=== PATIENT | female | born 1950 | race Caucasian/White ===

== ENCOUNTER 2016-03-26 10:46 | Outpatient (RCR) | payer MEDICARE, OTHER ==
--- OUTSIDE RECORDS SUMMARY | 2016-01-30 09:57 | XMS REPORT | Continuity of Care Document ---
Author Author [facility] Organization [facility] Address Unknown Phone Unavailable Care Team Providers Care Manager Quality Improvement Name Role Phone Christopher Isidro PCP [phone] Source Comments Some departments are not documenting in the electronic medical record. If you do not see the information that you expected, contact Release of Information in the Health Information Management department at [phone] for further assistance in locating additional records.[facility] Active Allergies and Adverse Reactions Allergen Noted Date Severity Reactions Comments Toradol 12/23/2010 Medium ITCHING Current Medications Prescription Sig. Disp. Refills Start End Date Status Date paroxetine (PAXIL) 20 mg Take 20 mg by mouth Active PO tablet daily. cyanocobalamin(+) Take 500 mcg by mouth Active (VITAMIN B-12) 500 mcg daily. tablet omeprazole DR(+) Take 20 mg by mouth every Active (PRILOSEC) 20 mg capsule morning. lovastatin(+) (MEVACOR) Take 10 mg by mouth at Active 10 mg tablet bedtime daily. levothyroxine (SYNTHROID) Take 50 mcg by mouth Active 50 mcg tablet daily. Fish Oil-[place]-3 Fatty Take 1 Cap by mouth Active Acids (FISH OIL) daily. 360-1,200 mg cap senna/docusate Take 2 Tabs by mouth 50 Tab 0 01/05/20 Active (SENOKOT-S) 8.6/50 mg twice daily. 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 Aiken is a 60 year old woman who developed anemia and abdominal pain. She was found to have an obstructing lesion in her sigmoid colon by colonoscopy done 07/25/10, adenocarcinoma by biopsy, and her liver was normal on a CT done 07/24/10, even retrospectively. 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 PET scan on August 26 surprisingly showed a single lesion in the right liver lobe, which was adenocarcinoma on percutaneous biopsy (09/04). She was started on Folfox and Avastin for four cycles and then Folfox alone for two cycles. The last cycle was this past Wednesday. Her CEA was never elevated. A follow-up PET done on 10/30/10 was reported to show resolution of the previously noted hypermetabolic lesion. She came in today to be set up for surgery. Cancer of sigmoid colon (HCC) 07/25/2010 Overview: Ms. Aiken is a 60 year old woman who developed anemia and abdominal pain. She was found to have an obstructing lesion in her sigmoid colon by colonoscopy done 07/25/10, adenocarcinoma by biopsy, and her liver was normal on a CT done 07/24/10, even retrospectively. 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 PET scan on August 26 surprisingly showed a single lesion in the right liver lobe, which was adenocarcinoma on percutaneous biopsy (09/04). Social History Tobacco Use Types Packs/Day Years Used Date Never Smoker Smokeless Tobacco: Never Used Alcohol Use Drinks/Week oz/Week Comments No Did used to have a beer now and then Last Filed Vital Signs Vital Sign Reading Time Taken Blood Pressure 122/78 01/18/2014 10:27 AM CDT Pulse 84 01/18/2014 10:27 AM CDT Temperature 36.4 C (97.5 F) 01/04/2014 8:05 AM CDT Respiratory Rate - - Height 1.676 m (5' 6") 01/18/2014 10:27 AM CDT Weight 73.936 kg (163 lb) 01/18/2014 10:27 AM CDT Body Mass Index 26.32 01/18/2014 10:27 AM CDT Oxygen Saturation 98% 01/18/2014 10:27 AM CDT Plan of Care Health Maintenance Due Date Last Done Comments Hepatitis C Screening 1950 Physical (Comprehensive) 1959 Exam Pertussis Vaccine 1963 Tetanus Vaccine 1969 Breast Cancer Screening 1992 Colorectal Cancer 2002 Screening Shingles Vaccine 2012 Cervical Cancer Screening 03/30/2015 03/30/2012 Influenza Vaccine 12/19/2015 Results from Last 3 Months Not on file
[2016-01-30 10:24] LABS: BASOPHILS # (AUTO) 0.1 10^3/uL (0.0-0.1); BASOPHILS % (AUTO) 2 % (0-10); EOSINOPHILS # (AUTO) 0.3 10^3/uL (0.0-0.3); EOSINOPHILS % (AUTO) 7 % (0-10); LYMPHOCYTES # (AUTO) 0.9 X 10^3 (1.0-4.0); LYMPHOCYTES % (AUTO) 21 % (12-44); MEAN CORPUSCULAR HEMOGLOBIN 30 PG (25-34); MEAN CORPUSCULAR HGB CONC 33 G/DL (32-36); MEAN CORPUSCULAR VOLUME 91 FL (80-99); MEAN PLATELET VOLUME 10.7 FL (7.4-10.4); MONOCYTES # (AUTO) 0.5 X 10^3 (0.0-1.0); MONOCYTES % (AUTO) 11 % (0-12); NEUTROPHILS # (AUTO) 2.6 X 10^3 (1.8-7.8); NEUTROPHILS % (AUTO) 59 % (42-75); PLATELET COUNT 279 10^3/uL (130-400); RED BLOOD COUNT 4.12 10^6/uL (4.35-5.85); RED CELL DISTRIBUTION WIDTH 14.7 % (10.0-14.5); WHITE BLOOD COUNT 4.4 10^3/uL (4.3-11.0)
[2016-01-30 11:01] LABS: ALANINE AMINOTRANSFERASE 33 U/L (0-55); ALBUMIN 4.1 G/DL (3.2-4.5); ANION GAP 8 MMOL/L (5-14); ASPARTATE AMINO TRANSFERASE 24 U/L (5-34); BILIRUBIN,TOTAL 0.7 MG/DL (0.1-1.0); BLOOD UREA NITROGEN 11 MG/DL (7-18); BUN/CREATININE RATIO 16; CALCIUM 9.4 MG/DL (8.5-10.1); CARBON DIOXIDE 26 MMOL/L (21-32); CHLORIDE 107 MMOL/L (98-107); GFR ESTIMATED > 60; GLUCOSE 87 MG/DL (70-105); POTASSIUM 3.8 MMOL/L (3.6-5.0); SODIUM 141 MMOL/L (135-145); TOTAL PROTEIN 6.7 G/DL (6.4-8.2)
[~2016-03-26 10:46] MED LIST: ACHD5005 PO; DIAZ5TAB49 PO; FLU TRIvalent (5 YOA+) 2016-17 (CANCER CTR) 0.5 ML IM ONE; FOLI0.4T2 PO; HYDR-3812 PO; LEVO500T78 PO; LEVO50TA6 PO; LOVA10TA PO; METR500T PO; MULT-875; OMEG300C3 PO; OMEP20TA7 PO; OMEP40CA36 PO; OXYC10TA63; PARO20TA57 PO
[2016-03-26 11:03] LABS: BASOPHILS # (AUTO) 0.1 10^3/uL (0.0-0.1); BASOPHILS % (AUTO) 2 % (0-10); EOSINOPHILS # (AUTO) 0.3 10^3/uL (0.0-0.3); EOSINOPHILS % (AUTO) 5 % (0-10); LYMPHOCYTES # (AUTO) 1.3 X 10^3 (1.0-4.0); LYMPHOCYTES % (AUTO) 29 % (12-44); MEAN CORPUSCULAR HEMOGLOBIN 30 PG (25-34); MEAN CORPUSCULAR HGB CONC 34 G/DL (32-36); MEAN CORPUSCULAR VOLUME 89 FL (80-99); MEAN PLATELET VOLUME 10.7 FL (7.4-10.4); MONOCYTES # (AUTO) 0.5 X 10^3 (0.0-1.0); MONOCYTES % (AUTO) 10 % (0-12); NEUTROPHILS # (AUTO) 2.5 X 10^3 (1.8-7.8); NEUTROPHILS % (AUTO) 54 % (42-75); PLATELET COUNT 320 10^3/uL (130-400); RED BLOOD COUNT 4.18 10^6/uL (4.35-5.85); RED CELL DISTRIBUTION WIDTH 14.2 % (10.0-14.5); WHITE BLOOD COUNT 4.6 10^3/uL (4.3-11.0)
[2016-03-26 11:49] LABS: ALANINE AMINOTRANSFERASE 12 U/L (0-55); ALBUMIN 4.3 G/DL (3.2-4.5); ANION GAP 9 MMOL/L (5-14); ASPARTATE AMINO TRANSFERASE 17 U/L (5-34); BILIRUBIN,TOTAL 0.6 MG/DL (0.1-1.0); BLOOD UREA NITROGEN 14 MG/DL (7-18); BUN/CREATININE RATIO 20; CALCIUM 9.7 MG/DL (8.5-10.1); CARBON DIOXIDE 22 MMOL/L (21-32); CHLORIDE 107 MMOL/L (98-107); GFR ESTIMATED > 60; GLUCOSE 98 MG/DL (70-105); POTASSIUM 3.9 MMOL/L (3.6-5.0); SODIUM 138 MMOL/L (135-145); TOTAL PROTEIN 6.8 G/DL (6.4-8.2)
== END 2016-04-29 | disposition home or self-care (01) ==
LOC: ONC 10:46
PROVIDERS: ATTEND Internal Medicine Hematology & Oncology
DX: C79.89 Secondary malignant neoplasm of other specified sites (principal); Z85.038 Personal history of other malignant neoplasm of large intestine; Z23 Encounter for immunization
CPT/HCPCS: 36591; 80053; 82378; 85025; 90471; 99213

== ENCOUNTER → 2016-06-15 | Outpatient (CLI) | payer MEDICARE, OTHER ==
[~2016-06-15] MED LIST changes: -FLU TRIvalent (5 YOA+) 2016-17 (CANCER CTR) 0.5 ML IM ONE
--- OUTSIDE RECORDS SUMMARY | 2016-06-15 10:01 | XMS REPORT | Continuity of Care Document ---
Author Author [facility] Organization [facility] Address Unknown Phone Unavailable Care Team Providers Care Liability Claims Manager Name Role Phone Christopher Isidro PCP [phone] Source Comments Some departments are not documenting in the electronic medical record. If you do not see the information that you expected, contact Release of Information in the Health Information Management department at [phone] for further assistance in locating additional records.[facility] Active Allergies and Adverse Reactions Allergen Noted [...] Taken Blood Pressure 140/86 03/19/2016 10:35 AM HYDROMETER CALIBRATOR Pulse 95 03/19/2016 10:35 AM HYDROMETER CALIBRATOR Temperature 36.7 C (98 F) 03/19/2016 10:35 AM HYDROMETER CALIBRATOR Respiratory Rate - - Height 1.651 m (5' 5") 03/19/2016 10:35 AM HYDROMETER CALIBRATOR Weight 68.675 kg (151 lb 6.4 oz) 03/19/2016 10:35 AM HYDROMETER CALIBRATOR Body Mass Index 25.19 03/19/2016 10:35 AM HYDROMETER CALIBRATOR Oxygen Saturation 92% 03/19/2016 10:35 AM HYDROMETER CALIBRATOR Plan of Care Health Maintenance Due Date Last Done Comments Hepatitis C Screening 1950 Physical (Comprehensive) 1959 Exam Pertussis Vaccine 1963 Tetanus Vaccine 1969 Breast Cancer Screening 1992 Colorectal Cancer 2002 Screening Shingles Vaccine 2012 Cervical Cancer Screening 03/30/2015 03/30/2012 Influenza Vaccine 12/19/2015 Results from Last 3 Months Not on file
[2016-06-15 17:16] LABS: BILIRUBIN,DIRECT 0.2 MG/DL (0.0-0.3)
[2016-06-15 17:36] LABS: THYROID STIMULATING HORMONE 1.52 UIU/ML (0.35-4.94)
== END ==
LOC: LAB 09:58
PROVIDERS: ATTEND Family Medicine
DX: Z00.00 Encounter for general adult medical examination without abnormal findings (principal); E78.5 Hyperlipidemia, unspecified
CPT/HCPCS: 36415; 80061; 82248; 84439; 84443

== ENCOUNTER → 2016-06-23 | Outpatient (CLI) | payer MEDICARE, OTHER ==
--- OUTSIDE RECORDS SUMMARY | 2016-06-23 07:59 | XMS REPORT | Continuity of Care Document ---
Author Author [facility] Organization [facility] Address Unknown Phone Unavailable Care Team Providers Care Content Curator Name Role Phone Christopher Isidro PCP [phone] Source Comments Some departments are not documenting in the electronic medical record. If you do not see the information that you expected, contact Release of Information in the Health Information Management department at [phone] for further assistance in locating additional records.[facility] Active Allergies and Adverse Reactions Allergen Noted [...] Taken Blood Pressure 140/86 03/19/2016 10:35 AM KINDERGARTEN AIDE Pulse 95 03/19/2016 10:35 AM KINDERGARTEN AIDE Temperature 36.7 C (98 F) 03/19/2016 10:35 AM KINDERGARTEN AIDE Respiratory Rate - - Height 1.651 m (5' 5") 03/19/2016 10:35 AM KINDERGARTEN AIDE Weight 68.675 kg (151 lb 6.4 oz) 03/19/2016 10:35 AM KINDERGARTEN AIDE Body Mass Index 25.19 03/19/2016 10:35 AM KINDERGARTEN AIDE Oxygen Saturation 92% 03/19/2016 10:35 AM KINDERGARTEN AIDE Plan of Care Health Maintenance Due Date Last Done Comments Hepatitis C Screening 1952 Physical (Comprehensive) 1959 Exam Pertussis Vaccine 1963 Tetanus Vaccine 1969 Breast Cancer Screening 1992 Colorectal Cancer 2002 Screening Shingles Vaccine 2012 Cervical Cancer Screening 03/30/2015 03/30/2012 Influenza Vaccine 12/19/2015 Results from Last 3 Months Not on file
--- NOTE | 2016-06-24 08:46 | Diagnostic Imaging Report ---
EXAMINATION: PET/CT INDICATION: Carcinoma TECHNIQUE: PET/CT imaging was obtained from the base of the skull through the pelvis after the administration of 14.26 mCi of F-[address] imaging was utilized for localization and attenuation correction purposes. The low energy CT utilized for attenuation correction is not considered to be of high enough spatial resolution to allow in and of itself a separate anatomical analysis. The previous PET/CT exam performed on 12/17/15 noted mild hypermetabolism and associated soft tissue thickening along the medial aspect of the right rectus abdominis muscle just superior to level of the umbilicus. In the interval since the previous exam it appears the patient has undergone a surgical procedure in this region as there is now distortion of the subcutaneous fat and musculature. On this study however there still appears to be a small focus of slightly increased hypermetabolic activity (maximum SUV 4.2) along the posterior aspect of the abdominus rectus muscle just to the right of midline. This finding is worrisome for residual neoplasm. In addition, roughly 10-11 cm caudal to this there is another focus of increased activity along the posterior margin of the rectus abdominis muscle near midline (image 76 of [phone]). This has a maximum SUV of 6.7. There is another small 1-1.5 CM hypermetabolic focus in the region of the right iliac chain with a maximum SUV of 7.2 and a similar appearing but slightly smaller area of increased activity in the left iliac chain with a maximum SUV of 7.8. All of these three findings are also most likely due to neoplastic disease. The previous exam did note hypermetabolism of the cecum. That finding is not quite as prominent on this study and is more likely due to physiologic than to neoplasm. There is no other hypermetabolic activity identified to suggest the presence of neoplasm. The CT images do show an area of increased density in the right suprahilar region. This finding is not hypermetabolic and seems unchanged when compared to the previous study. This may be secondary to scar formation and/or fibrosis. IMPRESSION: 1. In the interval since the previous exam there has been a surgical procedure involving the anterior abdominal wall in the region of the previously described hypermetabolic focus. However there still appears to be a small amount of residual neoplasm in this area. Furthermore, three new areas of abnormal hypermetabolic activity have developed in the interval since the prior exam. These are located in the anterior abdominal wall approximately 10-11 CM caudal to the surgical site and on each side of the iliac chains. The findings should be considered neoplastic until proven otherwise. 2. There is no other hypermetabolic activity to suggest presence of neoplasm. Dictated by: Dictated on workstation # [id number]
== END ==
LOC: RAD 07:55
PROVIDERS: ATTEND Internal Medicine Hematology & Oncology
DX: R97.0 Elevated carcinoembryonic antigen [CEA] (principal); C18.7 Malignant neoplasm of sigmoid colon; C78.01 Secondary malignant neoplasm of right lung; C79.60 Secondary malignant neoplasm of unspecified ovary; C78.7 Secondary malignant neoplasm of liver and intrahepatic bile duct

== ENCOUNTER 2016-09-07 08:36 | Outpatient (RCR) | payer MEDICARE, OTHER ==
--- OUTSIDE RECORDS SUMMARY | 2016-06-15 09:37 | XMS REPORT | Continuity of Care Document ---
Author Author [facility] Organization [facility] Address Unknown Phone Unavailable Care Team Providers Care Transmissions Systems Operator Name Role Phone Christopher Isidro PCP [phone] Source Comments Some departments are not documenting in the electronic medical record. If you do not see the information that you expected, contact Release of Information in the Health Information Management department at [phone] for further assistance in locating additional records.[facility] Active Allergies and Adverse Reactions Allergen Noted Date Severity Reactions Comments Toradol 12/23/2010 Medium ITCHING Current Medications Prescription Sig. Disp. Refills Start End Date Status Date paroxetine (PAXIL) 20 mg Take 20 mg by mouth daily Active PO tablet with lunch. omeprazole DR(+) Take 20 mg by mouth daily Active (PRILOSEC) 20 mg capsule with lunch. lovastatin(+) (MEVACOR) Take 10 mg by mouth at Active 10 mg tablet bedtime daily. levothyroxine (SYNTHROID) Take 50 mcg by mouth Active 50 mcg tablet daily. oxyCODONE (ROXICODONE, Take 1-2 Tabs by mouth 40 Tab 0 02/27/20 Active OXY-IR) 5 mg tablet every 6 hours as needed 16 for Pain Earliest Fill Date: 02/27/16 Active Problems Problem Noted Date Colon carcinoma [...] which was adenocarcinoma on percutaneous biopsy (09/04). Most Recent Encounters Date Type Specialty Providers Description 03/19/2016 Office Visit Oncology Uche Carlson MD Cancer of sigmoid colon (HCC) (Primary Dx) Social History Tobacco Use Types Packs/Day Years Used Date Never Smoker Smokeless Tobacco: Never Used Tobacco Cessation: Counseling Given: Yes Comments: Alcohol Use Drinks/Week oz/Week Comments No Did used to have a beer now and then Last Filed Vital Signs Vital Sign Reading Time Taken Blood Pressure 140/86 03/19/2016 10:35 AM MASTER MECHANIC Pulse 95 03/19/2016 10:35 AM MASTER MECHANIC Temperature 36.7 C (98 F) 03/19/2016 10:35 AM MASTER MECHANIC Respiratory Rate - - Height 1.651 m (5' 5") 03/19/2016 10:35 AM MASTER MECHANIC Weight 68.675 kg (151 lb 6.4 oz) 03/19/2016 10:35 AM MASTER MECHANIC Body Mass Index 25.19 03/19/2016 10:35 AM MASTER MECHANIC Oxygen Saturation 92% 03/19/2016 10:35 AM MASTER MECHANIC Plan of Care Health Maintenance Due Date Last Done Comments Hepatitis C Screening 1950 Physical (Comprehensive) 1959 Exam Pertussis Vaccine 1963 Tetanus Vaccine 1969 Breast Cancer Screening 1992 Colorectal Cancer 2002 Screening Shingles Vaccine 2012 Cervical Cancer Screening 03/30/2015 03/30/2012 Influenza Vaccine 12/19/2015 Results from Last 3 Months Not on file
[2016-06-15 10:18] LABS: BASOPHILS # (AUTO) 0.1 10^3/uL (0.0-0.1); BASOPHILS % (AUTO) 2 % (0-10); EOSINOPHILS # (AUTO) 0.2 10^3/uL (0.0-0.3); EOSINOPHILS % (AUTO) 6 % (0-10); LYMPHOCYTES % (AUTO) 31 % (12-44); MEAN CORPUSCULAR HEMOGLOBIN 31 PG (25-34); MEAN CORPUSCULAR HGB CONC 34 G/DL (32-36); MEAN CORPUSCULAR VOLUME 91 FL (80-99); MEAN PLATELET VOLUME 10.4 FL (7.4-10.4); MONOCYTES # (AUTO) 0.3 X 10^3 (0.0-1.0); MONOCYTES % (AUTO) 11 % (0-12); NEUTROPHILS # (AUTO) 1.6 X 10^3 (1.8-7.8); NEUTROPHILS % (AUTO) 51 % (42-75); PLATELET COUNT 296 10^3/uL (130-400); RED BLOOD COUNT 4.09 10^6/uL (4.35-5.85); RED CELL DISTRIBUTION WIDTH 14.8 % (10.0-14.5); WHITE BLOOD COUNT 3.1 10^3/uL (4.3-11.0)
[2016-06-15 10:48] LABS: ALANINE AMINOTRANSFERASE 16 U/L (0-55); ALBUMIN 4.1 G/DL (3.2-4.5); ANION GAP 7 MMOL/L (5-14); ASPARTATE AMINO TRANSFERASE 17 U/L (5-34); BILIRUBIN,TOTAL 0.6 MG/DL (0.1-1.0); BLOOD UREA NITROGEN 11 MG/DL (7-18); BUN/CREATININE RATIO 14; CALCIUM 9.2 MG/DL (8.5-10.1); CARBON DIOXIDE 25 MMOL/L (21-32); CHLORIDE 109 MMOL/L (98-107); GFR ESTIMATED > 60; GLUCOSE 85 MG/DL (70-105); SODIUM 141 MMOL/L (135-145); TOTAL PROTEIN 6.5 G/DL (6.4-8.2)
[2016-06-30 09:02] LABS: BASOPHILS % (AUTO) 3 % (0-10); EOSINOPHILS % (AUTO) 4 % (0-10); LYMPHOCYTES % (AUTO) 25 % (12-44); MEAN CORPUSCULAR HEMOGLOBIN 31 PG (25-34); MEAN CORPUSCULAR HGB CONC 34 G/DL (32-36); MEAN CORPUSCULAR VOLUME 91 FL (80-99); MEAN PLATELET VOLUME 10.7 FL (7.4-10.4); MONOCYTES % (AUTO) 11 % (0-12); NEUTROPHILS % (AUTO) 58 % (42-75); PLATELET COUNT 281 10^3/uL (130-400); RED BLOOD COUNT 4.08 10^6/uL (4.35-5.85); RED CELL DISTRIBUTION WIDTH 14.4 % (10.0-14.5); WHITE BLOOD COUNT 4.3 10^3/uL (4.3-11.0)
[2016-06-30 09:03] LABS: BASOPHILS # (AUTO) 0.1 10^3/uL (0.0-0.1); EOSINOPHILS # (AUTO) 0.2 10^3/uL (0.0-0.3); LYMPHOCYTES # (AUTO) 1.1 X 10^3 (1.0-4.0); MONOCYTES # (AUTO) 0.5 X 10^3 (0.0-1.0); NEUTROPHILS # (AUTO) 2.5 X 10^3 (1.8-7.8)
[2016-06-30 09:46] LABS: ALANINE AMINOTRANSFERASE 13 U/L (0-55); ALBUMIN 4.2 G/DL (3.2-4.5); ANION GAP 8 MMOL/L (5-14); ASPARTATE AMINO TRANSFERASE 16 U/L (5-34); BILIRUBIN,TOTAL 0.6 MG/DL (0.1-1.0); BLOOD UREA NITROGEN 10 MG/DL (7-18); BUN/CREATININE RATIO 12; CALCIUM 9.3 MG/DL (8.5-10.1); CARBON DIOXIDE 24 MMOL/L (21-32); CHLORIDE 107 MMOL/L (98-107); CREATININE SERUM 0.81 MG/DL (0.60-1.30); GFR ESTIMATED > 60; GLUCOSE 94 MG/DL (70-105); POTASSIUM 3.9 MMOL/L (3.6-5.0); SODIUM 139 MMOL/L (135-145); TOTAL PROTEIN 6.8 G/DL (6.4-8.2)
[2016-07-08 10:00] LABS: BASOPHILS # (AUTO) 0.1 10^3/uL (0.0-0.1); BASOPHILS % (AUTO) 2 % (0-10); EOSINOPHILS # (AUTO) 0.4 10^3/uL (0.0-0.3); EOSINOPHILS % (AUTO) 8 % (0-10); LYMPHOCYTES # (AUTO) 1.3 X 10^3 (1.0-4.0); LYMPHOCYTES % (AUTO) 24 % (12-44); MEAN CORPUSCULAR HEMOGLOBIN 30 PG (25-34); MEAN CORPUSCULAR HGB CONC 34 G/DL (32-36); MEAN CORPUSCULAR VOLUME 91 FL (80-99); MEAN PLATELET VOLUME 10.5 FL (7.4-10.4); MONOCYTES # (AUTO) 0.6 X 10^3 (0.0-1.0); MONOCYTES % (AUTO) 12 % (0-12); NEUTROPHILS # (AUTO) 2.9 X 10^3 (1.8-7.8); NEUTROPHILS % (AUTO) 55 % (42-75); PLATELET COUNT 267 10^3/uL (130-400); RED BLOOD COUNT 4.04 10^6/uL (4.35-5.85); RED CELL DISTRIBUTION WIDTH 14.1 % (10.0-14.5); WHITE BLOOD COUNT 5.3 10^3/uL (4.3-11.0)
[2016-07-08 10:38] LABS: ANION GAP 6 MMOL/L (5-14); BLOOD UREA NITROGEN 12 MG/DL (7-18); BUN/CREATININE RATIO 16; CALCIUM 9.3 MG/DL (8.5-10.1); CARBON DIOXIDE 28 MMOL/L (21-32); CHLORIDE 107 MMOL/L (98-107); CREATININE SERUM 0.76 MG/DL (0.60-1.30); GFR ESTIMATED > 60; GLUCOSE 89 MG/DL (70-105); POTASSIUM 4.3 MMOL/L (3.6-5.0); SODIUM 141 MMOL/L (135-145)
[2016-07-15 08:55] LABS: BASOPHILS # (AUTO) 0.1 10^3/uL (0.0-0.1); BASOPHILS % (AUTO) 4 % (0-10); EOSINOPHILS # (AUTO) 0.2 10^3/uL (0.0-0.3); EOSINOPHILS % (AUTO) 6 % (0-10); LYMPHOCYTES % (AUTO) 27 % (12-44); MEAN CORPUSCULAR HEMOGLOBIN 31 PG (25-34); MEAN CORPUSCULAR HGB CONC 34 G/DL (32-36); MEAN CORPUSCULAR VOLUME 90 FL (80-99); MEAN PLATELET VOLUME 10.7 FL (7.4-10.4); MONOCYTES # (AUTO) 0.6 X 10^3 (0.0-1.0); MONOCYTES % (AUTO) 15 % (0-12); NEUTROPHILS # (AUTO) 1.7 X 10^3 (1.8-7.8); NEUTROPHILS % (AUTO) 47 % (42-75); PLATELET COUNT 267 10^3/uL (130-400); RED BLOOD COUNT 4.02 10^6/uL (4.35-5.85); RED CELL DISTRIBUTION WIDTH 14.7 % (10.0-14.5); WHITE BLOOD COUNT 3.6 10^3/uL (4.3-11.0)
[2016-07-15 09:26] LABS: ALANINE AMINOTRANSFERASE 22 U/L (0-55); ALBUMIN 4.2 G/DL (3.2-4.5); ANION GAP 8 MMOL/L (5-14); ASPARTATE AMINO TRANSFERASE 22 U/L (5-34); BILIRUBIN,TOTAL 0.7 MG/DL (0.1-1.0); BLOOD UREA NITROGEN 10 MG/DL (7-18); BUN/CREATININE RATIO 13; CALCIUM 9.1 MG/DL (8.5-10.1); CARBON DIOXIDE 26 MMOL/L (21-32); CHLORIDE 107 MMOL/L (98-107); CREATININE SERUM 0.77 MG/DL (0.60-1.30); GFR ESTIMATED > 60; GLUCOSE 93 MG/DL (70-105); MAGNESIUM 2.2 MG/DL (1.8-2.4); SODIUM 141 MMOL/L (135-145); TOTAL PROTEIN 6.9 G/DL (6.4-8.2)
[2016-07-22 09:44] LABS: BASOPHILS # (AUTO) 0.1 10^3/uL (0.0-0.1); BASOPHILS % (AUTO) 3 % (0-10); EOSINOPHILS # (AUTO) 0.6 10^3/uL (0.0-0.3); EOSINOPHILS % (AUTO) 14 % (0-10); LYMPHOCYTES # (AUTO) 1.7 X 10^3 (1.0-4.0); LYMPHOCYTES % (AUTO) 39 % (12-44); MEAN CORPUSCULAR HEMOGLOBIN 31 PG (25-34); MEAN CORPUSCULAR HGB CONC 34 G/DL (32-36); MEAN CORPUSCULAR VOLUME 91 FL (80-99); MONOCYTES # (AUTO) 0.6 X 10^3 (0.0-1.0); MONOCYTES % (AUTO) 14 % (0-12); NEUTROPHILS # (AUTO) 1.4 X 10^3 (1.8-7.8); NEUTROPHILS % (AUTO) 31 % (42-75); PLATELET COUNT 237 10^3/uL (130-400); RED BLOOD COUNT 3.88 10^6/uL (4.35-5.85); RED CELL DISTRIBUTION WIDTH 14.3 % (10.0-14.5); WHITE BLOOD COUNT 4.4 10^3/uL (4.3-11.0)
[2016-07-22 10:05] LABS: ANION GAP 8 MMOL/L (5-14); BLOOD UREA NITROGEN 13 MG/DL (7-18); BUN/CREATININE RATIO 18; CARBON DIOXIDE 25 MMOL/L (21-32); CHLORIDE 107 MMOL/L (98-107); CREATININE SERUM 0.71 MG/DL (0.60-1.30); GFR ESTIMATED > 60; GLUCOSE 86 MG/DL (70-105); POTASSIUM 4.1 MMOL/L (3.6-5.0); SODIUM 140 MMOL/L (135-145)
[2016-07-28 10:11] LABS: BASOPHILS # (AUTO) 0.1 10^3/uL (0.0-0.1); BASOPHILS % (AUTO) 3 % (0-10); EOSINOPHILS # (AUTO) 0.2 10^3/uL (0.0-0.3); EOSINOPHILS % (AUTO) 5 % (0-10); LYMPHOCYTES # (AUTO) 0.9 X 10^3 (1.0-4.0); LYMPHOCYTES % (AUTO) 26 % (12-44); MEAN CORPUSCULAR HEMOGLOBIN 31 PG (25-34); MEAN CORPUSCULAR HGB CONC 34 G/DL (32-36); MEAN CORPUSCULAR VOLUME 91 FL (80-99); MEAN PLATELET VOLUME 10.6 FL (7.4-10.4); MONOCYTES # (AUTO) 0.6 X 10^3 (0.0-1.0); MONOCYTES % (AUTO) 17 % (0-12); NEUTROPHILS # (AUTO) 1.8 X 10^3 (1.8-7.8); NEUTROPHILS % (AUTO) 50 % (42-75); PLATELET COUNT 230 10^3/uL (130-400); RED BLOOD COUNT 4.02 10^6/uL (4.35-5.85); RED CELL DISTRIBUTION WIDTH 15.1 % (10.0-14.5); WHITE BLOOD COUNT 3.6 10^3/uL (4.3-11.0)
[2016-07-28 10:21] LABS: BILIRUBIN,URINE NEGATIVE (NEGATIVE); KETONES,URINE NEGATIVE (NEGATIVE); LEUKOCYTE ESTERASE ,URINE NEGATIVE (NEGATIVE); NITRITE,URINE NEGATIVE (NEGATIVE); PH,URINE 6.5 (5-9); PROTEIN,URINE NEGATIVE (NEGATIVE); UROBILINOGEN,URINE NORMAL (NORMAL)
[2016-07-28 10:49] LABS: ALANINE AMINOTRANSFERASE 38 U/L (0-55); ALBUMIN 4.3 G/DL (3.2-4.5); ANION GAP 13 MMOL/L (5-14); ASPARTATE AMINO TRANSFERASE 28 U/L (5-34); BILIRUBIN,TOTAL 0.8 MG/DL (0.1-1.0); BLOOD UREA NITROGEN 12 MG/DL (7-18); BUN/CREATININE RATIO 15; CALCIUM 9.3 MG/DL (8.5-10.1); CARBON DIOXIDE 20 MMOL/L (21-32); CHLORIDE 107 MMOL/L (98-107); CREATININE SERUM 0.78 MG/DL (0.60-1.30); GFR ESTIMATED > 60; GLUCOSE 95 MG/DL (70-105); MAGNESIUM 2.3 MG/DL (1.8-2.4); POTASSIUM 3.8 MMOL/L (3.6-5.0); SODIUM 140 MMOL/L (135-145)
[2016-08-03 09:55] LABS: BASOPHILS # (AUTO) 0.1 10^3/uL (0.0-0.1); BASOPHILS % (AUTO) 2 % (0-10); EOSINOPHILS # (AUTO) 0.3 10^3/uL (0.0-0.3); EOSINOPHILS % (AUTO) 9 % (0-10); LYMPHOCYTES # (AUTO) 1.1 X 10^3 (1.0-4.0); LYMPHOCYTES % (AUTO) 34 % (12-44); MEAN CORPUSCULAR HEMOGLOBIN 31 PG (25-34); MEAN CORPUSCULAR HGB CONC 34 G/DL (32-36); MEAN CORPUSCULAR VOLUME 91 FL (80-99); MEAN PLATELET VOLUME 10.5 FL (7.4-10.4); MONOCYTES # (AUTO) 0.5 X 10^3 (0.0-1.0); MONOCYTES % (AUTO) 14 % (0-12); NEUTROPHILS # (AUTO) 1.3 X 10^3 (1.8-7.8); NEUTROPHILS % (AUTO) 40 % (42-75); PLATELET COUNT 231 10^3/uL (130-400); RED BLOOD COUNT 3.99 10^6/uL (4.35-5.85); RED CELL DISTRIBUTION WIDTH 14.8 % (10.0-14.5); WHITE BLOOD COUNT 3.3 10^3/uL (4.3-11.0)
[2016-08-03 10:22] LABS: ANION GAP 9 MMOL/L (5-14); BLOOD UREA NITROGEN 11 MG/DL (7-18); BUN/CREATININE RATIO 15; CALCIUM 9.2 MG/DL (8.5-10.1); CARBON DIOXIDE 25 MMOL/L (21-32); CHLORIDE 107 MMOL/L (98-107); CREATININE SERUM 0.72 MG/DL (0.60-1.30); GFR ESTIMATED > 60; GLUCOSE 89 MG/DL (70-105); POTASSIUM 4.3 MMOL/L (3.6-5.0); SODIUM 141 MMOL/L (135-145)
[2016-08-10 10:27] LABS: BASOPHILS # (AUTO) 0.1 10^3/uL (0.0-0.1); BASOPHILS % (AUTO) 2 % (0-10); EOSINOPHILS # (AUTO) 0.1 10^3/uL (0.0-0.3); EOSINOPHILS % (AUTO) 2 % (0-10); LYMPHOCYTES % (AUTO) 25 % (12-44); MEAN CORPUSCULAR HEMOGLOBIN 31 PG (25-34); MEAN CORPUSCULAR HGB CONC 34 G/DL (32-36); MEAN CORPUSCULAR VOLUME 91 FL (80-99); MEAN PLATELET VOLUME 9.5 FL (7.4-10.4); MONOCYTES # (AUTO) 0.6 X 10^3 (0.0-1.0); MONOCYTES % (AUTO) 16 % (0-12); NEUTROPHILS # (AUTO) 2.1 X 10^3 (1.8-7.8); NEUTROPHILS % (AUTO) 55 % (42-75); PLATELET COUNT 224 10^3/uL (130-400); RED BLOOD COUNT 4.05 10^6/uL (4.35-5.85); RED CELL DISTRIBUTION WIDTH 15.5 % (10.0-14.5); WHITE BLOOD COUNT 3.9 10^3/uL (4.3-11.0)
[2016-08-10 10:54] LABS: ALANINE AMINOTRANSFERASE 19 U/L (0-55); ALBUMIN 4.4 G/DL (3.2-4.5); ANION GAP 10 MMOL/L (5-14); ASPARTATE AMINO TRANSFERASE 21 U/L (5-34); BILIRUBIN,TOTAL 0.7 MG/DL (0.1-1.0); BLOOD UREA NITROGEN 11 MG/DL (7-18); BUN/CREATININE RATIO 13; CALCIUM 9.4 MG/DL (8.5-10.1); CARBON DIOXIDE 23 MMOL/L (21-32); CHLORIDE 107 MMOL/L (98-107); CREATININE SERUM 0.82 MG/DL (0.60-1.30); GFR ESTIMATED > 60; GLUCOSE 115 MG/DL (70-105); MAGNESIUM 2.2 MG/DL (1.8-2.4); POTASSIUM 3.8 MMOL/L (3.6-5.0); SODIUM 140 MMOL/L (135-145); TOTAL PROTEIN 7.3 G/DL (6.4-8.2)
[2016-08-17 10:05] LABS: BASOPHILS # (AUTO) 0.1 10^3/uL (0.0-0.1); BASOPHILS % (AUTO) 2 % (0-10); EOSINOPHILS # (AUTO) 0.2 10^3/uL (0.0-0.3); EOSINOPHILS % (AUTO) 6 % (0-10); LYMPHOCYTES % (AUTO) 29 % (12-44); MEAN CORPUSCULAR HEMOGLOBIN 31 PG (25-34); MEAN CORPUSCULAR HGB CONC 34 G/DL (32-36); MEAN CORPUSCULAR VOLUME 90 FL (80-99); MEAN PLATELET VOLUME 9.9 FL (7.4-10.4); MONOCYTES # (AUTO) 0.5 X 10^3 (0.0-1.0); MONOCYTES % (AUTO) 14 % (0-12); NEUTROPHILS # (AUTO) 1.8 X 10^3 (1.8-7.8); NEUTROPHILS % (AUTO) 49 % (42-75); PLATELET COUNT 212 10^3/uL (130-400); RED BLOOD COUNT 4.09 10^6/uL (4.35-5.85); RED CELL DISTRIBUTION WIDTH 14.6 % (10.0-14.5); WHITE BLOOD COUNT 3.6 10^3/uL (4.3-11.0)
[2016-08-17 10:39] LABS: ANION GAP 9 MMOL/L (5-14); BLOOD UREA NITROGEN 11 MG/DL (7-18); BUN/CREATININE RATIO 14; CALCIUM 9.7 MG/DL (8.5-10.1); CARBON DIOXIDE 26 MMOL/L (21-32); CHLORIDE 105 MMOL/L (98-107); CREATININE SERUM 0.76 MG/DL (0.60-1.30); GFR ESTIMATED > 60; GLUCOSE 87 MG/DL (70-105); POTASSIUM 4.5 MMOL/L (3.6-5.0); SODIUM 140 MMOL/L (135-145)
[2016-08-25 08:58] LABS: BASOPHILS # (AUTO) 0.1 10^3/uL (0.0-0.1); BASOPHILS % (AUTO) 2 % (0-10); EOSINOPHILS # (AUTO) 0.1 10^3/uL (0.0-0.3); EOSINOPHILS % (AUTO) 3 % (0-10); LYMPHOCYTES # (AUTO) 0.7 X 10^3 (1.0-4.0); LYMPHOCYTES % (AUTO) 24 % (12-44); MEAN CORPUSCULAR HEMOGLOBIN 31 PG (25-34); MEAN CORPUSCULAR HGB CONC 34 G/DL (32-36); MEAN CORPUSCULAR VOLUME 92 FL (80-99); MEAN PLATELET VOLUME 9.9 FL (7.4-10.4); MONOCYTES # (AUTO) 0.5 X 10^3 (0.0-1.0); MONOCYTES % (AUTO) 18 % (0-12); NEUTROPHILS # (AUTO) 1.5 X 10^3 (1.8-7.8); NEUTROPHILS % (AUTO) 53 % (42-75); PLATELET COUNT 219 10^3/uL (130-400); RED CELL DISTRIBUTION WIDTH 15.3 % (10.0-14.5); WHITE BLOOD COUNT 2.9 10^3/uL (4.3-11.0)
[2016-08-25 09:20] LABS: ALANINE AMINOTRANSFERASE 30 U/L (0-55); ALBUMIN 4.2 G/DL (3.2-4.5); ANION GAP 10 MMOL/L (5-14); ASPARTATE AMINO TRANSFERASE 28 U/L (5-34); BILIRUBIN,TOTAL 0.8 MG/DL (0.1-1.0); BLOOD UREA NITROGEN 10 MG/DL (7-18); BUN/CREATININE RATIO 13; CALCIUM 9.6 MG/DL (8.5-10.1); CARBON DIOXIDE 22 MMOL/L (21-32); CHLORIDE 107 MMOL/L (98-107); CREATININE SERUM 0.79 MG/DL (0.60-1.30); GFR ESTIMATED > 60; GLUCOSE 94 MG/DL (70-105); MAGNESIUM 2.2 MG/DL (1.8-2.4); SODIUM 139 MMOL/L (135-145); TOTAL PROTEIN 6.9 G/DL (6.4-8.2)
[2016-08-25 09:30] LABS: BILIRUBIN,URINE NEGATIVE (NEGATIVE); KETONES,URINE NEGATIVE (NEGATIVE); LEUKOCYTE ESTERASE ,URINE NEGATIVE (NEGATIVE); NITRITE,URINE NEGATIVE (NEGATIVE); PH,URINE 6 (5-9); PROTEIN,URINE NEGATIVE (NEGATIVE); UROBILINOGEN,URINE NORMAL (NORMAL)
[2016-09-01 09:00] LABS: BASOPHILS # (AUTO) 0.1 10^3/uL (0.0-0.1); BASOPHILS % (AUTO) 3 % (0-10); EOSINOPHILS # (AUTO) 0.2 10^3/uL (0.0-0.3); EOSINOPHILS % (AUTO) 6 % (0-10); LYMPHOCYTES # (AUTO) 1.2 X 10^3 (1.0-4.0); LYMPHOCYTES % (AUTO) 36 % (12-44); MEAN CORPUSCULAR HEMOGLOBIN 31 PG (25-34); MEAN CORPUSCULAR HGB CONC 34 G/DL (32-36); MEAN CORPUSCULAR VOLUME 92 FL (80-99); MEAN PLATELET VOLUME 9.7 FL (7.4-10.4); MONOCYTES # (AUTO) 0.4 X 10^3 (0.0-1.0); MONOCYTES % (AUTO) 13 % (0-12); NEUTROPHILS # (AUTO) 1.4 X 10^3 (1.8-7.8); NEUTROPHILS % (AUTO) 42 % (42-75); PLATELET COUNT 222 10^3/uL (130-400); RED BLOOD COUNT 3.78 10^6/uL (4.35-5.85); RED CELL DISTRIBUTION WIDTH 15.3 % (10.0-14.5); WHITE BLOOD COUNT 3.3 10^3/uL (4.3-11.0)
[2016-09-01 09:53] LABS: ANION GAP 6 MMOL/L (5-14); BLOOD UREA NITROGEN 13 MG/DL (7-18); BUN/CREATININE RATIO 17; CALCIUM 9.4 MG/DL (8.5-10.1); CARBON DIOXIDE 26 MMOL/L (21-32); CHLORIDE 108 MMOL/L (98-107); CREATININE SERUM 0.75 MG/DL (0.60-1.30); GFR ESTIMATED > 60; GLUCOSE 92 MG/DL (70-105); SODIUM 140 MMOL/L (135-145)
[2016-09-01 10:00] LABS: POTASSIUM 5.2 MMOL/L (3.6-5.0)
[~2016-09-07] VITALS: Ht 165.1 cm; Wt 71.2 kg
[~2016-09-07 08:36] MED LIST changes: +BEVACIZUMAB IV SCH; +D5W 500 ML IV (CANCER CTR) 500 ML IV SCH; +FAMOTIDINE 20MG/2ML IV (CANCER CTR) IV SCH; +FOSAPREPITANT 150 MG/NS 150 MG IVPB (CANCER CTR) IV PRN; +LEUCOVORIN CALCIUM 600 MG in D5W 250 ML IVPB (CANCER CTR) 250 ML IV SCH; +NS IV SCH; +OXALIPLATIN 100 MG, OXALIPLATIN (GENERIC) 40 MG in D5W 250 ML IVPB (CANCER CTR) 250 ML IV SCH; +PALONOSETRON 0.25 MG, DEXAMETHASONE 10 MG/NS 50 ML IVPB IV PRN
[2016-09-07 09:06] LABS: BASOPHILS # (AUTO) 0.1 10^3/uL (0.0-0.1); BASOPHILS % (AUTO) 3 % (0-10); EOSINOPHILS # (AUTO) 0.1 10^3/uL (0.0-0.3); EOSINOPHILS % (AUTO) 3 % (0-10); LYMPHOCYTES # (AUTO) 0.9 X 10^3 (1.0-4.0); LYMPHOCYTES % (AUTO) 28 % (12-44); MEAN CORPUSCULAR HEMOGLOBIN 31 PG (25-34); MEAN CORPUSCULAR HGB CONC 33 G/DL (32-36); MEAN CORPUSCULAR VOLUME 92 FL (80-99); MEAN PLATELET VOLUME 10.5 FL (7.4-10.4); MONOCYTES # (AUTO) 0.6 X 10^3 (0.0-1.0); MONOCYTES % (AUTO) 17 % (0-12); NEUTROPHILS # (AUTO) 1.6 X 10^3 (1.8-7.8); NEUTROPHILS % (AUTO) 48 % (42-75); PLATELET COUNT 204 10^3/uL (130-400); RED BLOOD COUNT 3.86 10^6/uL (4.35-5.85); RED CELL DISTRIBUTION WIDTH 15.5 % (10.0-14.5); WHITE BLOOD COUNT 3.2 10^3/uL (4.3-11.0)
[2016-09-07 09:30] LABS: ALANINE AMINOTRANSFERASE 26 U/L (0-55); ALBUMIN 4.1 G/DL (3.2-4.5); ANION GAP 9 MMOL/L (5-14); ASPARTATE AMINO TRANSFERASE 23 U/L (5-34); BILIRUBIN,TOTAL 0.7 MG/DL (0.1-1.0); BLOOD UREA NITROGEN 13 MG/DL (7-18); BUN/CREATININE RATIO 19; CALCIUM 9.3 MG/DL (8.5-10.1); CARBON DIOXIDE 22 MMOL/L (21-32); CHLORIDE 109 MMOL/L (98-107); GFR ESTIMATED > 60; GLUCOSE 94 MG/DL (70-105); POTASSIUM 3.8 MMOL/L (3.6-5.0); SODIUM 140 MMOL/L (135-145); TOTAL PROTEIN 6.7 G/DL (6.4-8.2)
[2016-09-07] MEDS ORDERED: OXALIPLATIN 100 MG, OXALIPLATIN (GENERIC) 30 MG in D5W 250 ML IVPB (CANCER CTR) 250 ML IV SCH (09:30)
== END 2016-09-13 | disposition home or self-care (01) ==
LOC: ONC 08:36
PROVIDERS: ATTEND Internal Medicine Hematology & Oncology
DX: Z51.11 Encounter for antineoplastic chemotherapy (principal); C78.7 Secondary malignant neoplasm of liver and intrahepatic bile duct; C79.89 Secondary malignant neoplasm of other specified sites; Z85.038 Personal history of other malignant neoplasm of large intestine; C79.61 Secondary malignant neoplasm of right ovary; C78.01 Secondary malignant neoplasm of right lung; C78.6 Secondary malignant neoplasm of retroperitoneum and peritoneum; C77.5 Secondary and unspecified malignant neoplasm of intrapelvic lymph nodes; E03.9 Hypothyroidism, unspecified; E78.5 Hyperlipidemia, unspecified; F32.9 Major depressive disorder, single episode, unspecified; Z79.899 Other long term (current) drug therapy; Z92.21 Personal history of antineoplastic chemotherapy
CPT/HCPCS: 36415; 36591; 80048; 80053; 81002; 82378; 83735; 85025; 96367; 96368; 96375; 96411; 96413; 96521; 99213

== ENCOUNTER → 2016-09-16 | Outpatient (CLI) | payer MEDICARE ==
[~2016-09-16] MED LIST changes: +BARIUM SUSPENSION 2.1% (VANILLA SILQ) 450 ML PO ONE; -BEVACIZUMAB IV SCH; +CATHETER FLUSH 10 ML SYR IV PRN; -D5W 500 ML IV (CANCER CTR) 500 ML IV SCH; -FAMOTIDINE 20MG/2ML IV (CANCER CTR) IV SCH; -FOSAPREPITANT 150 MG/NS 150 MG IVPB (CANCER CTR) IV PRN; +IOHEXOL 350 MG/ML 100 ML (OMNIPAQUE 350) VIAL IV ONE; -LEUCOVORIN CALCIUM 600 MG in D5W 250 ML IVPB (CANCER CTR) 250 ML IV SCH; +NS 100 ML (IVPB) BAG IV ONE; -NS IV SCH; -OXALIPLATIN 100 MG, OXALIPLATIN (GENERIC) 40 MG in D5W 250 ML IVPB (CANCER CTR) 250 ML IV SCH; -PALONOSETRON 0.25 MG, DEXAMETHASONE 10 MG/NS 50 ML IVPB IV PRN
--- NOTE | 2016-09-16 12:01 | Diagnostic Imaging Report ---
PROCEDURE: CT chest, abdomen, and pelvis with contrast. TECHNIQUE: Multiple contiguous axial images were obtained through the chest, abdomen, and pelvis after the administration of intravenous contrast. INDICATION: Colon cancer. COMPARISON: Correlation is limited to a CT fusion PET performed on 06/30/2013 with limited nonenhanced imaging of the lower abdomen and upper pelvis during biopsy on 01/23/2016. FINDINGS: CT CHEST: Post interventional changes and scarring in the right upper lobe at the apex are present at the site of a previously metabolically active mass. The density today is felt most likely on a post therapeutic basis. No suspicious pulmonary nodule and there is no evidence for thoracic lymphadenopathy. No effusion or pneumothorax. There are no findings of pneumonia. CT ABDOMEN AND PELVIS: Post interventional changes to the right hepatic lobe at the dome posterolaterally are present. This is the site of previous hypermetabolism. An underlying mass or mass effect at that level is not appreciable on CT. The remaining liver parenchyma appears unremarkable. There is no bile duct dilatation. The adrenals are negative. The pancreas is unremarkable. Two simple renal cortical cysts bilaterally show no complexity. The spleen is negative. There is no mesenteric or retroperitoneal lymphadenopathy. There is no bowel, biliary, or urinary tract obstruction. No pneumatosis or free air. There is no evidence for bowel obstruction; however, there is some limited separation of the retroabdominal wall bowel loops at and just above the umbilicus which may reflect some underlying chronic nonobstructive adhesions. The pelvic sidewalls are unremarkable. No destructive or suspicious osseous lesion. Stable bone island in the left supra-acetabulum. IMPRESSION: CT CHEST: Post therapeutic distortion and interventional changes to the right apex. No suspicious lung mass or adenopathy. CT ABDOMEN: Post surgical changes to the right hepatic lobe at the dome without visualized mass. Benign renal cysts. No lymphadenopathy. CT PELVIS: There are some matted bowel loops deep to the post operative abdominal wall without evidence of obstruction. No pelvic ascites, fluid collection, adenopathy, mass, or obstruction. No suspected malignancies are found at today's exam. Dictated by: Dictated on workstation # [id number]
== END ==
LOC: RAD 08:35
PROVIDERS: ATTEND Internal Medicine Hematology & Oncology
DX: C18.7 Malignant neoplasm of sigmoid colon (principal)
CPT/HCPCS: 71260; 74177

== ENCOUNTER → 2016-10-13 | Outpatient (CLI) | payer MEDICARE ==
[~2016-10-13] MED LIST changes: -BARIUM SUSPENSION 2.1% (VANILLA SILQ) 450 ML PO ONE; -CATHETER FLUSH 10 ML SYR IV PRN; -IOHEXOL 350 MG/ML 100 ML (OMNIPAQUE 350) VIAL IV ONE; -NS 100 ML (IVPB) BAG IV ONE
--- NOTE | 2016-10-14 12:11 | Diagnostic Imaging Report ---
EXAMINATION: Bilateral screening mammogram with a Computer Aided Detection (CAD) system. INDICATION: Screening. PERSONAL HISTORY: No current complaints stated on the questionnaire. COMPARISON: 10/10/2015. FINDINGS: The breasts are composed of scattered fibroglandular densities. There are occasional benign-appearing calcifications seen. Allowing for technique and positional differences, no suspicious change is seen. IMPRESSION: No significant change. ACR BI-RADS Category 2: Benign findings. Result letter will be mailed to the patient. Note: At least 10% of breast cancer is not imaged by mammography. Dictated by: Dictated on workstation # [id number]
== END ==
LOC: RAD 08:52
PROVIDERS: ATTEND Family Medicine
DX: Z12.31 Encounter for screening mammogram for malignant neoplasm of breast (principal)
CPT/HCPCS: 77067

== ENCOUNTER → 2016-12-14 | Outpatient (RCR) | payer MEDICARE, OTHER ==
[2016-09-15 10:16] LABS: BASOPHILS # (AUTO) 0.1 10^3/uL (0.0-0.1); BASOPHILS % (AUTO) 2 % (0-10); EOSINOPHILS # (AUTO) 0.2 10^3/uL (0.0-0.3); EOSINOPHILS % (AUTO) 5 % (0-10); LYMPHOCYTES # (AUTO) 1.4 X 10^3 (1.0-4.0); LYMPHOCYTES % (AUTO) 27 % (12-44); MEAN CORPUSCULAR HEMOGLOBIN 32 PG (25-34); MEAN CORPUSCULAR HGB CONC 34 G/DL (32-36); MEAN CORPUSCULAR VOLUME 93 FL (80-99); MEAN PLATELET VOLUME 10.1 FL (7.4-10.4); MONOCYTES # (AUTO) 0.9 X 10^3 (0.0-1.0); MONOCYTES % (AUTO) 17 % (0-12); NEUTROPHILS # (AUTO) 2.5 X 10^3 (1.8-7.8); NEUTROPHILS % (AUTO) 49 % (42-75); PLATELET COUNT 260 10^3/uL (130-400); RED BLOOD COUNT 3.95 10^6/uL (4.35-5.85); RED CELL DISTRIBUTION WIDTH 16.4 % (10.0-14.5); WHITE BLOOD COUNT 5.1 10^3/uL (4.3-11.0)
[2016-09-15 11:10] LABS: ANION GAP 11 MMOL/L (5-14); BLOOD UREA NITROGEN 16 MG/DL (7-18); BUN/CREATININE RATIO 20; CALCIUM 10.1 MG/DL (8.5-10.1); CARBON DIOXIDE 23 MMOL/L (21-32); CHLORIDE 107 MMOL/L (98-107); GFR ESTIMATED > 60; GLUCOSE 93 MG/DL (70-105); SODIUM 141 MMOL/L (135-145)
[2016-09-22 14:12] LABS: BASOPHILS # (AUTO) 0.1 10^3/uL (0.0-0.1); BASOPHILS % (AUTO) 2 % (0-10); EOSINOPHILS # (AUTO) 0.2 10^3/uL (0.0-0.3); EOSINOPHILS % (AUTO) 4 % (0-10); LYMPHOCYTES # (AUTO) 1.2 X 10^3 (1.0-4.0); LYMPHOCYTES % (AUTO) 34 % (12-44); MEAN CORPUSCULAR HEMOGLOBIN 31 PG (25-34); MEAN CORPUSCULAR HGB CONC 34 G/DL (32-36); MEAN CORPUSCULAR VOLUME 92 FL (80-99); MEAN PLATELET VOLUME 10.1 FL (7.4-10.4); MONOCYTES # (AUTO) 0.8 X 10^3 (0.0-1.0); MONOCYTES % (AUTO) 22 % (0-12); NEUTROPHILS # (AUTO) 1.3 X 10^3 (1.8-7.8); NEUTROPHILS % (AUTO) 38 % (42-75); PLATELET COUNT 247 10^3/uL (130-400); RED BLOOD COUNT 3.97 10^6/uL (4.35-5.85); RED CELL DISTRIBUTION WIDTH 16.1 % (10.0-14.5); WHITE BLOOD COUNT 3.6 10^3/uL (4.3-11.0)
[2016-09-22 14:21] LABS: BILIRUBIN,URINE NEGATIVE (NEGATIVE); KETONES,URINE NEGATIVE (NEGATIVE); LEUKOCYTE ESTERASE ,URINE NEGATIVE (NEGATIVE); NITRITE,URINE NEGATIVE (NEGATIVE); PH,URINE 6 (5-9); PROTEIN,URINE NEGATIVE (NEGATIVE); UROBILINOGEN,URINE NORMAL (NORMAL)
[2016-09-22 14:40] LABS: ALANINE AMINOTRANSFERASE 31 U/L (0-55); ALBUMIN 4.3 G/DL (3.2-4.5); ANION GAP 9 MMOL/L (5-14); ASPARTATE AMINO TRANSFERASE 26 U/L (5-34); BILIRUBIN,TOTAL 0.8 MG/DL (0.1-1.0); BLOOD UREA NITROGEN 11 MG/DL (7-18); BUN/CREATININE RATIO 15; CALCIUM 9.7 MG/DL (8.5-10.1); CARBON DIOXIDE 24 MMOL/L (21-32); CHLORIDE 108 MMOL/L (98-107); CREATININE SERUM 0.74 MG/DL (0.60-1.30); GFR ESTIMATED > 60; GLUCOSE 85 MG/DL (70-105); MAGNESIUM 2.1 MG/DL (1.8-2.4); POTASSIUM 3.5 MMOL/L (3.6-5.0); SODIUM 141 MMOL/L (135-145); TOTAL PROTEIN 7.4 G/DL (6.4-8.2)
[2016-09-29 09:32] LABS: BASOPHILS # (AUTO) 0.1 10^3/uL (0.0-0.1); BASOPHILS % (AUTO) 3 % (0-10); EOSINOPHILS # (AUTO) 0.2 10^3/uL (0.0-0.3); EOSINOPHILS % (AUTO) 6 % (0-10); LYMPHOCYTES # (AUTO) 0.9 X 10^3 (1.0-4.0); LYMPHOCYTES % (AUTO) 29 % (12-44); MEAN CORPUSCULAR HEMOGLOBIN 31 PG (25-34); MEAN CORPUSCULAR HGB CONC 33 G/DL (32-36); MEAN CORPUSCULAR VOLUME 94 FL (80-99); MEAN PLATELET VOLUME 10.4 FL (7.4-10.4); MONOCYTES # (AUTO) 0.6 X 10^3 (0.0-1.0); MONOCYTES % (AUTO) 19 % (0-12); NEUTROPHILS # (AUTO) 1.4 X 10^3 (1.8-7.8); NEUTROPHILS % (AUTO) 43 % (42-75); PLATELET COUNT 232 10^3/uL (130-400); RED BLOOD COUNT 4.08 10^6/uL (4.35-5.85); RED CELL DISTRIBUTION WIDTH 15.9 % (10.0-14.5); WHITE BLOOD COUNT 3.2 10^3/uL (4.3-11.0)
[2016-09-29 09:49] LABS: ANION GAP 8 MMOL/L (5-14); BLOOD UREA NITROGEN 15 MG/DL (7-18); BUN/CREATININE RATIO 19 (0-20); CALCIUM 9.5 MG/DL (8.5-10.1); CARBON DIOXIDE 25 MMOL/L (21-32); CHLORIDE 107 MMOL/L (98-107); CREATININE SERUM 0.77 MG/DL (0.60-1.30); GFR ESTIMATED > 60; GLUCOSE 97 MG/DL (70-105); POTASSIUM 4.5 MMOL/L (3.6-5.0); SODIUM 140 MMOL/L (135-145)
[2016-10-06 10:13] LABS: BASOPHILS # (AUTO) 0.1 10^3/uL (0.0-0.1); BASOPHILS % (AUTO) 1 % (0-10); EOSINOPHILS # (AUTO) 0.2 10^3/uL (0.0-0.3); EOSINOPHILS % (AUTO) 3 % (0-10); LYMPHOCYTES % (AUTO) 17 % (12-44); MEAN CORPUSCULAR HEMOGLOBIN 31 PG (25-34); MEAN CORPUSCULAR HGB CONC 33 G/DL (32-36); MEAN CORPUSCULAR VOLUME 94 FL (80-99); MEAN PLATELET VOLUME 10.4 FL (7.4-10.4); MONOCYTES # (AUTO) 0.5 X 10^3 (0.0-1.0); MONOCYTES % (AUTO) 8 % (0-12); NEUTROPHILS # (AUTO) 4.3 X 10^3 (1.8-7.8); NEUTROPHILS % (AUTO) 71 % (42-75); PLATELET COUNT 198 10^3/uL (130-400); RED CELL DISTRIBUTION WIDTH 15.8 % (10.0-14.5); WHITE BLOOD COUNT 6.1 10^3/uL (4.3-11.0)
[2016-10-06 10:31] LABS: ALANINE AMINOTRANSFERASE 27 U/L (0-55); ALBUMIN 4.1 GM/DL (3.2-4.5); ANION GAP 10 MMOL/L (5-14); ASPARTATE AMINO TRANSFERASE 28 U/L (5-34); BILIRUBIN,TOTAL 0.8 MG/DL (0.1-1.0); BLOOD UREA NITROGEN 11 MG/DL (7-18); BUN/CREATININE RATIO 14 (0-20); CALCIUM 9.6 MG/DL (8.5-10.1); CARBON DIOXIDE 24 MMOL/L (21-32); CHLORIDE 108 MMOL/L (98-107); CREATININE SERUM 0.78 MG/DL (0.60-1.30); GFR ESTIMATED > 60; GLUCOSE 97 MG/DL (70-105); HEMOLYSIS 5 (-100-29); ICTERUS 0.9 (-100-1.9); LIPEMIA 2 (-100-49); POTASSIUM 3.8 MMOL/L (3.6-5.0); SODIUM 142 MMOL/L (135-145); TOTAL PROTEIN 7.2 GM/DL (6.4-8.2)
[2016-10-13 09:30] LABS: BASOPHILS # (AUTO) 0.1 10^3/uL (0.0-0.1); BASOPHILS % (AUTO) 3 % (0-10); EOSINOPHILS # (AUTO) 0.2 10^3/uL (0.0-0.3); EOSINOPHILS % (AUTO) 6 % (0-10); LYMPHOCYTES # (AUTO) 0.8 X 10^3 (1.0-4.0); LYMPHOCYTES % (AUTO) 25 % (12-44); MEAN CORPUSCULAR HEMOGLOBIN 31 PG (25-34); MEAN CORPUSCULAR HGB CONC 33 G/DL (32-36); MEAN CORPUSCULAR VOLUME 95 FL (80-99); MEAN PLATELET VOLUME 9.7 FL (7.4-10.4); MONOCYTES # (AUTO) 0.5 X 10^3 (0.0-1.0); MONOCYTES % (AUTO) 14 % (0-12); NEUTROPHILS # (AUTO) 1.7 X 10^3 (1.8-7.8); NEUTROPHILS % (AUTO) 52 % (42-75); PLATELET COUNT 243 10^3/uL (130-400); RED BLOOD COUNT 3.88 10^6/uL (4.35-5.85); RED CELL DISTRIBUTION WIDTH 15.9 % (10.0-14.5); WHITE BLOOD COUNT 3.2 10^3/uL (4.3-11.0)
[2016-10-13 10:06] LABS: ANION GAP 10 MMOL/L (5-14); BLOOD UREA NITROGEN 13 MG/DL (7-18); BUN/CREATININE RATIO 18 (0-20); CALCIUM 9.3 MG/DL (8.5-10.1); CARBON DIOXIDE 23 MMOL/L (21-32); CHLORIDE 106 MMOL/L (98-107); CREATININE SERUM 0.74 MG/DL (0.60-1.30); GFR ESTIMATED > 60; GLUCOSE 92 MG/DL (70-105); HEMOLYSIS 265 (-100-29); ICTERUS 0.1 (-100-1.9); LIPEMIA 31 (-100-49); SODIUM 139 MMOL/L (135-145)
[2016-10-13 10:18] LABS: POTASSIUM 5.3 MMOL/L (3.6-5.0)
[2016-10-21 13:44] LABS: BASOPHILS # (AUTO) 0.1 10^3/uL (0.0-0.1); BASOPHILS % (AUTO) 1 % (0-10); EOSINOPHILS # (AUTO) 0.2 10^3/uL (0.0-0.3); EOSINOPHILS % (AUTO) 4 % (0-10); LYMPHOCYTES # (AUTO) 1.1 X 10^3 (1.0-4.0); LYMPHOCYTES % (AUTO) 25 % (12-44); MEAN CORPUSCULAR HEMOGLOBIN 31 PG (25-34); MEAN CORPUSCULAR HGB CONC 33 G/DL (32-36); MEAN CORPUSCULAR VOLUME 94 FL (80-99); MEAN PLATELET VOLUME 9.6 FL (7.4-10.4); MONOCYTES # (AUTO) 0.4 X 10^3 (0.0-1.0); MONOCYTES % (AUTO) 10 % (0-12); NEUTROPHILS # (AUTO) 2.8 X 10^3 (1.8-7.8); NEUTROPHILS % (AUTO) 61 % (42-75); PLATELET COUNT 248 10^3/uL (130-400); RED BLOOD COUNT 4.11 10^6/uL (4.35-5.85); RED CELL DISTRIBUTION WIDTH 15.8 % (10.0-14.5); WHITE BLOOD COUNT 4.6 10^3/uL (4.3-11.0)
[2016-10-21 14:13] LABS: ALANINE AMINOTRANSFERASE 24 U/L (0-55); ALBUMIN 4.2 GM/DL (3.2-4.5); ANION GAP 8 MMOL/L (5-14); ASPARTATE AMINO TRANSFERASE 21 U/L (5-34); BILIRUBIN,TOTAL 0.7 MG/DL (0.1-1.0); BLOOD UREA NITROGEN 11 MG/DL (7-18); BUN/CREATININE RATIO 14; CALCIUM 9.7 MG/DL (8.5-10.1); CARBON DIOXIDE 25 MMOL/L (21-32); CHLORIDE 106 MMOL/L (98-107); CREATININE SERUM 0.79 MG/DL (0.60-1.30); GFR ESTIMATED > 60; GLUCOSE 149 MG/DL (70-105); POTASSIUM 3.5 MMOL/L (3.6-5.0); SODIUM 139 MMOL/L (135-145); TOTAL PROTEIN 7.3 GM/DL (6.4-8.2)
[2016-10-21 14:42] LABS: BILIRUBIN,URINE NEGATIVE (NEGATIVE); KETONES,URINE NEGATIVE (NEGATIVE); LEUKOCYTE ESTERASE ,URINE NEGATIVE (NEGATIVE); NITRITE,URINE NEGATIVE (NEGATIVE); PH,URINE 6.5 (5-9); PROTEIN,URINE NEGATIVE (NEGATIVE); UROBILINOGEN,URINE NORMAL (NORMAL)
[2016-10-27 10:20] LABS: BASOPHILS # (AUTO) 0.1 10^3/uL (0.0-0.1); BASOPHILS % (AUTO) 2 % (0-10); EOSINOPHILS # (AUTO) 0.2 10^3/uL (0.0-0.3); EOSINOPHILS % (AUTO) 5 % (0-10); LYMPHOCYTES % (AUTO) 26 % (12-44); MEAN CORPUSCULAR HEMOGLOBIN 31 PG (25-34); MEAN CORPUSCULAR HGB CONC 33 G/DL (32-36); MEAN CORPUSCULAR VOLUME 95 FL (80-99); MEAN PLATELET VOLUME 10.5 FL (7.4-10.4); MONOCYTES # (AUTO) 0.5 X 10^3 (0.0-1.0); MONOCYTES % (AUTO) 13 % (0-12); NEUTROPHILS # (AUTO) 2.1 X 10^3 (1.8-7.8); NEUTROPHILS % (AUTO) 56 % (42-75); PLATELET COUNT 260 10^3/uL (130-400); RED BLOOD COUNT 4.12 10^6/uL (4.35-5.85); RED CELL DISTRIBUTION WIDTH 15.8 % (10.0-14.5); WHITE BLOOD COUNT 3.9 10^3/uL (4.3-11.0)
[2016-10-27 10:54] LABS: ANION GAP 9 MMOL/L (5-14); BLOOD UREA NITROGEN 12 MG/DL (7-18); BUN/CREATININE RATIO 16; CALCIUM 9.8 MG/DL (8.5-10.1); CARBON DIOXIDE 25 MMOL/L (21-32); CHLORIDE 106 MMOL/L (98-107); CREATININE SERUM 0.75 MG/DL (0.60-1.30); GFR ESTIMATED > 60; GLUCOSE 89 MG/DL (70-105); POTASSIUM 4.7 MMOL/L (3.6-5.0); SODIUM 140 MMOL/L (135-145)
[2016-11-03 10:21] LABS: BASOPHILS # (AUTO) 0.1 10^3/uL (0.0-0.1); BASOPHILS % (AUTO) 2 % (0-10); EOSINOPHILS # (AUTO) 0.2 10^3/uL (0.0-0.3); EOSINOPHILS % (AUTO) 3 % (0-10); LYMPHOCYTES # (AUTO) 0.9 X 10^3 (1.0-4.0); LYMPHOCYTES % (AUTO) 16 % (12-44); MEAN CORPUSCULAR HEMOGLOBIN 31 PG (25-34); MEAN CORPUSCULAR HGB CONC 33 G/DL (32-36); MEAN CORPUSCULAR VOLUME 94 FL (80-99); MEAN PLATELET VOLUME 10.6 FL (7.4-10.4); MONOCYTES # (AUTO) 0.6 X 10^3 (0.0-1.0); MONOCYTES % (AUTO) 10 % (0-12); NEUTROPHILS # (AUTO) 3.9 X 10^3 (1.8-7.8); NEUTROPHILS % (AUTO) 69 % (42-75); PLATELET COUNT 260 10^3/uL (130-400); RED BLOOD COUNT 3.95 10^6/uL (4.35-5.85); WHITE BLOOD COUNT 5.6 10^3/uL (4.3-11.0)
[2016-11-03 10:36] LABS: ALANINE AMINOTRANSFERASE 26 U/L (0-55); ALBUMIN 4.1 GM/DL (3.2-4.5); ANION GAP 9 MMOL/L (5-14); ASPARTATE AMINO TRANSFERASE 24 U/L (5-34); BILIRUBIN,TOTAL 0.8 MG/DL (0.1-1.0); BLOOD UREA NITROGEN 15 MG/DL (7-18); BUN/CREATININE RATIO 19; CALCIUM 9.5 MG/DL (8.5-10.1); CARBON DIOXIDE 24 MMOL/L (21-32); CHLORIDE 106 MMOL/L (98-107); GFR ESTIMATED > 60; GLUCOSE 110 MG/DL (70-105); SODIUM 139 MMOL/L (135-145); TOTAL PROTEIN 7.1 GM/DL (6.4-8.2)
[2016-11-10 09:24] LABS: BASOPHILS # (AUTO) 0.1 10^3/uL (0.0-0.1); BASOPHILS % (AUTO) 2 % (0-10); EOSINOPHILS # (AUTO) 0.3 10^3/uL (0.0-0.3); EOSINOPHILS % (AUTO) 9 % (0-10); LYMPHOCYTES # (AUTO) 0.9 X 10^3 (1.0-4.0); LYMPHOCYTES % (AUTO) 26 % (12-44); MEAN CORPUSCULAR HEMOGLOBIN 32 PG (25-34); MEAN CORPUSCULAR HGB CONC 33 G/DL (32-36); MEAN CORPUSCULAR VOLUME 95 FL (80-99); MEAN PLATELET VOLUME 9.8 FL (7.4-10.4); MONOCYTES # (AUTO) 0.5 X 10^3 (0.0-1.0); MONOCYTES % (AUTO) 16 % (0-12); NEUTROPHILS # (AUTO) 1.6 X 10^3 (1.8-7.8); NEUTROPHILS % (AUTO) 48 % (42-75); PLATELET COUNT 261 10^3/uL (130-400); RED BLOOD COUNT 3.98 10^6/uL (4.35-5.85); RED CELL DISTRIBUTION WIDTH 15.9 % (10.0-14.5); WHITE BLOOD COUNT 3.4 10^3/uL (4.3-11.0)
[2016-11-10 10:27] LABS: ANION GAP 13 MMOL/L (5-14); BLOOD UREA NITROGEN 11 MG/DL (7-18); BUN/CREATININE RATIO 14; CALCIUM 9.6 MG/DL (8.5-10.1); CARBON DIOXIDE 22 MMOL/L (21-32); CHLORIDE 104 MMOL/L (98-107); CREATININE SERUM 0.79 MG/DL (0.60-1.30); GFR ESTIMATED > 60; GLUCOSE 98 MG/DL (70-105); POTASSIUM 4.6 MMOL/L (3.6-5.0); SODIUM 139 MMOL/L (135-145)
[2016-11-17 09:44] LABS: BASOPHILS # (AUTO) 0.1 10^3/uL (0.0-0.1); BASOPHILS % (AUTO) 2 % (0-10); EOSINOPHILS # (AUTO) 0.2 10^3/uL (0.0-0.3); EOSINOPHILS % (AUTO) 5 % (0-10); LYMPHOCYTES % (AUTO) 24 % (12-44); MEAN CORPUSCULAR HEMOGLOBIN 32 PG (25-34); MEAN CORPUSCULAR HGB CONC 34 G/DL (32-36); MEAN CORPUSCULAR VOLUME 94 FL (80-99); MEAN PLATELET VOLUME 10.5 FL (7.4-10.4); MONOCYTES # (AUTO) 0.5 X 10^3 (0.0-1.0); MONOCYTES % (AUTO) 13 % (0-12); NEUTROPHILS # (AUTO) 2.4 X 10^3 (1.8-7.8); NEUTROPHILS % (AUTO) 56 % (42-75); PLATELET COUNT 250 10^3/uL (130-400); RED BLOOD COUNT 4.05 10^6/uL (4.35-5.85); RED CELL DISTRIBUTION WIDTH 15.6 % (10.0-14.5); WHITE BLOOD COUNT 4.2 10^3/uL (4.3-11.0)
[2016-11-17 09:58] LABS: BILIRUBIN,URINE NEGATIVE (NEGATIVE); KETONES,URINE NEGATIVE (NEGATIVE); LEUKOCYTE ESTERASE ,URINE 1+ (NEGATIVE); NITRITE,URINE NEGATIVE (NEGATIVE); PH,URINE 7 (5-9); PROTEIN,URINE NEGATIVE (NEGATIVE); UROBILINOGEN,URINE NORMAL (NORMAL)
[2016-11-17 10:18] LABS: ALANINE AMINOTRANSFERASE 17 U/L (0-55); ALBUMIN 4.1 GM/DL (3.2-4.5); ANION GAP 9 MMOL/L (5-14); ASPARTATE AMINO TRANSFERASE 19 U/L (5-34); BILIRUBIN,TOTAL 0.9 MG/DL (0.1-1.0); BLOOD UREA NITROGEN 16 MG/DL (7-18); BUN/CREATININE RATIO 20; CALCIUM 9.5 MG/DL (8.5-10.1); CARBON DIOXIDE 24 MMOL/L (21-32); CHLORIDE 104 MMOL/L (98-107); GFR ESTIMATED > 60; GLUCOSE 98 MG/DL (70-105); POTASSIUM 4.1 MMOL/L (3.6-5.0); SODIUM 137 MMOL/L (135-145); TOTAL PROTEIN 7.1 GM/DL (6.4-8.2)
[2016-11-24 10:58] LABS: BASOPHILS # (AUTO) 0.1 10^3/uL (0.0-0.1); BASOPHILS % (AUTO) 2 % (0-10); EOSINOPHILS # (AUTO) 0.3 10^3/uL (0.0-0.3); EOSINOPHILS % (AUTO) 9 % (0-10); LYMPHOCYTES # (AUTO) 0.9 X 10^3 (1.0-4.0); LYMPHOCYTES % (AUTO) 23 % (12-44); MEAN CORPUSCULAR HEMOGLOBIN 31 PG (25-34); MEAN CORPUSCULAR HGB CONC 33 G/DL (32-36); MEAN CORPUSCULAR VOLUME 95 FL (80-99); MEAN PLATELET VOLUME 10.7 FL (7.4-10.4); MONOCYTES # (AUTO) 0.5 X 10^3 (0.0-1.0); MONOCYTES % (AUTO) 14 % (0-12); NEUTROPHILS % (AUTO) 54 % (42-75); PLATELET COUNT 246 10^3/uL (130-400); RED BLOOD COUNT 4.09 10^6/uL (4.35-5.85); RED CELL DISTRIBUTION WIDTH 15.7 % (10.0-14.5); WHITE BLOOD COUNT 3.8 10^3/uL (4.3-11.0)
[2016-11-24 11:37] LABS: ANION GAP 10 MMOL/L (5-14); BLOOD UREA NITROGEN 11 MG/DL (7-18); BUN/CREATININE RATIO 14; CALCIUM 9.8 MG/DL (8.5-10.1); CARBON DIOXIDE 22 MMOL/L (21-32); CHLORIDE 105 MMOL/L (98-107); CREATININE SERUM 0.79 MG/DL (0.60-1.30); GFR ESTIMATED > 60; GLUCOSE 92 MG/DL (70-105); POTASSIUM 4.3 MMOL/L (3.6-5.0); SODIUM 137 MMOL/L (135-145)
[2016-11-30 09:00] LABS: BASOPHILS # (AUTO) 0.1 10^3/uL (0.0-0.1); BASOPHILS % (AUTO) 1 % (0-10); EOSINOPHILS # (AUTO) 0.2 10^3/uL (0.0-0.3); EOSINOPHILS % (AUTO) 4 % (0-10); LYMPHOCYTES # (AUTO) 0.9 X 10^3 (1.0-4.0); LYMPHOCYTES % (AUTO) 17 % (12-44); MEAN CORPUSCULAR HEMOGLOBIN 32 PG (25-34); MEAN CORPUSCULAR HGB CONC 34 G/DL (32-36); MEAN CORPUSCULAR VOLUME 94 FL (80-99); MEAN PLATELET VOLUME 10.5 FL (7.4-10.4); MONOCYTES # (AUTO) 0.5 X 10^3 (0.0-1.0); MONOCYTES % (AUTO) 9 % (0-12); NEUTROPHILS # (AUTO) 3.4 X 10^3 (1.8-7.8); NEUTROPHILS % (AUTO) 68 % (42-75); PLATELET COUNT 242 10^3/uL (130-400); RED CELL DISTRIBUTION WIDTH 15.7 % (10.0-14.5); WHITE BLOOD COUNT 4.9 10^3/uL (4.3-11.0)
[2016-11-30 09:35] LABS: ANION GAP 12 MMOL/L (5-14); BLOOD UREA NITROGEN 10 MG/DL (7-18); BUN/CREATININE RATIO 13; CALCIUM 9.5 MG/DL (8.5-10.1); CARBON DIOXIDE 23 MMOL/L (21-32); CHLORIDE 106 MMOL/L (98-107); CREATININE SERUM 0.79 MG/DL (0.60-1.30); GFR ESTIMATED > 60; GLUCOSE 97 MG/DL (70-105); POTASSIUM 3.9 MMOL/L (3.6-5.0); SODIUM 141 MMOL/L (135-145)
[2016-12-07 09:37] LABS: BASOPHILS # (AUTO) 0.1 10^3/uL (0.0-0.1); BASOPHILS % (AUTO) 1 % (0-10); EOSINOPHILS # (AUTO) 0.3 10^3/uL (0.0-0.3); EOSINOPHILS % (AUTO) 9 % (0-10); LYMPHOCYTES # (AUTO) 0.9 X 10^3 (1.0-4.0); LYMPHOCYTES % (AUTO) 23 % (12-44); MEAN CORPUSCULAR HEMOGLOBIN 32 PG (25-34); MEAN CORPUSCULAR HGB CONC 34 G/DL (32-36); MEAN CORPUSCULAR VOLUME 94 FL (80-99); MEAN PLATELET VOLUME 10.6 FL (7.4-10.4); MONOCYTES # (AUTO) 0.6 X 10^3 (0.0-1.0); MONOCYTES % (AUTO) 15 % (0-12); NEUTROPHILS # (AUTO) 2.1 X 10^3 (1.8-7.8); NEUTROPHILS % (AUTO) 53 % (42-75); PLATELET COUNT 260 10^3/uL (130-400); RED BLOOD COUNT 4.13 10^6/uL (4.35-5.85); WHITE BLOOD COUNT 3.9 10^3/uL (4.3-11.0)
[2016-12-07 10:29] LABS: ANION GAP 9 MMOL/L (5-14); BLOOD UREA NITROGEN 12 MG/DL (7-18); BUN/CREATININE RATIO 15; CALCIUM 9.7 MG/DL (8.5-10.1); CARBON DIOXIDE 24 MMOL/L (21-32); CHLORIDE 105 MMOL/L (98-107); GFR ESTIMATED > 60; GLUCOSE 105 MG/DL (70-105); POTASSIUM 4.2 MMOL/L (3.6-5.0); SODIUM 138 MMOL/L (135-145)
[~2016-12-14] VITALS: Ht 165.1 cm; Wt 72.1 kg
[~2016-12-14] MED LIST changes: +BEVACIZUMAB IV SCH; +CENTER ONLY IV SCH; +D5W 500 ML IV (CANCER CTR) 500 ML IV SCH; +FAMOTIDINE 20MG/2ML IV (CANCER CTR) IV SCH; +FLUOROURACIL IV SCH; +FOSAPREPITANT 150 MG/NS 150 MG IVPB (CANCER CTR) IV PRN; +LEUCOVORIN CALCIUM 600 MG in D5W 250 ML IVPB (CANCER CTR) 250 ML IV SCH; +NS IV 500 ML (CANCER CENTER) 500 ML ONE; +NS IV 500 ML (CANCER CENTER) IV SCH; +NS IV SCH; +ONDANSETRON 16 MG, DEXAMETHASONE 10 MG/NS 50 ML IVPB IV SCH; +ONDANSETRON MDV (CANCER CENTER 8 MG, DEXAMETHASONE PF INJ (CANCER C 10 MG in NS (IVPB) ... IV SCH; +OXALIPLATIN 100 MG, OXALIPLATIN (GENERIC) 30 MG in D5W 250 ML IVPB (CANCER CTR) 250 ML IV SCH; +PALONOSETRON 0.25 MG, DEXAMETHASONE 10 MG/NS 50 ML IVPB IV PRN
[2016-12-14 09:30] LABS: BASOPHILS # (AUTO) 0.1 10^3/uL (0.0-0.1); BASOPHILS % (AUTO) 3 % (0-10); EOSINOPHILS # (AUTO) 0.2 10^3/uL (0.0-0.3); EOSINOPHILS % (AUTO) 6 % (0-10); LYMPHOCYTES # (AUTO) 1.1 X 10^3 (1.0-4.0); LYMPHOCYTES % (AUTO) 26 % (12-44); MEAN CORPUSCULAR HEMOGLOBIN 31 PG (25-34); MEAN CORPUSCULAR HGB CONC 33 G/DL (32-36); MEAN CORPUSCULAR VOLUME 94 FL (80-99); MEAN PLATELET VOLUME 10.6 FL (7.4-10.4); MONOCYTES # (AUTO) 0.5 X 10^3 (0.0-1.0); MONOCYTES % (AUTO) 13 % (0-12); NEUTROPHILS # (AUTO) 2.2 X 10^3 (1.8-7.8); NEUTROPHILS % (AUTO) 53 % (42-75); PLATELET COUNT 219 10^3/uL (130-400); RED BLOOD COUNT 4.02 10^6/uL (4.35-5.85); RED CELL DISTRIBUTION WIDTH 15.6 % (10.0-14.5); WHITE BLOOD COUNT 4.1 10^3/uL (4.3-11.0)
[2016-12-14 09:31] LABS: BILIRUBIN,URINE NEGATIVE (NEGATIVE); KETONES,URINE NEGATIVE (NEGATIVE); LEUKOCYTE ESTERASE ,URINE NEGATIVE (NEGATIVE); NITRITE,URINE NEGATIVE (NEGATIVE); PH,URINE 7 (5-9); PROTEIN,URINE NEGATIVE (NEGATIVE); UROBILINOGEN,URINE NORMAL (NORMAL)
[2016-12-14 09:59] LABS: ALANINE AMINOTRANSFERASE 13 U/L (0-55); ALBUMIN 4.1 GM/DL (3.2-4.5); ANION GAP 9 MMOL/L (5-14); ASPARTATE AMINO TRANSFERASE 20 U/L (5-34); BILIRUBIN,TOTAL 0.9 MG/DL (0.1-1.0); BLOOD UREA NITROGEN 14 MG/DL (7-18); BUN/CREATININE RATIO 18; CALCIUM 9.4 MG/DL (8.5-10.1); CARBON DIOXIDE 23 MMOL/L (21-32); CHLORIDE 107 MMOL/L (98-107); CREATININE SERUM 0.77 MG/DL (0.60-1.30); GFR ESTIMATED > 60; GLUCOSE 95 MG/DL (70-105); MAGNESIUM 2.1 MG/DL (1.8-2.4); POTASSIUM 3.9 MMOL/L (3.6-5.0); SODIUM 139 MMOL/L (135-145)
== END | disposition home or self-care (01) ==
LOC: ONC 09-15 09:44
PROVIDERS: ATTEND Internal Medicine Hematology & Oncology
DX: C78.7 Secondary malignant neoplasm of liver and intrahepatic bile duct (principal); C79.89 Secondary malignant neoplasm of other specified sites; C79.61 Secondary malignant neoplasm of right ovary; C78.01 Secondary malignant neoplasm of right lung; C78.6 Secondary malignant neoplasm of retroperitoneum and peritoneum; C77.5 Secondary and unspecified malignant neoplasm of intrapelvic lymph nodes; Z85.038 Personal history of other malignant neoplasm of large intestine; E03.9 Hypothyroidism, unspecified; E78.5 Hyperlipidemia, unspecified; F32.9 Major depressive disorder, single episode, unspecified; Z79.899 Other long term (current) drug therapy; Z92.21 Personal history of antineoplastic chemotherapy
CPT/HCPCS: 36415; 36591; 80048; 80053; 81002; 82378; 83735; 85025; 96367; 96375; 96409; 96521; 99213

== ENCOUNTER 2017-01-11 08:36 | Outpatient (RCR) | payer MEDICARE, OTHER ==
[2016-12-22 09:54] LABS: BASOPHILS # (AUTO) 0.1 10^3/uL (0.0-0.1); BASOPHILS % (AUTO) 2 % (0-10); EOSINOPHILS # (AUTO) 0.3 10^3/uL (0.0-0.3); EOSINOPHILS % (AUTO) 8 % (0-10); LYMPHOCYTES # (AUTO) 0.9 X 10^3 (1.0-4.0); LYMPHOCYTES % (AUTO) 21 % (12-44); MEAN CORPUSCULAR HEMOGLOBIN 32 PG (25-34); MEAN CORPUSCULAR HGB CONC 34 G/DL (32-36); MEAN CORPUSCULAR VOLUME 95 FL (80-99); MEAN PLATELET VOLUME 10.7 FL (7.4-10.4); MONOCYTES # (AUTO) 0.6 X 10^3 (0.0-1.0); MONOCYTES % (AUTO) 15 % (0-12); NEUTROPHILS # (AUTO) 2.3 X 10^3 (1.8-7.8); NEUTROPHILS % (AUTO) 54 % (42-75); PLATELET COUNT 231 10^3/uL (130-400); RED BLOOD COUNT 3.91 10^6/uL (4.35-5.85); RED CELL DISTRIBUTION WIDTH 15.6 % (10.0-14.5); WHITE BLOOD COUNT 4.2 10^3/uL (4.3-11.0)
[2016-12-29 08:42] LABS: BASOPHILS # (AUTO) 0.1 10^3/uL (0.0-0.1); BASOPHILS % (AUTO) 3 % (0-10); EOSINOPHILS # (AUTO) 0.2 10^3/uL (0.0-0.3); EOSINOPHILS % (AUTO) 5 % (0-10); LYMPHOCYTES # (AUTO) 0.9 X 10^3 (1.0-4.0); LYMPHOCYTES % (AUTO) 22 % (12-44); MEAN CORPUSCULAR HEMOGLOBIN 32 PG (25-34); MEAN CORPUSCULAR HGB CONC 34 G/DL (32-36); MEAN CORPUSCULAR VOLUME 94 FL (80-99); MEAN PLATELET VOLUME 10.6 FL (7.4-10.4); MONOCYTES # (AUTO) 0.5 X 10^3 (0.0-1.0); MONOCYTES % (AUTO) 12 % (0-12); NEUTROPHILS # (AUTO) 2.4 X 10^3 (1.8-7.8); NEUTROPHILS % (AUTO) 58 % (42-75); PLATELET COUNT 229 10^3/uL (130-400); RED BLOOD COUNT 3.93 10^6/uL (4.35-5.85); RED CELL DISTRIBUTION WIDTH 15.6 % (10.0-14.5); WHITE BLOOD COUNT 4.1 10^3/uL (4.3-11.0)
[2016-12-29 08:46] LABS: BILIRUBIN,URINE NEGATIVE (NEGATIVE); KETONES,URINE NEGATIVE (NEGATIVE); LEUKOCYTE ESTERASE ,URINE NEGATIVE (NEGATIVE); NITRITE,URINE NEGATIVE (NEGATIVE); PH,URINE 7 (5-9); PROTEIN,URINE NEGATIVE (NEGATIVE); UROBILINOGEN,URINE NORMAL (NORMAL)
[2016-12-29 09:09] LABS: ALANINE AMINOTRANSFERASE 16 U/L (0-55); ALBUMIN 4.1 GM/DL (3.2-4.5); ANION GAP 9 MMOL/L (5-14); ASPARTATE AMINO TRANSFERASE 21 U/L (5-34); BILIRUBIN,TOTAL 0.9 MG/DL (0.1-1.0); BLOOD UREA NITROGEN 13 MG/DL (7-18); BUN/CREATININE RATIO 16; CALCIUM 9.4 MG/DL (8.5-10.1); CARBON DIOXIDE 24 MMOL/L (21-32); CHLORIDE 107 MMOL/L (98-107); GFR ESTIMATED > 60; GLUCOSE 94 MG/DL (70-105); POTASSIUM 3.7 MMOL/L (3.6-5.0); SODIUM 140 MMOL/L (135-145)
[2017-01-04 09:57] LABS: BASOPHILS # (AUTO) 0.1 10^3/uL (0.0-0.1); BASOPHILS % (AUTO) 2 % (0-10); EOSINOPHILS # (AUTO) 0.3 10^3/uL (0.0-0.3); EOSINOPHILS % (AUTO) 7 % (0-10); LYMPHOCYTES # (AUTO) 1.4 X 10^3 (1.0-4.0); LYMPHOCYTES % (AUTO) 32 % (12-44); MEAN CORPUSCULAR HEMOGLOBIN 32 PG (25-34); MEAN CORPUSCULAR HGB CONC 33 G/DL (32-36); MEAN CORPUSCULAR VOLUME 94 FL (80-99); MEAN PLATELET VOLUME 10.2 FL (7.4-10.4); MONOCYTES # (AUTO) 0.5 X 10^3 (0.0-1.0); MONOCYTES % (AUTO) 12 % (0-12); NEUTROPHILS % (AUTO) 47 % (42-75); PLATELET COUNT 246 10^3/uL (130-400); RED BLOOD COUNT 4.06 10^6/uL (4.35-5.85); RED CELL DISTRIBUTION WIDTH 15.4 % (10.0-14.5); WHITE BLOOD COUNT 4.3 10^3/uL (4.3-11.0)
[2017-01-04 10:49] LABS: ANION GAP 7 MMOL/L (5-14); BLOOD UREA NITROGEN 12 MG/DL (7-18); BUN/CREATININE RATIO 16; CALCIUM 9.8 MG/DL (8.5-10.1); CARBON DIOXIDE 27 MMOL/L (21-32); CHLORIDE 106 MMOL/L (98-107); CREATININE SERUM 0.75 MG/DL (0.60-1.30); GFR ESTIMATED > 60; GLUCOSE 93 MG/DL (70-105); POTASSIUM 4.9 MMOL/L (3.6-5.0); SODIUM 140 MMOL/L (135-145)
[~2017-01-11] VITALS: Ht 165.1 cm; Wt 73.9 kg
[~2017-01-11 08:36] MED LIST changes: +D5W 500 ML IV (CANCER CTR) 500 ML IV ONE; -D5W 500 ML IV (CANCER CTR) 500 ML IV SCH; -FOSAPREPITANT 150 MG/NS 150 MG IVPB (CANCER CTR) IV PRN; +FOSAPREPITANT DIMEGLUMINE 150 MG in NS (IVPB) CANCER CENTER ONLY 150 ML IV SCH; -NS IV 500 ML (CANCER CENTER) 500 ML ONE; -NS IV 500 ML (CANCER CENTER) IV SCH; -ONDANSETRON 16 MG, DEXAMETHASONE 10 MG/NS 50 ML IVPB IV SCH
[2017-01-11 08:58] LABS: BASOPHILS # (AUTO) 0.1 10^3/uL (0.0-0.1); BASOPHILS % (AUTO) 3 % (0-10); EOSINOPHILS # (AUTO) 0.2 10^3/uL (0.0-0.3); EOSINOPHILS % (AUTO) 5 % (0-10); LYMPHOCYTES # (AUTO) 1.1 X 10^3 (1.0-4.0); LYMPHOCYTES % (AUTO) 26 % (12-44); MEAN CORPUSCULAR HEMOGLOBIN 31 PG (25-34); MEAN CORPUSCULAR HGB CONC 33 G/DL (32-36); MEAN CORPUSCULAR VOLUME 94 FL (80-99); MEAN PLATELET VOLUME 10.7 FL (7.4-10.4); MONOCYTES # (AUTO) 0.7 X 10^3 (0.0-1.0); MONOCYTES % (AUTO) 16 % (0-12); NEUTROPHILS # (AUTO) 2.1 X 10^3 (1.8-7.8); NEUTROPHILS % (AUTO) 50 % (42-75); PLATELET COUNT 224 10^3/uL (130-400); RED BLOOD COUNT 4.02 10^6/uL (4.35-5.85); RED CELL DISTRIBUTION WIDTH 15.6 % (10.0-14.5); WHITE BLOOD COUNT 4.2 10^3/uL (4.3-11.0)
[2017-01-11] MEDS ORDERED: D5W 500 ML IV (CANCER CTR) 500 ML IV ONE (08:58)
[2017-01-11 09:20] LABS: ALANINE AMINOTRANSFERASE 50 U/L (0-55); ALBUMIN 4.2 GM/DL (3.2-4.5); ANION GAP 9 MMOL/L (5-14); ASPARTATE AMINO TRANSFERASE 38 U/L (5-34); BILIRUBIN,TOTAL 0.8 MG/DL (0.1-1.0); BLOOD UREA NITROGEN 14 MG/DL (7-18); BUN/CREATININE RATIO 18; CALCIUM 9.2 MG/DL (8.5-10.1); CARBON DIOXIDE 25 MMOL/L (21-32); CHLORIDE 105 MMOL/L (98-107); GFR ESTIMATED > 60; GLUCOSE 98 MG/DL (70-105); MAGNESIUM 2.2 MG/DL (1.8-2.4); SODIUM 139 MMOL/L (135-145); TOTAL PROTEIN 7.2 GM/DL (6.4-8.2)
== END 2017-01-15 13:31 | disposition home or self-care (01) ==
LOC: ONC 08:36
PROVIDERS: ATTEND Internal Medicine Hematology & Oncology
DX: Z51.11 Encounter for antineoplastic chemotherapy (principal); C78.7 Secondary malignant neoplasm of liver and intrahepatic bile duct; C79.89 Secondary malignant neoplasm of other specified sites; C79.61 Secondary malignant neoplasm of right ovary; C78.01 Secondary malignant neoplasm of right lung; C78.6 Secondary malignant neoplasm of retroperitoneum and peritoneum; C77.5 Secondary and unspecified malignant neoplasm of intrapelvic lymph nodes; Z85.038 Personal history of other malignant neoplasm of large intestine; E03.9 Hypothyroidism, unspecified; E78.5 Hyperlipidemia, unspecified; F32.9 Major depressive disorder, single episode, unspecified; Z79.899 Other long term (current) drug therapy; Z92.21 Personal history of antineoplastic chemotherapy
CPT/HCPCS: 36415; 36591; 80048; 80053; 81002; 82378; 83735; 85025; 96367; 96368; 96375; 96411; 96413

== ENCOUNTER 2017-04-05 08:48 | Outpatient (RCR) | payer MEDICARE ==
[2017-01-18 10:56] LABS: BASOPHILS # (AUTO) 0.1 10^3/uL (0.0-0.1); BASOPHILS % (AUTO) 3 % (0-10); EOSINOPHILS # (AUTO) 0.4 10^3/uL (0.0-0.3); EOSINOPHILS % (AUTO) 8 % (0-10); HEMATOCRIT 39 % (35-52); LYMPHOCYTES # (AUTO) 1.4 X 10^3 (1.0-4.0); LYMPHOCYTES % (AUTO) 31 % (12-44); MEAN CORPUSCULAR HEMOGLOBIN 32 PG (25-34); MEAN CORPUSCULAR HGB CONC 34 G/DL (32-36); MEAN CORPUSCULAR VOLUME 94 FL (80-99); MEAN PLATELET VOLUME 10.8 FL (7.4-10.4); MONOCYTES # (AUTO) 0.7 X 10^3 (0.0-1.0); MONOCYTES % (AUTO) 15 % (0-12); NEUTROPHILS % (AUTO) 44 % (42-75); PLATELET COUNT 257 10^3/uL (130-400); RED BLOOD COUNT 4.11 10^6/uL (4.35-5.85); RED CELL DISTRIBUTION WIDTH 15.3 % (10.0-14.5); WHITE BLOOD COUNT 4.6 10^3/uL (4.3-11.0)
[2017-01-25 09:16] LABS: BASOPHILS # (AUTO) 0.1 10^3/uL (0.0-0.1); BASOPHILS % (AUTO) 3 % (0-10); EOSINOPHILS # (AUTO) 0.2 10^3/uL (0.0-0.3); EOSINOPHILS % (AUTO) 6 % (0-10); HEMATOCRIT 37 % (35-52); HEMOGLOBIN 12.1 G/DL (11.5-16.0); LYMPHOCYTES # (AUTO) 1.2 X 10^3 (1.0-4.0); LYMPHOCYTES % (AUTO) 31 % (12-44); MEAN CORPUSCULAR HEMOGLOBIN 31 PG (25-34); MEAN CORPUSCULAR HGB CONC 33 G/DL (32-36); MEAN CORPUSCULAR VOLUME 93 FL (80-99); MEAN PLATELET VOLUME 10.2 FL (7.4-10.4); MONOCYTES # (AUTO) 0.7 X 10^3 (0.0-1.0); MONOCYTES % (AUTO) 18 % (0-12); NEUTROPHILS # (AUTO) 1.7 X 10^3 (1.8-7.8); NEUTROPHILS % (AUTO) 43 % (42-75); PLATELET COUNT 178 10^3/uL (130-400); RED BLOOD COUNT 3.91 10^6/uL (4.35-5.85); RED CELL DISTRIBUTION WIDTH 15.3 % (10.0-14.5)
[2017-01-25 09:35] LABS: ALANINE AMINOTRANSFERASE 23 U/L (0-55); ALBUMIN 4.1 GM/DL (3.2-4.5); ALKALINE PHOSPHATASE 97 U/L (40-136); BILIRUBIN,TOTAL 0.8 MG/DL (0.1-1.0); BUN/CREATININE RATIO 15; CALCIUM 9.4 MG/DL (8.5-10.1); CARBON DIOXIDE 26 MMOL/L (21-32); CHLORIDE 106 MMOL/L (98-107); GFR ESTIMATED > 60; GLUCOSE 94 MG/DL (70-105); MAGNESIUM 1.9 MG/DL (1.8-2.4); POTASSIUM 3.7 MMOL/L (3.6-5.0); SODIUM 139 MMOL/L (135-145); TOTAL PROTEIN 7.1 GM/DL (6.4-8.2)
[2017-01-25 09:52] LABS: BILIRUBIN,URINE NEGATIVE (NEGATIVE); CLARITY,URINE CLEAR; COLOR,URINE YELLOW; GLUCOSE, URINE (UA) NEGATIVE (NEGATIVE); KETONES,URINE NEGATIVE (NEGATIVE); LEUKOCYTE ESTERASE ,URINE 1+ (NEGATIVE); NITRITE,URINE NEGATIVE (NEGATIVE); PH,URINE 7 (5-9); PROTEIN,URINE NEGATIVE (NEGATIVE); UROBILINOGEN,URINE NORMAL (NORMAL)
[2017-02-01 10:48] LABS: BASOPHILS # (AUTO) 0.1 10^3/uL (0.0-0.1); BASOPHILS % (AUTO) 2 % (0-10); EOSINOPHILS # (AUTO) 0.3 10^3/uL (0.0-0.3); EOSINOPHILS % (AUTO) 6 % (0-10); HEMATOCRIT 38 % (35-52); HEMOGLOBIN 12.7 G/DL (11.5-16.0); LYMPHOCYTES # (AUTO) 1.5 X 10^3 (1.0-4.0); LYMPHOCYTES % (AUTO) 35 % (12-44); MEAN CORPUSCULAR HEMOGLOBIN 31 PG (25-34); MEAN CORPUSCULAR HGB CONC 34 G/DL (32-36); MEAN CORPUSCULAR VOLUME 93 FL (80-99); MEAN PLATELET VOLUME 10.3 FL (7.4-10.4); MONOCYTES # (AUTO) 0.7 X 10^3 (0.0-1.0); MONOCYTES % (AUTO) 15 % (0-12); NEUTROPHILS # (AUTO) 1.9 X 10^3 (1.8-7.8); NEUTROPHILS % (AUTO) 42 % (42-75); PLATELET COUNT 203 10^3/uL (130-400); RED BLOOD COUNT 4.07 10^6/uL (4.35-5.85); RED CELL DISTRIBUTION WIDTH 15.1 % (10.0-14.5); WHITE BLOOD COUNT 4.4 10^3/uL (4.3-11.0)
[2017-02-08 09:18] LABS: BASOPHILS % (AUTO) 1 % (0-10); EOSINOPHILS # (AUTO) 0.1 10^3/uL (0.0-0.3); EOSINOPHILS % (AUTO) 2 % (0-10); HEMATOCRIT 36 % (35-52); HEMOGLOBIN 11.9 G/DL (11.5-16.0); LYMPHOCYTES # (AUTO) 1.6 X 10^3 (1.0-4.0); LYMPHOCYTES % (AUTO) 33 % (12-44); MEAN CORPUSCULAR HEMOGLOBIN 31 PG (25-34); MEAN CORPUSCULAR HGB CONC 33 G/DL (32-36); MEAN CORPUSCULAR VOLUME 94 FL (80-99); MEAN PLATELET VOLUME 9.8 FL (7.4-10.4); MONOCYTES # (AUTO) 0.8 X 10^3 (0.0-1.0); MONOCYTES % (AUTO) 17 % (0-12); NEUTROPHILS # (AUTO) 2.3 X 10^3 (1.8-7.8); NEUTROPHILS % (AUTO) 48 % (42-75); PLATELET COUNT 181 10^3/uL (130-400); RED BLOOD COUNT 3.82 10^6/uL (4.35-5.85); RED CELL DISTRIBUTION WIDTH 15.9 % (10.0-14.5); WHITE BLOOD COUNT 4.8 10^3/uL (4.3-11.0)
[2017-02-08 09:36] LABS: ALANINE AMINOTRANSFERASE 43 U/L (0-55); ALBUMIN 3.9 GM/DL (3.2-4.5); ALKALINE PHOSPHATASE 101 U/L (40-136); BILIRUBIN,TOTAL 0.7 MG/DL (0.1-1.0); BUN/CREATININE RATIO 13; CALCIUM 9.2 MG/DL (8.5-10.1); CARBON DIOXIDE 29 MMOL/L (21-32); CHLORIDE 106 MMOL/L (98-107); CREATININE SERUM 0.72 MG/DL (0.60-1.30); GFR ESTIMATED > 60; GLUCOSE 82 MG/DL (70-105); MAGNESIUM 2.1 MG/DL (1.8-2.4); SODIUM 141 MMOL/L (135-145); TOTAL PROTEIN 6.8 GM/DL (6.4-8.2)
[2017-02-15 10:01] LABS: BASOPHILS # (AUTO) 0.1 10^3/uL (0.0-0.1); BASOPHILS % (AUTO) 3 % (0-10); EOSINOPHILS # (AUTO) 0.3 10^3/uL (0.0-0.3); EOSINOPHILS % (AUTO) 7 % (0-10); HEMATOCRIT 38 % (35-52); HEMOGLOBIN 12.6 G/DL (11.5-16.0); LYMPHOCYTES # (AUTO) 1.3 X 10^3 (1.0-4.0); LYMPHOCYTES % (AUTO) 35 % (12-44); MEAN CORPUSCULAR HEMOGLOBIN 31 PG (25-34); MEAN CORPUSCULAR HGB CONC 33 G/DL (32-36); MEAN CORPUSCULAR VOLUME 95 FL (80-99); MEAN PLATELET VOLUME 10.1 FL (7.4-10.4); MONOCYTES # (AUTO) 0.7 X 10^3 (0.0-1.0); MONOCYTES % (AUTO) 18 % (0-12); NEUTROPHILS # (AUTO) 1.4 X 10^3 (1.8-7.8); NEUTROPHILS % (AUTO) 37 % (42-75); PLATELET COUNT 224 10^3/uL (130-400); RED BLOOD COUNT 4.03 10^6/uL (4.35-5.85); RED CELL DISTRIBUTION WIDTH 15.9 % (10.0-14.5); WHITE BLOOD COUNT 3.7 10^3/uL (4.3-11.0)
[2017-02-22 10:15] LABS: BASOPHILS # (AUTO) 0.1 10^3/uL (0.0-0.1); BASOPHILS % (AUTO) 3 % (0-10); EOSINOPHILS # (AUTO) 0.1 10^3/uL (0.0-0.3); EOSINOPHILS % (AUTO) 3 % (0-10); HEMATOCRIT 39 % (35-52); HEMOGLOBIN 12.9 G/DL (11.5-16.0); LYMPHOCYTES % (AUTO) 25 % (12-44); MEAN CORPUSCULAR HEMOGLOBIN 31 PG (25-34); MEAN CORPUSCULAR HGB CONC 33 G/DL (32-36); MEAN CORPUSCULAR VOLUME 94 FL (80-99); MEAN PLATELET VOLUME 10.2 FL (7.4-10.4); MONOCYTES # (AUTO) 0.5 X 10^3 (0.0-1.0); MONOCYTES % (AUTO) 13 % (0-12); NEUTROPHILS # (AUTO) 2.3 X 10^3 (1.8-7.8); NEUTROPHILS % (AUTO) 56 % (42-75); PLATELET COUNT 221 10^3/uL (130-400); RED BLOOD COUNT 4.13 10^6/uL (4.35-5.85); RED CELL DISTRIBUTION WIDTH 15.9 % (10.0-14.5)
[2017-02-22 10:38] LABS: ALANINE AMINOTRANSFERASE 35 U/L (0-55); ALBUMIN 4.4 GM/DL (3.2-4.5); ALKALINE PHOSPHATASE 129 U/L (40-136); BILIRUBIN,TOTAL 0.8 MG/DL (0.1-1.0); BUN/CREATININE RATIO 14; CALCIUM 9.7 MG/DL (8.5-10.1); CARBON DIOXIDE 21 MMOL/L (21-32); CHLORIDE 106 MMOL/L (98-107); CREATININE SERUM 0.79 MG/DL (0.60-1.30); GFR ESTIMATED > 60; GLUCOSE 98 MG/DL (70-105); POTASSIUM 4.1 MMOL/L (3.6-5.0); SODIUM 140 MMOL/L (135-145); TOTAL PROTEIN 7.4 GM/DL (6.4-8.2)
[2017-02-22 10:42] LABS: URINE CREATININE FOR RATIO 23 MG/DL (30-125); URINE PROTEIN FOR RATIO ONLY < 6 MG/DL (6-12)
[2017-03-01 10:03] LABS: BASOPHILS # (AUTO) 0.1 10^3/uL (0.0-0.1); BASOPHILS % (AUTO) 3 % (0-10); EOSINOPHILS # (AUTO) 0.3 10^3/uL (0.0-0.3); EOSINOPHILS % (AUTO) 8 % (0-10); HEMATOCRIT 40 % (35-52); HEMOGLOBIN 13.6 G/DL (11.5-16.0); LYMPHOCYTES # (AUTO) 1.2 X 10^3 (1.0-4.0); LYMPHOCYTES % (AUTO) 36 % (12-44); MEAN CORPUSCULAR HEMOGLOBIN 32 PG (25-34); MEAN CORPUSCULAR HGB CONC 34 G/DL (32-36); MEAN CORPUSCULAR VOLUME 93 FL (80-99); MEAN PLATELET VOLUME 9.8 FL (7.4-10.4); MONOCYTES # (AUTO) 0.6 X 10^3 (0.0-1.0); MONOCYTES % (AUTO) 18 % (0-12); NEUTROPHILS # (AUTO) 1.2 X 10^3 (1.8-7.8); NEUTROPHILS % (AUTO) 36 % (42-75); PLATELET COUNT 225 10^3/uL (130-400); RED BLOOD COUNT 4.31 10^6/uL (4.35-5.85); RED CELL DISTRIBUTION WIDTH 15.1 % (10.0-14.5); WHITE BLOOD COUNT 3.4 10^3/uL (4.3-11.0)
[2017-03-08 08:54] LABS: BASOPHILS # (AUTO) 0.1 10^3/uL (0.0-0.1); BASOPHILS % (AUTO) 3 % (0-10); EOSINOPHILS # (AUTO) 0.2 10^3/uL (0.0-0.3); EOSINOPHILS % (AUTO) 4 % (0-10); HEMATOCRIT 37 % (35-52); HEMOGLOBIN 12.6 G/DL (11.5-16.0); LYMPHOCYTES # (AUTO) 0.9 X 10^3 (1.0-4.0); LYMPHOCYTES % (AUTO) 21 % (12-44); MEAN CORPUSCULAR HEMOGLOBIN 32 PG (25-34); MEAN CORPUSCULAR HGB CONC 34 G/DL (32-36); MEAN CORPUSCULAR VOLUME 92 FL (80-99); MEAN PLATELET VOLUME 10.8 FL (7.4-10.4); MONOCYTES # (AUTO) 0.7 X 10^3 (0.0-1.0); MONOCYTES % (AUTO) 16 % (0-12); NEUTROPHILS # (AUTO) 2.2 X 10^3 (1.8-7.8); NEUTROPHILS % (AUTO) 56 % (42-75); PLATELET COUNT 207 10^3/uL (130-400); RED BLOOD COUNT 3.99 10^6/uL (4.35-5.85); RED CELL DISTRIBUTION WIDTH 15.6 % (10.0-14.5)
[2017-03-08 09:18] LABS: BUN/CREATININE RATIO 21; CALCIUM 9.5 MG/DL (8.5-10.1); CARBON DIOXIDE 22 MMOL/L (21-32); CHLORIDE 106 MMOL/L (98-107); CREATININE SERUM 0.75 MG/DL (0.60-1.30); GFR ESTIMATED > 60; GLUCOSE 103 MG/DL (70-105); POTASSIUM 3.7 MMOL/L (3.6-5.0); SODIUM 139 MMOL/L (135-145)
[2017-03-15 11:13] LABS: BASOPHILS # (AUTO) 0.1 10^3/uL (0.0-0.1); BASOPHILS % (AUTO) 2 % (0-10); EOSINOPHILS # (AUTO) 0.2 10^3/uL (0.0-0.3); EOSINOPHILS % (AUTO) 5 % (0-10); HEMATOCRIT 39 % (35-52); HEMOGLOBIN 13.2 G/DL (11.5-16.0); LYMPHOCYTES # (AUTO) 1.2 X 10^3 (1.0-4.0); LYMPHOCYTES % (AUTO) 26 % (12-44); MEAN CORPUSCULAR HEMOGLOBIN 32 PG (25-34); MEAN CORPUSCULAR HGB CONC 34 G/DL (32-36); MEAN CORPUSCULAR VOLUME 93 FL (80-99); MEAN PLATELET VOLUME 10.4 FL (7.4-10.4); MONOCYTES # (AUTO) 0.8 X 10^3 (0.0-1.0); MONOCYTES % (AUTO) 18 % (0-12); NEUTROPHILS # (AUTO) 2.3 X 10^3 (1.8-7.8); NEUTROPHILS % (AUTO) 50 % (42-75); PLATELET COUNT 255 10^3/uL (130-400); RED BLOOD COUNT 4.16 10^6/uL (4.35-5.85); RED CELL DISTRIBUTION WIDTH 15.4 % (10.0-14.5); WHITE BLOOD COUNT 4.7 10^3/uL (4.3-11.0)
[2017-03-15 11:33] LABS: BUN/CREATININE RATIO 16; CARBON DIOXIDE 27 MMOL/L (21-32); CHLORIDE 104 MMOL/L (98-107); CREATININE SERUM 0.79 MG/DL (0.60-1.30); GFR ESTIMATED > 60; GLUCOSE 95 MG/DL (70-105); POTASSIUM 4.7 MMOL/L (3.6-5.0); SODIUM 140 MMOL/L (135-145)
[2017-03-22 09:02] LABS: BASOPHILS # (AUTO) 0.1 10^3/uL (0.0-0.1); BASOPHILS % (AUTO) 2 % (0-10); EOSINOPHILS # (AUTO) 0.2 10^3/uL (0.0-0.3); EOSINOPHILS % (AUTO) 4 % (0-10); HEMATOCRIT 37 % (35-52); HEMOGLOBIN 12.4 G/DL (11.5-16.0); LYMPHOCYTES # (AUTO) 1.1 X 10^3 (1.0-4.0); LYMPHOCYTES % (AUTO) 26 % (12-44); MEAN CORPUSCULAR HEMOGLOBIN 32 PG (25-34); MEAN CORPUSCULAR HGB CONC 34 G/DL (32-36); MEAN CORPUSCULAR VOLUME 93 FL (80-99); MEAN PLATELET VOLUME 10.3 FL (7.4-10.4); MONOCYTES # (AUTO) 0.8 X 10^3 (0.0-1.0); MONOCYTES % (AUTO) 19 % (0-12); NEUTROPHILS # (AUTO) 2.1 X 10^3 (1.8-7.8); NEUTROPHILS % (AUTO) 49 % (42-75); PLATELET COUNT 205 10^3/uL (130-400); RED BLOOD COUNT 3.91 10^6/uL (4.35-5.85); RED CELL DISTRIBUTION WIDTH 15.8 % (10.0-14.5); WHITE BLOOD COUNT 4.2 10^3/uL (4.3-11.0)
[2017-03-22 09:22] LABS: ALANINE AMINOTRANSFERASE 48 U/L (0-55); ALBUMIN 4.1 GM/DL (3.2-4.5); ALKALINE PHOSPHATASE 152 U/L (40-136); BILIRUBIN,TOTAL 0.7 MG/DL (0.1-1.0); BUN/CREATININE RATIO 18; CALCIUM 9.2 MG/DL (8.5-10.1); CARBON DIOXIDE 24 MMOL/L (21-32); CHLORIDE 106 MMOL/L (98-107); CREATININE SERUM 0.77 MG/DL (0.60-1.30); GFR ESTIMATED > 60; GLUCOSE 96 MG/DL (70-105); POTASSIUM 3.8 MMOL/L (3.6-5.0); SODIUM 139 MMOL/L (135-145); TOTAL PROTEIN 7.3 GM/DL (6.4-8.2)
[2017-03-22 10:54] LABS: URINE CREATININE FOR RATIO 37 MG/DL (30-125); URINE PROTEIN FOR RATIO ONLY < 6 MG/DL (6-12)
[~2017-04-05] VITALS: Ht 165.1 cm; Wt 73.9 kg
[~2017-04-05 08:48] MED LIST changes: -HYDR-3812 PO; +NS IV 500 ML (CANCER CENTER) 500 ML ONE
[2017-04-05 09:04] LABS: BASOPHILS # (AUTO) 0.1 10^3/uL (0.0-0.1); BASOPHILS % (AUTO) 2 % (0-10); EOSINOPHILS # (AUTO) 0.2 10^3/uL (0.0-0.3); EOSINOPHILS % (AUTO) 4 % (0-10); HEMATOCRIT 39 % (35-52); HEMOGLOBIN 13.2 G/DL (11.5-16.0); LYMPHOCYTES # (AUTO) 0.9 X 10^3 (1.0-4.0); LYMPHOCYTES % (AUTO) 21 % (12-44); MEAN CORPUSCULAR HEMOGLOBIN 32 PG (25-34); MEAN CORPUSCULAR HGB CONC 34 G/DL (32-36); MEAN CORPUSCULAR VOLUME 94 FL (80-99); MEAN PLATELET VOLUME 10.8 FL (7.4-10.4); MONOCYTES # (AUTO) 0.7 X 10^3 (0.0-1.0); MONOCYTES % (AUTO) 14 % (0-12); NEUTROPHILS # (AUTO) 2.7 X 10^3 (1.8-7.8); NEUTROPHILS % (AUTO) 59 % (42-75); PLATELET COUNT 218 10^3/uL (130-400); RED BLOOD COUNT 4.15 10^6/uL (4.35-5.85); RED CELL DISTRIBUTION WIDTH 15.8 % (10.0-14.5); WHITE BLOOD COUNT 4.6 10^3/uL (4.3-11.0)
[2017-04-05] MEDS ORDERED: NS IV 500 ML (CANCER CENTER) 500 ML ONE (09:06)
[2017-04-05 09:22] LABS: ALANINE AMINOTRANSFERASE 30 U/L (0-55); ALBUMIN 4.3 GM/DL (3.2-4.5); ALKALINE PHOSPHATASE 134 U/L (40-136); BILIRUBIN,TOTAL 0.8 MG/DL (0.1-1.0); BUN/CREATININE RATIO 18; CALCIUM 9.6 MG/DL (8.5-10.1); CARBON DIOXIDE 24 MMOL/L (21-32); CHLORIDE 105 MMOL/L (98-107); CREATININE SERUM 0.79 MG/DL (0.60-1.30); GFR ESTIMATED > 60; GLUCOSE 96 MG/DL (70-105); POTASSIUM 3.8 MMOL/L (3.6-5.0); SODIUM 138 MMOL/L (135-145); TOTAL PROTEIN 7.8 GM/DL (6.4-8.2)
== END 2017-04-18 | disposition home or self-care (01) ==
LOC: ONC 08:48
PROVIDERS: ATTEND Internal Medicine Hematology & Oncology
DX: Z51.11 Encounter for antineoplastic chemotherapy (principal); C78.7 Secondary malignant neoplasm of liver and intrahepatic bile duct; C79.89 Secondary malignant neoplasm of other specified sites; C79.61 Secondary malignant neoplasm of right ovary; C78.01 Secondary malignant neoplasm of right lung; C78.6 Secondary malignant neoplasm of retroperitoneum and peritoneum; C77.5 Secondary and unspecified malignant neoplasm of intrapelvic lymph nodes; Z85.038 Personal history of other malignant neoplasm of large intestine; E03.9 Hypothyroidism, unspecified; E78.5 Hyperlipidemia, unspecified; F32.9 Major depressive disorder, single episode, unspecified; Z79.899 Other long term (current) drug therapy
CPT/HCPCS: 36415; 36591; 80048; 80053; 81002; 82378; 82570; 83735; 84156; 85025; 96367; 96368; 96375; 96409; 96411; 96413

== ENCOUNTER → 2017-07-19 | Outpatient (RCR) | payer MEDICARE, OTHER ==
[2017-04-20 10:33] LABS: BASOPHILS # (AUTO) 0.1 10^3/uL (0.0-0.1); BASOPHILS % (AUTO) 2 % (0-10); EOSINOPHILS # (AUTO) 0.2 10^3/uL (0.0-0.3); EOSINOPHILS % (AUTO) 4 % (0-10); HEMATOCRIT 39 % (35-52); HEMOGLOBIN 13.2 G/DL (11.5-16.0); LYMPHOCYTES # (AUTO) 1.2 X 10^3 (1.0-4.0); LYMPHOCYTES % (AUTO) 23 % (12-44); MEAN CORPUSCULAR HEMOGLOBIN 32 PG (25-34); MEAN CORPUSCULAR HGB CONC 34 G/DL (32-36); MEAN CORPUSCULAR VOLUME 94 FL (80-99); MEAN PLATELET VOLUME 10.4 FL (7.4-10.4); MONOCYTES # (AUTO) 0.6 X 10^3 (0.0-1.0); MONOCYTES % (AUTO) 12 % (0-12); NEUTROPHILS # (AUTO) 3.1 X 10^3 (1.8-7.8); NEUTROPHILS % (AUTO) 60 % (42-75); PLATELET COUNT 264 10^3/uL (130-400); RED BLOOD COUNT 4.18 10^6/uL (4.35-5.85); RED CELL DISTRIBUTION WIDTH 15.8 % (10.0-14.5); WHITE BLOOD COUNT 5.1 10^3/uL (4.3-11.0)
[2017-04-20 10:52] LABS: ALANINE AMINOTRANSFERASE 71 U/L (0-55); ALBUMIN 4.2 GM/DL (3.2-4.5); ALKALINE PHOSPHATASE 169 U/L (40-136); BUN/CREATININE RATIO 15; CALCIUM 9.7 MG/DL (8.5-10.1); CARBON DIOXIDE 24 MMOL/L (21-32); CHLORIDE 104 MMOL/L (98-107); CREATININE SERUM 0.85 MG/DL (0.60-1.30); GFR ESTIMATED > 60; GLUCOSE 97 MG/DL (70-105); POTASSIUM 3.9 MMOL/L (3.6-5.0); SODIUM 139 MMOL/L (135-145); TOTAL PROTEIN 7.6 GM/DL (6.4-8.2)
[2017-05-03 08:50] LABS: BASOPHILS # (AUTO) 0.1 10^3/uL (0.0-0.1); BASOPHILS % (AUTO) 3 % (0-10); EOSINOPHILS # (AUTO) 0.2 10^3/uL (0.0-0.3); EOSINOPHILS % (AUTO) 5 % (0-10); HEMATOCRIT 38 % (35-52); HEMOGLOBIN 13.3 G/DL (11.5-16.0); LYMPHOCYTES # (AUTO) 1.3 X 10^3 (1.0-4.0); LYMPHOCYTES % (AUTO) 29 % (12-44); MEAN CORPUSCULAR HEMOGLOBIN 32 PG (25-34); MEAN CORPUSCULAR HGB CONC 35 G/DL (32-36); MEAN CORPUSCULAR VOLUME 94 FL (80-99); MEAN PLATELET VOLUME 10.8 FL (7.4-10.4); MONOCYTES # (AUTO) 0.7 X 10^3 (0.0-1.0); MONOCYTES % (AUTO) 14 % (0-12); NEUTROPHILS # (AUTO) 2.2 X 10^3 (1.8-7.8); NEUTROPHILS % (AUTO) 48 % (42-75); PLATELET COUNT 265 10^3/uL (130-400); RED CELL DISTRIBUTION WIDTH 15.6 % (10.0-14.5); WHITE BLOOD COUNT 4.5 10^3/uL (4.3-11.0)
[2017-05-03 09:14] LABS: ALANINE AMINOTRANSFERASE 23 U/L (0-55); ALBUMIN 4.2 GM/DL (3.2-4.5); ALKALINE PHOSPHATASE 119 U/L (40-136); BILIRUBIN,TOTAL 0.9 MG/DL (0.1-1.0); BUN/CREATININE RATIO 14; CALCIUM 9.5 MG/DL (8.5-10.1); CARBON DIOXIDE 22 MMOL/L (21-32); CHLORIDE 104 MMOL/L (98-107); CREATININE SERUM 0.86 MG/DL (0.60-1.30); GFR ESTIMATED > 60; GLUCOSE 96 MG/DL (70-105); POTASSIUM 3.9 MMOL/L (3.6-5.0); SODIUM 138 MMOL/L (135-145); TOTAL PROTEIN 7.4 GM/DL (6.4-8.2)
[2017-05-17 09:03] LABS: BASOPHILS # (AUTO) 0.1 10^3/uL (0.0-0.1); BASOPHILS % (AUTO) 3 % (0-10); EOSINOPHILS # (AUTO) 0.2 10^3/uL (0.0-0.3); EOSINOPHILS % (AUTO) 5 % (0-10); HEMATOCRIT 38 % (35-52); LYMPHOCYTES # (AUTO) 1.2 X 10^3 (1.0-4.0); LYMPHOCYTES % (AUTO) 26 % (12-44); MEAN CORPUSCULAR HEMOGLOBIN 32 PG (25-34); MEAN CORPUSCULAR HGB CONC 34 G/DL (32-36); MEAN CORPUSCULAR VOLUME 95 FL (80-99); MEAN PLATELET VOLUME 10.3 FL (7.4-10.4); MONOCYTES # (AUTO) 0.6 X 10^3 (0.0-1.0); MONOCYTES % (AUTO) 13 % (0-12); NEUTROPHILS # (AUTO) 2.4 X 10^3 (1.8-7.8); NEUTROPHILS % (AUTO) 53 % (42-75); PLATELET COUNT 243 10^3/uL (130-400); RED BLOOD COUNT 4.06 10^6/uL (4.35-5.85); RED CELL DISTRIBUTION WIDTH 15.8 % (10.0-14.5); WHITE BLOOD COUNT 4.5 10^3/uL (4.3-11.0)
[2017-05-17 09:21] LABS: ALANINE AMINOTRANSFERASE 29 U/L (0-55); ALBUMIN 4.2 GM/DL (3.2-4.5); ALKALINE PHOSPHATASE 107 U/L (40-136); BILIRUBIN,TOTAL 0.8 MG/DL (0.1-1.0); BUN/CREATININE RATIO 20; CALCIUM 9.4 MG/DL (8.5-10.1); CARBON DIOXIDE 25 MMOL/L (21-32); CHLORIDE 103 MMOL/L (98-107); CREATININE SERUM 0.81 MG/DL (0.60-1.30); GFR ESTIMATED > 60; GLUCOSE 99 MG/DL (70-105); POTASSIUM 3.9 MMOL/L (3.6-5.0); SODIUM 139 MMOL/L (135-145); TOTAL PROTEIN 7.5 GM/DL (6.4-8.2)
[2017-05-17 09:45] LABS: URINE CREATININE FOR RATIO 34 MG/DL (30-125); URINE PROTEIN FOR RATIO ONLY < 6 MG/DL (6-12)
[2017-05-31 09:03] LABS: BASOPHILS # (AUTO) 0.1 10^3/uL (0.0-0.1); BASOPHILS % (AUTO) 3 % (0-10); EOSINOPHILS # (AUTO) 0.3 10^3/uL (0.0-0.3); EOSINOPHILS % (AUTO) 5 % (0-10); HEMATOCRIT 39 % (35-52); HEMOGLOBIN 13.4 G/DL (11.5-16.0); LYMPHOCYTES # (AUTO) 1.4 X 10^3 (1.0-4.0); LYMPHOCYTES % (AUTO) 26 % (12-44); MEAN CORPUSCULAR HEMOGLOBIN 33 PG (25-34); MEAN CORPUSCULAR HGB CONC 34 G/DL (32-36); MEAN CORPUSCULAR VOLUME 95 FL (80-99); MEAN PLATELET VOLUME 10.8 FL (7.4-10.4); MONOCYTES # (AUTO) 0.7 X 10^3 (0.0-1.0); MONOCYTES % (AUTO) 14 % (0-12); NEUTROPHILS # (AUTO) 2.7 X 10^3 (1.8-7.8); NEUTROPHILS % (AUTO) 52 % (42-75); PLATELET COUNT 268 10^3/uL (130-400); RED BLOOD COUNT 4.12 10^6/uL (4.35-5.85); RED CELL DISTRIBUTION WIDTH 15.4 % (10.0-14.5); WHITE BLOOD COUNT 5.2 10^3/uL (4.3-11.0)
[2017-05-31 09:21] LABS: ALANINE AMINOTRANSFERASE 28 U/L (0-55); ALBUMIN 4.2 GM/DL (3.2-4.5); ALKALINE PHOSPHATASE 123 U/L (40-136); BUN/CREATININE RATIO 16; CALCIUM 9.6 MG/DL (8.5-10.1); CARBON DIOXIDE 22 MMOL/L (21-32); CHLORIDE 105 MMOL/L (98-107); CREATININE SERUM 0.83 MG/DL (0.60-1.30); GFR ESTIMATED > 60; GLUCOSE 103 MG/DL (70-105); POTASSIUM 4.2 MMOL/L (3.6-5.0); SODIUM 138 MMOL/L (135-145); TOTAL PROTEIN 7.2 GM/DL (6.4-8.2)
[2017-06-14 09:14] LABS: BASOPHILS # (AUTO) 0.1 10^3/uL (0.0-0.1); BASOPHILS % (AUTO) 1 % (0-10); EOSINOPHILS # (AUTO) 0.3 10^3/uL (0.0-0.3); EOSINOPHILS % (AUTO) 5 % (0-10); HEMATOCRIT 39 % (35-52); HEMOGLOBIN 13.2 G/DL (11.5-16.0); LYMPHOCYTES # (AUTO) 1.3 X 10^3 (1.0-4.0); LYMPHOCYTES % (AUTO) 26 % (12-44); MEAN CORPUSCULAR HEMOGLOBIN 32 PG (25-34); MEAN CORPUSCULAR HGB CONC 34 G/DL (32-36); MEAN CORPUSCULAR VOLUME 94 FL (80-99); MEAN PLATELET VOLUME 11.1 FL (7.4-10.4); MONOCYTES # (AUTO) 0.7 X 10^3 (0.0-1.0); MONOCYTES % (AUTO) 14 % (0-12); NEUTROPHILS # (AUTO) 2.5 X 10^3 (1.8-7.8); NEUTROPHILS % (AUTO) 53 % (42-75); PLATELET COUNT 245 10^3/uL (130-400); RED BLOOD COUNT 4.13 10^6/uL (4.35-5.85); RED CELL DISTRIBUTION WIDTH 15.5 % (10.0-14.5); WHITE BLOOD COUNT 4.7 10^3/uL (4.3-11.0)
[2017-06-14 09:37] LABS: ALANINE AMINOTRANSFERASE 25 U/L (0-55); ALBUMIN 4.4 GM/DL (3.2-4.5); ALKALINE PHOSPHATASE 106 U/L (40-136); BILIRUBIN,TOTAL 0.9 MG/DL (0.1-1.0); BUN/CREATININE RATIO 18; CALCIUM 9.5 MG/DL (8.5-10.1); CARBON DIOXIDE 21 MMOL/L (21-32); CHLORIDE 106 MMOL/L (98-107); CREATININE SERUM 0.82 MG/DL (0.60-1.30); GFR ESTIMATED > 60; GLUCOSE 98 MG/DL (70-105); SODIUM 138 MMOL/L (135-145); TOTAL PROTEIN 7.6 GM/DL (6.4-8.2)
[2017-06-21 10:19] LABS: BASOPHILS # (AUTO) 0.1 10^3/uL (0.0-0.1); BASOPHILS % (AUTO) 2 % (0-10); EOSINOPHILS # (AUTO) 0.4 10^3/uL (0.0-0.3); EOSINOPHILS % (AUTO) 9 % (0-10); HEMATOCRIT 39 % (35-52); HEMOGLOBIN 13.2 G/DL (11.5-16.0); LYMPHOCYTES # (AUTO) 1.7 X 10^3 (1.0-4.0); LYMPHOCYTES % (AUTO) 36 % (12-44); MEAN CORPUSCULAR HEMOGLOBIN 33 PG (25-34); MEAN CORPUSCULAR HGB CONC 34 G/DL (32-36); MEAN CORPUSCULAR VOLUME 96 FL (80-99); MEAN PLATELET VOLUME 10.6 FL (7.4-10.4); MONOCYTES # (AUTO) 0.7 X 10^3 (0.0-1.0); MONOCYTES % (AUTO) 14 % (0-12); NEUTROPHILS # (AUTO) 1.9 X 10^3 (1.8-7.8); NEUTROPHILS % (AUTO) 40 % (42-75); PLATELET COUNT 284 10^3/uL (130-400); RED BLOOD COUNT 4.02 10^6/uL (4.35-5.85); RED CELL DISTRIBUTION WIDTH 15.4 % (10.0-14.5); WHITE BLOOD COUNT 4.7 10^3/uL (4.3-11.0)
[2017-06-21 10:39] LABS: BUN/CREATININE RATIO 17; CALCIUM 10.1 MG/DL (8.5-10.1); CARBON DIOXIDE 30 MMOL/L (21-32); CHLORIDE 102 MMOL/L (98-107); CREATININE SERUM 0.84 MG/DL (0.60-1.30); GFR ESTIMATED > 60; GLUCOSE 95 MG/DL (70-105); POTASSIUM 4.6 MMOL/L (3.6-5.0); SODIUM 138 MMOL/L (135-145)
[2017-06-28 09:09] LABS: BASOPHILS # (AUTO) 0.1 10^3/uL (0.0-0.1); BASOPHILS % (AUTO) 2 % (0-10); EOSINOPHILS # (AUTO) 0.3 10^3/uL (0.0-0.3); EOSINOPHILS % (AUTO) 6 % (0-10); HEMATOCRIT 38 % (35-52); HEMOGLOBIN 12.8 G/DL (11.5-16.0); LYMPHOCYTES # (AUTO) 1.2 X 10^3 (1.0-4.0); LYMPHOCYTES % (AUTO) 26 % (12-44); MEAN CORPUSCULAR HEMOGLOBIN 32 PG (25-34); MEAN CORPUSCULAR HGB CONC 34 G/DL (32-36); MEAN CORPUSCULAR VOLUME 95 FL (80-99); MEAN PLATELET VOLUME 10.8 FL (7.4-10.4); MONOCYTES # (AUTO) 0.8 X 10^3 (0.0-1.0); MONOCYTES % (AUTO) 17 % (0-12); NEUTROPHILS # (AUTO) 2.2 X 10^3 (1.8-7.8); NEUTROPHILS % (AUTO) 49 % (42-75); PLATELET COUNT 250 10^3/uL (130-400); RED BLOOD COUNT 3.99 10^6/uL (4.35-5.85); RED CELL DISTRIBUTION WIDTH 15.7 % (10.0-14.5); WHITE BLOOD COUNT 4.5 10^3/uL (4.3-11.0)
[2017-06-28 09:26] LABS: SMEAR SCAN COMMENT YES
[2017-06-28 09:32] LABS: ALANINE AMINOTRANSFERASE 26 U/L (0-55); ALBUMIN 4.4 GM/DL (3.2-4.5); ALKALINE PHOSPHATASE 127 U/L (40-136); BILIRUBIN,TOTAL 0.8 MG/DL (0.1-1.0); BUN/CREATININE RATIO 19; CALCIUM 9.5 MG/DL (8.5-10.1); CARBON DIOXIDE 24 MMOL/L (21-32); CHLORIDE 104 MMOL/L (98-107); GFR ESTIMATED > 60; GLUCOSE 94 MG/DL (70-105); SODIUM 136 MMOL/L (135-145); TOTAL PROTEIN 7.3 GM/DL (6.4-8.2)
[2017-07-05 09:43] LABS: BASOPHILS # (AUTO) 0.2 10^3/uL (0.0-0.1); BASOPHILS % (AUTO) 4 % (0-10); EOSINOPHILS # (AUTO) 0.4 10^3/uL (0.0-0.3); EOSINOPHILS % (AUTO) 10 % (0-10); HEMATOCRIT 39 % (35-52); HEMOGLOBIN 13.7 G/DL (11.5-16.0); LYMPHOCYTES # (AUTO) 1.7 X 10^3 (1.0-4.0); LYMPHOCYTES % (AUTO) 39 % (12-44); MEAN CORPUSCULAR HEMOGLOBIN 33 PG (25-34); MEAN CORPUSCULAR HGB CONC 35 G/DL (32-36); MEAN CORPUSCULAR VOLUME 93 FL (80-99); MEAN PLATELET VOLUME 10.8 FL (7.4-10.4); MONOCYTES # (AUTO) 0.8 X 10^3 (0.0-1.0); MONOCYTES % (AUTO) 18 % (0-12); NEUTROPHILS # (AUTO) 1.2 X 10^3 (1.8-7.8); NEUTROPHILS % (AUTO) 29 % (42-75); PLATELET COUNT 255 10^3/uL (130-400); RED BLOOD COUNT 4.19 10^6/uL (4.35-5.85); RED CELL DISTRIBUTION WIDTH 15.5 % (10.0-14.5); WHITE BLOOD COUNT 4.3 10^3/uL (4.3-11.0)
[2017-07-05 10:01] LABS: BUN/CREATININE RATIO 13; CALCIUM 9.7 MG/DL (8.5-10.1); CARBON DIOXIDE 22 MMOL/L (21-32); CHLORIDE 106 MMOL/L (98-107); CREATININE SERUM 0.82 MG/DL (0.60-1.30); GFR ESTIMATED > 60; GLUCOSE 99 MG/DL (70-105); POTASSIUM 4.5 MMOL/L (3.6-5.0); SODIUM 138 MMOL/L (135-145)
[2017-07-12 09:25] LABS: BASOPHILS # (AUTO) 0.1 10^3/uL (0.0-0.1); BASOPHILS % (AUTO) 2 % (0-10); EOSINOPHILS # (AUTO) 0.2 10^3/uL (0.0-0.3); EOSINOPHILS % (AUTO) 6 % (0-10); HEMATOCRIT 38 % (35-52); LYMPHOCYTES # (AUTO) 1.2 X 10^3 (1.0-4.0); LYMPHOCYTES % (AUTO) 28 % (12-44); MEAN CORPUSCULAR HEMOGLOBIN 33 PG (25-34); MEAN CORPUSCULAR HGB CONC 34 G/DL (32-36); MEAN CORPUSCULAR VOLUME 95 FL (80-99); MEAN PLATELET VOLUME 10.9 FL (7.4-10.4); MONOCYTES # (AUTO) 0.7 X 10^3 (0.0-1.0); MONOCYTES % (AUTO) 17 % (0-12); NEUTROPHILS % (AUTO) 48 % (42-75); PLATELET COUNT 188 10^3/uL (130-400); RED CELL DISTRIBUTION WIDTH 15.6 % (10.0-14.5); WHITE BLOOD COUNT 4.2 10^3/uL (4.3-11.0)
[2017-07-12 09:45] LABS: ALANINE AMINOTRANSFERASE 23 U/L (0-55); ALBUMIN 4.4 GM/DL (3.2-4.5); ALKALINE PHOSPHATASE 114 U/L (40-136); BILIRUBIN,TOTAL 0.8 MG/DL (0.1-1.0); BUN/CREATININE RATIO 14; CALCIUM 9.7 MG/DL (8.5-10.1); CARBON DIOXIDE 25 MMOL/L (21-32); CHLORIDE 105 MMOL/L (98-107); CREATININE SERUM 0.81 MG/DL (0.60-1.30); GFR ESTIMATED > 60; GLUCOSE 96 MG/DL (70-105); MAGNESIUM 2.3 MG/DL (1.8-2.4); SODIUM 137 MMOL/L (135-145); TOTAL PROTEIN 7.2 GM/DL (6.4-8.2)
[2017-07-12 09:55] LABS: URINE CREATININE FOR RATIO 26 MG/DL (30-125); URINE PROTEIN FOR RATIO ONLY < 6 MG/DL (6-12)
[~2017-07-19] VITALS: Ht 165.1 cm; Wt 75.7 kg
[~2017-07-19] MED LIST changes: +D5W 500 ML IV (CANCER CTR) 500 ML IV SCH; +NS IV 500 ML (CANCER CENTER) 500 ML IV SCH; -NS IV 500 ML (CANCER CENTER) 500 ML ONE
[2017-07-19 10:01] LABS: BASOPHILS # (AUTO) 0.1 10^3/uL (0.0-0.1); BASOPHILS % (AUTO) 3 % (0-10); EOSINOPHILS # (AUTO) 0.3 10^3/uL (0.0-0.3); EOSINOPHILS % (AUTO) 9 % (0-10); HEMATOCRIT 38 % (35-52); HEMOGLOBIN 13.2 G/DL (11.5-16.0); LYMPHOCYTES # (AUTO) 1.2 X 10^3 (1.0-4.0); LYMPHOCYTES % (AUTO) 33 % (12-44); MEAN CORPUSCULAR HEMOGLOBIN 32 PG (25-34); MEAN CORPUSCULAR HGB CONC 35 G/DL (32-36); MEAN CORPUSCULAR VOLUME 94 FL (80-99); MEAN PLATELET VOLUME 10.6 FL (7.4-10.4); MONOCYTES # (AUTO) 0.6 X 10^3 (0.0-1.0); MONOCYTES % (AUTO) 16 % (0-12); NEUTROPHILS # (AUTO) 1.4 X 10^3 (1.8-7.8); NEUTROPHILS % (AUTO) 40 % (42-75); PLATELET COUNT 189 10^3/uL (130-400); RED BLOOD COUNT 4.07 10^6/uL (4.35-5.85); RED CELL DISTRIBUTION WIDTH 15.2 % (10.0-14.5); WHITE BLOOD COUNT 3.5 10^3/uL (4.3-11.0)
[2017-07-19 10:17] LABS: BUN/CREATININE RATIO 18; CALCIUM 9.6 MG/DL (8.5-10.1); CARBON DIOXIDE 26 MMOL/L (21-32); CHLORIDE 105 MMOL/L (98-107); GFR ESTIMATED > 60; GLUCOSE 101 MG/DL (70-105); POTASSIUM 4.3 MMOL/L (3.6-5.0); SODIUM 137 MMOL/L (135-145)
== END | disposition home or self-care (01) ==
LOC: ONC 04-20 10:14
PROVIDERS: ATTEND Internal Medicine Hematology & Oncology
DX: C78.7 Secondary malignant neoplasm of liver and intrahepatic bile duct (principal); C79.89 Secondary malignant neoplasm of other specified sites; C79.61 Secondary malignant neoplasm of right ovary; C78.01 Secondary malignant neoplasm of right lung; C78.6 Secondary malignant neoplasm of retroperitoneum and peritoneum; C77.5 Secondary and unspecified malignant neoplasm of intrapelvic lymph nodes; Z85.038 Personal history of other malignant neoplasm of large intestine; E03.9 Hypothyroidism, unspecified; E78.5 Hyperlipidemia, unspecified; F32.9 Major depressive disorder, single episode, unspecified; Z79.899 Other long term (current) drug therapy; Z92.21 Personal history of antineoplastic chemotherapy
CPT/HCPCS: 36415; 36591; 80048; 80053; 82378; 82570; 83735; 84156; 85025; 96365; 96367; 96368; 96375; 96409; 96411; 96413

== ENCOUNTER → 2017-09-28 | Outpatient (CLI) | payer MEDICARE, OTHER ==
[~2017-09-28] MED LIST changes: +BARIUM SUSPENSION 2.1% (VANILLA SILQ) 450 ML PO ONE; -BEVACIZUMAB IV SCH; -CENTER ONLY IV SCH; -D5W 500 ML IV (CANCER CTR) 500 ML IV ONE; -D5W 500 ML IV (CANCER CTR) 500 ML IV SCH; -FAMOTIDINE 20MG/2ML IV (CANCER CTR) IV SCH; -FLUOROURACIL IV SCH; -FOSAPREPITANT DIMEGLUMINE 150 MG in NS (IVPB) CANCER CENTER ONLY 150 ML IV SCH; +IOHEXOL 350 MG/ML 100 ML (OMNIPAQUE 350) VIAL IV ONE; -LEUCOVORIN CALCIUM 600 MG in D5W 250 ML IVPB (CANCER CTR) 250 ML IV SCH; +NS 250 ML (IVPB) BAG IV ONE; -NS IV 500 ML (CANCER CENTER) 500 ML IV SCH; -NS IV SCH; -ONDANSETRON MDV (CANCER CENTER 8 MG, DEXAMETHASONE PF INJ (CANCER C 10 MG in NS (IVPB) ... IV SCH; -OXALIPLATIN 100 MG, OXALIPLATIN (GENERIC) 30 MG in D5W 250 ML IVPB (CANCER CTR) 250 ML IV SCH; -PALONOSETRON 0.25 MG, DEXAMETHASONE 10 MG/NS 50 ML IVPB IV PRN
--- NOTE | 2017-09-28 12:29 | Diagnostic Imaging Report ---
PROCEDURE: CT chest with contrast, CT abdomen and pelvis with and without contrast. INDICATION: History of colon carcinoma. Increasing cancer levels. TECHNIQUE: CT imaging of the abdomen and pelvis before as well as the chest, abdomen and pelvis following the administration of intravenous contrast. CORRELATION STUDY: 09/16/2016 FINDINGS: CT CHEST: Left subclavian [id number] catheter is present, tip within the SVC. Heart size unremarkable. Few small but nonpathologic enlarged mediastinal lymph nodes are present. Surgical change of the right lung apex with linear scarring. There has been development of somewhat prominent interstitial markings throughout both lung arora. Slightly more pronounced in the peripheral subpleural regions. Slight groundglass opacities are also present. No definitive new pulmonary mass. CT ABDOMEN and PELVIS: Surgical clips at the bladder dome are present. The liver demonstrates relatively uniform attenuation without definitive focal lesion. The gallbladder is not visualized appearing absent. Spleen, pancreas and adrenal glands unremarkable. Low-density masses of both kidneys most compatible with cysts. Abdominal aorta unremarkable. No pathologically enlarged central retroperitoneal lymph nodes. There is postoperative change of the anterior abdominal wall with slight asymmetric areas of wall thickening. Somewhat matted appearance about loops of bowel to the anterior abdominal wall are present. Definitive mass lesion however is not suggested. Surgical change with anastomotic suture line at sigmoid colon. There is a somewhat flaccid appearance about the proximal colon. No findings to suggest obstruction. No definitive pathologically enlarged pelvic lymphadenopathy. Urinary bladder is relatively decompressed. Uterus is absent. Osseous structures demonstrate sclerosis of the left acetabulum appearing unchanged. No new lytic or sclerotic changes. IMPRESSION: CT CHEST: 1. Development of prominent interstitial markings with groundglass opacities. Findings nonspecific but can be associated with lymphangitic carcinomatosis. This could also be reflective of underlying interstitial edema or perhaps other developing interstitial lung disease. 2. Postsurgical changes about the right lung apex. No suggestion of new pulmonary mass or pathologically enlarged thoracic lymphadenopathy. CT ABDOMEN and PELVIS: 1. Postsurgical change of the right hepatic lobe at the dome. No new definitive abdominal pelvic mass lesion. Dictated by: Dictated on workstation # [id number]
== END ==
LOC: RAD 08:08
PROVIDERS: ATTEND Nurse Practitioner Adult Health
DX: C18.7 Malignant neoplasm of sigmoid colon (principal); C78.01 Secondary malignant neoplasm of right lung; C79.60 Secondary malignant neoplasm of unspecified ovary; C78.7 Secondary malignant neoplasm of liver and intrahepatic bile duct; Z98.890 Other specified postprocedural states
CPT/HCPCS: 71260; 74178

== ENCOUNTER → 2017-10-15 | Outpatient (CLI) | payer MEDICARE ==
[~2017-10-15] MED LIST changes: -BARIUM SUSPENSION 2.1% (VANILLA SILQ) 450 ML PO ONE; -IOHEXOL 350 MG/ML 100 ML (OMNIPAQUE 350) VIAL IV ONE; -NS 250 ML (IVPB) BAG IV ONE
--- NOTE | 2017-10-15 13:34 | Diagnostic Imaging Report ---
INDICATION: Routine screening. COMPARISON is made with prior study from 10/13/2016 and 10/10/2015. 2D and 3D bilateral screening mammography was performed with Computer Aided Detection (CAD) system. FINDINGS: Scattered fibronodular densities are identified bilaterally. There are benign calcifications in both breasts. A benign nodular density in the outer right breast is stable. No spiculated mass or malignant-appearing microcalcifications are seen. The axillae are unremarkable. IMPRESSION: BI-RADS category 2. No mammographic features suspicious for malignancy are identified. ACR BI-RADS Category 2: Benign findings. Result letter will be mailed to the patient. Note: At least 10% of breast cancer is not imaged by mammography. Dictated by: Dictated on workstation # [id number]
== END ==
LOC: RAD 07:02
PROVIDERS: ATTEND Internal Medicine Hematology & Oncology
DX: Z12.31 Encounter for screening mammogram for malignant neoplasm of breast (principal)
CPT/HCPCS: 77067

== ENCOUNTER 2017-10-19 08:48 | Outpatient (RCR) | payer MEDICARE, OTHER ==
[2017-07-26 09:12] LABS: BASOPHILS # (AUTO) 0.1 10^3/uL (0.0-0.1); BASOPHILS % (AUTO) 3 % (0-10); EOSINOPHILS # (AUTO) 0.2 10^3/uL (0.0-0.3); EOSINOPHILS % (AUTO) 5 % (0-10); HEMATOCRIT 37 % (35-52); HEMOGLOBIN 12.7 G/DL (11.5-16.0); LYMPHOCYTES % (AUTO) 28 % (12-44); MEAN CORPUSCULAR HEMOGLOBIN 33 PG (25-34); MEAN CORPUSCULAR HGB CONC 35 G/DL (32-36); MEAN CORPUSCULAR VOLUME 94 FL (80-99); MEAN PLATELET VOLUME 10.6 FL (7.4-10.4); MONOCYTES # (AUTO) 0.6 X 10^3 (0.0-1.0); MONOCYTES % (AUTO) 17 % (0-12); NEUTROPHILS # (AUTO) 1.7 X 10^3 (1.8-7.8); NEUTROPHILS % (AUTO) 47 % (42-75); PLATELET COUNT 201 10^3/uL (130-400); RED BLOOD COUNT 3.91 10^6/uL (4.35-5.85); RED CELL DISTRIBUTION WIDTH 15.6 % (10.0-14.5); WHITE BLOOD COUNT 3.6 10^3/uL (4.3-11.0)
[2017-07-26 09:39] LABS: BUN/CREATININE RATIO 15; CALCIUM 9.5 MG/DL (8.5-10.1); CARBON DIOXIDE 21 MMOL/L (21-32); CHLORIDE 106 MMOL/L (98-107); CREATININE SERUM 0.87 MG/DL (0.60-1.30); GFR ESTIMATED > 60; GLUCOSE 113 MG/DL (70-105); POTASSIUM 3.6 MMOL/L (3.6-5.0); SODIUM 139 MMOL/L (135-145)
[2017-08-02 10:44] LABS: BASOPHILS # (AUTO) 0.1 10^3/uL (0.0-0.1); BASOPHILS % (AUTO) 2 % (0-10); EOSINOPHILS # (AUTO) 0.3 10^3/uL (0.0-0.3); EOSINOPHILS % (AUTO) 6 % (0-10); HEMATOCRIT 41 % (35-52); HEMOGLOBIN 13.8 G/DL (11.5-16.0); LYMPHOCYTES # (AUTO) 1.5 X 10^3 (1.0-4.0); LYMPHOCYTES % (AUTO) 34 % (12-44); MEAN CORPUSCULAR HEMOGLOBIN 32 PG (25-34); MEAN CORPUSCULAR HGB CONC 34 G/DL (32-36); MEAN CORPUSCULAR VOLUME 93 FL (80-99); MEAN PLATELET VOLUME 10.3 FL (7.4-10.4); MONOCYTES # (AUTO) 0.9 X 10^3 (0.0-1.0); MONOCYTES % (AUTO) 19 % (0-12); NEUTROPHILS # (AUTO) 1.8 X 10^3 (1.8-7.8); NEUTROPHILS % (AUTO) 39 % (42-75); PLATELET COUNT 278 10^3/uL (130-400); RED BLOOD COUNT 4.34 10^6/uL (4.35-5.85); RED CELL DISTRIBUTION WIDTH 15.5 % (10.0-14.5); WHITE BLOOD COUNT 4.5 10^3/uL (4.3-11.0)
[2017-08-02 10:59] LABS: CALCIUM 10.2 MG/DL (8.5-10.1); CREATININE SERUM 0.96 MG/DL (0.60-1.30); POTASSIUM 5.2 MMOL/L (3.6-5.0)
[2017-08-10 11:02] LABS: BASOPHILS # (AUTO) 0.1 10^3/uL (0.0-0.1); BASOPHILS % (AUTO) 1 % (0-10); EOSINOPHILS # (AUTO) 0.1 10^3/uL (0.0-0.3); EOSINOPHILS % (AUTO) 3 % (0-10); HEMATOCRIT 35 % (35-52); HEMOGLOBIN 11.8 G/DL (11.5-16.0); LYMPHOCYTES % (AUTO) 22 % (12-44); MEAN CORPUSCULAR HEMOGLOBIN 32 PG (25-34); MEAN CORPUSCULAR HGB CONC 34 G/DL (32-36); MEAN CORPUSCULAR VOLUME 95 FL (80-99); MEAN PLATELET VOLUME 10.3 FL (7.4-10.4); MONOCYTES # (AUTO) 0.8 X 10^3 (0.0-1.0); MONOCYTES % (AUTO) 17 % (0-12); NEUTROPHILS # (AUTO) 2.8 X 10^3 (1.8-7.8); NEUTROPHILS % (AUTO) 58 % (42-75); PLATELET COUNT 219 10^3/uL (130-400); RED CELL DISTRIBUTION WIDTH 15.9 % (10.0-14.5); WHITE BLOOD COUNT 4.7 10^3/uL (4.3-11.0)
[2017-08-10 11:23] LABS: ALANINE AMINOTRANSFERASE 23 U/L (0-55); ALBUMIN 4.3 GM/DL (3.2-4.5); ALKALINE PHOSPHATASE 122 U/L (40-136); BILIRUBIN,TOTAL 0.7 MG/DL (0.1-1.0); BUN/CREATININE RATIO 20; CALCIUM 9.7 MG/DL (8.5-10.1); CARBON DIOXIDE 24 MMOL/L (21-32); CHLORIDE 106 MMOL/L (98-107); CREATININE SERUM 0.74 MG/DL (0.60-1.30); GFR ESTIMATED > 60; GLUCOSE 89 MG/DL (70-105); SODIUM 138 MMOL/L (135-145); TOTAL PROTEIN 7.1 GM/DL (6.4-8.2)
[2017-08-10 11:26] LABS: URINE CREATININE FOR RATIO 41 MG/DL (30-125); URINE PROTEIN FOR RATIO ONLY < 6 MG/DL (6-12)
[2017-08-17 09:36] LABS: BASOPHILS # (AUTO) 0.1 10^3/uL (0.0-0.1); BASOPHILS % (AUTO) 4 % (0-10); EOSINOPHILS # (AUTO) 0.2 10^3/uL (0.0-0.3); EOSINOPHILS % (AUTO) 8 % (0-10); HEMATOCRIT 36 % (35-52); LYMPHOCYTES % (AUTO) 34 % (12-44); MEAN CORPUSCULAR HEMOGLOBIN 32 PG (25-34); MEAN CORPUSCULAR HGB CONC 34 G/DL (32-36); MEAN CORPUSCULAR VOLUME 95 FL (80-99); MEAN PLATELET VOLUME 10.1 FL (7.4-10.4); MONOCYTES # (AUTO) 0.5 X 10^3 (0.0-1.0); MONOCYTES % (AUTO) 16 % (0-12); NEUTROPHILS # (AUTO) 1.1 X 10^3 (1.8-7.8); NEUTROPHILS % (AUTO) 39 % (42-75); PLATELET COUNT 202 10^3/uL (130-400); RED BLOOD COUNT 3.73 10^6/uL (4.35-5.85); RED CELL DISTRIBUTION WIDTH 15.9 % (10.0-14.5); WHITE BLOOD COUNT 2.9 10^3/uL (4.3-11.0)
[2017-08-17 09:54] LABS: BUN/CREATININE RATIO 12; CALCIUM 9.6 MG/DL (8.5-10.1); CARBON DIOXIDE 23 MMOL/L (21-32); CHLORIDE 106 MMOL/L (98-107); CREATININE SERUM 0.75 MG/DL (0.60-1.30); GFR ESTIMATED > 60; GLUCOSE 99 MG/DL (70-105); POTASSIUM 4.5 MMOL/L (3.6-5.0); SODIUM 139 MMOL/L (135-145)
[2017-08-24 09:08] LABS: BASOPHILS # (AUTO) 0.1 10^3/uL (0.0-0.1); BASOPHILS % (AUTO) 3 % (0-10); EOSINOPHILS # (AUTO) 0.1 10^3/uL (0.0-0.3); EOSINOPHILS % (AUTO) 5 % (0-10); HEMATOCRIT 35 % (35-52); HEMOGLOBIN 11.6 G/DL (11.5-16.0); LYMPHOCYTES # (AUTO) 0.8 X 10^3 (1.0-4.0); LYMPHOCYTES % (AUTO) 26 % (12-44); MEAN CORPUSCULAR HEMOGLOBIN 32 PG (25-34); MEAN CORPUSCULAR HGB CONC 33 G/DL (32-36); MEAN CORPUSCULAR VOLUME 96 FL (80-99); MEAN PLATELET VOLUME 10.8 FL (7.4-10.4); MONOCYTES # (AUTO) 0.7 X 10^3 (0.0-1.0); MONOCYTES % (AUTO) 22 % (0-12); NEUTROPHILS # (AUTO) 1.4 X 10^3 (1.8-7.8); NEUTROPHILS % (AUTO) 45 % (42-75); PLATELET COUNT 211 10^3/uL (130-400); RED BLOOD COUNT 3.64 10^6/uL (4.35-5.85); RED CELL DISTRIBUTION WIDTH 16.7 % (10.0-14.5)
[2017-08-24 09:24] LABS: BUN/CREATININE RATIO 15; CALCIUM 9.4 MG/DL (8.5-10.1); CARBON DIOXIDE 24 MMOL/L (21-32); CHLORIDE 108 MMOL/L (98-107); CREATININE SERUM 0.79 MG/DL (0.60-1.30); GFR ESTIMATED > 60; GLUCOSE 100 MG/DL (70-105); SODIUM 140 MMOL/L (135-145)
[2017-08-31 10:18] LABS: BASOPHILS # (AUTO) 0.1 10^3/uL (0.0-0.1); BASOPHILS % (AUTO) 3 % (0-10); EOSINOPHILS # (AUTO) 0.2 10^3/uL (0.0-0.3); EOSINOPHILS % (AUTO) 8 % (0-10); HEMATOCRIT 37 % (35-52); HEMOGLOBIN 12.3 G/DL (11.5-16.0); LYMPHOCYTES # (AUTO) 1.1 X 10^3 (1.0-4.0); LYMPHOCYTES % (AUTO) 35 % (12-44); MEAN CORPUSCULAR HEMOGLOBIN 32 PG (25-34); MEAN CORPUSCULAR HGB CONC 33 G/DL (32-36); MEAN CORPUSCULAR VOLUME 95 FL (80-99); MEAN PLATELET VOLUME 10.9 FL (7.4-10.4); MONOCYTES # (AUTO) 0.6 X 10^3 (0.0-1.0); MONOCYTES % (AUTO) 17 % (0-12); NEUTROPHILS # (AUTO) 1.2 X 10^3 (1.8-7.8); NEUTROPHILS % (AUTO) 38 % (42-75); PLATELET COUNT 251 10^3/uL (130-400); RED BLOOD COUNT 3.89 10^6/uL (4.35-5.85); RED CELL DISTRIBUTION WIDTH 16.3 % (10.0-14.5); WHITE BLOOD COUNT 3.2 10^3/uL (4.3-11.0)
[2017-08-31 10:50] LABS: BUN/CREATININE RATIO 16; CALCIUM 9.9 MG/DL (8.5-10.1); CARBON DIOXIDE 24 MMOL/L (21-32); CHLORIDE 106 MMOL/L (98-107); CREATININE SERUM 0.77 MG/DL (0.60-1.30); GFR ESTIMATED > 60; GLUCOSE 110 MG/DL (70-105); POTASSIUM 4.8 MMOL/L (3.6-5.0); SODIUM 138 MMOL/L (135-145)
[2017-09-06 09:18] LABS: BASOPHILS # (AUTO) 0.1 10^3/uL (0.0-0.1); BASOPHILS % (AUTO) 2 % (0-10); EOSINOPHILS # (AUTO) 0.2 10^3/uL (0.0-0.3); EOSINOPHILS % (AUTO) 4 % (0-10); HEMATOCRIT 36 % (35-52); HEMOGLOBIN 12.1 G/DL (11.5-16.0); LYMPHOCYTES % (AUTO) 22 % (12-44); MEAN CORPUSCULAR HEMOGLOBIN 32 PG (25-34); MEAN CORPUSCULAR HGB CONC 34 G/DL (32-36); MEAN CORPUSCULAR VOLUME 94 FL (80-99); MEAN PLATELET VOLUME 11.1 FL (7.4-10.4); MONOCYTES # (AUTO) 0.8 X 10^3 (0.0-1.0); MONOCYTES % (AUTO) 19 % (0-12); NEUTROPHILS # (AUTO) 2.3 X 10^3 (1.8-7.8); NEUTROPHILS % (AUTO) 53 % (42-75); PLATELET COUNT 195 10^3/uL (130-400); RED BLOOD COUNT 3.84 10^6/uL (4.35-5.85); WHITE BLOOD COUNT 4.4 10^3/uL (4.3-11.0)
[2017-09-06 09:39] LABS: ALANINE AMINOTRANSFERASE 21 U/L (0-55); ALBUMIN 4.3 GM/DL (3.2-4.5); ALKALINE PHOSPHATASE 125 U/L (40-136); BILIRUBIN,TOTAL 0.8 MG/DL (0.1-1.0); BUN/CREATININE RATIO 16; CALCIUM 9.7 MG/DL (8.5-10.1); CARBON DIOXIDE 22 MMOL/L (21-32); CHLORIDE 106 MMOL/L (98-107); CREATININE SERUM 0.76 MG/DL (0.60-1.30); GFR ESTIMATED > 60; GLUCOSE 105 MG/DL (70-105); MAGNESIUM 1.8 MG/DL (1.8-2.4); POTASSIUM 3.7 MMOL/L (3.6-5.0); SODIUM 139 MMOL/L (135-145); TOTAL PROTEIN 7.2 GM/DL (6.4-8.2)
[2017-09-06 10:09] LABS: URINE CREATININE FOR RATIO 17 MG/DL (30-125); URINE PROTEIN FOR RATIO ONLY < 6 MG/DL (6-12)
[2017-09-21 09:16] LABS: BASOPHILS # (AUTO) 0.1 10^3/uL (0.0-0.1); BASOPHILS % (AUTO) 1 % (0-10); EOSINOPHILS # (AUTO) 0.2 10^3/uL (0.0-0.3); EOSINOPHILS % (AUTO) 4 % (0-10); HEMATOCRIT 36 % (35-52); HEMOGLOBIN 12.1 G/DL (11.5-16.0); LYMPHOCYTES % (AUTO) 18 % (12-44); MEAN CORPUSCULAR HEMOGLOBIN 32 PG (25-34); MEAN CORPUSCULAR HGB CONC 34 G/DL (32-36); MEAN CORPUSCULAR VOLUME 94 FL (80-99); MEAN PLATELET VOLUME 11.3 FL (7.4-10.4); MONOCYTES # (AUTO) 0.7 X 10^3 (0.0-1.0); MONOCYTES % (AUTO) 14 % (0-12); NEUTROPHILS # (AUTO) 3.4 X 10^3 (1.8-7.8); NEUTROPHILS % (AUTO) 63 % (42-75); PLATELET COUNT 208 10^3/uL (130-400); RED BLOOD COUNT 3.81 10^6/uL (4.35-5.85); RED CELL DISTRIBUTION WIDTH 16.8 % (10.0-14.5); WHITE BLOOD COUNT 5.3 10^3/uL (4.3-11.0)
[2017-09-21 09:48] LABS: ALANINE AMINOTRANSFERASE 18 U/L (0-55); ALBUMIN 4.2 GM/DL (3.2-4.5); ALKALINE PHOSPHATASE 122 U/L (40-136); BILIRUBIN,TOTAL 0.6 MG/DL (0.1-1.0); BUN/CREATININE RATIO 20; CALCIUM 9.5 MG/DL (8.5-10.1); CARBON DIOXIDE 19 MMOL/L (21-32); CHLORIDE 108 MMOL/L (98-107); CREATININE SERUM 0.76 MG/DL (0.60-1.30); GFR ESTIMATED > 60; GLUCOSE 96 MG/DL (70-105); POTASSIUM 3.8 MMOL/L (3.6-5.0); SODIUM 139 MMOL/L (135-145); TOTAL PROTEIN 7.2 GM/DL (6.4-8.2)
[2017-10-05 09:19] LABS: BASOPHILS # (AUTO) 0.1 10^3/uL (0.0-0.1); BASOPHILS % (AUTO) 1 % (0-10); EOSINOPHILS # (AUTO) 0.2 10^3/uL (0.0-0.3); EOSINOPHILS % (AUTO) 5 % (0-10); HEMATOCRIT 36 % (35-52); HEMOGLOBIN 11.8 G/DL (11.5-16.0); LYMPHOCYTES % (AUTO) 24 % (12-44); MEAN CORPUSCULAR HEMOGLOBIN 32 PG (25-34); MEAN CORPUSCULAR HGB CONC 33 G/DL (32-36); MEAN CORPUSCULAR VOLUME 97 FL (80-99); MEAN PLATELET VOLUME 9.9 FL (7.4-10.4); MONOCYTES # (AUTO) 0.5 X 10^3 (0.0-1.0); MONOCYTES % (AUTO) 13 % (0-12); NEUTROPHILS # (AUTO) 2.2 X 10^3 (1.8-7.8); NEUTROPHILS % (AUTO) 57 % (42-75); PLATELET COUNT 234 10^3/uL (130-400); RED BLOOD COUNT 3.71 10^6/uL (4.35-5.85); RED CELL DISTRIBUTION WIDTH 17.6 % (10.0-14.5); WHITE BLOOD COUNT 3.9 10^3/uL (4.3-11.0)
[2017-10-05 09:28] LABS: BILIRUBIN,URINE NEGATIVE (NEGATIVE); CLARITY,URINE SLIGHTLY CLOUDY; COLOR,URINE YELLOW; GLUCOSE, URINE (UA) NEGATIVE (NEGATIVE); KETONES,URINE NEGATIVE (NEGATIVE); LEUKOCYTE ESTERASE ,URINE 2+ (NEGATIVE); NITRITE,URINE NEGATIVE (NEGATIVE); PH,URINE 6 (5-9); PROTEIN,URINE NEGATIVE (NEGATIVE); UROBILINOGEN,URINE NORMAL (NORMAL)
[2017-10-05 09:53] LABS: ALANINE AMINOTRANSFERASE 19 U/L (0-55); ALBUMIN 4.2 GM/DL (3.2-4.5); ALKALINE PHOSPHATASE 105 U/L (40-136); BILIRUBIN,TOTAL 0.8 MG/DL (0.1-1.0); BUN/CREATININE RATIO 14; CALCIUM 9.7 MG/DL (8.5-10.1); CARBON DIOXIDE 24 MMOL/L (21-32); CHLORIDE 108 MMOL/L (98-107); CREATININE SERUM 0.81 MG/DL (0.60-1.30); GFR ESTIMATED > 60; GLUCOSE 100 MG/DL (70-105); SODIUM 142 MMOL/L (135-145); TOTAL PROTEIN 7.1 GM/DL (6.4-8.2)
[~2017-10-19] VITALS: Ht 165.1 cm; Wt 73.5 kg
[~2017-10-19 08:48] MED LIST changes: +BEVACIZUMAB IV SCH; +CENTER ONLY IV SCH; +D5W 500 ML IV (CANCER CTR) 500 ML IV SCH; +FAMOTIDINE 20MG/2ML IV (CANCER CTR) IV SCH; +FLUOROURACIL IV SCH; +FOSAPREPITANT DIMEGLUMINE 150 MG in NS (IVPB) CANCER CENTER ONLY 150 ML IV SCH; +LEUCOVORIN CALCIUM 600 MG in D5W 250 ML IVPB (CANCER CTR) 250 ML IV SCH; +NS IV 500 ML (CANCER CENTER) 500 ML ONE; +NS IV 500 ML (CANCER CENTER) IV SCH; +NS IV SCH; +ONDANSETRON MDV (CANCER CENTER 8 MG, DEXAMETHASONE INJ (CANCER CTR) 4 MG in NS (IVPB) C... IV SCH; +ONDANSETRON MDV (CANCER CENTER 8 MG, DEXAMETHASONE PF INJ (CANCER C 10 MG in NS (IVPB) ... IV SCH; +OXALIPLATIN 100 MG, OXALIPLATIN (GENERIC) 30 MG in D5W 250 ML IVPB (CANCER CTR) 250 ML IV SCH; +PALONOSETRON 0.25 MG, DEXAMETHASONE 10 MG/NS 50 ML IVPB IV PRN
[2017-10-19 09:02] LABS: BASOPHILS # (AUTO) 0.1 10^3/uL (0.0-0.1); BASOPHILS % (AUTO) 2 % (0-10); EOSINOPHILS # (AUTO) 0.2 10^3/uL (0.0-0.3); EOSINOPHILS % (AUTO) 5 % (0-10); HEMATOCRIT 36 % (35-52); HEMOGLOBIN 12.2 G/DL (11.5-16.0); LYMPHOCYTES # (AUTO) 1.1 X 10^3 (1.0-4.0); LYMPHOCYTES % (AUTO) 25 % (12-44); MEAN CORPUSCULAR HEMOGLOBIN 32 PG (25-34); MEAN CORPUSCULAR HGB CONC 34 G/DL (32-36); MEAN CORPUSCULAR VOLUME 96 FL (80-99); MEAN PLATELET VOLUME 10.2 FL (7.4-10.4); MONOCYTES # (AUTO) 0.7 X 10^3 (0.0-1.0); MONOCYTES % (AUTO) 14 % (0-12); NEUTROPHILS # (AUTO) 2.5 X 10^3 (1.8-7.8); NEUTROPHILS % (AUTO) 54 % (42-75); PLATELET COUNT 231 10^3/uL (130-400); RED BLOOD COUNT 3.81 10^6/uL (4.35-5.85); RED CELL DISTRIBUTION WIDTH 17.4 % (10.0-14.5); WHITE BLOOD COUNT 4.6 10^3/uL (4.3-11.0)
[2017-10-19 09:28] LABS: ALANINE AMINOTRANSFERASE 18 U/L (0-55); ALBUMIN 4.2 GM/DL (3.2-4.5); ALKALINE PHOSPHATASE 95 U/L (40-136); BILIRUBIN,TOTAL 0.9 MG/DL (0.1-1.0); BUN/CREATININE RATIO 18; CARBON DIOXIDE 24 MMOL/L (21-32); CHLORIDE 106 MMOL/L (98-107); CREATININE SERUM 0.79 MG/DL (0.60-1.30); GFR ESTIMATED > 60; GLUCOSE 101 MG/DL (70-105); POTASSIUM 3.9 MMOL/L (3.6-5.0); SODIUM 140 MMOL/L (135-145); TOTAL PROTEIN 6.9 GM/DL (6.4-8.2)
== END 2017-10-24 | disposition home or self-care (01) ==
LOC: ONC 08:48
PROVIDERS: ATTEND Internal Medicine Hematology & Oncology
DX: Z51.11 Encounter for antineoplastic chemotherapy (principal); C78.7 Secondary malignant neoplasm of liver and intrahepatic bile duct; C79.89 Secondary malignant neoplasm of other specified sites; C79.61 Secondary malignant neoplasm of right ovary; C78.01 Secondary malignant neoplasm of right lung; C78.6 Secondary malignant neoplasm of retroperitoneum and peritoneum; C77.5 Secondary and unspecified malignant neoplasm of intrapelvic lymph nodes; Z85.038 Personal history of other malignant neoplasm of large intestine; E03.9 Hypothyroidism, unspecified; E78.5 Hyperlipidemia, unspecified; F32.9 Major depressive disorder, single episode, unspecified; Z79.899 Other long term (current) drug therapy; Z92.21 Personal history of antineoplastic chemotherapy
CPT/HCPCS: 36415; 36591; 80048; 80053; 81002; 82378; 82570; 83735; 84156; 85025; 96367; 96368; 96375; 96409; 96411; 96413

== ENCOUNTER 2018-01-13 10:20 | Outpatient (RCR) | payer MEDICARE, OTHER ==
[2017-11-02 09:33] LABS: BASOPHILS # (AUTO) 0.1 10^3/uL (0.0-0.1); BASOPHILS % (AUTO) 2 % (0-10); EOSINOPHILS # (AUTO) 0.3 10^3/uL (0.0-0.3); EOSINOPHILS % (AUTO) 6 % (0-10); HEMATOCRIT 37 % (35-52); HEMOGLOBIN 12.5 G/DL (11.5-16.0); LYMPHOCYTES # (AUTO) 1.2 X 10^3 (1.0-4.0); LYMPHOCYTES % (AUTO) 27 % (12-44); MEAN CORPUSCULAR HEMOGLOBIN 32 PG (25-34); MEAN CORPUSCULAR HGB CONC 34 G/DL (32-36); MEAN CORPUSCULAR VOLUME 95 FL (80-99); MEAN PLATELET VOLUME 10.8 FL (7.4-10.4); MONOCYTES # (AUTO) 0.7 X 10^3 (0.0-1.0); MONOCYTES % (AUTO) 15 % (0-12); NEUTROPHILS # (AUTO) 2.3 X 10^3 (1.8-7.8); NEUTROPHILS % (AUTO) 50 % (42-75); PLATELET COUNT 240 10^3/uL (130-400); RED BLOOD COUNT 3.91 10^6/uL (4.35-5.85); RED CELL DISTRIBUTION WIDTH 16.9 % (10.0-14.5); WHITE BLOOD COUNT 4.7 10^3/uL (4.3-11.0)
[2017-11-02 09:51] LABS: ALANINE AMINOTRANSFERASE 18 U/L (0-55); ALBUMIN 4.4 GM/DL (3.2-4.5); ALKALINE PHOSPHATASE 99 U/L (40-136); BUN/CREATININE RATIO 16; CARBON DIOXIDE 25 MMOL/L (21-32); CHLORIDE 106 MMOL/L (98-107); CREATININE SERUM 0.79 MG/DL (0.60-1.30); GFR ESTIMATED > 60; GLUCOSE 97 MG/DL (70-105); POTASSIUM 3.7 MMOL/L (3.6-5.0); SODIUM 140 MMOL/L (135-145); TOTAL PROTEIN 7.4 GM/DL (6.4-8.2)
[2017-11-16 09:02] LABS: BASOPHILS # (AUTO) 0.1 10^3/uL (0.0-0.1); BASOPHILS % (AUTO) 2 % (0-10); EOSINOPHILS # (AUTO) 0.3 10^3/uL (0.0-0.3); EOSINOPHILS % (AUTO) 3 % (0-10); HEMATOCRIT 37 % (35-52); HEMOGLOBIN 12.5 G/DL (11.5-16.0); LYMPHOCYTES # (AUTO) 1.3 X 10^3 (1.0-4.0); LYMPHOCYTES % (AUTO) 18 % (12-44); MEAN CORPUSCULAR HEMOGLOBIN 32 PG (25-34); MEAN CORPUSCULAR HGB CONC 34 G/DL (32-36); MEAN CORPUSCULAR VOLUME 96 FL (80-99); MEAN PLATELET VOLUME 10.9 FL (7.4-10.4); MONOCYTES % (AUTO) 13 % (0-12); NEUTROPHILS # (AUTO) 4.9 X 10^3 (1.8-7.8); NEUTROPHILS % (AUTO) 65 % (42-75); PLATELET COUNT 227 10^3/uL (130-400); RED BLOOD COUNT 3.86 10^6/uL (4.35-5.85); RED CELL DISTRIBUTION WIDTH 17.1 % (10.0-14.5); WHITE BLOOD COUNT 7.6 10^3/uL (4.3-11.0)
[2017-11-16 09:16] LABS: BUN/CREATININE RATIO 17; CARBON DIOXIDE 22 MMOL/L (21-32); CHLORIDE 105 MMOL/L (98-107); CREATININE SERUM 0.83 MG/DL (0.60-1.30); POTASSIUM 4.1 MMOL/L (3.6-5.0); SODIUM 137 MMOL/L (135-145)
[2017-11-16 09:17] LABS: ALANINE AMINOTRANSFERASE 18 U/L (0-55); ALBUMIN 4.3 GM/DL (3.2-4.5); ALKALINE PHOSPHATASE 119 U/L (40-136); CALCIUM 9.9 MG/DL (8.5-10.1); GFR ESTIMATED > 60; GLUCOSE 102 MG/DL (70-105); TOTAL PROTEIN 7.3 GM/DL (6.4-8.2)
[2017-11-30 09:38] LABS: BASOPHILS # (AUTO) 0.1 10^3/uL (0.0-0.1); BASOPHILS % (AUTO) 1 % (0-10); EOSINOPHILS # (AUTO) 0.2 10^3/uL (0.0-0.3); EOSINOPHILS % (AUTO) 5 % (0-10); HEMATOCRIT 37 % (35-52); HEMOGLOBIN 12.4 G/DL (11.5-16.0); LYMPHOCYTES # (AUTO) 1.1 X 10^3 (1.0-4.0); LYMPHOCYTES % (AUTO) 25 % (12-44); MEAN CORPUSCULAR HEMOGLOBIN 32 PG (25-34); MEAN CORPUSCULAR HGB CONC 34 G/DL (32-36); MEAN CORPUSCULAR VOLUME 95 FL (80-99); MEAN PLATELET VOLUME 10.4 FL (7.4-10.4); MONOCYTES # (AUTO) 0.6 X 10^3 (0.0-1.0); MONOCYTES % (AUTO) 13 % (0-12); NEUTROPHILS # (AUTO) 2.5 X 10^3 (1.8-7.8); NEUTROPHILS % (AUTO) 56 % (42-75); PLATELET COUNT 246 10^3/uL (130-400); RED BLOOD COUNT 3.86 10^6/uL (4.35-5.85); RED CELL DISTRIBUTION WIDTH 16.9 % (10.0-14.5); WHITE BLOOD COUNT 4.4 10^3/uL (4.3-11.0)
[2017-11-30 09:41] LABS: BILIRUBIN,URINE NEGATIVE (NEGATIVE); CLARITY,URINE CLEAR; COLOR,URINE YELLOW; GLUCOSE, URINE (UA) NEGATIVE (NEGATIVE); KETONES,URINE NEGATIVE (NEGATIVE); LEUKOCYTE ESTERASE ,URINE 3+ (NEGATIVE); NITRITE,URINE NEGATIVE (NEGATIVE); PH,URINE 5 (5-9); PROTEIN,URINE NEGATIVE (NEGATIVE); UROBILINOGEN,URINE NORMAL (NORMAL)
[2017-11-30 10:03] LABS: ALANINE AMINOTRANSFERASE 17 U/L (0-55); ALBUMIN 4.4 GM/DL (3.2-4.5); ALKALINE PHOSPHATASE 89 U/L (40-136); BILIRUBIN,TOTAL 0.8 MG/DL (0.1-1.0); BUN/CREATININE RATIO 20; CARBON DIOXIDE 24 MMOL/L (21-32); CHLORIDE 106 MMOL/L (98-107); CREATININE SERUM 0.81 MG/DL (0.60-1.30); GFR ESTIMATED > 60; GLUCOSE 107 MG/DL (70-105); SODIUM 139 MMOL/L (135-145); TOTAL PROTEIN 7.5 GM/DL (6.4-8.2)
[2017-12-07 10:59] LABS: BASOPHILS # (AUTO) 0.1 10^3/uL (0.0-0.1); BASOPHILS % (AUTO) 2 % (0-10); EOSINOPHILS # (AUTO) 0.4 10^3/uL (0.0-0.3); EOSINOPHILS % (AUTO) 10 % (0-10); HEMATOCRIT 38 % (35-52); HEMOGLOBIN 12.5 G/DL (11.5-16.0); LYMPHOCYTES # (AUTO) 1.6 X 10^3 (1.0-4.0); LYMPHOCYTES % (AUTO) 36 % (12-44); MEAN CORPUSCULAR HEMOGLOBIN 32 PG (25-34); MEAN CORPUSCULAR HGB CONC 33 G/DL (32-36); MEAN CORPUSCULAR VOLUME 96 FL (80-99); MONOCYTES # (AUTO) 0.7 X 10^3 (0.0-1.0); MONOCYTES % (AUTO) 16 % (0-12); NEUTROPHILS # (AUTO) 1.6 X 10^3 (1.8-7.8); NEUTROPHILS % (AUTO) 36 % (42-75); PLATELET COUNT 263 10^3/uL (130-400); RED BLOOD COUNT 3.96 10^6/uL (4.35-5.85); RED CELL DISTRIBUTION WIDTH 16.8 % (10.0-14.5); WHITE BLOOD COUNT 4.4 10^3/uL (4.3-11.0)
[2017-12-07 11:20] LABS: BUN/CREATININE RATIO 14; CALCIUM 10.2 MG/DL (8.5-10.1); CARBON DIOXIDE 28 MMOL/L (21-32); CHLORIDE 103 MMOL/L (98-107); CREATININE SERUM 0.83 MG/DL (0.60-1.30); GFR ESTIMATED > 60; GLUCOSE 100 MG/DL (70-105); POTASSIUM 4.6 MMOL/L (3.6-5.0); SODIUM 138 MMOL/L (135-145)
[2017-12-14 10:35] LABS: BASOPHILS # (AUTO) 0.2 10^3/uL (0.0-0.1); BASOPHILS % (AUTO) 4 % (0-10); EOSINOPHILS # (AUTO) 0.3 10^3/uL (0.0-0.3); EOSINOPHILS % (AUTO) 7 % (0-10); HEMATOCRIT 36 % (35-52); HEMOGLOBIN 12.2 G/DL (11.5-16.0); LYMPHOCYTES # (AUTO) 1.3 X 10^3 (1.0-4.0); LYMPHOCYTES % (AUTO) 29 % (12-44); MEAN CORPUSCULAR HEMOGLOBIN 33 PG (25-34); MEAN CORPUSCULAR HGB CONC 34 G/DL (32-36); MEAN CORPUSCULAR VOLUME 96 FL (80-99); MEAN PLATELET VOLUME 10.6 FL (7.4-10.4); MONOCYTES # (AUTO) 0.6 X 10^3 (0.0-1.0); MONOCYTES % (AUTO) 15 % (0-12); NEUTROPHILS # (AUTO) 1.9 X 10^3 (1.8-7.8); NEUTROPHILS % (AUTO) 45 % (42-75); PLATELET COUNT 223 10^3/uL (130-400); RED BLOOD COUNT 3.72 10^6/uL (4.35-5.85); RED CELL DISTRIBUTION WIDTH 16.8 % (10.0-14.5); WHITE BLOOD COUNT 4.3 10^3/uL (4.3-11.0)
[2017-12-14 10:45] LABS: ALANINE AMINOTRANSFERASE 31 U/L (0-55); ALBUMIN 4.3 GM/DL (3.2-4.5); ALKALINE PHOSPHATASE 137 U/L (40-136); BILIRUBIN,TOTAL 1.1 MG/DL (0.1-1.0); BUN/CREATININE RATIO 16; CALCIUM 9.8 MG/DL (8.5-10.1); CARBON DIOXIDE 19 MMOL/L (21-32); CHLORIDE 104 MMOL/L (98-107); CREATININE SERUM 0.86 MG/DL (0.60-1.30); GFR ESTIMATED > 60; GLUCOSE 122 MG/DL (70-105); MAGNESIUM 2.1 MG/DL (1.8-2.4); POTASSIUM 3.6 MMOL/L (3.6-5.0); SODIUM 137 MMOL/L (135-145); TOTAL PROTEIN 7.3 GM/DL (6.4-8.2)
[2017-12-21 10:27] LABS: BASOPHILS # (AUTO) 0.2 10^3/uL (0.0-0.1); BASOPHILS % (AUTO) 4 % (0-10); EOSINOPHILS # (AUTO) 0.4 10^3/uL (0.0-0.3); EOSINOPHILS % (AUTO) 10 % (0-10); HEMATOCRIT 36 % (35-52); HEMOGLOBIN 12.1 G/DL (11.5-16.0); LYMPHOCYTES # (AUTO) 1.5 X 10^3 (1.0-4.0); LYMPHOCYTES % (AUTO) 36 % (12-44); MEAN CORPUSCULAR HEMOGLOBIN 32 PG (25-34); MEAN CORPUSCULAR HGB CONC 33 G/DL (32-36); MEAN CORPUSCULAR VOLUME 97 FL (80-99); MEAN PLATELET VOLUME 10.6 FL (7.4-10.4); MONOCYTES # (AUTO) 0.7 X 10^3 (0.0-1.0); MONOCYTES % (AUTO) 18 % (0-12); NEUTROPHILS # (AUTO) 1.4 X 10^3 (1.8-7.8); NEUTROPHILS % (AUTO) 34 % (42-75); PLATELET COUNT 241 10^3/uL (130-400); RED BLOOD COUNT 3.74 10^6/uL (4.35-5.85); RED CELL DISTRIBUTION WIDTH 16.7 % (10.0-14.5); WHITE BLOOD COUNT 4.1 10^3/uL (4.3-11.0)
[2017-12-21 10:57] LABS: BUN/CREATININE RATIO 20; CALCIUM 9.9 MG/DL (8.5-10.1); CARBON DIOXIDE 24 MMOL/L (21-32); CHLORIDE 107 MMOL/L (98-107); CREATININE SERUM 0.79 MG/DL (0.60-1.30); GFR ESTIMATED > 60; GLUCOSE 104 MG/DL (70-105); POTASSIUM 4.7 MMOL/L (3.6-5.0); SODIUM 140 MMOL/L (135-145)
[2017-12-28 08:39] LABS: BASOPHILS # (AUTO) 0.1 10^3/uL (0.0-0.1); BASOPHILS % (AUTO) 2 % (0-10); EOSINOPHILS # (AUTO) 0.2 10^3/uL (0.0-0.3); EOSINOPHILS % (AUTO) 6 % (0-10); HEMATOCRIT 35 % (35-52); HEMOGLOBIN 11.5 G/DL (11.5-16.0); LYMPHOCYTES % (AUTO) 25 % (12-44); MEAN CORPUSCULAR HEMOGLOBIN 32 PG (25-34); MEAN CORPUSCULAR HGB CONC 33 G/DL (32-36); MEAN CORPUSCULAR VOLUME 96 FL (80-99); MEAN PLATELET VOLUME 10.6 FL (7.4-10.4); MONOCYTES # (AUTO) 0.6 X 10^3 (0.0-1.0); MONOCYTES % (AUTO) 14 % (0-12); NEUTROPHILS # (AUTO) 2.1 X 10^3 (1.8-7.8); NEUTROPHILS % (AUTO) 53 % (42-75); PLATELET COUNT 169 10^3/uL (130-400); RED BLOOD COUNT 3.63 10^6/uL (4.35-5.85); RED CELL DISTRIBUTION WIDTH 16.8 % (10.0-14.5); WHITE BLOOD COUNT 3.9 10^3/uL (4.3-11.0)
[2017-12-28 08:58] LABS: BUN/CREATININE RATIO 20; CALCIUM 9.6 MG/DL (8.5-10.1); CARBON DIOXIDE 22 MMOL/L (21-32); CHLORIDE 106 MMOL/L (98-107); CREATININE SERUM 0.75 MG/DL (0.60-1.30); GFR ESTIMATED > 60; GLUCOSE 96 MG/DL (70-105); POTASSIUM 3.8 MMOL/L (3.6-5.0); SODIUM 138 MMOL/L (135-145)
[2018-01-04 09:58] LABS: BASOPHILS # (AUTO) 0.1 10^3/uL (0.0-0.1); BASOPHILS % (AUTO) 4 % (0-10); EOSINOPHILS # (AUTO) 0.3 10^3/uL (0.0-0.3); EOSINOPHILS % (AUTO) 10 % (0-10); HEMATOCRIT 33 % (35-52); HEMOGLOBIN 11.5 G/DL (11.5-16.0); LYMPHOCYTES # (AUTO) 1.2 X 10^3 (1.0-4.0); LYMPHOCYTES % (AUTO) 36 % (12-44); MEAN CORPUSCULAR HEMOGLOBIN 33 PG (25-34); MEAN CORPUSCULAR HGB CONC 35 G/DL (32-36); MEAN CORPUSCULAR VOLUME 96 FL (80-99); MEAN PLATELET VOLUME 10.3 FL (7.4-10.4); MONOCYTES # (AUTO) 0.5 X 10^3 (0.0-1.0); MONOCYTES % (AUTO) 16 % (0-12); NEUTROPHILS # (AUTO) 1.2 X 10^3 (1.8-7.8); NEUTROPHILS % (AUTO) 35 % (42-75); PLATELET COUNT 186 10^3/uL (130-400); RED BLOOD COUNT 3.46 10^6/uL (4.35-5.85); RED CELL DISTRIBUTION WIDTH 16.4 % (10.0-14.5); WHITE BLOOD COUNT 3.4 10^3/uL (4.3-11.0)
[2018-01-04 10:16] LABS: BUN/CREATININE RATIO 15; CALCIUM 9.8 MG/DL (8.5-10.1); CARBON DIOXIDE 26 MMOL/L (21-32); CHLORIDE 108 MMOL/L (98-107); CREATININE SERUM 0.74 MG/DL (0.60-1.30); GFR ESTIMATED > 60; GLUCOSE 100 MG/DL (70-105); POTASSIUM 4.8 MMOL/L (3.6-5.0); SODIUM 140 MMOL/L (135-145)
[2018-01-11 09:29] LABS: BASOPHILS % (AUTO) 1 % (0-10); EOSINOPHILS # (AUTO) 0.1 10^3/uL (0.0-0.3); EOSINOPHILS % (AUTO) 2 % (0-10); HEMATOCRIT 34 % (35-52); HEMOGLOBIN 11.5 G/DL (11.5-16.0); LYMPHOCYTES # (AUTO) 0.8 X 10^3 (1.0-4.0); LYMPHOCYTES % (AUTO) 18 % (12-44); MEAN CORPUSCULAR HEMOGLOBIN 32 PG (25-34); MEAN CORPUSCULAR HGB CONC 34 G/DL (32-36); MEAN CORPUSCULAR VOLUME 95 FL (80-99); MEAN PLATELET VOLUME 10.9 FL (7.4-10.4); MONOCYTES # (AUTO) 0.5 X 10^3 (0.0-1.0); MONOCYTES % (AUTO) 11 % (0-12); NEUTROPHILS % (AUTO) 69 % (42-75); PLATELET COUNT 184 10^3/uL (130-400); RED BLOOD COUNT 3.59 10^6/uL (4.35-5.85); RED CELL DISTRIBUTION WIDTH 16.9 % (10.0-14.5); WHITE BLOOD COUNT 4.3 10^3/uL (4.3-11.0)
[2018-01-11 09:31] LABS: BILIRUBIN,URINE NEGATIVE (NEGATIVE); CLARITY,URINE CLEAR; COLOR,URINE YELLOW; GLUCOSE, URINE (UA) NEGATIVE (NEGATIVE); KETONES,URINE NEGATIVE (NEGATIVE); LEUKOCYTE ESTERASE ,URINE NEGATIVE (NEGATIVE); NITRITE,URINE NEGATIVE (NEGATIVE); PH,URINE 6.5 (5-9); PROTEIN,URINE NEGATIVE (NEGATIVE); UROBILINOGEN,URINE NORMAL (NORMAL)
[2018-01-11 09:52] LABS: ALANINE AMINOTRANSFERASE 17 U/L (0-55); ALBUMIN 4.2 GM/DL (3.2-4.5); ALKALINE PHOSPHATASE 98 U/L (40-136); BILIRUBIN,TOTAL 0.8 MG/DL (0.1-1.0); BUN/CREATININE RATIO 15; CALCIUM 9.6 MG/DL (8.5-10.1); CARBON DIOXIDE 23 MMOL/L (21-32); CHLORIDE 108 MMOL/L (98-107); CREATININE SERUM 0.75 MG/DL (0.60-1.30); GFR ESTIMATED > 60; GLUCOSE 93 MG/DL (70-105); MAGNESIUM 2.1 MG/DL (1.8-2.4); POTASSIUM 3.6 MMOL/L (3.6-5.0); SODIUM 141 MMOL/L (135-145)
[~2018-01-13] VITALS: Ht 165.1 cm; Wt 71.7 kg
[~2018-01-13 10:20] MED LIST changes: +D5W 500 ML IV (CANCER CTR) 500 ML IV ONE; -NS IV 500 ML (CANCER CENTER) 500 ML ONE; +ONDANSETRON 8 MG, DEXAMETHASONE 4 MG/NS 50 ML IVPB (Cancer Ctr) IV SCH; -ONDANSETRON MDV (CANCER CENTER 8 MG, DEXAMETHASONE PF INJ (CANCER C 10 MG in NS (IVPB) ... IV SCH; +diphenhydrAMINE 25 MG TAB (BENADRYL) CANCER CENTER PO ONE; +diphenhydrAMINE 25 MG TAB (BENADRYL) CANCER CENTER PO SCH
[2018-01-18 09:45] LABS: BASOPHILS # (AUTO) 0.1 10^3/uL (0.0-0.1); BASOPHILS % (AUTO) 4 % (0-10); EOSINOPHILS # (AUTO) 0.3 10^3/uL (0.0-0.3); EOSINOPHILS % (AUTO) 8 % (0-10); HEMATOCRIT 34 % (35-52); HEMOGLOBIN 11.7 G/DL (11.5-16.0); LYMPHOCYTES # (AUTO) 1.1 X 10^3 (1.0-4.0); LYMPHOCYTES % (AUTO) 33 % (12-44); MEAN CORPUSCULAR HEMOGLOBIN 33 PG (25-34); MEAN CORPUSCULAR HGB CONC 34 G/DL (32-36); MEAN CORPUSCULAR VOLUME 97 FL (80-99); MEAN PLATELET VOLUME 10.9 FL (7.4-10.4); MONOCYTES # (AUTO) 0.4 X 10^3 (0.0-1.0); MONOCYTES % (AUTO) 12 % (0-12); NEUTROPHILS # (AUTO) 1.5 X 10^3 (1.8-7.8); NEUTROPHILS % (AUTO) 44 % (42-75); PLATELET COUNT 187 10^3/uL (130-400); RED BLOOD COUNT 3.53 10^6/uL (4.35-5.85); RED CELL DISTRIBUTION WIDTH 16.5 % (10.0-14.5); WHITE BLOOD COUNT 3.4 10^3/uL (4.3-11.0)
[2018-01-18 10:03] LABS: BUN/CREATININE RATIO 10; CALCIUM 9.8 MG/DL (8.5-10.1); CARBON DIOXIDE 26 MMOL/L (21-32); CHLORIDE 106 MMOL/L (98-107); CREATININE SERUM 0.79 MG/DL (0.60-1.30); GFR ESTIMATED > 60; GLUCOSE 115 MG/DL (70-105); POTASSIUM 4.5 MMOL/L (3.6-5.0); SODIUM 142 MMOL/L (135-145)
== END 2018-01-18 09:24 | disposition home or self-care (01) ==
LOC: ONC 10:20
PROVIDERS: ATTEND Internal Medicine Hematology & Oncology
DX: Z51.11 Encounter for antineoplastic chemotherapy (principal); C78.7 Secondary malignant neoplasm of liver and intrahepatic bile duct; C79.89 Secondary malignant neoplasm of other specified sites; C79.61 Secondary malignant neoplasm of right ovary; C78.01 Secondary malignant neoplasm of right lung; C78.6 Secondary malignant neoplasm of retroperitoneum and peritoneum; C77.5 Secondary and unspecified malignant neoplasm of intrapelvic lymph nodes; Z85.038 Personal history of other malignant neoplasm of large intestine; E03.9 Hypothyroidism, unspecified; E78.5 Hyperlipidemia, unspecified; F32.9 Major depressive disorder, single episode, unspecified; Z79.899 Other long term (current) drug therapy; Z92.21 Personal history of antineoplastic chemotherapy
CPT/HCPCS: 36415; 36591; 80048; 80053; 81002; 82378; 83735; 85025; 96367; 96368; 96374; 96375; 96409; 96411; 96413

== ENCOUNTER → 2018-03-02 | Outpatient (CLI) | payer MEDICARE ==
[~2018-03-02] MED LIST changes: +BARIUM SUSPENSION 2.1% (VANILLA SILQ) 450 ML PO ONE; -BEVACIZUMAB IV SCH; -CENTER ONLY IV SCH; -D5W 500 ML IV (CANCER CTR) 500 ML IV ONE; -D5W 500 ML IV (CANCER CTR) 500 ML IV SCH; -FAMOTIDINE 20MG/2ML IV (CANCER CTR) IV SCH; -FLUOROURACIL IV SCH; -FOSAPREPITANT DIMEGLUMINE 150 MG in NS (IVPB) CANCER CENTER ONLY 150 ML IV SCH; +IOHEXOL 350 MG/ML 100 ML (OMNIPAQUE 350) VIAL IV ONE; -LEUCOVORIN CALCIUM 600 MG in D5W 250 ML IVPB (CANCER CTR) 250 ML IV SCH; +NS 250 ML (IVPB) BAG IV ONE; -NS IV 500 ML (CANCER CENTER) IV SCH; -NS IV SCH; -ONDANSETRON 8 MG, DEXAMETHASONE 4 MG/NS 50 ML IVPB (Cancer Ctr) IV SCH; -ONDANSETRON MDV (CANCER CENTER 8 MG, DEXAMETHASONE INJ (CANCER CTR) 4 MG in NS (IVPB) C... IV SCH; -OXALIPLATIN 100 MG, OXALIPLATIN (GENERIC) 30 MG in D5W 250 ML IVPB (CANCER CTR) 250 ML IV SCH; -PALONOSETRON 0.25 MG, DEXAMETHASONE 10 MG/NS 50 ML IVPB IV PRN; +RECEIVED CONTRAST (Hold Metformin) IV SCH; -diphenhydrAMINE 25 MG TAB (BENADRYL) CANCER CENTER PO ONE; -diphenhydrAMINE 25 MG TAB (BENADRYL) CANCER CENTER PO SCH
--- NOTE | 2018-03-02 10:05 | Diagnostic Imaging Report ---
PROCEDURE: CT chest with contrast, CT abdomen and pelvis with and without contrast. TECHNIQUE: Pre and post intravenous contrast axial imaging of the abdomen and pelvis and post contrast axial imaging of the chest were performed. INDICATION: Colon carcinoma, status post chemotherapy. Study is performed for followup. COMPARISON: Correlation is made with prior CT from 09/28/2017. FINDINGS: CT CHEST: Left chest wall port remains in place. No axillary lymphadenopathy is detected. No definite mediastinal or hilar lymphadenopathy is identified. No pericardial or pleural fluid is detected. Postsurgical changes in the right lung apex is again noted and is unchanged. Subpleural interstitial changes appear similar to prior exam. No new parenchymal mass is seen. IMPRESSION: Stable CT of the chest since study from 09/28/2017. No thoracic lymphadenopathy or evidence of pulmonary metastatic disease is identified. CT ABDOMEN AND PELVIS: Liver again demonstrates postsurgical changes near the dome. No discrete liver mass is identified. The gallbladder is surgically absent. No biliary duct dilatation is seen. The pancreas and spleen are unremarkable. No adrenal mass is identified. Renal cortical low densities appear stable and most suggestive of cysts. The aorta is non-aneurysmal. No central retroperitoneal or mesenteric lymphadenopathy is identified. Postsurgical changes to the anterior abdominal wall is again seen. Suture line at the rectosigmoid junction is again noted. Bowel loops are non-dilated. No obstruction is seen. There is no ascites. No iliac or inguinal lymphadenopathy is identified. The bladder is decompressed. Bony structures are unremarkable. IMPRESSION: Stable CT of the abdomen and pelvis since exam from 09/28/2017. No findings to suggest abdominal or pelvic metastatic disease are identified. Dictated by: Dictated on workstation # [id number]
== END ==
LOC: RAD 08:57
PROVIDERS: ATTEND Nurse Practitioner Adult Health
DX: C18.7 Malignant neoplasm of sigmoid colon (principal); C78.7 Secondary malignant neoplasm of liver and intrahepatic bile duct; Z98.890 Other specified postprocedural states
CPT/HCPCS: 71260; 74178

== ENCOUNTER → 2018-04-18 | Outpatient (RCR) | payer MEDICARE, OTHER ==
[2018-01-25 09:13] LABS: BASOPHILS # (AUTO) 0.1 10^3/uL (0.0-0.1); BASOPHILS % (AUTO) 2 % (0-10); EOSINOPHILS # (AUTO) 0.2 10^3/uL (0.0-0.3); EOSINOPHILS % (AUTO) 4 % (0-10); HEMATOCRIT 37 % (35-52); HEMOGLOBIN 12.1 G/DL (11.5-16.0); LYMPHOCYTES % (AUTO) 25 % (12-44); MEAN CORPUSCULAR HEMOGLOBIN 31 PG (25-34); MEAN CORPUSCULAR HGB CONC 33 G/DL (32-36); MEAN CORPUSCULAR VOLUME 95 FL (80-99); MEAN PLATELET VOLUME 10.9 FL (7.4-10.4); MONOCYTES # (AUTO) 0.6 X 10^3 (0.0-1.0); MONOCYTES % (AUTO) 17 % (0-12); NEUTROPHILS % (AUTO) 53 % (42-75); PLATELET COUNT 210 10^3/uL (130-400); RED BLOOD COUNT 3.85 10^6/uL (4.35-5.85); RED CELL DISTRIBUTION WIDTH 16.8 % (10.0-14.5); WHITE BLOOD COUNT 3.8 10^3/uL (4.3-11.0)
[2018-01-25 09:39] LABS: BUN/CREATININE RATIO 15; CALCIUM 9.5 MG/DL (8.5-10.1); CARBON DIOXIDE 21 MMOL/L (21-32); CHLORIDE 106 MMOL/L (98-107); CREATININE SERUM 0.79 MG/DL (0.60-1.30); GFR ESTIMATED > 60; GLUCOSE 100 MG/DL (70-105); POTASSIUM 3.7 MMOL/L (3.6-5.0); SODIUM 137 MMOL/L (135-145)
[2018-02-01 13:00] LABS: BASOPHILS # (AUTO) 0.1 10^3/uL (0.0-0.1); BASOPHILS % (AUTO) 3 % (0-10); EOSINOPHILS # (AUTO) 0.2 10^3/uL (0.0-0.3); EOSINOPHILS % (AUTO) 6 % (0-10); HEMATOCRIT 38 % (35-52); HEMOGLOBIN 12.8 G/DL (11.5-16.0); LYMPHOCYTES # (AUTO) 1.3 X 10^3 (1.0-4.0); LYMPHOCYTES % (AUTO) 33 % (12-44); MEAN CORPUSCULAR HEMOGLOBIN 32 PG (25-34); MEAN CORPUSCULAR HGB CONC 34 G/DL (32-36); MEAN CORPUSCULAR VOLUME 94 FL (80-99); MEAN PLATELET VOLUME 10.6 FL (7.4-10.4); MONOCYTES # (AUTO) 0.6 X 10^3 (0.0-1.0); MONOCYTES % (AUTO) 15 % (0-12); NEUTROPHILS # (AUTO) 1.7 X 10^3 (1.8-7.8); NEUTROPHILS % (AUTO) 43 % (42-75); PLATELET COUNT 239 10^3/uL (130-400); RED BLOOD COUNT 4.04 10^6/uL (4.35-5.85); RED CELL DISTRIBUTION WIDTH 16.2 % (10.0-14.5); WHITE BLOOD COUNT 3.9 10^3/uL (4.3-11.0)
[2018-02-01 13:16] LABS: BUN/CREATININE RATIO 14; CALCIUM 9.8 MG/DL (8.5-10.1); CARBON DIOXIDE 24 MMOL/L (21-32); CHLORIDE 105 MMOL/L (98-107); CREATININE SERUM 0.76 MG/DL (0.60-1.30); GFR ESTIMATED > 60; GLUCOSE 91 MG/DL (70-105); POTASSIUM 3.9 MMOL/L (3.6-5.0); SODIUM 138 MMOL/L (135-145)
[2018-02-08 10:06] LABS: BASOPHILS # (AUTO) 0.1 10^3/uL (0.0-0.1); BASOPHILS % (AUTO) 2 % (0-10); EOSINOPHILS # (AUTO) 0.2 10^3/uL (0.0-0.3); EOSINOPHILS % (AUTO) 4 % (0-10); HEMATOCRIT 38 % (35-52); HEMOGLOBIN 12.3 G/DL (11.5-16.0); LYMPHOCYTES % (AUTO) 25 % (12-44); MEAN CORPUSCULAR HEMOGLOBIN 31 PG (25-34); MEAN CORPUSCULAR HGB CONC 33 G/DL (32-36); MEAN CORPUSCULAR VOLUME 95 FL (80-99); MONOCYTES # (AUTO) 0.8 X 10^3 (0.0-1.0); MONOCYTES % (AUTO) 20 % (0-12); NEUTROPHILS % (AUTO) 49 % (42-75); PLATELET COUNT 188 10^3/uL (130-400); RED BLOOD COUNT 3.97 10^6/uL (4.35-5.85); RED CELL DISTRIBUTION WIDTH 17.1 % (10.0-14.5); WHITE BLOOD COUNT 4.1 10^3/uL (4.3-11.0)
[2018-02-08 10:09] LABS: BILIRUBIN,URINE NEGATIVE (NEGATIVE); CLARITY,URINE CLEAR; COLOR,URINE YELLOW; GLUCOSE, URINE (UA) NEGATIVE (NEGATIVE); KETONES,URINE NEGATIVE (NEGATIVE); LEUKOCYTE ESTERASE ,URINE NEGATIVE (NEGATIVE); NITRITE,URINE NEGATIVE (NEGATIVE); PH,URINE 6 (5-9); PROTEIN,URINE NEGATIVE (NEGATIVE); UROBILINOGEN,URINE NORMAL (NORMAL)
[2018-02-08 10:22] LABS: ALANINE AMINOTRANSFERASE 73 U/L (0-55); ALBUMIN 4.5 GM/DL (3.2-4.5); ALKALINE PHOSPHATASE 215 U/L (40-136); BILIRUBIN,TOTAL 0.8 MG/DL (0.1-1.0); BUN/CREATININE RATIO 20; CALCIUM 10.1 MG/DL (8.5-10.1); CARBON DIOXIDE 22 MMOL/L (21-32); CHLORIDE 104 MMOL/L (98-107); CREATININE SERUM 0.76 MG/DL (0.60-1.30); GFR ESTIMATED > 60; GLUCOSE 95 MG/DL (70-105); MAGNESIUM 2.1 MG/DL (1.8-2.4); POTASSIUM 3.9 MMOL/L (3.6-5.0); SODIUM 139 MMOL/L (135-145); TOTAL PROTEIN 7.7 GM/DL (6.4-8.2)
[2018-02-15 10:00] LABS: BASOPHILS # (AUTO) 0.1 10^3/uL (0.0-0.1); BASOPHILS % (AUTO) 3 % (0-10); EOSINOPHILS # (AUTO) 0.4 10^3/uL (0.0-0.3); EOSINOPHILS % (AUTO) 8 % (0-10); HEMATOCRIT 37 % (35-52); HEMOGLOBIN 12.3 G/DL (11.5-16.0); LYMPHOCYTES # (AUTO) 1.3 X 10^3 (1.0-4.0); LYMPHOCYTES % (AUTO) 31 % (12-44); MEAN CORPUSCULAR HEMOGLOBIN 32 PG (25-34); MEAN CORPUSCULAR HGB CONC 33 G/DL (32-36); MEAN CORPUSCULAR VOLUME 95 FL (80-99); MEAN PLATELET VOLUME 10.5 FL (7.4-10.4); MONOCYTES # (AUTO) 0.6 X 10^3 (0.0-1.0); MONOCYTES % (AUTO) 15 % (0-12); NEUTROPHILS # (AUTO) 1.9 X 10^3 (1.8-7.8); NEUTROPHILS % (AUTO) 43 % (42-75); PLATELET COUNT 228 10^3/uL (130-400); RED BLOOD COUNT 3.87 10^6/uL (4.35-5.85); RED CELL DISTRIBUTION WIDTH 16.9 % (10.0-14.5); WHITE BLOOD COUNT 4.3 10^3/uL (4.3-11.0)
[2018-02-15 10:18] LABS: BUN/CREATININE RATIO 14; CARBON DIOXIDE 24 MMOL/L (21-32); CHLORIDE 102 MMOL/L (98-107); GFR ESTIMATED > 60; GLUCOSE 97 MG/DL (70-105); POTASSIUM 4.4 MMOL/L (3.6-5.0); SODIUM 136 MMOL/L (135-145)
[2018-02-22 09:44] LABS: BASOPHILS # (AUTO) 0.1 10^3/uL (0.0-0.1); BASOPHILS % (AUTO) 2 % (0-10); EOSINOPHILS # (AUTO) 0.2 10^3/uL (0.0-0.3); EOSINOPHILS % (AUTO) 4 % (0-10); HEMATOCRIT 37 % (35-52); HEMOGLOBIN 12.2 G/DL (11.5-16.0); LYMPHOCYTES # (AUTO) 1.1 X 10^3 (1.0-4.0); LYMPHOCYTES % (AUTO) 25 % (12-44); MEAN CORPUSCULAR HEMOGLOBIN 31 PG (25-34); MEAN CORPUSCULAR HGB CONC 33 G/DL (32-36); MEAN CORPUSCULAR VOLUME 95 FL (80-99); MEAN PLATELET VOLUME 10.8 FL (7.4-10.4); MONOCYTES # (AUTO) 0.7 X 10^3 (0.0-1.0); MONOCYTES % (AUTO) 17 % (0-12); NEUTROPHILS # (AUTO) 2.1 X 10^3 (1.8-7.8); NEUTROPHILS % (AUTO) 52 % (42-75); PLATELET COUNT 189 10^3/uL (130-400); RED BLOOD COUNT 3.89 10^6/uL (4.35-5.85); WHITE BLOOD COUNT 4.2 10^3/uL (4.3-11.0)
[2018-02-22 10:08] LABS: ALANINE AMINOTRANSFERASE 61 U/L (0-55); ALBUMIN 4.4 GM/DL (3.2-4.5); ALKALINE PHOSPHATASE 248 U/L (40-136); BILIRUBIN,TOTAL 0.9 MG/DL (0.1-1.0); BUN/CREATININE RATIO 13; CALCIUM 10.1 MG/DL (8.5-10.1); CARBON DIOXIDE 20 MMOL/L (21-32); CHLORIDE 106 MMOL/L (98-107); CREATININE SERUM 0.77 MG/DL (0.60-1.30); GFR ESTIMATED > 60; GLUCOSE 104 MG/DL (70-105); POTASSIUM 3.8 MMOL/L (3.6-5.0); SODIUM 140 MMOL/L (135-145); TOTAL PROTEIN 7.6 GM/DL (6.4-8.2)
[2018-03-02 09:04] LABS: BASOPHILS # (AUTO) 0.1 10^3/uL (0.0-0.1); BASOPHILS % (AUTO) 2 % (0-10); EOSINOPHILS # (AUTO) 0.3 10^3/uL (0.0-0.3); EOSINOPHILS % (AUTO) 7 % (0-10); HEMATOCRIT 37 % (35-52); HEMOGLOBIN 12.3 G/DL (11.5-16.0); LYMPHOCYTES # (AUTO) 1.1 X 10^3 (1.0-4.0); LYMPHOCYTES % (AUTO) 25 % (12-44); MEAN CORPUSCULAR HEMOGLOBIN 32 PG (25-34); MEAN CORPUSCULAR HGB CONC 33 G/DL (32-36); MEAN CORPUSCULAR VOLUME 95 FL (80-99); MEAN PLATELET VOLUME 10.7 FL (7.4-10.4); MONOCYTES # (AUTO) 0.6 X 10^3 (0.0-1.0); MONOCYTES % (AUTO) 13 % (0-12); NEUTROPHILS # (AUTO) 2.2 X 10^3 (1.8-7.8); NEUTROPHILS % (AUTO) 53 % (42-75); PLATELET COUNT 227 10^3/uL (130-400); RED CELL DISTRIBUTION WIDTH 16.5 % (10.0-14.5); WHITE BLOOD COUNT 4.2 10^3/uL (4.3-11.0)
[2018-03-02 09:26] LABS: ALANINE AMINOTRANSFERASE 32 U/L (0-55); ALBUMIN 4.5 GM/DL (3.2-4.5); ALKALINE PHOSPHATASE 159 U/L (40-136); BILIRUBIN,TOTAL 0.5 MG/DL (0.1-1.0); BUN/CREATININE RATIO 12; CALCIUM 10.3 MG/DL (8.5-10.1); CARBON DIOXIDE 28 MMOL/L (21-32); CHLORIDE 104 MMOL/L (98-107); CREATININE SERUM 0.76 MG/DL (0.60-1.30); GFR ESTIMATED > 60; GLUCOSE 96 MG/DL (70-105); POTASSIUM 3.9 MMOL/L (3.6-5.0); SODIUM 142 MMOL/L (135-145); TOTAL PROTEIN 7.7 GM/DL (6.4-8.2)
[2018-03-07 09:11] LABS: BASOPHILS # (AUTO) 0.1 10^3/uL (0.0-0.1); BASOPHILS % (AUTO) 2 % (0-10); EOSINOPHILS # (AUTO) 0.2 10^3/uL (0.0-0.3); EOSINOPHILS % (AUTO) 5 % (0-10); HEMATOCRIT 36 % (35-52); HEMOGLOBIN 11.8 G/DL (11.5-16.0); LYMPHOCYTES # (AUTO) 0.9 X 10^3 (1.0-4.0); LYMPHOCYTES % (AUTO) 21 % (12-44); MEAN CORPUSCULAR HEMOGLOBIN 31 PG (25-34); MEAN CORPUSCULAR HGB CONC 33 G/DL (32-36); MEAN CORPUSCULAR VOLUME 95 FL (80-99); MEAN PLATELET VOLUME 10.3 FL (7.4-10.4); MONOCYTES # (AUTO) 0.7 X 10^3 (0.0-1.0); MONOCYTES % (AUTO) 16 % (0-12); NEUTROPHILS # (AUTO) 2.4 X 10^3 (1.8-7.8); NEUTROPHILS % (AUTO) 56 % (42-75); PLATELET COUNT 176 10^3/uL (130-400); RED BLOOD COUNT 3.77 10^6/uL (4.35-5.85); RED CELL DISTRIBUTION WIDTH 16.8 % (10.0-14.5); WHITE BLOOD COUNT 4.2 10^3/uL (4.3-11.0)
[2018-03-07 09:16] LABS: BILIRUBIN,URINE NEGATIVE (NEGATIVE); CLARITY,URINE CLEAR; COLOR,URINE YELLOW; GLUCOSE, URINE (UA) NEGATIVE (NEGATIVE); KETONES,URINE NEGATIVE (NEGATIVE); LEUKOCYTE ESTERASE ,URINE 1+ (NEGATIVE); NITRITE,URINE NEGATIVE (NEGATIVE); PH,URINE 6.5 (5-9); PROTEIN,URINE NEGATIVE (NEGATIVE); UROBILINOGEN,URINE NORMAL (NORMAL)
[2018-03-07 09:32] LABS: ALANINE AMINOTRANSFERASE 36 U/L (0-55); ALBUMIN 4.2 GM/DL (3.2-4.5); ALKALINE PHOSPHATASE 179 U/L (40-136); BILIRUBIN,TOTAL 0.7 MG/DL (0.1-1.0); BUN/CREATININE RATIO 14; CALCIUM 9.6 MG/DL (8.5-10.1); CARBON DIOXIDE 22 MMOL/L (21-32); CHLORIDE 105 MMOL/L (98-107); CREATININE SERUM 0.73 MG/DL (0.60-1.30); GFR ESTIMATED > 60; GLUCOSE 100 MG/DL (70-105); MAGNESIUM 1.9 MG/DL (1.8-2.4); POTASSIUM 3.6 MMOL/L (3.6-5.0); SODIUM 138 MMOL/L (135-145)
[2018-03-22 09:26] LABS: BASOPHILS # (AUTO) 0.1 10^3/uL (0.0-0.1); BASOPHILS % (AUTO) 2 % (0-10); EOSINOPHILS # (AUTO) 0.2 10^3/uL (0.0-0.3); EOSINOPHILS % (AUTO) 4 % (0-10); HEMATOCRIT 36 % (35-52); HEMOGLOBIN 11.9 G/DL (11.5-16.0); LYMPHOCYTES # (AUTO) 0.9 X 10^3 (1.0-4.0); LYMPHOCYTES % (AUTO) 20 % (12-44); MEAN CORPUSCULAR HEMOGLOBIN 32 PG (25-34); MEAN CORPUSCULAR HGB CONC 33 G/DL (32-36); MEAN CORPUSCULAR VOLUME 96 FL (80-99); MEAN PLATELET VOLUME 10.7 FL (7.4-10.4); MONOCYTES # (AUTO) 0.6 X 10^3 (0.0-1.0); MONOCYTES % (AUTO) 14 % (0-12); NEUTROPHILS # (AUTO) 2.6 X 10^3 (1.8-7.8); NEUTROPHILS % (AUTO) 60 % (42-75); PLATELET COUNT 194 10^3/uL (130-400); RED BLOOD COUNT 3.74 10^6/uL (4.35-5.85); RED CELL DISTRIBUTION WIDTH 16.9 % (10.0-14.5); WHITE BLOOD COUNT 4.4 10^3/uL (4.3-11.0)
[2018-03-22 09:42] LABS: ALANINE AMINOTRANSFERASE 50 U/L (0-55); ALBUMIN 4.1 GM/DL (3.2-4.5); ALKALINE PHOSPHATASE 207 U/L (40-136); BILIRUBIN,TOTAL 0.9 MG/DL (0.1-1.0); BUN/CREATININE RATIO 13; CALCIUM 9.8 MG/DL (8.5-10.1); CARBON DIOXIDE 23 MMOL/L (21-32); CHLORIDE 108 MMOL/L (98-107); CREATININE SERUM 0.69 MG/DL (0.60-1.30); GFR ESTIMATED > 60; GLUCOSE 89 MG/DL (70-105); POTASSIUM 3.7 MMOL/L (3.6-5.0); SODIUM 142 MMOL/L (135-145); TOTAL PROTEIN 7.2 GM/DL (6.4-8.2)
[2018-04-05 09:51] LABS: BASOPHILS # (AUTO) 0.1 10^3/uL (0.0-0.1); BASOPHILS % (AUTO) 2 % (0-10); EOSINOPHILS # (AUTO) 0.2 10^3/uL (0.0-0.3); EOSINOPHILS % (AUTO) 4 % (0-10); HEMATOCRIT 36 % (35-52); LYMPHOCYTES # (AUTO) 1.1 X 10^3 (1.0-4.0); LYMPHOCYTES % (AUTO) 25 % (12-44); MEAN CORPUSCULAR HEMOGLOBIN 32 PG (25-34); MEAN CORPUSCULAR HGB CONC 33 G/DL (32-36); MEAN CORPUSCULAR VOLUME 96 FL (80-99); MEAN PLATELET VOLUME 10.5 FL (7.4-10.4); MONOCYTES # (AUTO) 0.6 X 10^3 (0.0-1.0); MONOCYTES % (AUTO) 14 % (0-12); NEUTROPHILS # (AUTO) 2.5 X 10^3 (1.8-7.8); NEUTROPHILS % (AUTO) 56 % (42-75); PLATELET COUNT 223 10^3/uL (130-400); RED BLOOD COUNT 3.78 10^6/uL (4.35-5.85); RED CELL DISTRIBUTION WIDTH 17.2 % (10.0-14.5); WHITE BLOOD COUNT 4.5 10^3/uL (4.3-11.0)
[2018-04-05 09:53] LABS: BILIRUBIN,URINE NEGATIVE (NEGATIVE); CLARITY,URINE CLEAR; COLOR,URINE YELLOW; GLUCOSE, URINE (UA) NEGATIVE (NEGATIVE); KETONES,URINE NEGATIVE (NEGATIVE); LEUKOCYTE ESTERASE ,URINE 1+ (NEGATIVE); NITRITE,URINE NEGATIVE (NEGATIVE); PH,URINE 6 (5-9); PROTEIN,URINE 2+ (NEGATIVE); UROBILINOGEN,URINE NORMAL (NORMAL)
[2018-04-05 10:05] LABS: ALANINE AMINOTRANSFERASE 23 U/L (0-55); ALBUMIN 4.4 GM/DL (3.2-4.5); ALKALINE PHOSPHATASE 158 U/L (40-136); BILIRUBIN,TOTAL 0.8 MG/DL (0.1-1.0); BUN/CREATININE RATIO 18; CALCIUM 10.1 MG/DL (8.5-10.1); CARBON DIOXIDE 22 MMOL/L (21-32); CHLORIDE 107 MMOL/L (98-107); CREATININE SERUM 0.77 MG/DL (0.60-1.30); GFR ESTIMATED > 60; GLUCOSE 97 MG/DL (70-105); MAGNESIUM 1.9 MG/DL (1.8-2.4); POTASSIUM 3.9 MMOL/L (3.6-5.0); SODIUM 140 MMOL/L (135-145); TOTAL PROTEIN 7.4 GM/DL (6.4-8.2)
[~2018-04-18] VITALS: Ht 165.1 cm; Wt 70.8 kg
[~2018-04-18] MED LIST changes: -BARIUM SUSPENSION 2.1% (VANILLA SILQ) 450 ML PO ONE; +BEVACIZUMAB IV SCH; +CENTER ONLY IV SCH; +D5W 500 ML IV (CANCER CTR) 500 ML IV SCH; +FAMOTIDINE 20MG/2ML IV (CANCER CTR) IV SCH; +FLUOROURACIL IV SCH; +FOSAPREPITANT DIMEGLUMINE 150 MG in NS (IVPB) CANCER CENTER ONLY 150 ML IV SCH; -IOHEXOL 350 MG/ML 100 ML (OMNIPAQUE 350) VIAL IV ONE; +LEUCOVORIN CALCIUM 600 MG in D5W 250 ML IVPB (CANCER CTR) 250 ML IV SCH; -NS 250 ML (IVPB) BAG IV ONE; +NS IV 500 ML (CANCER CENTER) 500 ML IV SCH; +NS IV 500 ML (CANCER CENTER) 500 ML ONE; +NS IV SCH; +ONDANSETRON 8 MG, DEXAMETHASONE 4 MG/NS 50 ML IVPB (Cancer Ctr) IV SCH; +ONDANSETRON MDV (CANCER CENTER 16 MG, DEXAMETHASONE INJECTION 10 MG in NS (IVPB) CANCER... IV SCH; +OXALIPLATIN 100 MG, OXALIPLATIN (GENERIC) 30 MG in D5W 250 ML IVPB (CANCER CTR) 250 ML IV SCH; +PALONOSETRON 0.25 MG, DEXAMETHASONE 10 MG/NS 50 ML IVPB IV PRN; -RECEIVED CONTRAST (Hold Metformin) IV SCH
[2018-04-18 09:12] LABS: BASOPHILS # (AUTO) 0.1 10^3/uL (0.0-0.1); BASOPHILS % (AUTO) 2 % (0-10); EOSINOPHILS # (AUTO) 0.2 10^3/uL (0.0-0.3); EOSINOPHILS % (AUTO) 4 % (0-10); HEMATOCRIT 37 % (35-52); HEMOGLOBIN 12.1 G/DL (11.5-16.0); LYMPHOCYTES % (AUTO) 21 % (12-44); MEAN CORPUSCULAR HEMOGLOBIN 32 PG (25-34); MEAN CORPUSCULAR HGB CONC 33 G/DL (32-36); MEAN CORPUSCULAR VOLUME 96 FL (80-99); MEAN PLATELET VOLUME 10.8 FL (7.4-10.4); MONOCYTES # (AUTO) 0.7 X 10^3 (0.0-1.0); MONOCYTES % (AUTO) 14 % (0-12); NEUTROPHILS # (AUTO) 2.8 X 10^3 (1.8-7.8); NEUTROPHILS % (AUTO) 59 % (42-75); PLATELET COUNT 238 10^3/uL (130-400); RED BLOOD COUNT 3.82 10^6/uL (4.35-5.85); RED CELL DISTRIBUTION WIDTH 17.3 % (10.0-14.5); WHITE BLOOD COUNT 4.7 10^3/uL (4.3-11.0)
[2018-04-18 09:33] LABS: ALANINE AMINOTRANSFERASE 30 U/L (0-55); ALBUMIN 4.4 GM/DL (3.2-4.5); ALKALINE PHOSPHATASE 138 U/L (40-136); BUN/CREATININE RATIO 18; CALCIUM 10.1 MG/DL (8.5-10.1); CARBON DIOXIDE 22 MMOL/L (21-32); CHLORIDE 104 MMOL/L (98-107); CREATININE SERUM 0.85 MG/DL (0.60-1.30); GFR ESTIMATED > 60; GLUCOSE 103 MG/DL (70-105); POTASSIUM 3.9 MMOL/L (3.6-5.0); SODIUM 138 MMOL/L (135-145); TOTAL PROTEIN 7.5 GM/DL (6.4-8.2)
== END | disposition home or self-care (01) ==
LOC: ONC 01-18 09:26
PROVIDERS: ATTEND Internal Medicine Hematology & Oncology
DX: Z51.11 Encounter for antineoplastic chemotherapy (principal); C78.7 Secondary malignant neoplasm of liver and intrahepatic bile duct; C79.89 Secondary malignant neoplasm of other specified sites; C79.61 Secondary malignant neoplasm of right ovary; C78.01 Secondary malignant neoplasm of right lung; C78.6 Secondary malignant neoplasm of retroperitoneum and peritoneum; C77.5 Secondary and unspecified malignant neoplasm of intrapelvic lymph nodes; Z85.038 Personal history of other malignant neoplasm of large intestine; E03.9 Hypothyroidism, unspecified; E78.5 Hyperlipidemia, unspecified; F32.9 Major depressive disorder, single episode, unspecified; Z79.899 Other long term (current) drug therapy; Z92.21 Personal history of antineoplastic chemotherapy; Z23 Encounter for immunization
CPT/HCPCS: 36415; 36591; 80048; 80053; 81002; 82378; 82570; 83735; 84156; 85025; 90471; 90686; 96367; 96368; 96374; 96375; 96409; 96411; 96413

== ENCOUNTER → 2018-07-19 | Outpatient (CLI) | payer MEDICARE ==
[~2018-07-19] MED LIST changes: +BARIUM SUSPENSION 2.1% (VANILLA SILQ) 450 ML PO ONE; -BEVACIZUMAB IV SCH; -CENTER ONLY IV SCH; -D5W 500 ML IV (CANCER CTR) 500 ML IV SCH; -FAMOTIDINE 20MG/2ML IV (CANCER CTR) IV SCH; -FLUOROURACIL IV SCH; -FOSAPREPITANT DIMEGLUMINE 150 MG in NS (IVPB) CANCER CENTER ONLY 150 ML IV SCH; +HOLD METFORMIN - RECEIVED CONTRAST 20 ML VIAL IV SCH; +IOHEXOL 350 MG/ML 100 ML (OMNIPAQUE 350) VIAL IV ONE; -LEUCOVORIN CALCIUM 600 MG in D5W 250 ML IVPB (CANCER CTR) 250 ML IV SCH; -NS IV 500 ML (CANCER CENTER) 500 ML IV SCH; -NS IV 500 ML (CANCER CENTER) 500 ML ONE; -NS IV SCH; -ONDANSETRON 8 MG, DEXAMETHASONE 4 MG/NS 50 ML IVPB (Cancer Ctr) IV SCH; -ONDANSETRON MDV (CANCER CENTER 16 MG, DEXAMETHASONE INJECTION 10 MG in NS (IVPB) CANCER... IV SCH; -OXALIPLATIN 100 MG, OXALIPLATIN (GENERIC) 30 MG in D5W 250 ML IVPB (CANCER CTR) 250 ML IV SCH; -PALONOSETRON 0.25 MG, DEXAMETHASONE 10 MG/NS 50 ML IVPB IV PRN
--- NOTE | 2018-07-19 12:34 | Diagnostic Imaging Report ---
PROCEDURE: CT chest with contrast, CT abdomen and pelvis with and without contrast. TECHNIQUE: Pre and post intravenous contrast axial imaging of the abdomen and pelvis and post contrast axial imaging of the chest were performed. Auto Exposure Controls were utilized during the CT exam to meet ALARA standards for radiation dose reduction. INDICATION: Colon carcinoma. In between chemotherapy, followup assessment. CORRELATION STUDY: CT chest, abdomen and pelvis 03/02/2018. FINDINGS: CT CHEST: Left subclavian Mruujs-k-Cwgb catheter is present, tip within the SVC. Heart size borderline enlarged. No pericardial effusion. No pathologically enlarged mediastinal, hilar and/or axillary lymph nodes. Surgical change of the right lung apex again demonstrated. Prominent interstitial markings noted throughout both lung arora. Slightly more pronounced in subpleural distribution. No consolidating infiltrate. No definitive pulmonary mass. No pleural effusion. CT ABDOMEN and PELVIS: Postoperative changes at the dome of the liver are present with clips. The remaining liver parenchyma is unremarkable without focal lesion. Gallbladder absent. No bile duct dilatation. The pancreas, spleen and adrenal glands have an unremarkable appearance. The abdominal aorta normal in contour. No pathologically enlarged central retroperitoneal lymph nodes. The kidneys demonstrate multiple rounded low-density masses most compatible with cysts of various sizes. Renal parenchyma otherwise relatively unremarkable. No hydronephrosis or obstruction. No calcification. Surgical change of the anterior abdominal wall. Multiple closely positioned loops of bowel to the anterior abdominal wall are present, may be adhesed. Anastomotic suture line at the sigmoid colon present. Moderate severity fecal retention within the colon with high density contrast present in the colon. Just to the left of midline of the abdominal wall, in the supraumbilical region, is a slightly more focal area of nodularity. It does appear to be more prominent from prior study. This area measures 2.4 x 1.0 cm (image 69, series 4). This area does demonstrate some enhancement. Urinary bladder decompressed. Post hysterectomy changes. Unchanged sclerosis left acetabulum. IMPRESSION: CT CHEST: 1. Stable CT examination of the chest. No findings to suggest thoracic metastatic disease. CT ABDOMEN and PELVIS: 1. Postop change of the distal colon and liver. 2. There is slightly more prominent nodularity at the abdominal wall just to the left of midline and supraumbilical region. This may simply represent progressive scarring. However, given the overall appearance, neoplasm would be difficult to exclude. Correlation with clinical examination, cancer antigen markers and/or perhaps PET imaging may be of additional benefit. Dictated by: Dictated on workstation # [id number]
== END ==
LOC: RAD 07:26
PROVIDERS: ATTEND Nurse Practitioner Adult Health
DX: C18.7 Malignant neoplasm of sigmoid colon (principal); C78.6 Secondary malignant neoplasm of retroperitoneum and peritoneum; C79.89 Secondary malignant neoplasm of other specified sites; C78.7 Secondary malignant neoplasm of liver and intrahepatic bile duct; Z95.828 Presence of other vascular implants and grafts; Z90.49 Acquired absence of other specified parts of digestive tract; Z98.890 Other specified postprocedural states
CPT/HCPCS: 71260; 74178

== ENCOUNTER 2018-07-25 09:02 | Outpatient (RCR) | payer MEDICARE, OTHER ==
[2018-05-03 10:06] LABS: BASOPHILS # (AUTO) 0.1 10^3/uL (0.0-0.1); BASOPHILS % (AUTO) 2 % (0-10); EOSINOPHILS # (AUTO) 0.2 10^3/uL (0.0-0.3); EOSINOPHILS % (AUTO) 5 % (0-10); HEMATOCRIT 37 % (35-52); HEMOGLOBIN 12.1 G/DL (11.5-16.0); LYMPHOCYTES # (AUTO) 1.1 X 10^3 (1.0-4.0); LYMPHOCYTES % (AUTO) 23 % (12-44); MEAN CORPUSCULAR HEMOGLOBIN 32 PG (25-34); MEAN CORPUSCULAR HGB CONC 33 G/DL (32-36); MEAN CORPUSCULAR VOLUME 97 FL (80-99); MEAN PLATELET VOLUME 10.6 FL (7.4-10.4); MONOCYTES # (AUTO) 0.6 X 10^3 (0.0-1.0); MONOCYTES % (AUTO) 12 % (0-12); NEUTROPHILS # (AUTO) 2.9 X 10^3 (1.8-7.8); NEUTROPHILS % (AUTO) 60 % (42-75); PLATELET COUNT 207 10^3/uL (130-400); RED CELL DISTRIBUTION WIDTH 17.2 % (10.0-14.5); WHITE BLOOD COUNT 4.9 10^3/uL (4.3-11.0)
[2018-05-03 10:26] LABS: ALANINE AMINOTRANSFERASE 24 U/L (0-55); ALBUMIN 4.3 GM/DL (3.2-4.5); ALKALINE PHOSPHATASE 123 U/L (40-136); BILIRUBIN,TOTAL 0.9 MG/DL (0.1-1.0); BUN/CREATININE RATIO 14; CALCIUM 9.8 MG/DL (8.5-10.1); CARBON DIOXIDE 23 MMOL/L (21-32); CHLORIDE 104 MMOL/L (98-107); CREATININE SERUM 0.78 MG/DL (0.60-1.30); GFR ESTIMATED > 60; GLUCOSE 88 MG/DL (70-105); MAGNESIUM 2.1 MG/DL (1.8-2.4); POTASSIUM 3.8 MMOL/L (3.6-5.0); SODIUM 138 MMOL/L (135-145); TOTAL PROTEIN 7.4 GM/DL (6.4-8.2)
[2018-05-03 10:31] LABS: URINE CREATININE FOR RATIO 13 MG/DL (30-125); URINE PROTEIN FOR RATIO ONLY < 6 MG/DL (6-12)
[2018-05-17 09:11] LABS: BASOPHILS # (AUTO) 0.1 10^3/uL (0.0-0.1); BASOPHILS % (AUTO) 2 % (0-10); EOSINOPHILS # (AUTO) 0.2 10^3/uL (0.0-0.3); EOSINOPHILS % (AUTO) 5 % (0-10); HEMATOCRIT 37 % (35-52); HEMOGLOBIN 12.1 G/DL (11.5-16.0); LYMPHOCYTES % (AUTO) 23 % (12-44); MEAN CORPUSCULAR HEMOGLOBIN 32 PG (25-34); MEAN CORPUSCULAR HGB CONC 33 G/DL (32-36); MEAN CORPUSCULAR VOLUME 97 FL (80-99); MEAN PLATELET VOLUME 10.7 FL (7.4-10.4); MONOCYTES # (AUTO) 0.6 X 10^3 (0.0-1.0); MONOCYTES % (AUTO) 14 % (0-12); NEUTROPHILS # (AUTO) 2.6 X 10^3 (1.8-7.8); NEUTROPHILS % (AUTO) 57 % (42-75); PLATELET COUNT 231 10^3/uL (130-400); RED CELL DISTRIBUTION WIDTH 17.4 % (10.0-14.5); WHITE BLOOD COUNT 4.6 10^3/uL (4.3-11.0)
[2018-05-17 09:29] LABS: ALANINE AMINOTRANSFERASE 31 U/L (0-55); ALBUMIN 4.3 GM/DL (3.2-4.5); ALKALINE PHOSPHATASE 155 U/L (40-136); BILIRUBIN,TOTAL 1.2 MG/DL (0.1-1.0); BUN/CREATININE RATIO 17; CALCIUM 9.6 MG/DL (8.5-10.1); CARBON DIOXIDE 22 MMOL/L (21-32); CHLORIDE 105 MMOL/L (98-107); CREATININE SERUM 0.76 MG/DL (0.60-1.30); GFR ESTIMATED > 60; GLUCOSE 94 MG/DL (70-105); SODIUM 139 MMOL/L (135-145); TOTAL PROTEIN 7.3 GM/DL (6.4-8.2)
[2018-05-31 09:07] LABS: BASOPHILS # (AUTO) 0.1 10^3/uL (0.0-0.1); BASOPHILS % (AUTO) 2 % (0-10); EOSINOPHILS # (AUTO) 0.2 10^3/uL (0.0-0.3); EOSINOPHILS % (AUTO) 4 % (0-10); HEMATOCRIT 37 % (35-52); HEMOGLOBIN 12.2 G/DL (11.5-16.0); LYMPHOCYTES # (AUTO) 1.2 X 10^3 (1.0-4.0); LYMPHOCYTES % (AUTO) 21 % (12-44); MEAN CORPUSCULAR HEMOGLOBIN 32 PG (25-34); MEAN CORPUSCULAR HGB CONC 33 G/DL (32-36); MEAN CORPUSCULAR VOLUME 96 FL (80-99); MEAN PLATELET VOLUME 10.6 FL (7.4-10.4); MONOCYTES # (AUTO) 0.5 X 10^3 (0.0-1.0); MONOCYTES % (AUTO) 8 % (0-12); NEUTROPHILS # (AUTO) 3.6 X 10^3 (1.8-7.8); NEUTROPHILS % (AUTO) 65 % (42-75); PLATELET COUNT 207 10^3/uL (130-400); RED CELL DISTRIBUTION WIDTH 16.5 % (10.0-14.5); WHITE BLOOD COUNT 5.6 10^3/uL (4.3-11.0)
[2018-05-31 09:25] LABS: ALANINE AMINOTRANSFERASE 26 U/L (0-55); ALBUMIN 4.3 GM/DL (3.2-4.5); ALKALINE PHOSPHATASE 132 U/L (40-136); BILIRUBIN,TOTAL 0.9 MG/DL (0.1-1.0); BUN/CREATININE RATIO 15; CALCIUM 9.7 MG/DL (8.5-10.1); CARBON DIOXIDE 23 MMOL/L (21-32); CHLORIDE 105 MMOL/L (98-107); CREATININE SERUM 0.84 MG/DL (0.60-1.30); GFR ESTIMATED > 60; GLUCOSE 114 MG/DL (70-105); MAGNESIUM 2.1 MG/DL (1.8-2.4); POTASSIUM 3.8 MMOL/L (3.6-5.0); SODIUM 139 MMOL/L (135-145); TOTAL PROTEIN 7.3 GM/DL (6.4-8.2)
[2018-06-14 09:05] LABS: BASOPHILS # (AUTO) 0.1 10^3/uL (0.0-0.1); BASOPHILS % (AUTO) 2 % (0-10); EOSINOPHILS # (AUTO) 0.2 10^3/uL (0.0-0.3); EOSINOPHILS % (AUTO) 3 % (0-10); HEMATOCRIT 36 % (35-52); LYMPHOCYTES # (AUTO) 1.9 X 10^3 (1.0-4.0); LYMPHOCYTES % (AUTO) 37 % (12-44); MEAN CORPUSCULAR HEMOGLOBIN 32 PG (25-34); MEAN CORPUSCULAR HGB CONC 34 G/DL (32-36); MEAN CORPUSCULAR VOLUME 96 FL (80-99); MEAN PLATELET VOLUME 10.9 FL (7.4-10.4); MONOCYTES # (AUTO) 0.6 X 10^3 (0.0-1.0); MONOCYTES % (AUTO) 12 % (0-12); NEUTROPHILS # (AUTO) 2.4 X 10^3 (1.8-7.8); NEUTROPHILS % (AUTO) 46 % (42-75); PLATELET COUNT 249 10^3/uL (130-400); WHITE BLOOD COUNT 5.2 10^3/uL (4.3-11.0)
[2018-06-14 09:27] LABS: ALANINE AMINOTRANSFERASE 40 U/L (0-55); ALBUMIN 4.2 GM/DL (3.2-4.5); ALKALINE PHOSPHATASE 131 U/L (40-136); BILIRUBIN,TOTAL 0.7 MG/DL (0.1-1.0); BUN/CREATININE RATIO 24; CALCIUM 9.6 MG/DL (8.5-10.1); CARBON DIOXIDE 24 MMOL/L (21-32); CHLORIDE 103 MMOL/L (98-107); CREATININE SERUM 0.84 MG/DL (0.60-1.30); GFR ESTIMATED > 60; GLUCOSE 107 MG/DL (70-105); POTASSIUM 3.2 MMOL/L (3.6-5.0); SODIUM 138 MMOL/L (135-145)
[2018-06-28 09:07] LABS: BASOPHILS # (AUTO) 0.1 10^3/uL (0.0-0.1); BASOPHILS % (AUTO) 2 % (0-10); EOSINOPHILS # (AUTO) 0.3 10^3/uL (0.0-0.3); EOSINOPHILS % (AUTO) 7 % (0-10); HEMATOCRIT 37 % (35-52); LYMPHOCYTES # (AUTO) 1.3 X 10^3 (1.0-4.0); LYMPHOCYTES % (AUTO) 30 % (12-44); MEAN CORPUSCULAR HEMOGLOBIN 32 PG (25-34); MEAN CORPUSCULAR HGB CONC 33 G/DL (32-36); MEAN CORPUSCULAR VOLUME 98 FL (80-99); MEAN PLATELET VOLUME 11.1 FL (7.4-10.4); MONOCYTES # (AUTO) 0.6 X 10^3 (0.0-1.0); MONOCYTES % (AUTO) 15 % (0-12); NEUTROPHILS % (AUTO) 47 % (42-75); PLATELET COUNT 227 10^3/uL (130-400); WHITE BLOOD COUNT 4.2 10^3/uL (4.3-11.0)
[2018-06-28 09:24] LABS: ALANINE AMINOTRANSFERASE 46 U/L (0-55); ALBUMIN 4.4 GM/DL (3.2-4.5); ALKALINE PHOSPHATASE 141 U/L (40-136); BILIRUBIN,TOTAL 1.3 MG/DL (0.1-1.0); BUN/CREATININE RATIO 14; CALCIUM 9.8 MG/DL (8.5-10.1); CARBON DIOXIDE 22 MMOL/L (21-32); CHLORIDE 105 MMOL/L (98-107); CREATININE SERUM 0.81 MG/DL (0.60-1.30); GFR ESTIMATED > 60; GLUCOSE 115 MG/DL (70-105); MAGNESIUM 2.1 MG/DL (1.8-2.4); POTASSIUM 3.7 MMOL/L (3.6-5.0); SODIUM 140 MMOL/L (135-145); TOTAL PROTEIN 7.2 GM/DL (6.4-8.2)
[2018-06-28 09:34] LABS: URINE CREATININE FOR RATIO 31 MG/DL (30-125); URINE PROTEIN FOR RATIO ONLY < 6 MG/DL (6-12)
[2018-07-12 09:20] LABS: BASOPHILS # (AUTO) 0.1 10^3/uL (0.0-0.1); BASOPHILS % (AUTO) 2 % (0-10); EOSINOPHILS # (AUTO) 0.2 10^3/uL (0.0-0.3); EOSINOPHILS % (AUTO) 5 % (0-10); HEMATOCRIT 36 % (35-52); HEMOGLOBIN 11.9 G/DL (11.5-16.0); LYMPHOCYTES # (AUTO) 0.9 X 10^3 (1.0-4.0); LYMPHOCYTES % (AUTO) 24 % (12-44); MEAN CORPUSCULAR HEMOGLOBIN 33 PG (25-34); MEAN CORPUSCULAR HGB CONC 33 G/DL (32-36); MEAN CORPUSCULAR VOLUME 98 FL (80-99); MEAN PLATELET VOLUME 10.4 FL (7.4-10.4); MONOCYTES # (AUTO) 0.7 X 10^3 (0.0-1.0); MONOCYTES % (AUTO) 18 % (0-12); NEUTROPHILS # (AUTO) 1.9 X 10^3 (1.8-7.8); NEUTROPHILS % (AUTO) 51 % (42-75); PLATELET COUNT 225 10^3/uL (130-400); RED CELL DISTRIBUTION WIDTH 17.5 % (10.0-14.5); WHITE BLOOD COUNT 3.7 10^3/uL (4.3-11.0)
[2018-07-12 09:38] LABS: ALANINE AMINOTRANSFERASE 23 U/L (0-55); ALBUMIN 4.3 GM/DL (3.2-4.5); ALKALINE PHOSPHATASE 113 U/L (40-136); BILIRUBIN,TOTAL 0.9 MG/DL (0.1-1.0); BUN/CREATININE RATIO 17; CALCIUM 9.4 MG/DL (8.5-10.1); CARBON DIOXIDE 24 MMOL/L (21-32); CHLORIDE 106 MMOL/L (98-107); CREATININE SERUM 0.82 MG/DL (0.60-1.30); GFR ESTIMATED > 60; GLUCOSE 106 MG/DL (70-105); POTASSIUM 3.8 MMOL/L (3.6-5.0); SODIUM 138 MMOL/L (135-145); TOTAL PROTEIN 7.2 GM/DL (6.4-8.2)
[~2018-07-25] VITALS: Ht 165.1 cm; Wt 73.5 kg
[~2018-07-25 09:02] MED LIST changes: -BARIUM SUSPENSION 2.1% (VANILLA SILQ) 450 ML PO ONE; +BEVACIZUMAB IV SCH; +CENTER ONLY IV SCH; +D5W 500 ML IV (CANCER CTR) 500 ML IV ONE; +D5W 500 ML IV (CANCER CTR) 500 ML IV SCH; +DEXAMETHASONE IV SCH; +FAMOTIDINE 20MG/2ML IV (CANCER CTR) IV SCH; +FLUOROURACIL IV SCH; +FOSAPREPITANT DIMEGLUMINE 150 MG in NS (IVPB) CANCER CENTER ONLY 150 ML IV SCH; -HOLD METFORMIN - RECEIVED CONTRAST 20 ML VIAL IV SCH; -IOHEXOL 350 MG/ML 100 ML (OMNIPAQUE 350) VIAL IV ONE; +LEUCOVORIN CALCIUM 600 MG in D5W 250 ML IVPB (CANCER CTR) 250 ML IV SCH; +NS IV 500 ML (CANCER CENTER) 500 ML IV SCH; +NS IV SCH; +ONDANSETRON 8 MG, DEXAMETHASONE 4 MG/NS 50 ML IVPB (Cancer Ctr) IV SCH; +ONDANSETRON IV SCH; +ONDANSETRON MDV (CANCER CENTER 16 MG, DEXAMETHASONE INJECTION 10 MG in NS (IVPB) CANCER... IV SCH; +OXALIPLATIN 100 MG, OXALIPLATIN (GENERIC) 30 MG in D5W 250 ML IVPB (CANCER CTR) 250 ML IV SCH; +PALONOSETRON HCL 0.25 MG, DEXAMETHASONE INJECTION 10 MG in NS (IVPB) CANCER CENTER 50 ML IV SCH; +[UNRECOGNIZED DRUG - OTHER] IV SCH
[2018-07-25 09:30] LABS: BASOPHILS # (AUTO) 0.1 10^3/uL (0.0-0.1); BASOPHILS % (AUTO) 3 % (0-10); EOSINOPHILS # (AUTO) 0.1 10^3/uL (0.0-0.3); EOSINOPHILS % (AUTO) 3 % (0-10); HEMATOCRIT 34 % (35-52); HEMOGLOBIN 11.6 G/DL (11.5-16.0); LYMPHOCYTES % (AUTO) 24 % (12-44); MEAN CORPUSCULAR HEMOGLOBIN 33 PG (25-34); MEAN CORPUSCULAR HGB CONC 34 G/DL (32-36); MEAN CORPUSCULAR VOLUME 98 FL (80-99); MEAN PLATELET VOLUME 11.2 FL (7.4-10.4); MONOCYTES # (AUTO) 0.7 X 10^3 (0.0-1.0); MONOCYTES % (AUTO) 18 % (0-12); NEUTROPHILS # (AUTO) 2.1 X 10^3 (1.8-7.8); NEUTROPHILS % (AUTO) 52 % (42-75); PLATELET COUNT 200 10^3/uL (130-400); RED CELL DISTRIBUTION WIDTH 17.7 % (10.0-14.5); WHITE BLOOD COUNT 4.1 10^3/uL (4.3-11.0)
[2018-07-25 09:45] LABS: ALANINE AMINOTRANSFERASE 25 U/L (0-55); ALBUMIN 4.3 GM/DL (3.2-4.5); ALKALINE PHOSPHATASE 122 U/L (40-136); BUN/CREATININE RATIO 11; CALCIUM 9.8 MG/DL (8.5-10.1); CARBON DIOXIDE 23 MMOL/L (21-32); CHLORIDE 108 MMOL/L (98-107); CREATININE SERUM 0.83 MG/DL (0.60-1.30); GFR ESTIMATED > 60; GLUCOSE 97 MG/DL (70-105); MAGNESIUM 2.2 MG/DL (1.8-2.4); SODIUM 140 MMOL/L (135-145); TOTAL PROTEIN 6.9 GM/DL (6.4-8.2)
[2018-08-02 09:43] LABS: BASOPHILS # (AUTO) 0.1 10^3/uL (0.0-0.1); BASOPHILS % (AUTO) 2 % (0-10); EOSINOPHILS # (AUTO) 0.4 10^3/uL (0.0-0.3); EOSINOPHILS % (AUTO) 7 % (0-10); HEMATOCRIT 36 % (35-52); HEMOGLOBIN 12.2 G/DL (11.5-16.0); LYMPHOCYTES # (AUTO) 1.4 X 10^3 (1.0-4.0); LYMPHOCYTES % (AUTO) 29 % (12-44); MEAN CORPUSCULAR HEMOGLOBIN 33 PG (25-34); MEAN CORPUSCULAR HGB CONC 34 G/DL (32-36); MEAN CORPUSCULAR VOLUME 97 FL (80-99); MEAN PLATELET VOLUME 10.3 FL (7.4-10.4); MONOCYTES # (AUTO) 0.9 X 10^3 (0.0-1.0); MONOCYTES % (AUTO) 19 % (0-12); NEUTROPHILS # (AUTO) 2.1 X 10^3 (1.8-7.8); NEUTROPHILS % (AUTO) 43 % (42-75); PLATELET COUNT 213 10^3/uL (130-400); RED CELL DISTRIBUTION WIDTH 17.7 % (10.0-14.5); WHITE BLOOD COUNT 4.8 10^3/uL (4.3-11.0)
[2018-08-02 10:05] LABS: BUN/CREATININE RATIO 16; CALCIUM 10.2 MG/DL (8.5-10.1); CARBON DIOXIDE 22 MMOL/L (21-32); CHLORIDE 104 MMOL/L (98-107); CREATININE SERUM 0.79 MG/DL (0.60-1.30); GFR ESTIMATED > 60; GLUCOSE 102 MG/DL (70-105); MAGNESIUM 2.1 MG/DL (1.8-2.4); POTASSIUM 4.2 MMOL/L (3.6-5.0); SODIUM 138 MMOL/L (135-145)
== END 2018-08-01 | disposition home or self-care (01) ==
LOC: ONC 09:02
PROVIDERS: ATTEND Internal Medicine Hematology & Oncology
DX: Z51.11 Encounter for antineoplastic chemotherapy (principal); C78.7 Secondary malignant neoplasm of liver and intrahepatic bile duct; C79.89 Secondary malignant neoplasm of other specified sites; C79.61 Secondary malignant neoplasm of right ovary; C78.01 Secondary malignant neoplasm of right lung; C78.6 Secondary malignant neoplasm of retroperitoneum and peritoneum; C77.5 Secondary and unspecified malignant neoplasm of intrapelvic lymph nodes; Z85.038 Personal history of other malignant neoplasm of large intestine; E03.9 Hypothyroidism, unspecified; E78.5 Hyperlipidemia, unspecified; F32.9 Major depressive disorder, single episode, unspecified; Z79.899 Other long term (current) drug therapy; Z92.21 Personal history of antineoplastic chemotherapy; Z23 Encounter for immunization
CPT/HCPCS: 36591; 80053; 82378; 82570; 83735; 84156; 85025; 96367; 96368; 96375; 96409; 96411; 96413

== ENCOUNTER → 2018-09-21 | Outpatient (CLI) | payer MEDICARE ==
[~2018-09-21] MED LIST changes: +BARIUM SUSPENSION 2.1% (VANILLA SILQ) 450 ML PO ONE; -BEVACIZUMAB IV SCH; -CENTER ONLY IV SCH; -D5W 500 ML IV (CANCER CTR) 500 ML IV ONE; -D5W 500 ML IV (CANCER CTR) 500 ML IV SCH; -DEXAMETHASONE IV SCH; -FAMOTIDINE 20MG/2ML IV (CANCER CTR) IV SCH; -FLUOROURACIL IV SCH; -FOSAPREPITANT DIMEGLUMINE 150 MG in NS (IVPB) CANCER CENTER ONLY 150 ML IV SCH; +HOLD METFORMIN - RECEIVED CONTRAST 20 ML VIAL IV SCH; +IOHEXOL 350 MG/ML 100 ML (OMNIPAQUE 350) VIAL IV ONE; -LEUCOVORIN CALCIUM 600 MG in D5W 250 ML IVPB (CANCER CTR) 250 ML IV SCH; +NS 100 ML (IVPB) BAG IV ONE; -NS IV 500 ML (CANCER CENTER) 500 ML IV SCH; -NS IV SCH; -ONDANSETRON 8 MG, DEXAMETHASONE 4 MG/NS 50 ML IVPB (Cancer Ctr) IV SCH; -ONDANSETRON IV SCH; -ONDANSETRON MDV (CANCER CENTER 16 MG, DEXAMETHASONE INJECTION 10 MG in NS (IVPB) CANCER... IV SCH; -OXALIPLATIN 100 MG, OXALIPLATIN (GENERIC) 30 MG in D5W 250 ML IVPB (CANCER CTR) 250 ML IV SCH; -PALONOSETRON HCL 0.25 MG, DEXAMETHASONE INJECTION 10 MG in NS (IVPB) CANCER CENTER 50 ML IV SCH; -[UNRECOGNIZED DRUG - OTHER] IV SCH
--- NOTE | 2018-09-21 08:30 | Diagnostic Imaging Report ---
PROCEDURE: CT chest with contrast, CT abdomen and pelvis with and without contrast. TECHNIQUE: Pre and post intravenous contrast axial imaging of the abdomen and pelvis and post contrast axial imaging of the chest were performed. Auto Exposure Controls were utilized during the CT exam to meet ALARA standards for radiation dose reduction. INDICATION: Colon cancer with lung metastasis. CT thorax: Comparison is made study of 07/19/2018. FINDINGS: Surgical changes are seen in the apical aspect of the right lung. Otherwise, there is diffuse interstitial prominence throughout the lungs with mild scattered areas of groundglass density. There is no evidence of consolidation or new mass. There is no pathologic adenopathy seen in the thorax. There is no significant pleural or pericardial fluid. Thyroid gland has a normal appearance. There is left anterior chest wall port. IMPRESSION: Surgical findings are noted in the right lung apex. There is background interstitial lung disease with mild edema and/or pneumonitis, bilaterally. No focal infiltrate or new mass is identified. CT abdomen and pelvis: There is no evidence of new hepatic lesion. Surgical clips are seen along the dome of the right lobe of the liver. Gallbladder is absent. There is no pancreatic, splenic or adrenal gland abnormality. There are multiple cysts seen in the kidneys similar to previous examination. There is excretion of contrast bilaterally. Surgical findings in the anterior abdominal wall are again noted with multiple adjacent and possibly adherent small bowel loops. Nodularity in the anterior abdominal wall is stable or slightly decreased. Previously measured marker nodule to the left of midline measures 2.1 x 0.9 cm compared with 2.4 x 1.0 cm on the previous exam. There is no evidence of free fluid in the abdomen or pelvis. No pathologically enlarged adenopathy is identified. There is mild contrast material throughout the colon without transition point to indicate obstruction. Partially opacified urinary bladder is unremarkable. There is an unchanged sclerotic focus in the left iliac bone. IMPRESSION: Essentially stable CT scan of the abdomen and pelvis. Nodularity in the anterior abdominal wall is stable or slightly decreased in prominence. There is no new lesion detected to indicate metastatic disease. Dictated by: Dictated on workstation # [id number]
== END ==
LOC: RAD 07:15
PROVIDERS: ATTEND Internal Medicine Hematology & Oncology
DX: C18.9 Malignant neoplasm of colon, unspecified (principal); C78.01 Secondary malignant neoplasm of right lung; C79.89 Secondary malignant neoplasm of other specified sites; J84.9 Interstitial pulmonary disease, unspecified; Z98.890 Other specified postprocedural states; Z90.49 Acquired absence of other specified parts of digestive tract
CPT/HCPCS: 71260; 74178

== ENCOUNTER → 2018-10-18 | Outpatient (CLI) | payer MEDICARE ==
[~2018-10-18] MED LIST changes: -BARIUM SUSPENSION 2.1% (VANILLA SILQ) 450 ML PO ONE; -HOLD METFORMIN - RECEIVED CONTRAST 20 ML VIAL IV SCH; -IOHEXOL 350 MG/ML 100 ML (OMNIPAQUE 350) VIAL IV ONE; -NS 100 ML (IVPB) BAG IV ONE
== END ==
LOC: LAB 09:02
PROVIDERS: ATTEND Family Medicine
DX: E03.9 Hypothyroidism, unspecified (principal); E78.2 Mixed hyperlipidemia
CPT/HCPCS: 36415; 80061; 84443

== ENCOUNTER 2018-10-25 08:46 | Outpatient (RCR) | payer MEDICARE, OTHER ==
[2018-08-02 09:43] LABS: BASOPHILS # (AUTO) 0.1 10^3/uL (0.0-0.1); BASOPHILS % (AUTO) 2 % (0-10); EOSINOPHILS # (AUTO) 0.4 10^3/uL (0.0-0.3); EOSINOPHILS % (AUTO) 7 % (0-10); HEMATOCRIT 36 % (35-52); HEMOGLOBIN 12.2 G/DL (11.5-16.0); LYMPHOCYTES # (AUTO) 1.4 X 10^3 (1.0-4.0); LYMPHOCYTES % (AUTO) 29 % (12-44); MEAN CORPUSCULAR HEMOGLOBIN 33 PG (25-34); MEAN CORPUSCULAR HGB CONC 34 G/DL (32-36); MEAN CORPUSCULAR VOLUME 97 FL (80-99); MEAN PLATELET VOLUME 10.3 FL (7.4-10.4); MONOCYTES # (AUTO) 0.9 X 10^3 (0.0-1.0); MONOCYTES % (AUTO) 19 % (0-12); NEUTROPHILS # (AUTO) 2.1 X 10^3 (1.8-7.8); NEUTROPHILS % (AUTO) 43 % (42-75); PLATELET COUNT 213 10^3/uL (130-400); RED CELL DISTRIBUTION WIDTH 17.7 % (10.0-14.5); WHITE BLOOD COUNT 4.8 10^3/uL (4.3-11.0)
[2018-08-02 10:05] LABS: BUN/CREATININE RATIO 16; CALCIUM 10.2 MG/DL (8.5-10.1); CARBON DIOXIDE 22 MMOL/L (21-32); CHLORIDE 104 MMOL/L (98-107); CREATININE SERUM 0.79 MG/DL (0.60-1.30); GFR ESTIMATED > 60; GLUCOSE 102 MG/DL (70-105); MAGNESIUM 2.1 MG/DL (1.8-2.4); POTASSIUM 4.2 MMOL/L (3.6-5.0); SODIUM 138 MMOL/L (135-145)
[2018-08-09 09:20] LABS: BASOPHILS # (AUTO) 0.1 10^3/uL (0.0-0.1); BASOPHILS % (AUTO) 3 % (0-10); EOSINOPHILS # (AUTO) 0.2 10^3/uL (0.0-0.3); EOSINOPHILS % (AUTO) 4 % (0-10); HEMATOCRIT 36 % (35-52); HEMOGLOBIN 11.7 G/DL (11.5-16.0); LYMPHOCYTES # (AUTO) 0.9 X 10^3 (1.0-4.0); LYMPHOCYTES % (AUTO) 25 % (12-44); MEAN CORPUSCULAR HEMOGLOBIN 32 PG (25-34); MEAN CORPUSCULAR HGB CONC 33 G/DL (32-36); MEAN CORPUSCULAR VOLUME 97 FL (80-99); MEAN PLATELET VOLUME 10.2 FL (7.4-10.4); MONOCYTES # (AUTO) 0.8 X 10^3 (0.0-1.0); MONOCYTES % (AUTO) 22 % (0-12); NEUTROPHILS # (AUTO) 1.7 X 10^3 (1.8-7.8); NEUTROPHILS % (AUTO) 47 % (42-75); PLATELET COUNT 169 10^3/uL (130-400); RED CELL DISTRIBUTION WIDTH 17.4 % (10.0-14.5); WHITE BLOOD COUNT 3.6 10^3/uL (4.3-11.0)
[2018-08-09 09:38] LABS: ALANINE AMINOTRANSFERASE 26 U/L (0-55); ALBUMIN 4.3 GM/DL (3.2-4.5); ALKALINE PHOSPHATASE 152 U/L (40-136); BILIRUBIN,TOTAL 1.1 MG/DL (0.1-1.0); BUN/CREATININE RATIO 13; CALCIUM 9.9 MG/DL (8.5-10.1); CARBON DIOXIDE 25 MMOL/L (21-32); CHLORIDE 106 MMOL/L (98-107); CREATININE SERUM 0.79 MG/DL (0.60-1.30); GFR ESTIMATED > 60; GLUCOSE 110 MG/DL (70-105); MAGNESIUM 2.1 MG/DL (1.8-2.4); POTASSIUM 3.9 MMOL/L (3.6-5.0); SODIUM 140 MMOL/L (135-145); TOTAL PROTEIN 7.3 GM/DL (6.4-8.2)
[2018-08-16 09:55] LABS: BASOPHILS # (AUTO) 0.1 10^3/uL (0.0-0.1); BASOPHILS % (AUTO) 3 % (0-10); EOSINOPHILS # (AUTO) 0.3 10^3/uL (0.0-0.3); EOSINOPHILS % (AUTO) 9 % (0-10); HEMATOCRIT 36 % (35-52); HEMOGLOBIN 11.7 G/DL (11.5-16.0); LYMPHOCYTES # (AUTO) 1.4 X 10^3 (1.0-4.0); LYMPHOCYTES % (AUTO) 37 % (12-44); MEAN CORPUSCULAR HEMOGLOBIN 32 PG (25-34); MEAN CORPUSCULAR HGB CONC 33 G/DL (32-36); MEAN CORPUSCULAR VOLUME 98 FL (80-99); MEAN PLATELET VOLUME 10.1 FL (7.4-10.4); MONOCYTES # (AUTO) 0.5 X 10^3 (0.0-1.0); MONOCYTES % (AUTO) 14 % (0-12); NEUTROPHILS # (AUTO) 1.4 X 10^3 (1.8-7.8); NEUTROPHILS % (AUTO) 38 % (42-75); PLATELET COUNT 204 10^3/uL (130-400); RED CELL DISTRIBUTION WIDTH 17.5 % (10.0-14.5); WHITE BLOOD COUNT 3.7 10^3/uL (4.3-11.0)
[2018-08-16 10:08] LABS: BUN/CREATININE RATIO 19; CALCIUM 10.2 MG/DL (8.5-10.1); CARBON DIOXIDE 25 MMOL/L (21-32); CHLORIDE 105 MMOL/L (98-107); GFR ESTIMATED > 60; GLUCOSE 99 MG/DL (70-105); MAGNESIUM 2.4 MG/DL (1.8-2.4); POTASSIUM 4.7 MMOL/L (3.6-5.0); SODIUM 143 MMOL/L (135-145)
[2018-08-23 09:03] LABS: BASOPHILS # (AUTO) 0.1 10^3/uL (0.0-0.1); BASOPHILS % (AUTO) 2 % (0-10); EOSINOPHILS # (AUTO) 0.2 10^3/uL (0.0-0.3); EOSINOPHILS % (AUTO) 4 % (0-10); HEMATOCRIT 35 % (35-52); HEMOGLOBIN 11.3 G/DL (11.5-16.0); LYMPHOCYTES # (AUTO) 0.9 X 10^3 (1.0-4.0); LYMPHOCYTES % (AUTO) 26 % (12-44); MEAN CORPUSCULAR HEMOGLOBIN 32 PG (25-34); MEAN CORPUSCULAR HGB CONC 33 G/DL (32-36); MEAN CORPUSCULAR VOLUME 97 FL (80-99); MEAN PLATELET VOLUME 10.5 FL (7.4-10.4); MONOCYTES # (AUTO) 0.7 X 10^3 (0.0-1.0); MONOCYTES % (AUTO) 20 % (0-12); NEUTROPHILS # (AUTO) 1.6 X 10^3 (1.8-7.8); NEUTROPHILS % (AUTO) 48 % (42-75); PLATELET COUNT 187 10^3/uL (130-400); RED CELL DISTRIBUTION WIDTH 18.3 % (10.0-14.5); WHITE BLOOD COUNT 3.4 10^3/uL (4.3-11.0)
[2018-08-23 09:19] LABS: ALANINE AMINOTRANSFERASE 33 U/L (0-55); ALBUMIN 4.2 GM/DL (3.2-4.5); ALKALINE PHOSPHATASE 157 U/L (40-136); BILIRUBIN,TOTAL 0.8 MG/DL (0.1-1.0); BUN/CREATININE RATIO 12; CALCIUM 9.6 MG/DL (8.5-10.1); CARBON DIOXIDE 23 MMOL/L (21-32); CHLORIDE 107 MMOL/L (98-107); CREATININE SERUM 0.76 MG/DL (0.60-1.30); GFR ESTIMATED > 60; GLUCOSE 103 MG/DL (70-105); MAGNESIUM 1.9 MG/DL (1.8-2.4); POTASSIUM 3.5 MMOL/L (3.6-5.0); SODIUM 140 MMOL/L (135-145)
[2018-08-30 09:41] LABS: BASOPHILS # (AUTO) 0.1 10^3/uL (0.0-0.1); BASOPHILS % (AUTO) 3 % (0-10); EOSINOPHILS # (AUTO) 0.3 10^3/uL (0.0-0.3); EOSINOPHILS % (AUTO) 9 % (0-10); HEMATOCRIT 33 % (35-52); HEMOGLOBIN 10.9 G/DL (11.5-16.0); LYMPHOCYTES % (AUTO) 31 % (12-44); MEAN CORPUSCULAR HEMOGLOBIN 32 PG (25-34); MEAN CORPUSCULAR HGB CONC 33 G/DL (32-36); MEAN CORPUSCULAR VOLUME 98 FL (80-99); MEAN PLATELET VOLUME 10.9 FL (7.4-10.4); MONOCYTES # (AUTO) 0.6 X 10^3 (0.0-1.0); MONOCYTES % (AUTO) 20 % (0-12); NEUTROPHILS # (AUTO) 1.2 X 10^3 (1.8-7.8); NEUTROPHILS % (AUTO) 38 % (42-75); PLATELET COUNT 188 10^3/uL (130-400); RED CELL DISTRIBUTION WIDTH 17.9 % (10.0-14.5); WHITE BLOOD COUNT 3.2 10^3/uL (4.3-11.0)
[2018-08-30 10:03] LABS: BUN/CREATININE RATIO 18; CALCIUM 9.1 MG/DL (8.5-10.1); CARBON DIOXIDE 23 MMOL/L (21-32); CHLORIDE 108 MMOL/L (98-107); CREATININE SERUM 0.71 MG/DL (0.60-1.30); GFR ESTIMATED > 60; GLUCOSE 96 MG/DL (70-105); POTASSIUM 3.7 MMOL/L (3.6-5.0); SODIUM 141 MMOL/L (135-145)
[2018-09-06 09:17] LABS: BASOPHILS # (AUTO) 0.1 10^3/uL (0.0-0.1); BASOPHILS % (AUTO) 3 % (0-10); EOSINOPHILS # (AUTO) 0.2 10^3/uL (0.0-0.3); EOSINOPHILS % (AUTO) 5 % (0-10); HEMATOCRIT 37 % (35-52); HEMOGLOBIN 11.8 G/DL (11.5-16.0); LYMPHOCYTES # (AUTO) 0.9 X 10^3 (1.0-4.0); LYMPHOCYTES % (AUTO) 25 % (12-44); MEAN CORPUSCULAR HEMOGLOBIN 31 PG (25-34); MEAN CORPUSCULAR HGB CONC 32 G/DL (32-36); MEAN CORPUSCULAR VOLUME 96 FL (80-99); MEAN PLATELET VOLUME 9.6 FL (7.4-10.4); MONOCYTES # (AUTO) 0.7 X 10^3 (0.0-1.0); MONOCYTES % (AUTO) 18 % (0-12); NEUTROPHILS # (AUTO) 1.9 X 10^3 (1.8-7.8); NEUTROPHILS % (AUTO) 50 % (42-75); PLATELET COUNT 207 10^3/uL (130-400); RED CELL DISTRIBUTION WIDTH 18.8 % (10.0-14.5); WHITE BLOOD COUNT 3.8 10^3/uL (4.3-11.0)
[2018-09-06 09:34] LABS: ALANINE AMINOTRANSFERASE 56 U/L (0-55); ALBUMIN 4.3 GM/DL (3.2-4.5); ALKALINE PHOSPHATASE 203 U/L (40-136); BILIRUBIN,TOTAL 0.7 MG/DL (0.1-1.0); BUN/CREATININE RATIO 9; CALCIUM 9.9 MG/DL (8.5-10.1); CARBON DIOXIDE 21 MMOL/L (21-32); CHLORIDE 108 MMOL/L (98-107); CREATININE SERUM 0.74 MG/DL (0.60-1.30); GFR ESTIMATED > 60; GLUCOSE 107 MG/DL (70-105); MAGNESIUM 2.1 MG/DL (1.8-2.4); POTASSIUM 3.8 MMOL/L (3.6-5.0); SODIUM 143 MMOL/L (135-145); TOTAL PROTEIN 7.2 GM/DL (6.4-8.2)
[2018-09-13 09:23] LABS: BASOPHILS # (AUTO) 0.1 10^3/uL (0.0-0.1); BASOPHILS % (AUTO) 3 % (0-10); EOSINOPHILS # (AUTO) 0.3 10^3/uL (0.0-0.3); EOSINOPHILS % (AUTO) 10 % (0-10); HEMATOCRIT 35 % (35-52); HEMOGLOBIN 11.6 G/DL (11.5-16.0); LYMPHOCYTES % (AUTO) 33 % (12-44); MEAN CORPUSCULAR HEMOGLOBIN 32 PG (25-34); MEAN CORPUSCULAR HGB CONC 33 G/DL (32-36); MEAN CORPUSCULAR VOLUME 97 FL (80-99); MEAN PLATELET VOLUME 11.1 FL (7.4-10.4); MONOCYTES # (AUTO) 0.5 X 10^3 (0.0-1.0); MONOCYTES % (AUTO) 18 % (0-12); NEUTROPHILS % (AUTO) 35 % (42-75); PLATELET COUNT 201 10^3/uL (130-400); RED CELL DISTRIBUTION WIDTH 18.2 % (10.0-14.5); WHITE BLOOD COUNT 2.9 10^3/uL (4.3-11.0)
[2018-09-13 09:44] LABS: BUN/CREATININE RATIO 12; CALCIUM 9.7 MG/DL (8.5-10.1); CARBON DIOXIDE 27 MMOL/L (21-32); CHLORIDE 106 MMOL/L (98-107); CREATININE SERUM 0.75 MG/DL (0.60-1.30); GFR ESTIMATED > 60; GLUCOSE 102 MG/DL (70-105); POTASSIUM 4.2 MMOL/L (3.6-5.0); SODIUM 139 MMOL/L (135-145)
[2018-09-20 09:10] LABS: BASOPHILS # (AUTO) 0.1 10^3/uL (0.0-0.1); BASOPHILS % (AUTO) 3 % (0-10); EOSINOPHILS # (AUTO) 0.3 10^3/uL (0.0-0.3); EOSINOPHILS % (AUTO) 6 % (0-10); HEMATOCRIT 36 % (35-52); HEMOGLOBIN 11.9 G/DL (11.5-16.0); LYMPHOCYTES # (AUTO) 1.1 X 10^3 (1.0-4.0); LYMPHOCYTES % (AUTO) 27 % (12-44); MEAN CORPUSCULAR HEMOGLOBIN 32 PG (25-34); MEAN CORPUSCULAR HGB CONC 33 G/DL (32-36); MEAN CORPUSCULAR VOLUME 96 FL (80-99); MEAN PLATELET VOLUME 10.5 FL (7.4-10.4); MONOCYTES # (AUTO) 0.7 X 10^3 (0.0-1.0); MONOCYTES % (AUTO) 18 % (0-12); NEUTROPHILS # (AUTO) 1.9 X 10^3 (1.8-7.8); NEUTROPHILS % (AUTO) 46 % (42-75); PLATELET COUNT 183 10^3/uL (130-400); RED CELL DISTRIBUTION WIDTH 18.6 % (10.0-14.5); WHITE BLOOD COUNT 4.1 10^3/uL (4.3-11.0)
[2018-09-20 09:26] LABS: ALANINE AMINOTRANSFERASE 28 U/L (0-55); ALBUMIN 4.3 GM/DL (3.2-4.5); ALKALINE PHOSPHATASE 174 U/L (40-136); BILIRUBIN,TOTAL 0.9 MG/DL (0.1-1.0); BUN/CREATININE RATIO 12; CALCIUM 9.8 MG/DL (8.5-10.1); CARBON DIOXIDE 23 MMOL/L (21-32); CHLORIDE 106 MMOL/L (98-107); CREATININE SERUM 0.78 MG/DL (0.60-1.30); GFR ESTIMATED > 60; GLUCOSE 94 MG/DL (70-105); MAGNESIUM 1.8 MG/DL (1.8-2.4); POTASSIUM 3.8 MMOL/L (3.6-5.0); SODIUM 138 MMOL/L (135-145)
[2018-10-12 10:22] LABS: BASOPHILS # (AUTO) 0.1 10^3/uL (0.0-0.1); BASOPHILS % (AUTO) 2 % (0-10); EOSINOPHILS # (AUTO) 0.2 10^3/uL (0.0-0.3); EOSINOPHILS % (AUTO) 4 % (0-10); HEMATOCRIT 36 % (35-52); HEMOGLOBIN 11.6 G/DL (11.5-16.0); LYMPHOCYTES # (AUTO) 0.9 X 10^3 (1.0-4.0); LYMPHOCYTES % (AUTO) 18 % (12-44); MEAN CORPUSCULAR HEMOGLOBIN 31 PG (25-34); MEAN CORPUSCULAR HGB CONC 33 G/DL (32-36); MEAN CORPUSCULAR VOLUME 96 FL (80-99); MEAN PLATELET VOLUME 10.6 FL (7.4-10.4); MONOCYTES # (AUTO) 0.6 X 10^3 (0.0-1.0); MONOCYTES % (AUTO) 13 % (0-12); NEUTROPHILS % (AUTO) 63 % (42-75); PLATELET COUNT 179 10^3/uL (130-400); RED CELL DISTRIBUTION WIDTH 17.9 % (10.0-14.5); WHITE BLOOD COUNT 4.8 10^3/uL (4.3-11.0)
[2018-10-12 10:40] LABS: ALANINE AMINOTRANSFERASE 15 U/L (0-55); ALBUMIN 4.1 GM/DL (3.2-4.5); ALKALINE PHOSPHATASE 134 U/L (40-136); BILIRUBIN,TOTAL 0.7 MG/DL (0.1-1.0); BUN/CREATININE RATIO 11; CALCIUM 9.6 MG/DL (8.5-10.1); CARBON DIOXIDE 24 MMOL/L (21-32); CHLORIDE 105 MMOL/L (98-107); CREATININE SERUM 0.81 MG/DL (0.60-1.30); GFR ESTIMATED > 60; GLUCOSE 117 MG/DL (70-105); MAGNESIUM 1.8 MG/DL (1.8-2.4); POTASSIUM 3.3 MMOL/L (3.6-5.0); SODIUM 139 MMOL/L (135-145); TOTAL PROTEIN 7.1 GM/DL (6.4-8.2)
[2018-10-18 09:05] LABS: BASOPHILS % (AUTO) 1 % (0-10); EOSINOPHILS # (AUTO) 0.2 10^3/uL (0.0-0.3); EOSINOPHILS % (AUTO) 5 % (0-10); HEMATOCRIT 36 % (35-52); HEMOGLOBIN 11.7 G/DL (11.5-16.0); LYMPHOCYTES # (AUTO) 0.9 X 10^3 (1.0-4.0); LYMPHOCYTES % (AUTO) 28 % (12-44); MEAN CORPUSCULAR HEMOGLOBIN 32 PG (25-34); MEAN CORPUSCULAR HGB CONC 33 G/DL (32-36); MEAN CORPUSCULAR VOLUME 97 FL (80-99); MEAN PLATELET VOLUME 11.2 FL (7.4-10.4); MONOCYTES # (AUTO) 0.1 X 10^3 (0.0-1.0); MONOCYTES % (AUTO) 3 % (0-12); NEUTROPHILS % (AUTO) 63 % (42-75); PLATELET COUNT 207 10^3/uL (130-400); RED CELL DISTRIBUTION WIDTH 17.1 % (10.0-14.5); WHITE BLOOD COUNT 3.1 10^3/uL (4.3-11.0)
[2018-10-18 09:26] LABS: BUN/CREATININE RATIO 22; CARBON DIOXIDE 27 MMOL/L (21-32); CHLORIDE 107 MMOL/L (98-107); CREATININE SERUM 0.79 MG/DL (0.60-1.30); GFR ESTIMATED > 60; GLUCOSE 99 MG/DL (70-105); POTASSIUM 4.4 MMOL/L (3.6-5.0); SODIUM 142 MMOL/L (135-145)
[~2018-10-25] VITALS: Ht 165.1 cm; Wt 72.1 kg
[~2018-10-25 08:46] MED LIST changes: +ATROPINE INJ 0.4 MG/ML SDV (CANCER CENTER) IV SCH; +BEVACIZUMAB IV SCH; +CENTER ONLY IV SCH; +D5W 500 ML IV (CANCER CTR) 500 ML IV SCH; +FAMOTIDINE 20MG/2ML IV (CANCER CTR) IV SCH; +FLUOROURACIL 2.5 GM, FLUOROURACIL 500 MG in NS (IVPB) CANCER CENTER 87.2 ML IV SCH; +FLUOROURACIL IV SCH; +FOSAPREPITANT DIMEGLUMINE 150 MG in NS (IVPB) CANCER CENTER ONLY 150 ML IV SCH; +IRINOTECAN HCL 200 MG, IRINOTECAN HCL 50 MG in D5W 250 ML IVPB (CANCER CTR) 250 ML IV SCH; +LEUCOVORIN CALCIUM 400 MG in D5W 250 ML IVPB (CANCER CTR) 250 ML IV SCH; +LEUCOVORIN CALCIUM 600 MG in D5W 250 ML IVPB (CANCER CTR) 250 ML IV SCH; +NS IV 1000 ML (CANCER CTR) 1,000 ML ONE; +NS IV SCH; +ONDANSETRON 8 MG, DEXAMETHASONE 4 MG/NS 50 ML IVPB (Cancer Ctr) IV SCH; +OXALIPLATIN 100 MG, OXALIPLATIN (GENERIC) 30 MG in D5W 250 ML IVPB (CANCER CTR) 250 ML IV SCH; +PALONOSETRON HCL 0.25 MG, DEXAMETHASONE INJECTION 10 MG in NS (IVPB) CANCER CENTER 50 ML IV SCH; +PANITUMUMAB INJECTION 400 MG in NS (IVPB) CANCER CENTER 100 ML IV SCH
[2018-10-25 09:02] LABS: BASOPHILS % (AUTO) 2 % (0-10); EOSINOPHILS # (AUTO) 0.2 10^3/uL (0.0-0.3); EOSINOPHILS % (AUTO) 9 % (0-10); HEMATOCRIT 34 % (35-52); HEMOGLOBIN 11.3 G/DL (11.5-16.0); LYMPHOCYTES % (AUTO) 37 % (12-44); MEAN CORPUSCULAR HEMOGLOBIN 32 PG (25-34); MEAN CORPUSCULAR HGB CONC 33 G/DL (32-36); MEAN CORPUSCULAR VOLUME 96 FL (80-99); MEAN PLATELET VOLUME 10.5 FL (7.4-10.4); MONOCYTES # (AUTO) 0.4 X 10^3 (0.0-1.0); MONOCYTES % (AUTO) 17 % (0-12); NEUTROPHILS # (AUTO) 0.9 X 10^3 (1.8-7.8); NEUTROPHILS % (AUTO) 35 % (42-75); PLATELET COUNT 191 10^3/uL (130-400); RED CELL DISTRIBUTION WIDTH 16.8 % (10.0-14.5); WHITE BLOOD COUNT 2.6 10^3/uL (4.3-11.0)
[2018-10-25 09:22] LABS: ALANINE AMINOTRANSFERASE 17 U/L (0-55); ALKALINE PHOSPHATASE 123 U/L (40-136); BILIRUBIN,TOTAL 0.5 MG/DL (0.1-1.0); BUN/CREATININE RATIO 14; CALCIUM 9.7 MG/DL (8.5-10.1); CARBON DIOXIDE 23 MMOL/L (21-32); CHLORIDE 106 MMOL/L (98-107); CREATININE SERUM 0.78 MG/DL (0.60-1.30); GFR ESTIMATED > 60; GLUCOSE 108 MG/DL (70-105); MAGNESIUM 1.5 MG/DL (1.8-2.4); POTASSIUM 3.4 MMOL/L (3.6-5.0); SODIUM 141 MMOL/L (135-145); TOTAL PROTEIN 6.9 GM/DL (6.4-8.2)
== END 2018-10-31 | disposition home or self-care (01) ==
LOC: ONC 08:46
PROVIDERS: ATTEND Internal Medicine Hematology & Oncology
DX: Z51.11 Encounter for antineoplastic chemotherapy (principal); C78.7 Secondary malignant neoplasm of liver and intrahepatic bile duct; C79.89 Secondary malignant neoplasm of other specified sites; C79.61 Secondary malignant neoplasm of right ovary; C78.01 Secondary malignant neoplasm of right lung; C78.6 Secondary malignant neoplasm of retroperitoneum and peritoneum; C77.5 Secondary and unspecified malignant neoplasm of intrapelvic lymph nodes; Z85.038 Personal history of other malignant neoplasm of large intestine; E03.9 Hypothyroidism, unspecified; E78.5 Hyperlipidemia, unspecified; F32.9 Major depressive disorder, single episode, unspecified; Z79.899 Other long term (current) drug therapy; Z92.21 Personal history of antineoplastic chemotherapy; Z23 Encounter for immunization
CPT/HCPCS: 36415; 36591; 80048; 80053; 82378; 82570; 83735; 84156; 85025; 96367; 96368; 96375; 96411; 96413; 96417

== ENCOUNTER → 2018-11-08 | Outpatient (CLI) | payer MEDICARE ==
[~2018-11-08] MED LIST changes: -ATROPINE INJ 0.4 MG/ML SDV (CANCER CENTER) IV SCH; -BEVACIZUMAB IV SCH; -CENTER ONLY IV SCH; -D5W 500 ML IV (CANCER CTR) 500 ML IV SCH; -FAMOTIDINE 20MG/2ML IV (CANCER CTR) IV SCH; -FLUOROURACIL 2.5 GM, FLUOROURACIL 500 MG in NS (IVPB) CANCER CENTER 87.2 ML IV SCH; -FLUOROURACIL IV SCH; -FOSAPREPITANT DIMEGLUMINE 150 MG in NS (IVPB) CANCER CENTER ONLY 150 ML IV SCH; -IRINOTECAN HCL 200 MG, IRINOTECAN HCL 50 MG in D5W 250 ML IVPB (CANCER CTR) 250 ML IV SCH; -LEUCOVORIN CALCIUM 400 MG in D5W 250 ML IVPB (CANCER CTR) 250 ML IV SCH; -LEUCOVORIN CALCIUM 600 MG in D5W 250 ML IVPB (CANCER CTR) 250 ML IV SCH; -NS IV 1000 ML (CANCER CTR) 1,000 ML ONE; -NS IV SCH; -ONDANSETRON 8 MG, DEXAMETHASONE 4 MG/NS 50 ML IVPB (Cancer Ctr) IV SCH; -OXALIPLATIN 100 MG, OXALIPLATIN (GENERIC) 30 MG in D5W 250 ML IVPB (CANCER CTR) 250 ML IV SCH; -PALONOSETRON HCL 0.25 MG, DEXAMETHASONE INJECTION 10 MG in NS (IVPB) CANCER CENTER 50 ML IV SCH; -PANITUMUMAB INJECTION 400 MG in NS (IVPB) CANCER CENTER 100 ML IV SCH
--- NOTE | 2018-11-10 15:06 | Diagnostic Imaging Report ---
Digital mammogram. Bilateral screening with 3-D tomosynthesis and CAD. This study was compared to the prior exams of 10/15/2017, 10/13/2016 and 10/10/2015. At this time there are no current complaints. The current study was also evaluated with a Computer Aided Detection (CAD) system. FINDINGS: There are scattered fibroglandular densities in both breasts which could obscure a lesion. Overall, there does not appear to have been any significant change when compared to the prior exam. No primary or secondary sign of malignancy is noted. IMPRESSION: There is no radiographic evidence for malignancy. ACR BI-RADS Category 1: Negative. Result letter will be mailed to the patient. Note: At least 10% of breast cancer is not imaged by mammography. Dictated by: Dictated on workstation # [id number]
== END ==
LOC: RAD 07:10
PROVIDERS: ATTEND Nurse Practitioner Family
DX: Z12.31 Encounter for screening mammogram for malignant neoplasm of breast (principal)
CPT/HCPCS: 77067

== ENCOUNTER 2018-12-17 14:28 | Emergency (ER) | payer MEDICARE ==
[~2018-12-17] VITALS: Ht 167.6 cm; Wt 66.7 kg
--- NOTE | 2018-12-17 14:54 | ED Lower Extremity ---
General Stated Complaint: L FOOT PAIN / INJ Source: patient Exam Limitations: no limitations History of Present Illness Date Seen by Provider: Dec 17, 2018 Time Seen by Provider: 14:50 Initial Comments To ER with reports of a weedeater streaming injury to the dorsum of the left foot 2 days ago. She is already on acyclovir and doxycycline for skin rash. She is worried about infection due to some surrounding redness Onset: other (2-3 days ago) Severity: moderate Pain/Injury Location: left foot Modifying Factors: Improves With Movement Allergies and Home Medications Allergies Coded Allergies: ketorolac tromethamine (Verified Allergy, Mild, 01/31/11) Home Medications Hydrocodone Bit/Acetaminophen 1 Each Tablet, 1-2 TAB PO 4-6HR PRN for PAIN Prescribed by: RAJANI HERNANDES on 01/23/16 1522 Levothyroxine Sodium 50 Mcg Tablet, 50 MCG PO DAILY, (Reported) Lovastatin 10 Mg Tablet, 10 MG PO HS, (Reported) Charlotte-3 Fatty Acids 300 Mg Capsule, 300 MG PO HS, (Reported) Omeprazole 20 Mg Tablet.dr, 20 MG PO DAILY, (Reported) Paroxetine Hcl 20 Mg Tablet, 20 MG PO DAILY, (Reported) Patient Home Medication List Home Medication List Reviewed: Yes Review of Systems Constitutional: see HPI EENTM: see HPI Respiratory: no symptoms reported Cardiovascular: no symptoms reported Genitourinary: no symptoms reported Musculoskeletal: see HPI Skin: no symptoms reported Psychiatric/Neurological: No Symptoms Reported Past [id number] Hx Patient Social History Recent Foreign Travel: No Contact w/Someone Who Travel: No Recent Hopitalizations: Yes (colon ressection) Immunizations Up To Date Date of Influenza Vaccine: Jan 17, 2011 Seasonal Allergies Seasonal Allergies: No Past Medical History High Cholesterol Reproductive Disorders: No Liver, Lung, Colon, Ovarian Depression Physical Exam Vital Signs Capillary Refill : Height, Weight, BMI Height: 5'5.00" Weight: 156lbs. 0.0oz. [id number]; 26.0 BMI Method:Estimated General Appearance: WD/WN, no apparent distress Respiratory: no respiratory distress, no accessory muscle use Gastrointestinal: normal bowel sounds, non tender Hips: bilateral hip non-tender, bilateral hip normal inspection, bilateral hip normal range of motion Legs: bilateral leg non-tender, bilateral leg normal inspection, bilateral leg normal range of motion Knees: bilateral knee non-tender, bilateral knee normal inspection, bilateral knee normal range of motion Ankles: bilateral ankle non-tender, bilateral ankle normal inspection, bilateral ankle normal range of motion Feet: left foot other (dorsum of the left foot has 2 linear superficial abrasions consistent with a weed eater screening injury as she reports. There is about 1 cm of surrounding erythema. No fluctuance or abscess.) Neurologic/Psychiatric: alert, normal mood/affect, oriented x 3 Skin: normal color, warm/dry Departure Impression Primary Impression: Abrasion of foot Qualified Codes: S90.812A - Abrasion, left foot, initial encounter Disposition: HOME, SELF-CARE Condition: Stable Departure-Patient Inst. Decision time for Depature: 14:53 Referrals: MANUEL CHAPIN MD (PCP/Family) Primary Care Physician Patient Instructions: Skin Abrasions Add. Discharge Instructions: Wash this gently with soap and water daily. Continue taking the doxycycline antibiotics. ROSANNE LOWE [employer] Dec 17, 2018 14:54
[2018-12-17 14:59] VITALS: BP 132/85
== END 2018-12-17 14:59 | disposition home or self-care (01) ==
LOC: EDUNIT# 14:28 → ER 14:30
DX: S90.812A Abrasion, left foot, initial encounter (principal); E78.00 Pure hypercholesterolemia, unspecified; F32.9 Major depressive disorder, single episode, unspecified; Z88.6 Allergy status to analgesic agent; X58.XXXA Exposure to other specified factors, initial encounter
CPT/HCPCS: 99282

== ENCOUNTER 2019-01-24 09:23 | Outpatient (RCR) | payer MEDICARE, OTHER ==
[2018-11-01 09:02] LABS: BASOPHILS # (AUTO) 0.1 10^3/uL (0.0-0.1); BASOPHILS % (AUTO) 2 % (0-10); EOSINOPHILS # (AUTO) 0.2 10^3/uL (0.0-0.3); EOSINOPHILS % (AUTO) 4 % (0-10); HEMATOCRIT 38 % (35-52); HEMOGLOBIN 12.2 G/DL (11.5-16.0); LYMPHOCYTES # (AUTO) 1.4 X 10^3 (1.0-4.0); LYMPHOCYTES % (AUTO) 33 % (12-44); MEAN CORPUSCULAR HEMOGLOBIN 32 PG (25-34); MEAN CORPUSCULAR HGB CONC 33 G/DL (32-36); MEAN CORPUSCULAR VOLUME 97 FL (80-99); MONOCYTES # (AUTO) 0.7 X 10^3 (0.0-1.0); MONOCYTES % (AUTO) 16 % (0-12); NEUTROPHILS % (AUTO) 45 % (42-75); PLATELET COUNT 246 10^3/uL (130-400); RED CELL DISTRIBUTION WIDTH 17.6 % (10.0-14.5); WHITE BLOOD COUNT 4.4 10^3/uL (4.3-11.0)
[2018-11-08 08:22] LABS: BASOPHILS # (AUTO) 0.1 10^3/uL (0.0-0.1); BASOPHILS % (AUTO) 3 % (0-10); EOSINOPHILS # (AUTO) 0.2 10^3/uL (0.0-0.3); EOSINOPHILS % (AUTO) 5 % (0-10); HEMATOCRIT 38 % (35-52); HEMOGLOBIN 12.3 G/DL (11.5-16.0); LYMPHOCYTES # (AUTO) 1.2 X 10^3 (1.0-4.0); LYMPHOCYTES % (AUTO) 32 % (12-44); MEAN CORPUSCULAR HEMOGLOBIN 32 PG (25-34); MEAN CORPUSCULAR HGB CONC 33 G/DL (32-36); MEAN CORPUSCULAR VOLUME 97 FL (80-99); MEAN PLATELET VOLUME 10.2 FL (7.4-10.4); MONOCYTES # (AUTO) 0.4 X 10^3 (0.0-1.0); MONOCYTES % (AUTO) 10 % (0-12); NEUTROPHILS # (AUTO) 1.9 X 10^3 (1.8-7.8); NEUTROPHILS % (AUTO) 51 % (42-75); PLATELET COUNT 271 10^3/uL (130-400); WHITE BLOOD COUNT 3.7 10^3/uL (4.3-11.0)
[2018-11-08 08:40] LABS: BUN/CREATININE RATIO 15; CALCIUM 10.3 MG/DL (8.5-10.1); CARBON DIOXIDE 25 MMOL/L (21-32); CHLORIDE 102 MMOL/L (98-107); GFR ESTIMATED > 60; GLUCOSE 97 MG/DL (70-105); POTASSIUM 4.6 MMOL/L (3.6-5.0); SODIUM 140 MMOL/L (135-145)
[2018-11-15 10:57] LABS: BASOPHILS % (AUTO) 1 % (0-10); EOSINOPHILS # (AUTO) 0.3 10^3/uL (0.0-0.3); EOSINOPHILS % (AUTO) 9 % (0-10); HEMATOCRIT 35 % (35-52); HEMOGLOBIN 11.5 G/DL (11.5-16.0); LYMPHOCYTES # (AUTO) 1.1 X 10^3 (1.0-4.0); LYMPHOCYTES % (AUTO) 29 % (12-44); MEAN CORPUSCULAR HEMOGLOBIN 32 PG (25-34); MEAN CORPUSCULAR HGB CONC 33 G/DL (32-36); MEAN CORPUSCULAR VOLUME 97 FL (80-99); MEAN PLATELET VOLUME 10.8 FL (7.4-10.4); MONOCYTES # (AUTO) 0.5 X 10^3 (0.0-1.0); MONOCYTES % (AUTO) 15 % (0-12); NEUTROPHILS # (AUTO) 1.8 X 10^3 (1.8-7.8); NEUTROPHILS % (AUTO) 47 % (42-75); PLATELET COUNT 232 10^3/uL (130-400); RED CELL DISTRIBUTION WIDTH 17.5 % (10.0-14.5); WHITE BLOOD COUNT 3.7 10^3/uL (4.3-11.0)
[2018-11-15 11:27] LABS: ALANINE AMINOTRANSFERASE 20 U/L (0-55); ALBUMIN 4.1 GM/DL (3.2-4.5); ALKALINE PHOSPHATASE 109 U/L (40-136); BILIRUBIN,TOTAL 0.5 MG/DL (0.1-1.0); BUN/CREATININE RATIO 10; CALCIUM 9.8 MG/DL (8.5-10.1); CARBON DIOXIDE 21 MMOL/L (21-32); CHLORIDE 106 MMOL/L (98-107); CREATININE SERUM 0.78 MG/DL (0.60-1.30); GFR ESTIMATED > 60; GLUCOSE 104 MG/DL (70-105); MAGNESIUM 1.9 MG/DL (1.8-2.4); POTASSIUM 3.7 MMOL/L (3.6-5.0); SODIUM 140 MMOL/L (135-145); TOTAL PROTEIN 6.9 GM/DL (6.4-8.2)
[2018-11-22 09:56] LABS: BASOPHILS # (AUTO) 0.1 10^3/uL (0.0-0.1); BASOPHILS % (AUTO) 3 % (0-10); EOSINOPHILS # (AUTO) 0.3 10^3/uL (0.0-0.3); EOSINOPHILS % (AUTO) 10 % (0-10); HEMATOCRIT 39 % (35-52); LYMPHOCYTES # (AUTO) 1.3 X 10^3 (1.0-4.0); LYMPHOCYTES % (AUTO) 41 % (12-44); MEAN CORPUSCULAR HEMOGLOBIN 32 PG (25-34); MEAN CORPUSCULAR HGB CONC 34 G/DL (32-36); MEAN CORPUSCULAR VOLUME 96 FL (80-99); MEAN PLATELET VOLUME 11.1 FL (7.4-10.4); MONOCYTES # (AUTO) 0.3 X 10^3 (0.0-1.0); MONOCYTES % (AUTO) 8 % (0-12); NEUTROPHILS # (AUTO) 1.2 X 10^3 (1.8-7.8); NEUTROPHILS % (AUTO) 39 % (42-75); PLATELET COUNT 227 10^3/uL (130-400); RED CELL DISTRIBUTION WIDTH 16.5 % (10.0-14.5); WHITE BLOOD COUNT 3.1 10^3/uL (4.3-11.0)
[2018-11-22 10:13] LABS: BUN/CREATININE RATIO 19; CALCIUM 10.2 MG/DL (8.5-10.1); CARBON DIOXIDE 25 MMOL/L (21-32); CHLORIDE 103 MMOL/L (98-107); GFR ESTIMATED > 60; GLUCOSE 121 MG/DL (70-105); POTASSIUM 4.8 MMOL/L (3.6-5.0); SODIUM 138 MMOL/L (135-145)
[2018-11-29 09:25] LABS: BASOPHILS % (AUTO) 1 % (0-10); EOSINOPHILS # (AUTO) 0.3 10^3/uL (0.0-0.3); EOSINOPHILS % (AUTO) 9 % (0-10); HEMATOCRIT 35 % (35-52); HEMOGLOBIN 11.4 G/DL (11.5-16.0); LYMPHOCYTES % (AUTO) 28 % (12-44); MEAN CORPUSCULAR HEMOGLOBIN 32 PG (25-34); MEAN CORPUSCULAR HGB CONC 33 G/DL (32-36); MEAN CORPUSCULAR VOLUME 97 FL (80-99); MEAN PLATELET VOLUME 9.8 FL (7.4-10.4); MONOCYTES # (AUTO) 0.6 X 10^3 (0.0-1.0); MONOCYTES % (AUTO) 17 % (0-12); NEUTROPHILS # (AUTO) 1.5 X 10^3 (1.8-7.8); NEUTROPHILS % (AUTO) 45 % (42-75); PLATELET COUNT 253 10^3/uL (130-400); RED CELL DISTRIBUTION WIDTH 17.4 % (10.0-14.5); WHITE BLOOD COUNT 3.4 10^3/uL (4.3-11.0)
[2018-11-29 09:45] LABS: ALANINE AMINOTRANSFERASE 23 U/L (0-55); ALKALINE PHOSPHATASE 145 U/L (40-136); BILIRUBIN,TOTAL 0.5 MG/DL (0.1-1.0); BUN/CREATININE RATIO 12; CALCIUM 9.7 MG/DL (8.5-10.1); CARBON DIOXIDE 23 MMOL/L (21-32); CHLORIDE 107 MMOL/L (98-107); CREATININE SERUM 0.76 MG/DL (0.60-1.30); GFR ESTIMATED > 60; GLUCOSE 112 MG/DL (70-105); MAGNESIUM 1.8 MG/DL (1.6-2.4); POTASSIUM 3.8 MMOL/L (3.6-5.0); SODIUM 142 MMOL/L (135-145)
[2018-12-06 13:01] LABS: BASOPHILS # (AUTO) 0.1 10^3/uL (0.0-0.1); BASOPHILS % (AUTO) 2 % (0-10); EOSINOPHILS # (AUTO) 0.2 10^3/uL (0.0-0.3); EOSINOPHILS % (AUTO) 5 % (0-10); HEMATOCRIT 37 % (35-52); HEMOGLOBIN 12.3 G/DL (11.5-16.0); LYMPHOCYTES # (AUTO) 1.2 X 10^3 (1.0-4.0); LYMPHOCYTES % (AUTO) 31 % (12-44); MEAN CORPUSCULAR HEMOGLOBIN 32 PG (25-34); MEAN CORPUSCULAR HGB CONC 33 G/DL (32-36); MEAN CORPUSCULAR VOLUME 97 FL (80-99); MEAN PLATELET VOLUME 10.1 FL (7.4-10.4); MONOCYTES # (AUTO) 0.2 X 10^3 (0.0-1.0); MONOCYTES % (AUTO) 7 % (0-12); NEUTROPHILS % (AUTO) 55 % (42-75); PLATELET COUNT 250 10^3/uL (130-400); RED CELL DISTRIBUTION WIDTH 16.5 % (10.0-14.5); WHITE BLOOD COUNT 3.7 10^3/uL (4.3-11.0)
[2018-12-06 13:17] LABS: BUN/CREATININE RATIO 12; CALCIUM 10.1 MG/DL (8.5-10.1); CARBON DIOXIDE 23 MMOL/L (21-32); CHLORIDE 106 MMOL/L (98-107); CREATININE SERUM 0.75 MG/DL (0.60-1.30); GFR ESTIMATED > 60; GLUCOSE 113 MG/DL (70-105); POTASSIUM 4.2 MMOL/L (3.6-5.0); SODIUM 138 MMOL/L (135-145)
[2018-12-13 09:32] LABS: BASOPHILS % (AUTO) 1 % (0-10); EOSINOPHILS # (AUTO) 0.2 10^3/uL (0.0-0.3); EOSINOPHILS % (AUTO) 7 % (0-10); HEMATOCRIT 35 % (35-52); HEMOGLOBIN 11.6 G/DL (11.5-16.0); LYMPHOCYTES # (AUTO) 0.8 X 10^3 (1.0-4.0); LYMPHOCYTES % (AUTO) 33 % (12-44); MEAN CORPUSCULAR HEMOGLOBIN 32 PG (25-34); MEAN CORPUSCULAR HGB CONC 33 G/DL (32-36); MEAN CORPUSCULAR VOLUME 97 FL (80-99); MEAN PLATELET VOLUME 10.3 FL (7.4-10.4); MONOCYTES # (AUTO) 0.5 X 10^3 (0.0-1.0); MONOCYTES % (AUTO) 20 % (0-12); NEUTROPHILS % (AUTO) 39 % (42-75); PLATELET COUNT 288 10^3/uL (130-400); RED CELL DISTRIBUTION WIDTH 17.2 % (10.0-14.5); WHITE BLOOD COUNT 2.5 10^3/uL (4.3-11.0)
[2018-12-13 09:53] LABS: ALANINE AMINOTRANSFERASE 32 U/L (0-55); ALBUMIN 4.1 GM/DL (3.2-4.5); ALKALINE PHOSPHATASE 211 U/L (40-136); BILIRUBIN,TOTAL 0.7 MG/DL (0.1-1.0); BUN/CREATININE RATIO 13; CALCIUM 9.4 MG/DL (8.5-10.1); CARBON DIOXIDE 20 MMOL/L (21-32); CHLORIDE 105 MMOL/L (98-107); GFR ESTIMATED > 60; GLUCOSE 113 MG/DL (70-105); MAGNESIUM 1.7 MG/DL (1.6-2.4); POTASSIUM 3.7 MMOL/L (3.6-5.0); SODIUM 137 MMOL/L (135-145); TOTAL PROTEIN 7.1 GM/DL (6.4-8.2)
[2018-12-21 08:14] LABS: BASOPHILS # (AUTO) 0.1 10^3/uL (0.0-0.1); BASOPHILS % (AUTO) 2 % (0-10); EOSINOPHILS # (AUTO) 0.3 10^3/uL (0.0-0.3); EOSINOPHILS % (AUTO) 6 % (0-10); HEMATOCRIT 37 % (35-52); HEMOGLOBIN 11.6 G/DL (11.5-16.0); LYMPHOCYTES # (AUTO) 1.3 X 10^3 (1.0-4.0); LYMPHOCYTES % (AUTO) 31 % (12-44); MEAN CORPUSCULAR HEMOGLOBIN 31 PG (25-34); MEAN CORPUSCULAR HGB CONC 32 G/DL (32-36); MEAN CORPUSCULAR VOLUME 98 FL (80-99); MEAN PLATELET VOLUME 10.3 FL (7.4-10.4); MONOCYTES # (AUTO) 0.7 X 10^3 (0.0-1.0); MONOCYTES % (AUTO) 17 % (0-12); NEUTROPHILS # (AUTO) 1.9 X 10^3 (1.8-7.8); NEUTROPHILS % (AUTO) 44 % (42-75); PLATELET COUNT 240 10^3/uL (130-400); RED CELL DISTRIBUTION WIDTH 17.6 % (10.0-14.5); WHITE BLOOD COUNT 4.2 10^3/uL (4.3-11.0)
[2018-12-21 08:27] LABS: BUN/CREATININE RATIO 12; CALCIUM 9.3 MG/DL (8.5-10.1); CARBON DIOXIDE 26 MMOL/L (21-32); CHLORIDE 106 MMOL/L (98-107); CREATININE SERUM 0.73 MG/DL (0.60-1.30); GFR ESTIMATED > 60; GLUCOSE 121 MG/DL (70-105); MAGNESIUM 1.7 MG/DL (1.6-2.4); POTASSIUM 3.8 MMOL/L (3.6-5.0); SODIUM 140 MMOL/L (135-145)
[2018-12-27 10:03] LABS: BASOPHILS # (AUTO) 0.1 10^3/uL (0.0-0.1); BASOPHILS % (AUTO) 2 % (0-10); EOSINOPHILS # (AUTO) 0.2 10^3/uL (0.0-0.3); EOSINOPHILS % (AUTO) 4 % (0-10); HEMATOCRIT 36 % (35-52); HEMOGLOBIN 11.8 G/DL (11.5-16.0); LYMPHOCYTES % (AUTO) 25 % (12-44); MEAN CORPUSCULAR HEMOGLOBIN 32 PG (25-34); MEAN CORPUSCULAR HGB CONC 33 G/DL (32-36); MEAN CORPUSCULAR VOLUME 97 FL (80-99); MEAN PLATELET VOLUME 10.5 FL (7.4-10.4); MONOCYTES # (AUTO) 0.2 X 10^3 (0.0-1.0); MONOCYTES % (AUTO) 5 % (0-12); NEUTROPHILS # (AUTO) 2.6 X 10^3 (1.8-7.8); NEUTROPHILS % (AUTO) 64 % (42-75); PLATELET COUNT 274 10^3/uL (130-400); RED CELL DISTRIBUTION WIDTH 16.6 % (10.0-14.5)
[2018-12-27 10:27] LABS: BUN/CREATININE RATIO 13; CALCIUM 9.5 MG/DL (8.5-10.1); CARBON DIOXIDE 25 MMOL/L (21-32); CHLORIDE 106 MMOL/L (98-107); CREATININE SERUM 0.68 MG/DL (0.60-1.30); GFR ESTIMATED > 60; GLUCOSE 107 MG/DL (70-105); MAGNESIUM 1.5 MG/DL (1.6-2.4); SODIUM 139 MMOL/L (135-145)
[2019-01-03 09:25] LABS: BASOPHILS % (AUTO) 1 % (0-10); EOSINOPHILS # (AUTO) 0.3 10^3/uL (0.0-0.3); EOSINOPHILS % (AUTO) 11 % (0-10); HEMATOCRIT 36 % (35-52); HEMOGLOBIN 11.8 G/DL (11.5-16.0); LYMPHOCYTES # (AUTO) 0.7 X 10^3 (1.0-4.0); LYMPHOCYTES % (AUTO) 22 % (12-44); MEAN CORPUSCULAR HEMOGLOBIN 32 PG (25-34); MEAN CORPUSCULAR HGB CONC 33 G/DL (32-36); MEAN CORPUSCULAR VOLUME 97 FL (80-99); MEAN PLATELET VOLUME 10.9 FL (7.4-10.4); MONOCYTES # (AUTO) 0.4 X 10^3 (0.0-1.0); MONOCYTES % (AUTO) 11 % (0-12); NEUTROPHILS # (AUTO) 1.7 X 10^3 (1.8-7.8); NEUTROPHILS % (AUTO) 55 % (42-75); PLATELET COUNT 256 10^3/uL (130-400); RED CELL DISTRIBUTION WIDTH 16.9 % (10.0-14.5); WHITE BLOOD COUNT 3.1 10^3/uL (4.3-11.0)
[2019-01-03 09:49] LABS: ALANINE AMINOTRANSFERASE 21 U/L (0-55); ALBUMIN 4.1 GM/DL (3.2-4.5); ALKALINE PHOSPHATASE 153 U/L (40-136); BILIRUBIN,TOTAL 0.6 MG/DL (0.1-1.0); BUN/CREATININE RATIO 11; CALCIUM 9.5 MG/DL (8.5-10.1); CARBON DIOXIDE 24 MMOL/L (21-32); CHLORIDE 106 MMOL/L (98-107); GFR ESTIMATED > 60; GLUCOSE 114 MG/DL (70-105); MAGNESIUM 1.6 MG/DL (1.6-2.4); POTASSIUM 3.7 MMOL/L (3.6-5.0); SODIUM 138 MMOL/L (135-145)
[2019-01-10 09:33] LABS: BASOPHILS # (AUTO) 0.1 10^3/uL (0.0-0.1); BASOPHILS % (AUTO) 2 % (0-10); EOSINOPHILS # (AUTO) 0.4 10^3/uL (0.0-0.3); EOSINOPHILS % (AUTO) 15 % (0-10); HEMATOCRIT 36 % (35-52); HEMOGLOBIN 11.5 G/DL (11.5-16.0); LYMPHOCYTES % (AUTO) 41 % (12-44); MEAN CORPUSCULAR HEMOGLOBIN 31 PG (25-34); MEAN CORPUSCULAR HGB CONC 32 G/DL (32-36); MEAN CORPUSCULAR VOLUME 97 FL (80-99); MEAN PLATELET VOLUME 10.5 FL (7.4-10.4); MONOCYTES # (AUTO) 0.2 X 10^3 (0.0-1.0); MONOCYTES % (AUTO) 8 % (0-12); NEUTROPHILS # (AUTO) 0.8 X 10^3 (1.8-7.8); NEUTROPHILS % (AUTO) 34 % (42-75); PLATELET COUNT 219 10^3/uL (130-400); RED CELL DISTRIBUTION WIDTH 16.3 % (10.0-14.5); WHITE BLOOD COUNT 2.5 10^3/uL (4.3-11.0)
[2019-01-10 09:55] LABS: BUN/CREATININE RATIO 15; CALCIUM 9.8 MG/DL (8.5-10.1); CARBON DIOXIDE 27 MMOL/L (21-32); CHLORIDE 107 MMOL/L (98-107); CREATININE SERUM 0.65 MG/DL (0.60-1.30); GFR ESTIMATED > 60; GLUCOSE 88 MG/DL (70-105); MAGNESIUM 1.7 MG/DL (1.6-2.4); POTASSIUM 4.3 MMOL/L (3.6-5.0); SODIUM 141 MMOL/L (135-145)
[2019-01-17 09:17] LABS: BASOPHILS # (AUTO) 0.1 10^3/uL (0.0-0.1); BASOPHILS % (AUTO) 2 % (0-10); EOSINOPHILS # (AUTO) 0.6 10^3/uL (0.0-0.3); EOSINOPHILS % (AUTO) 16 % (0-10); HEMATOCRIT 36 % (35-52); HEMOGLOBIN 11.6 G/DL (11.5-16.0); LYMPHOCYTES % (AUTO) 29 % (12-44); MEAN CORPUSCULAR HEMOGLOBIN 31 PG (25-34); MEAN CORPUSCULAR HGB CONC 33 G/DL (32-36); MEAN CORPUSCULAR VOLUME 97 FL (80-99); MEAN PLATELET VOLUME 10.1 FL (7.4-10.4); MONOCYTES # (AUTO) 0.4 X 10^3 (0.0-1.0); MONOCYTES % (AUTO) 12 % (0-12); NEUTROPHILS # (AUTO) 1.4 X 10^3 (1.8-7.8); NEUTROPHILS % (AUTO) 40 % (42-75); PLATELET COUNT 240 10^3/uL (130-400); RED CELL DISTRIBUTION WIDTH 16.6 % (10.0-14.5); WHITE BLOOD COUNT 3.6 10^3/uL (4.3-11.0)
[2019-01-17 09:42] LABS: ALANINE AMINOTRANSFERASE 39 U/L (0-55); ALBUMIN 4.2 GM/DL (3.2-4.5); ALKALINE PHOSPHATASE 185 U/L (40-136); BILIRUBIN,TOTAL 0.7 MG/DL (0.1-1.0); BUN/CREATININE RATIO 14; CALCIUM 9.3 MG/DL (8.5-10.1); CARBON DIOXIDE 25 MMOL/L (21-32); CHLORIDE 107 MMOL/L (98-107); GFR ESTIMATED > 60; GLUCOSE 102 MG/DL (70-105); MAGNESIUM 1.8 MG/DL (1.6-2.4); POTASSIUM 3.5 MMOL/L (3.6-5.0); SODIUM 140 MMOL/L (135-145); TOTAL PROTEIN 6.9 GM/DL (6.4-8.2)
[~2019-01-24] VITALS: Ht 165.1 cm; Wt 67.6 kg
[~2019-01-24 09:23] MED LIST changes: +ATROPINE INJ 0.4 MG/ML SDV (CANCER CENTER) IV SCH; +CENTER ONLY IV SCH; +D5W IV SCH; +FAMOTIDINE 20MG/2ML IV (CANCER CTR) IV SCH; +FLUOROURACIL 2.5 GM, FLUOROURACIL 500 MG in NS (IVPB) CANCER CENTER 87.2 ML IV SCH; +FLUOROURACIL IV SCH; +FOSAPREPITANT DIMEGLUMINE 150 MG in NS (IVPB) CANCER CENTER ONLY 150 ML IV SCH; +IRINOTECAN HCL 200 MG, IRINOTECAN HCL 50 MG in D5W 250 ML IVPB (CANCER CTR) 250 ML IV SCH; +IRINOTECAN HCL IV SCH; +LEUCOVORIN CALCIUM 400 MG in D5W 250 ML IVPB (CANCER CTR) 250 ML IV SCH; +NS IV 1000 ML (CANCER CTR) 1,000 ML ONE; +NS IV 500 ML (CANCER CENTER) 500 ML ONE; +NS IV SCH; +PALONOSETRON HCL 0.25 MG, DEXAMETHASONE INJECTION 10 MG in NS (IVPB) CANCER CENTER 50 ML IV SCH; +PANITUMUMAB INJECTION 400 MG in NS (IVPB) CANCER CENTER 100 ML IV SCH
[2019-01-24 09:40] LABS: BASOPHILS # (AUTO) 0.1 10^3/uL (0.0-0.1); BASOPHILS % (AUTO) 3 % (0-10); EOSINOPHILS # (AUTO) 0.3 10^3/uL (0.0-0.3); EOSINOPHILS % (AUTO) 8 % (0-10); HEMATOCRIT 37 % (35-52); LYMPHOCYTES % (AUTO) 35 % (12-44); MEAN CORPUSCULAR HEMOGLOBIN 32 PG (25-34); MEAN CORPUSCULAR HGB CONC 32 G/DL (32-36); MEAN CORPUSCULAR VOLUME 98 FL (80-99); MEAN PLATELET VOLUME 10.5 FL (7.4-10.4); MONOCYTES # (AUTO) 0.3 X 10^3 (0.0-1.0); MONOCYTES % (AUTO) 10 % (0-12); NEUTROPHILS # (AUTO) 1.3 X 10^3 (1.8-7.8); NEUTROPHILS % (AUTO) 45 % (42-75); PLATELET COUNT 236 10^3/uL (130-400); RED CELL DISTRIBUTION WIDTH 16.4 % (10.0-14.5)
[2019-01-24 09:54] LABS: BUN/CREATININE RATIO 13; CALCIUM 9.7 MG/DL (8.5-10.1); CARBON DIOXIDE 25 MMOL/L (21-32); CHLORIDE 107 MMOL/L (98-107); CREATININE SERUM 0.69 MG/DL (0.60-1.30); GFR ESTIMATED > 60; GLUCOSE 94 MG/DL (70-105); MAGNESIUM 1.7 MG/DL (1.6-2.4); POTASSIUM 3.8 MMOL/L (3.6-5.0); SODIUM 142 MMOL/L (135-145)
== END 2019-01-30 | disposition home or self-care (01) ==
LOC: ONC 09:23
PROVIDERS: ATTEND Internal Medicine Hematology & Oncology
DX: Z51.11 Encounter for antineoplastic chemotherapy (principal); C78.7 Secondary malignant neoplasm of liver and intrahepatic bile duct; C79.89 Secondary malignant neoplasm of other specified sites; C79.61 Secondary malignant neoplasm of right ovary; C78.01 Secondary malignant neoplasm of right lung; C78.6 Secondary malignant neoplasm of retroperitoneum and peritoneum; C77.5 Secondary and unspecified malignant neoplasm of intrapelvic lymph nodes; Z85.038 Personal history of other malignant neoplasm of large intestine; E03.9 Hypothyroidism, unspecified; E78.5 Hyperlipidemia, unspecified; F32.9 Major depressive disorder, single episode, unspecified; Z79.899 Other long term (current) drug therapy; Z92.21 Personal history of antineoplastic chemotherapy; Z23 Encounter for immunization
CPT/HCPCS: 36415; 36591; 80048; 80053; 82378; 83735; 85025; 96367; 96368; 96375; 96413; 96417

== ENCOUNTER → 2019-01-31 | Outpatient (CLI) | payer MEDICARE ==
[~2019-01-31] MED LIST changes: -ATROPINE INJ 0.4 MG/ML SDV (CANCER CENTER) IV SCH; -CENTER ONLY IV SCH; -D5W IV SCH; -FAMOTIDINE 20MG/2ML IV (CANCER CTR) IV SCH; -FLUOROURACIL 2.5 GM, FLUOROURACIL 500 MG in NS (IVPB) CANCER CENTER 87.2 ML IV SCH; -FLUOROURACIL IV SCH; -FOSAPREPITANT DIMEGLUMINE 150 MG in NS (IVPB) CANCER CENTER ONLY 150 ML IV SCH; -IRINOTECAN HCL 200 MG, IRINOTECAN HCL 50 MG in D5W 250 ML IVPB (CANCER CTR) 250 ML IV SCH; -IRINOTECAN HCL IV SCH; -LEUCOVORIN CALCIUM 400 MG in D5W 250 ML IVPB (CANCER CTR) 250 ML IV SCH; -NS IV 1000 ML (CANCER CTR) 1,000 ML ONE; -NS IV 500 ML (CANCER CENTER) 500 ML ONE; -NS IV SCH; -PALONOSETRON HCL 0.25 MG, DEXAMETHASONE INJECTION 10 MG in NS (IVPB) CANCER CENTER 50 ML IV SCH; -PANITUMUMAB INJECTION 400 MG in NS (IVPB) CANCER CENTER 100 ML IV SCH
[2019-01-31 10:07] LABS: FREE T4 (FREE THYROXINE) 0.96 NG/DL (0.70-1.48)
== END ==
LOC: LAB 09:15
PROVIDERS: ATTEND Family Medicine
DX: E03.9 Hypothyroidism, unspecified (principal)
CPT/HCPCS: 36415; 84439; 84443

== ENCOUNTER 2019-03-21 10:22 | Outpatient (RCR) | payer MEDICARE, OTHER ==
[2019-01-31 09:30] LABS: BASOPHILS # (AUTO) 0.1 10^3/uL (0.0-0.1); BASOPHILS % (AUTO) 2 % (0-10); EOSINOPHILS # (AUTO) 0.4 10^3/uL (0.0-0.3); EOSINOPHILS % (AUTO) 11 % (0-10); HEMATOCRIT 37 % (35-52); HEMOGLOBIN 11.8 G/DL (11.5-16.0); LYMPHOCYTES # (AUTO) 1.3 X 10^3 (1.0-4.0); LYMPHOCYTES % (AUTO) 35 % (12-44); MEAN CORPUSCULAR HEMOGLOBIN 31 PG (25-34); MEAN CORPUSCULAR HGB CONC 32 G/DL (32-36); MEAN CORPUSCULAR VOLUME 97 FL (80-99); MEAN PLATELET VOLUME 10.2 FL (7.4-10.4); MONOCYTES # (AUTO) 0.6 X 10^3 (0.0-1.0); MONOCYTES % (AUTO) 15 % (0-12); NEUTROPHILS # (AUTO) 1.4 X 10^3 (1.8-7.8); NEUTROPHILS % (AUTO) 37 % (42-75); PLATELET COUNT 262 10^3/uL (130-400); RED CELL DISTRIBUTION WIDTH 16.7 % (10.0-14.5); WHITE BLOOD COUNT 3.7 10^3/uL (4.3-11.0)
[2019-01-31 09:45] LABS: ALANINE AMINOTRANSFERASE 24 U/L (0-55); ALKALINE PHOSPHATASE 159 U/L (40-136); BILIRUBIN,TOTAL 0.7 MG/DL (0.1-1.0); BUN/CREATININE RATIO 13; CALCIUM 9.7 MG/DL (8.5-10.1); CARBON DIOXIDE 26 MMOL/L (21-32); CHLORIDE 104 MMOL/L (98-107); CREATININE SERUM 0.72 MG/DL (0.60-1.30); GFR ESTIMATED > 60; GLUCOSE 93 MG/DL (70-105); MAGNESIUM 1.7 MG/DL (1.6-2.4); POTASSIUM 3.8 MMOL/L (3.6-5.0); SODIUM 140 MMOL/L (135-145); TOTAL PROTEIN 6.9 GM/DL (6.4-8.2)
[2019-01-31 09:46] LABS: ALBUMIN 4.2 GM/DL (3.2-4.5)
[2019-02-07 09:18] LABS: BASOPHILS # (AUTO) 0.1 10^3/uL (0.0-0.1); BASOPHILS % (AUTO) 3 % (0-10); EOSINOPHILS # (AUTO) 0.3 10^3/uL (0.0-0.3); EOSINOPHILS % (AUTO) 9 % (0-10); HEMATOCRIT 38 % (35-52); HEMOGLOBIN 12.3 G/DL (11.5-16.0); LYMPHOCYTES % (AUTO) 32 % (12-44); MEAN CORPUSCULAR HEMOGLOBIN 32 PG (25-34); MEAN CORPUSCULAR HGB CONC 32 G/DL (32-36); MEAN CORPUSCULAR VOLUME 98 FL (80-99); MEAN PLATELET VOLUME 9.6 FL (7.4-10.4); MONOCYTES # (AUTO) 0.3 X 10^3 (0.0-1.0); MONOCYTES % (AUTO) 10 % (0-12); NEUTROPHILS # (AUTO) 1.5 X 10^3 (1.8-7.8); NEUTROPHILS % (AUTO) 47 % (42-75); PLATELET COUNT 215 10^3/uL (130-400); RED CELL DISTRIBUTION WIDTH 16.5 % (10.0-14.5); WHITE BLOOD COUNT 3.2 10^3/uL (4.3-11.0)
[2019-02-07 09:39] LABS: BUN/CREATININE RATIO 13; CALCIUM 9.8 MG/DL (8.5-10.1); CARBON DIOXIDE 25 MMOL/L (21-32); CHLORIDE 105 MMOL/L (98-107); CREATININE SERUM 0.71 MG/DL (0.60-1.30); GFR ESTIMATED > 60; GLUCOSE 103 MG/DL (70-105); MAGNESIUM 1.6 MG/DL (1.6-2.4); POTASSIUM 3.8 MMOL/L (3.6-5.0); SODIUM 142 MMOL/L (135-145)
[2019-02-14 09:58] LABS: BASOPHILS % (AUTO) 1 % (0-10); EOSINOPHILS # (AUTO) 0.2 10^3/uL (0.0-0.3); EOSINOPHILS % (AUTO) 5 % (0-10); HEMATOCRIT 37 % (35-52); HEMOGLOBIN 11.8 G/DL (11.5-16.0); LYMPHOCYTES # (AUTO) 1.1 X 10^3 (1.0-4.0); LYMPHOCYTES % (AUTO) 24 % (12-44); MEAN CORPUSCULAR HEMOGLOBIN 31 PG (25-34); MEAN CORPUSCULAR HGB CONC 32 G/DL (32-36); MEAN CORPUSCULAR VOLUME 97 FL (80-99); MEAN PLATELET VOLUME 10.4 FL (7.4-10.4); MONOCYTES # (AUTO) 0.6 X 10^3 (0.0-1.0); MONOCYTES % (AUTO) 14 % (0-12); NEUTROPHILS # (AUTO) 2.5 X 10^3 (1.8-7.8); NEUTROPHILS % (AUTO) 56 % (42-75); PLATELET COUNT 267 10^3/uL (130-400); RED CELL DISTRIBUTION WIDTH 16.8 % (10.0-14.5); WHITE BLOOD COUNT 4.5 10^3/uL (4.3-11.0)
[2019-02-14 10:16] LABS: ALANINE AMINOTRANSFERASE 34 U/L (0-55); ALBUMIN 4.1 GM/DL (3.2-4.5); ALKALINE PHOSPHATASE 152 U/L (40-136); BILIRUBIN,TOTAL 0.8 MG/DL (0.1-1.0); BUN/CREATININE RATIO 12; CALCIUM 9.6 MG/DL (8.5-10.1); CARBON DIOXIDE 25 MMOL/L (21-32); CHLORIDE 104 MMOL/L (98-107); CREATININE SERUM 0.73 MG/DL (0.60-1.30); GFR ESTIMATED > 60; GLUCOSE 103 MG/DL (70-105); MAGNESIUM 1.4 MG/DL (1.6-2.4); POTASSIUM 3.5 MMOL/L (3.6-5.0); SODIUM 141 MMOL/L (135-145); TOTAL PROTEIN 6.8 GM/DL (6.4-8.2)
[2019-02-21 10:19] LABS: BASOPHILS # (AUTO) 0.1 10^3/uL (0.0-0.1); BASOPHILS % (AUTO) 2 % (0-10); EOSINOPHILS # (AUTO) 0.2 10^3/uL (0.0-0.3); EOSINOPHILS % (AUTO) 6 % (0-10); HEMATOCRIT 38 % (35-52); HEMOGLOBIN 12.2 G/DL (11.5-16.0); LYMPHOCYTES % (AUTO) 28 % (12-44); MEAN CORPUSCULAR HEMOGLOBIN 31 PG (25-34); MEAN CORPUSCULAR HGB CONC 32 G/DL (32-36); MEAN CORPUSCULAR VOLUME 97 FL (80-99); MEAN PLATELET VOLUME 10.4 FL (7.4-10.4); MONOCYTES # (AUTO) 0.4 X 10^3 (0.0-1.0); MONOCYTES % (AUTO) 11 % (0-12); NEUTROPHILS # (AUTO) 1.8 X 10^3 (1.8-7.8); NEUTROPHILS % (AUTO) 53 % (42-75); PLATELET COUNT 215 10^3/uL (130-400); RED CELL DISTRIBUTION WIDTH 16.5 % (10.0-14.5); WHITE BLOOD COUNT 3.4 10^3/uL (4.3-11.0)
[2019-02-21 10:41] LABS: BUN/CREATININE RATIO 13; CALCIUM 9.9 MG/DL (8.5-10.1); CARBON DIOXIDE 26 MMOL/L (21-32); CHLORIDE 103 MMOL/L (98-107); CREATININE SERUM 0.68 MG/DL (0.60-1.30); GFR ESTIMATED > 60; GLUCOSE 83 MG/DL (70-105); MAGNESIUM 1.4 MG/DL (1.6-2.4); SODIUM 140 MMOL/L (135-145)
[2019-02-28 08:52] LABS: BASOPHILS # (AUTO) 0.1 10^3/uL (0.0-0.1); BASOPHILS % (AUTO) 2 % (0-10); EOSINOPHILS # (AUTO) 0.3 10^3/uL (0.0-0.3); EOSINOPHILS % (AUTO) 9 % (0-10); HEMATOCRIT 37 % (35-52); HEMOGLOBIN 11.9 G/DL (11.5-16.0); LYMPHOCYTES % (AUTO) 26 % (12-44); MEAN CORPUSCULAR HEMOGLOBIN 31 PG (25-34); MEAN CORPUSCULAR HGB CONC 33 G/DL (32-36); MEAN CORPUSCULAR VOLUME 96 FL (80-99); MEAN PLATELET VOLUME 10.3 FL (7.4-10.4); MONOCYTES # (AUTO) 0.6 X 10^3 (0.0-1.0); MONOCYTES % (AUTO) 18 % (0-12); NEUTROPHILS # (AUTO) 1.6 X 10^3 (1.8-7.8); NEUTROPHILS % (AUTO) 45 % (42-75); PLATELET COUNT 251 10^3/uL (130-400); RED CELL DISTRIBUTION WIDTH 16.9 % (10.0-14.5); WHITE BLOOD COUNT 3.6 10^3/uL (4.3-11.0)
[2019-02-28 09:24] LABS: ALANINE AMINOTRANSFERASE 32 U/L (0-55); ALBUMIN 4.2 GM/DL (3.2-4.5); ALKALINE PHOSPHATASE 154 U/L (40-136); BILIRUBIN,TOTAL 0.5 MG/DL (0.1-1.0); BUN/CREATININE RATIO 13; CALCIUM 9.5 MG/DL (8.5-10.1); CARBON DIOXIDE 25 MMOL/L (21-32); CHLORIDE 105 MMOL/L (98-107); CREATININE SERUM 0.69 MG/DL (0.60-1.30); GFR ESTIMATED > 60; GLUCOSE 97 MG/DL (70-105); MAGNESIUM 1.4 MG/DL (1.6-2.4); POTASSIUM 3.8 MMOL/L (3.6-5.0); SODIUM 139 MMOL/L (135-145)
[2019-03-07 10:35] LABS: BASOPHILS # (AUTO) 0.1 10^3/uL (0.0-0.1); BASOPHILS % (AUTO) 2 % (0-10); EOSINOPHILS # (AUTO) 0.3 10^3/uL (0.0-0.3); EOSINOPHILS % (AUTO) 9 % (0-10); HEMATOCRIT 37 % (35-52); HEMOGLOBIN 12.2 G/DL (11.5-16.0); LYMPHOCYTES # (AUTO) 1.1 X 10^3 (1.0-4.0); LYMPHOCYTES % (AUTO) 31 % (12-44); MEAN CORPUSCULAR HEMOGLOBIN 31 PG (25-34); MEAN CORPUSCULAR HGB CONC 33 G/DL (32-36); MEAN CORPUSCULAR VOLUME 95 FL (80-99); MEAN PLATELET VOLUME 10.3 FL (7.4-10.4); MONOCYTES # (AUTO) 0.4 X 10^3 (0.0-1.0); MONOCYTES % (AUTO) 11 % (0-12); NEUTROPHILS # (AUTO) 1.6 X 10^3 (1.8-7.8); NEUTROPHILS % (AUTO) 47 % (42-75); PLATELET COUNT 264 10^3/uL (130-400); WHITE BLOOD COUNT 3.4 10^3/uL (4.3-11.0)
[2019-03-07 10:55] LABS: BUN/CREATININE RATIO 15; CALCIUM 9.8 MG/DL (8.5-10.1); CARBON DIOXIDE 25 MMOL/L (21-32); CHLORIDE 104 MMOL/L (98-107); CREATININE SERUM 0.72 MG/DL (0.60-1.30); GFR ESTIMATED > 60; GLUCOSE 92 MG/DL (70-105); MAGNESIUM 1.2 MG/DL (1.6-2.4); POTASSIUM 3.6 MMOL/L (3.6-5.0); SODIUM 139 MMOL/L (135-145)
[2019-03-13 09:54] LABS: BASOPHILS # (AUTO) 0.1 10^3/uL (0.0-0.1); BASOPHILS % (AUTO) 1 % (0-10); EOSINOPHILS # (AUTO) 0.4 10^3/uL (0.0-0.3); EOSINOPHILS % (AUTO) 9 % (0-10); HEMATOCRIT 35 % (35-52); HEMOGLOBIN 11.6 G/DL (11.5-16.0); LYMPHOCYTES # (AUTO) 0.9 X 10^3 (1.0-4.0); LYMPHOCYTES % (AUTO) 22 % (12-44); MEAN CORPUSCULAR HEMOGLOBIN 31 PG (25-34); MEAN CORPUSCULAR HGB CONC 33 G/DL (32-36); MEAN CORPUSCULAR VOLUME 94 FL (80-99); MEAN PLATELET VOLUME 10.9 FL (7.4-10.4); MONOCYTES # (AUTO) 0.6 X 10^3 (0.0-1.0); MONOCYTES % (AUTO) 14 % (0-12); NEUTROPHILS # (AUTO) 2.3 X 10^3 (1.8-7.8); NEUTROPHILS % (AUTO) 54 % (42-75); PLATELET COUNT 250 10^3/uL (130-400); RED CELL DISTRIBUTION WIDTH 16.7 % (10.0-14.5); WHITE BLOOD COUNT 4.3 10^3/uL (4.3-11.0)
[2019-03-13 10:25] LABS: ALANINE AMINOTRANSFERASE 24 U/L (0-55); ALBUMIN 4.1 GM/DL (3.2-4.5); ALKALINE PHOSPHATASE 121 U/L (40-136); BILIRUBIN,TOTAL 0.5 MG/DL (0.1-1.0); BUN/CREATININE RATIO 18; CALCIUM 8.7 MG/DL (8.5-10.1); CARBON DIOXIDE 22 MMOL/L (21-32); CHLORIDE 104 MMOL/L (98-107); CREATININE SERUM 0.68 MG/DL (0.60-1.30); GFR ESTIMATED > 60; GLUCOSE 100 MG/DL (70-105); POTASSIUM 3.4 MMOL/L (3.6-5.0); SODIUM 139 MMOL/L (135-145)
[2019-03-13 10:30] LABS: MAGNESIUM 0.9 MG/DL (1.6-2.4)
[~2019-03-21 10:22] MED LIST changes: +ATROPINE INJ 0.4 MG/ML SDV (CANCER CENTER) IV SCH; +D5W IV SCH; +FAMOTIDINE 20MG/2ML IV (CANCER CTR) IV SCH; +FLU QUADRIvalent (5+ YOA) 2019-2020 (Cancer Ctr) 0.5 ML IM ONE; +FOSAPREPITANT DIMEGLUMINE 150 MG in NS (IVPB) CANCER CENTER ONLY 150 ML IV SCH; +IRINOTECAN HCL IV SCH; +LEUCOVORIN CALCIUM 400 MG in D5W 250 ML IVPB (CANCER CTR) 250 ML IV SCH; +MAGNESIUM SULFATE (CANCER CTR) 2 GM in NS (IVPB) CANCER CENTER 100 ML IV ONE; +MAGNESIUM SULFATE (CANCER CTR) 3 GM in NS (IVPB) CANCER CENTER 100 ML IV ONE; +NS IV 1000 ML (CANCER CTR) 1,000 ML ONE; +PALONOSETRON HCL 0.25 MG, DEXAMETHASONE INJECTION 10 MG in NS (IVPB) CANCER CENTER 50 ML IV SCH; +PANITUMUMAB INJECTION 400 MG in NS (IVPB) CANCER CENTER 100 ML IV SCH
[2019-03-21 10:53] LABS: BASOPHILS # (AUTO) 0.1 10^3/uL (0.0-0.1); BASOPHILS % (AUTO) 3 % (0-10); EOSINOPHILS # (AUTO) 0.3 10^3/uL (0.0-0.3); EOSINOPHILS % (AUTO) 10 % (0-10); HEMATOCRIT 36 % (35-52); HEMOGLOBIN 11.8 G/DL (11.5-16.0); LYMPHOCYTES # (AUTO) 0.7 X 10^3 (1.0-4.0); LYMPHOCYTES % (AUTO) 28 % (12-44); MEAN CORPUSCULAR HEMOGLOBIN 31 PG (25-34); MEAN CORPUSCULAR HGB CONC 33 G/DL (32-36); MEAN CORPUSCULAR VOLUME 94 FL (80-99); MEAN PLATELET VOLUME 10.7 FL (7.4-10.4); MONOCYTES # (AUTO) 0.3 X 10^3 (0.0-1.0); MONOCYTES % (AUTO) 11 % (0-12); NEUTROPHILS # (AUTO) 1.3 X 10^3 (1.8-7.8); NEUTROPHILS % (AUTO) 48 % (42-75); PLATELET COUNT 244 10^3/uL (130-400); RED CELL DISTRIBUTION WIDTH 16.6 % (10.0-14.5); WHITE BLOOD COUNT 2.6 10^3/uL (4.3-11.0)
[2019-03-21 11:24] LABS: BUN/CREATININE RATIO 14; CALCIUM 9.3 MG/DL (8.5-10.1); CARBON DIOXIDE 25 MMOL/L (21-32); CHLORIDE 105 MMOL/L (98-107); CREATININE SERUM 0.74 MG/DL (0.60-1.30); GFR ESTIMATED > 60; GLUCOSE 92 MG/DL (70-105); MAGNESIUM 1.2 MG/DL (1.6-2.4); POTASSIUM 3.8 MMOL/L (3.6-5.0); SODIUM 142 MMOL/L (135-145)
[2019-03-27] MEDS ORDERED: LISI10TA2 PO (09:23)
[2019-03-27] MEDS ORDERED: OMEP-280 PO (09:23)
[2019-03-27] MEDS ORDERED: PARO20TA5 PO (09:23)
[2019-03-27] MEDS ORDERED: LEVO75TA6 PO (09:23)
== END 2019-03-31 | disposition home or self-care (01) ==
LOC: ONC 10:22
PROVIDERS: ATTEND Internal Medicine Hematology & Oncology
DX: Z51.11 Encounter for antineoplastic chemotherapy (principal); C18.7 Malignant neoplasm of sigmoid colon; C79.89 Secondary malignant neoplasm of other specified sites; C79.61 Secondary malignant neoplasm of right ovary; C78.01 Secondary malignant neoplasm of right lung; C78.6 Secondary malignant neoplasm of retroperitoneum and peritoneum; C77.5 Secondary and unspecified malignant neoplasm of intrapelvic lymph nodes; C78.7 Secondary malignant neoplasm of liver and intrahepatic bile duct; Z79.899 Other long term (current) drug therapy; Z90.89 Acquired absence of other organs; Z23 Encounter for immunization; Z90.49 Acquired absence of other specified parts of digestive tract
CPT/HCPCS: 36415; 36591; 80048; 80053; 82378; 83735; 85025; 90471; 96365; 96367; 96368; 96375; 96413; 96417

== ENCOUNTER 2019-03-25 17:53 | Inpatient (IN) | payer MEDICARE ==
[~2019-03-25] VITALS: Ht 165 cm; Wt 75.4 kg
[~2019-03-25 17:53] MED LIST changes: -ATROPINE INJ 0.4 MG/ML SDV (CANCER CENTER) IV SCH; -D5W IV SCH; -FAMOTIDINE 20MG/2ML IV (CANCER CTR) IV SCH; -FLU QUADRIvalent (5+ YOA) 2019-2020 (Cancer Ctr) 0.5 ML IM ONE; -FOSAPREPITANT DIMEGLUMINE 150 MG in NS (IVPB) CANCER CENTER ONLY 150 ML IV SCH; -IRINOTECAN HCL IV SCH; -LEUCOVORIN CALCIUM 400 MG in D5W 250 ML IVPB (CANCER CTR) 250 ML IV SCH; -MAGNESIUM SULFATE (CANCER CTR) 2 GM in NS (IVPB) CANCER CENTER 100 ML IV ONE; -MAGNESIUM SULFATE (CANCER CTR) 3 GM in NS (IVPB) CANCER CENTER 100 ML IV ONE; -NS IV 1000 ML (CANCER CTR) 1,000 ML ONE; -PALONOSETRON HCL 0.25 MG, DEXAMETHASONE INJECTION 10 MG in NS (IVPB) CANCER CENTER 50 ML IV SCH; -PANITUMUMAB INJECTION 400 MG in NS (IVPB) CANCER CENTER 100 ML IV SCH
[2019-03-25] MEDS ORDERED: RT-ALBUTEROL/IPRATROPIUM 3 ML (DUONEB) VIAL INH ONE (18:15)
[2019-03-25] MEDS ORDERED: NS IV 1000 ML 1,000 ML IV SCH (18:15)
--- NOTE | 2019-03-25 18:25 | ED Cough/URI ---
General Chief Complaint: Cough/Cold/Flu Symptoms Stated Complaint: FEVER,HEADACHE, CHILLS Nursing Triage Note: ARRIVED VIA WC WITH COMPLAINTS OF HEADACHE, FEVER, AND COLD CHILLS THAT STARTED WEDNESDAY. HX OF COLON CA WITH METS. Sepsis Screen: Possible Severe Sepsis Risk Source: patient, family Exam Limitations: no limitations (CORNELIUS DUARTE MD) History of Present Illness Date Seen by Provider: Mar 25, 2019 Time Seen by Provider: 18:19 Initial Comments This 69-year-old white female presents with a history of fever cough chills and headache has been present for the last 2 days. The patient is on chemotherapy for metastatic cancer of the colon. The patient is markedly short of breath and required assistance to come the emergency department with family. Patient denies stiff neck or photophobia. She's had no nausea vomiting or diarrhea. She denies dysuria or flank pain. (CORNELIUS DUARTE MD) Initial Comments Reports fever over the last 2 days with last dose of Tylenol earlier this morning. Highest fever was 102F per the patient. Timing/Duration: getting worse Severity/Quality: moderate, productive cough Prior Episodes/Possible Cause: occasional episodes Modifying Factors: Worse With Activity; Improves With Oxygen Associated Symptoms: chest pain/soreness, cough, fever/chills, shortness of breath, wheezing (DANISH BERNARDO MD) Allergies and Home Medications Allergies Coded Allergies: ketorolac tromethamine (Verified Allergy, Mild, 01/31/11) Home Medications Hydrocodone Bit/Acetaminophen 1 Each Tablet, 1-2 TAB PO 4-6HR PRN for PAIN Prescribed by: RAJANI HERNANDES on 01/23/16 1522 Levothyroxine Sodium 50 Mcg Tablet, 50 MCG PO DAILY, (Reported) Lovastatin 10 Mg Tablet, 10 MG PO HS, (Reported) [place]-3 Fatty Acids 300 Mg Capsule, 300 MG PO HS, (Reported) Omeprazole 20 Mg Tablet.dr, 20 MG PO DAILY, (Reported) Paroxetine Hcl 20 Mg Tablet, 20 MG PO DAILY, (Reported) Patient Home Medication List Home Medication List Reviewed: Yes (CORNELIUS DUARTE MD) Review of Systems Review of Systems Constitutional: chills, fever, weakness EENTM: no symptoms reported Respiratory: see HPI, cough, short of breath Cardiovascular: No chest pain, No palpitations Gastrointestinal: No abdominal pain, No diarrhea, No nausea, No vomiting Genitourinary: no symptoms reported Musculoskeletal: no symptoms reported Skin: No rash Psychiatric/Neurological: No Symptoms Reported Hematologic/Lymphatic: No Symptoms Reported Immunological/Allergic: no symptoms reported (CORNELIUS DUARTE MD) All Other Systems Reviewed Negative Unless Noted: Yes (DANISH BERNARDO MD) Past Vpnrsbd-Vctbtr-Dfhxtr Hx Past Med/Social Hx: Reviewed Nursing Past Med/Soc Hx (CORNELIUS DUARTE MD) Patient Social History Alcohol Use: Denies Use Recreational Drug Use: No Smoking Status: Never a Smoker Recent Foreign Travel: No Contact w/Someone Who Travel: No Recent Infectious Disease Expo: No Recent Hopitalizations: Yes (colon ressection) (CORNELIUS DUARTE MD) Immunizations Up To Date Date of Influenza Vaccine: Jan 17, 2011 (CORNELIUS DUARTE MD) Seasonal Allergies Seasonal Allergies: No (CORNELIUS DUARTE MD) Past Medical History Surgeries: Yes (COLON RESECTION, ADHESION REMOVED, TUMOR REMOVED FROM LIVER, ) Respiratory: Yes (LUMP REMOVED FROM LUNG) Cardiac: No High Cholesterol Neurological: No Reproductive Disorders: No Gastrointestinal: Yes (HX OF COLON CA, COLON RESECTION) Musculoskeletal: No Endocrine: Yes Cancer: Yes (originated in colon) Liver, Lung, Colon, Ovarian Psychosocial: Yes Depression Integumentary: Yes Blood Disorders: No (CORNELIUS DUARTE MD) Family Medical History Reviewed Nursing Family Hx (DANISH BERNARDO MD) Physical Exam Vital Signs - First Documented 03/25/19 03/25/19 17:59 18:22 Temp 37.0 Pulse 134 Resp 18 B/P (MAP) 115/68 (84) Pulse Ox 74 O2 Delivery Room Air O2 Flow Rate 7.00 (DANISH BERNARDO MD) Capillary Refill : Less Than 3 Seconds (CORNELIUS DUARTE MD) Height: 5'6.00" Weight: 147lbs. 0.0oz. 66.225447fk; 24.00 BMI Method:Stated General Appearance: mild distress, cachetic Eyes: Bilateral Eye Normal Inspection Neck: full range of motion, supple Respiratory: decreased breath sounds Cardiovascular: regular rate, rhythm Gastrointestinal: normal bowel sounds, non tender Extremities: normal range of motion, non-tender Neurologic/Psychiatric: no motor/sensory deficits, alert, normal mood/affect Skin: normal color, warm/dry (CORNELIUS DUARTE MD) Respiratory: crackles (bilateral bases) Cardiovascular: tachycardia (DANISH BERNARDO MD) Focused Exam Lactate Level 03/25/19 19:03: Lactic Acid Level 1.64 (DANISH BERNARDO MD) Lactic Acid Level Laboratory Tests Test 03/25/19 19:03 Lactic Acid Level 1.64 MMOL/L (0.50-2.00) (DANISH BERNARDO MD) Progress/Results/Core Measures Suspected Sepsis Recent Fever Within 48 Hours: Yes Infection Criteria Present: Suspected New Infection New/Unexplained Altered Menta: No Sepsis Screen: Possible Severe Sepsis Risk SIRS Temperature: Pulse: 134 Respiratory Rate: 18 Blood Pressure 115 /68 Mean: 84 (CORNELIUS DUARTE MD) SIRS Laboratory Tests 03/25/19 19:03: White Blood Count 4.2L 03/25/19 19:03: Lactic Acid Level 1.64 Laboratory Tests 03/25/19 19:03: Creatinine 0.76, INR Comment 1.2, Platelet Count 246, Total Bilirubin 0.9 (DANISH BERNARDO MD) Results/Orders Lab Results Laboratory Tests Test 03/25/19 19:03 Range/Units White Blood Count 4.2 L 4.3-11.0 10^3/uL Red Blood Count 3.16 L 4.35-5.85 10^6/uL Hemoglobin 9.6 L 11.5-16.0 G/DL Hematocrit 29 L 35-52 % Mean Corpuscular Volume 91 80-99 FL Mean Corpuscular Hemoglobin 30 25-34 PG Mean Corpuscular Hemoglobin Concent 33 32-36 G/DL Red Cell Distribution Width 16.0 H 10.0-14.5 % Platelet Count 246 130-400 10^3/uL Mean Platelet Volume 10.7 H 7.4-10.4 FL Neutrophils (%) (Auto) 82 H 42-75 % Lymphocytes (%) (Auto) 7 L 12-44 % Monocytes (%) (Auto) 9 0-12 % Eosinophils (%) (Auto) 1 0-10 % Basophils (%) (Auto) 1 0-10 % Neutrophils # (Auto) 3.5 1.8-7.8 X 10^3 Lymphocytes # (Auto) 0.3 L 1.0-4.0 X 10^3 Monocytes # (Auto) 0.4 0.0-1.0 X 10^3 Eosinophils # (Auto) 0.0 0.0-0.3 10^3/uL Basophils # (Auto) 0.0 0.0-0.1 10^3/uL Neutrophils % (Manual) 74 % Lymphocytes % (Manual) 9 % Monocytes % (Manual) 11 % Eosinophils % (Manual) 0 % Basophils % (Manual) 0 % Band Neutrophils 6 % Polychromasia SLIGHT Hypochromasia SLIGHT Poikilocytosis SLIGHT Anisocytosis SLIGHT Tear Drop Cells SLIGHT Elliptocytes SLIGHT Schistocytes SLIGHT Prothrombin Time 15.2 H 12.2-14.7 SEC INR Comment 1.2 0.8-1.4 Activated Partial Thromboplast Time 25 24-35 SEC D-Dimer 12.65 H 0.00-0.49 UG/ML Sodium Level 133 L 135-145 MMOL/L Potassium Level 2.5 *L 3.6-5.0 MMOL/L Chloride Level 101 98-107 MMOL/L Carbon Dioxide Level 20 L 21-32 MMOL/L Anion Gap 12 5-14 MMOL/L Blood Urea Nitrogen 12 7-18 MG/DL Creatinine 0.76 0.60-1.30 MG/DL Estimat Glomerular Filtration Rate > 60 BUN/Creatinine Ratio 16 Glucose Level 179 H 70-105 MG/DL Lactic Acid Level 1.64 0.50-2.00 MMOL/L Calcium Level 8.5 8.5-10.1 MG/DL Corrected Calcium 8.7 8.5-10.1 MG/DL Total Bilirubin 0.9 0.1-1.0 MG/DL Aspartate Amino Transf (AST/SGOT) 81 H 5-34 U/L Alanine Aminotransferase (ALT/SGPT) 38 0-55 U/L Alkaline Phosphatase 172 H 40-136 U/L Troponin I < 0.028 <0.028 NG/ML B-Type Natriuretic Peptide 39.1 <100.0 PG/ML Total Protein 6.2 L 6.4-8.2 GM/DL Albumin 3.7 3.2-4.5 GM/DL (DANISH BERNARDO MD) My Orders Orders - DANISH BERNARDO MD Let Solution (Let Solution) (03/25/19 18:45) Sputum Culture (03/25/19 18:35) Urinalysis (03/25/19 18:35) Urine Culture (03/25/19 18:35) Protime With Inr (03/25/19 18:35) Partial Thromboplastin Time (03/25/19 18:35) Chest 1 View, Ap/Pa Only (03/25/19 18:35) Ed Iv/Invasive Line Start (03/25/19 18:35) Vital Signs Adult Sepsis Patie Q15M (03/25/19 18:35) O2 (03/25/19 18:35) Remove Rings In Anticipation O (03/25/19 18:35) Ed Iv/Invasive Line Start (03/25/19 18:37) Lactated Ringers (Lr 1000 Ml Iv Solution (03/25/19 18:37) Acetaminophen Tablet (Tylenol Tablet) (03/25/19 19:24) Potassium Cl 10meq/50ml Ivpb (Kcl 10 Meq (03/25/19 20:15) Lactated Ringers (Lr 1000 Ml Iv Solution (03/25/19 20:13) Ct Angio Chest W (03/25/19 20:20) Iohexol Injection (Omnipaque 350 Mg/Ml 1 (03/25/19 20:30) Received Contrast (Hold Metformin- Contr (03/25/19 20:30) Sodium Chloride Flush (Catheter Flush Sy (03/25/19 20:30) Ns (Ivpb) (Sodium Chloride 0.9% Ivpb Bag (03/25/19 20:30) Piperacillin Sodium/Tazobactam (Zosyn Vi (03/25/19 21:15) Magnesium (03/25/19 21:12) (DANISH BERNARDO MD) Medications Given in ED Current Medications Medications Dose Ordered Sig/Nba Route Start Time Stop Time Status Last Admin Dose Admin Albuterol/ Ipratropium 3 ml ONCE ONCE INH 03/25/19 18:15 03/25/19 18:17 DC 03/25/19 18:28 3 ML Iohexol 100 ml ONCE ONCE IV 03/25/19 20:30 03/25/19 20:31 DC 03/25/19 20:38 65 ML Lactated Ringer's 1,000 ml @ 0 mls/hr Q0M ONCE IV 03/25/19 18:37 03/25/19 18:38 DC 03/25/19 19:22 999 MLS/HR Lactated Ringer's 1,000 ml @ 0 mls/hr Q0M ONCE IV 03/25/19 20:13 03/25/19 20:15 DC 03/25/19 20:18 999 MLS/HR Piperacillin Sod/ Tazobactam Sod 4.5 gm/Sodium Chloride 100 ml @ 200 mls/hr ONCE ONCE IV 03/25/19 21:15 03/25/19 21:44 03/25/19 21:27 200 MLS/HR Potassium Chloride 50 ml @ 50 mls/hr ONCE ONCE IV 03/25/19 20:15 03/25/19 21:14 DC 03/25/19 20:17 50 MLS/HR Sodium Chloride 10 ml NEEDED PRN IV 03/25/19 20:30 03/25/19 20:38 10 ML Sodium Chloride 100 ml ONCE ONCE IV 03/25/19 20:30 03/25/19 20:31 DC 03/25/19 20:38 80 ML Tetracaine/ Epinephrine/ Lidocaine 1 ea ONCE ONCE TOP 03/25/19 18:45 03/25/19 18:46 DC 03/25/19 20:16 1 EA Tetracaine/ Epinephrine/ Lidocaine 1 ea STK-MED ONCE .ROUTE 03/25/19 18:32 03/25/19 18:35 DC 03/25/19 20:16 1 EA (DANISH BERNARDO MD) Vital Signs/I&O 03/25/19 03/25/19 17:59 18:22 Temp 37.0 Pulse 134 Resp 18 B/P (MAP) 115/68 (84) Pulse Ox 74 88 O2 Delivery Room Air Nasal Cannula O2 Flow Rate 7.00 (DANISH BERNARDO MD) Vital Signs/I&O Capillary Refill : Less Than 3 Seconds (CORNELIUS DUARTE MD) Blood Pressure Mean: 84 POS Progress Note : Time: 18:26 Progress Note The patient was placed on oxygen. She was given respiratory support by respiratory therapy. The remainder of the patient's laboratory and radiographic evaluation and ordered. My partner Dr. Bernardo was kind enough to accept the patient transfer. (CORNELIUS DUARTE MD) Progress Note : Progress Note 182: I have accepted the patient and checked out. We're in the process of get ting labs. I have reexamined the patient and she is still having quite a bit of distress. We will initiate Vapotherm pending arrival. We have initiated oxygen mask currently. She is mentating well and is able to relate the story to me. She does have complicated metastatic colon cancer and is currently under chemotherapy. Last dose earlier this week she due to the next dose on Wednesday. Monitor patient. 1909: Placed on Vapotherm at 30 L and 50% with O2 sats now in the mid 90s and heart rate has decreased from 150-125. Labs pending. Monitor patient. LR 1 L bolus ordered. We will get the full sepsis protocol workup. 2019 d-dimer substantially elevated. Chest x-ray concerning for abnormal findings. We will get CT angiogram of the chest. Repeat LR 1 L bolus. Monitor patient. 2114: CT results as noted. Multiple possibilities in the differential but I do believe this is related to pneumonia as the patient's had increasing shortness of breath as well as fever of 102 home and she is on chemotherapy. We will initiate Zosyn and and vancomycin as well as sepsis protocol. Patient is receiving 10 mEq of potassium chloride for potassium being low. I have added magnesium level. I did discuss the case with Dr. Lynch, on-call for Dr. Duarte. She accepts patient for admission. Given patient's level of in extremis on arrival, she will be admitted to the ICU. She is doing much better currently on Vapotherm at 30 L and 50% with O2 sat at 96% and heart rate now is down to 96 from the high of 150 with LR continuing. Patient states that she feels much better. Zosyn 4.5 g IV ordered. Admit to ICU, inpatient status. Patient is DO NOT RESUSCITATE status. (DANISH BERNARDO MD) ECG Initial ECG Impression Date: Mar 25, 2019 Initial ECG Impression Time: 18:44 Initial ECG Rate: 133 Initial ECG Rhythm: S.Tach Comment Sinus tachycardia with left atrial abnormality. No evidence of ST elevation AR. Normal axis. No previous available for comparison. Interpreted by me. (DANISH BERNARDO MD) Diagnostic Imaging Diagonstic Imaging: Xray Plain Films/CT/US/NM/MRI: chest Diagonstic Imaging: CT Plain Films/CT/US/NM/MRI: chest Comments NAME: CURTIS DAVIS I [facility] REC#: [id number] PT STATUS: REG ER : 1950 PHYSICIAN: DANISH BERNARDO MD ADMIT DATE: 03/25/19/ER Draft POSDate of Exam:03/25/19 CT ANGIO CHEST W PROCEDURE: CT angiography Chest TECHNIQUE: After intravenous administration of contrast, thin section axial CT angiography of the chest was performed. 3D MIP reconstructions were made. All CT scans use one or more of the following dose optimizing techniques: automated exposure control, MA and/or KvP adjustment based on a patient size and exam type, or iterative reconstruction. INDICATION: Shortness of air COMPARISON: CT chest from 09/21/2018 FINDINGS: Vasculature: No pulmonary emboli. No CT evidence of pulmonary hypertension or right ventricular strain. Thoracic aorta is normal in caliber. No aortic dissection or pseudoaneurysm. Heart and mediastinum: Visualized thyroid is normal. No supraclavicular, axillary, or intra-thoracic lymphadenopathy. Heart is mildly enlarged without pericardial effusion. Pleura: No pleural effusion or pneumothorax. Lungs and airway: No endoluminal lesion in the trachea or central bronchi. No pulmonary mass or nodule to suggest neoplasm. Stable postoperative changes of subtotal resection of the right apex. Multifocal groundglass attenuation involves all 5 lobes. No interlobular septal thickening. Upper abdomen: Allowing for the phase of contrast, no acute abnormality in the upper abdomen is seen. Bilateral renal cysts are unchanged. Musculoskeletal: No concerning osseous lesion. IMPRESSION: 1. No pulmonary emboli or acute aortic syndrome. 2. Diffuse bilateral groundglass pulmonary opacities have a broad differential and most commonly includes pulmonary edema, pulmonary hemorrhage or atypical infection. Less common etiologies would include inflammatory process or nonspecific interstitial pneumonia. Dictated on workstation # [id number] Dict: 03/25/192046 Trans: 03/25/192053 [facility] [id number] Interpreted by: GENNA KENNY MD Electronically signed by: (DANISH BERNARDO MD) Departure Communication (Admissions) Time/Spoke to Admitting Phy: 21:15 (DANISH BERNARDO MD) Impression Primary Impression: Bilateral pneumonia Qualified Codes: J18.9 - Pneumonia, unspecified organism Additional Impression: Hypoxia Disposition: 09 ADMITTED INPATIENT Condition: Stable Admissions Decision to Admit Reason: Admit from ER (General) Decision to Admit/Date: Mar 25, 2019 Time/Decision to Admit Time: 21:15 (DANISH BERNARDO MD) Departure-Patient Inst. Referrals: MANUEL CHAPIN MD (PCP/Family) Primary Care Physician CORNELIUS DUARTE MD Mar 25, 2019 18:25 POSSDANISH ORTEGA MD Mar 25, 2019 19:13 POS
[2019-03-25] MEDS ORDERED: L.E.T. SYRINGE 5 ML ONE (18:32)
[2019-03-25] MEDS ORDERED: LACTATED RINGERS 1,000 ML IV ONE ×2 (18:37→20:13)
[2019-03-25] MEDS ORDERED: L.E.T. SYRINGE 5 ML TOP ONE (18:45)
[2019-03-25] MEDS ORDERED: ACETAMINOPHEN 500 MG TAB (TYLENOL) PO STA (19:24)
[2019-03-25 19:26] LABS: BASOPHILS % (AUTO) 1 % (0-10); EOSINOPHILS % (AUTO) 1 % (0-10); HEMATOCRIT 29 % (35-52); HEMOGLOBIN 9.6 G/DL (11.5-16.0); LYMPHOCYTES # (AUTO) 0.3 X 10^3 (1.0-4.0); LYMPHOCYTES % (AUTO) 7 % (12-44); MEAN CORPUSCULAR HEMOGLOBIN 30 PG (25-34); MEAN CORPUSCULAR HGB CONC 33 G/DL (32-36); MEAN CORPUSCULAR VOLUME 91 FL (80-99); MEAN PLATELET VOLUME 10.7 FL (7.4-10.4); MONOCYTES # (AUTO) 0.4 X 10^3 (0.0-1.0); MONOCYTES % (AUTO) 9 % (0-12); NEUTROPHILS # (AUTO) 3.5 X 10^3 (1.8-7.8); NEUTROPHILS % (AUTO) 82 % (42-75); PLATELET COUNT 246 10^3/uL (130-400); WHITE BLOOD COUNT 4.2 10^3/uL (4.3-11.0)
[2019-03-25 19:43] LABS: BAND NEUTROPHILS 6 %; BASOPHILS % (MANUAL) 0 %; EOSINOPHILS % (MANUAL) 0 %; LYMPHOCYTES % (MANUAL) 9 %; MONOCYTES % (MANUAL) 11 %; NEUTROPHILS % (MANUAL) 74 %
[2019-03-25 19:44] LABS: ANISOCYTOSIS SLIGHT; ELLIPT/OVALOCYTES SLIGHT; HYPOCHROMASIA SLIGHT; POIKILOCYTOSIS SLIGHT; POLYCHROMASIA SLIGHT; SCHISTOCYTES SLIGHT; TEAR DROP CELLS SLIGHT
[2019-03-25 19:48] LABS: FIBRIN DEGRADATION PRODUCTS 12.65 UG/ML (0.00-0.49); INR 1.2 (0.8-1.4); PROTHROMBIN TIME PATIENT 15.2 SEC (12.2-14.7)
[2019-03-25 19:54] LABS: ALANINE AMINOTRANSFERASE 38 U/L (0-55); ALBUMIN 3.7 GM/DL (3.2-4.5); ALKALINE PHOSPHATASE 172 U/L (40-136); BILIRUBIN,TOTAL 0.9 MG/DL (0.1-1.0); BUN/CREATININE RATIO 16; CALCIUM 8.5 MG/DL (8.5-10.1); CARBON DIOXIDE 20 MMOL/L (21-32); CHLORIDE 101 MMOL/L (98-107); CREATININE SERUM 0.76 MG/DL (0.60-1.30); GFR ESTIMATED > 60; GLUCOSE 179 MG/DL (70-105); SODIUM 133 MMOL/L (135-145); TOTAL PROTEIN 6.2 GM/DL (6.4-8.2)
--- NOTE | 2019-03-25 19:56 | Diagnostic Imaging Report ---
Procedure: Chest 1 view, AP/PA only. Indication: Shortness of air, lung cancer. Comparison: CT chest of 09/21/2018. Findings: New ill-defined opacities in the mid and lower lung zones. No pleural effusion or pneumothorax. Heart is enlarged. Stable left subclavian Port-A-Cath. Impression: New bilateral pulmonary opacities could be on the basis of pulmonary edema. Atypical infection or hemorrhage could also give this appearance. Dictated by: Dictated on workstation # [id number]
[2019-03-25 19:57] LABS: POTASSIUM 2.5 MMOL/L (3.6-5.0)
[2019-03-25] MEDS ORDERED: POTASSIUM CL 10MEQ/50ML IVPB 50 ML IV ONE (20:15)
[2019-03-25] MEDS ORDERED: HOLD METFORMIN - RECEIVED CONTRAST 20 ML VIAL IV SCH (20:30)
[2019-03-25] MEDS ORDERED: IOHEXOL 350 MG/ML 100 ML (OMNIPAQUE 350) VIAL IV ONE (20:30)
[2019-03-25] MEDS ORDERED: NS 100 ML (IVPB) BAG IV ONE (20:30)
[2019-03-25] MEDS: CATHETER FLUSH 10 ML SYR IV PRN (20:38)
--- NOTE | 2019-03-25 20:56 | Diagnostic Imaging Report ---
PROCEDURE: CT angiography Chest TECHNIQUE: After intravenous administration of contrast, thin section axial CT angiography of the chest was performed. 3D MIP reconstructions were made. All CT scans use one or more of the following dose optimizing techniques: automated exposure control, MA and/or KvP adjustment based on a patient size and exam type, or iterative reconstruction. INDICATION: Shortness of air COMPARISON: CT chest from 09/21/2018 FINDINGS: Vasculature: No pulmonary emboli. No CT evidence of pulmonary hypertension or right ventricular strain. Thoracic aorta is normal in caliber. No aortic dissection or pseudoaneurysm. Heart and mediastinum: Visualized thyroid is normal. No supraclavicular, axillary, or intra-thoracic lymphadenopathy. Heart is mildly enlarged without pericardial effusion. Pleura: No pleural effusion or pneumothorax. Lungs and airway: No endoluminal lesion in the trachea or central bronchi. No pulmonary mass or nodule to suggest neoplasm. Stable postoperative changes of subtotal resection of the right apex. Multifocal groundglass attenuation involves all 5 lobes. No interlobular septal thickening. Upper abdomen: Allowing for the phase of contrast, no acute abnormality in the upper abdomen is seen. Bilateral renal cysts are unchanged. Musculoskeletal: No concerning osseous lesion. IMPRESSION: 1. No pulmonary emboli or acute aortic syndrome. 2. Diffuse bilateral groundglass pulmonary opacities have a broad differential and most commonly includes pulmonary edema, pulmonary hemorrhage or atypical infection. Less common etiologies would include inflammatory process or nonspecific interstitial pneumonia. Dictated by: Dictated on workstation # [id number]
[2019-03-25] MEDS ORDERED: PIPERACILLIN SODIUM/TAZOBACTAM 4.5 GM in NS (IVPB) 100 ML IV ONE (21:15)
[2019-03-25] MEDS ORDERED: MAGNESIUM 1 GM/100 ML IVPB 100 ML IV ONE (21:45)
[2019-03-25 22:05] VITALS: BP 110/77
[2019-03-25 22:15] VITALS: BP 114/71
[2019-03-25 22:25] LABS: BILIRUBIN,URINE NEGATIVE (NEGATIVE); CLARITY,URINE CLEAR; COLOR,URINE YELLOW; GLUCOSE, URINE (UA) NEGATIVE (NEGATIVE); KETONES,URINE NEGATIVE (NEGATIVE); LEUKOCYTE ESTERASE ,URINE NEGATIVE (NEGATIVE); NITRITE,URINE NEGATIVE (NEGATIVE); PH,URINE 6.5 (5-9); PROTEIN,URINE NEGATIVE (NEGATIVE)
[2019-03-25 22:30] VITALS: BP 108/56
[2019-03-25] MEDS ORDERED: ONDANSETRON 4 MG/2 ML (SDV) Z0FRAN IV PRN (22:30)
[2019-03-25 22:31] LABS: BACTERIA,URINE NEGATIVE /HPF; SQUAMOUS EPITHELIAL CELL,UR RARE /HPF; WBC,URINE RARE /HPF
[2019-03-25] MEDS: LACTATED RINGERS 1,000 ML IV SCH (22:42)
[2019-03-25] MEDS: POTASSIUM CL 10 MEQ/50 ML IVPB (PRE-MIX) IV SCH ×3 (22:44→23:57)
[2019-03-25 22:45] VITALS: BP 107/58
[2019-03-25] MEDS ORDERED: VANCOMYCIN 1 GM/NS 250 ML IVPB IV SCH ×2 (22:45)
[2019-03-25 23:00] VITALS: BP 110/77
[2019-03-25] MEDS ORDERED: VANCOMYCIN 1000 MG/VIAL ONE (23:03)
[2019-03-25 23:30] VITALS: BP 109/66
[2019-03-26] VITALS (26 sets, daily range): BP systolic 83–135; BP diastolic 58–77
[2019-03-26] MEDS ORDERED: PIPERACILLIN/TAZO 4.5 GM VIAL (ZOSYN) IV ONE (00:28)
[2019-03-26] MEDS ORDERED: ENOXAPARIN 40 MG/0.4 ML (LOVENOX) SYR ONE (01:53)
[2019-03-26] MEDS: ENOXAPARIN 40 MG/0.4 ML (LOVENOX) SYR SC SCH (01:59)
[2019-03-26] MEDS: PIPERACILLIN/TAZO 4.5 GM/NS 100 ML IV SCH ×6 (02:01→17:56)
[2019-03-26] MEDS: ACETAMINOPHEN 325 MG TABLET PO PRN ×2 (02:45→11:04)
[2019-03-26 03:41] LABS: BASOPHILS % (AUTO) 1 % (0-10); EOSINOPHILS # (AUTO) 0.1 10^3/uL (0.0-0.3); EOSINOPHILS % (AUTO) 2 % (0-10); HEMATOCRIT 29 % (35-52); HEMOGLOBIN 9.5 G/DL (11.5-16.0); LYMPHOCYTES # (AUTO) 0.5 X 10^3 (1.0-4.0); LYMPHOCYTES % (AUTO) 17 % (12-44); MEAN CORPUSCULAR HEMOGLOBIN 30 PG (25-34); MEAN CORPUSCULAR HGB CONC 33 G/DL (32-36); MEAN CORPUSCULAR VOLUME 92 FL (80-99); MEAN PLATELET VOLUME 10.1 FL (7.4-10.4); MONOCYTES # (AUTO) 0.3 X 10^3 (0.0-1.0); MONOCYTES % (AUTO) 9 % (0-12); NEUTROPHILS # (AUTO) 2.3 X 10^3 (1.8-7.8); NEUTROPHILS % (AUTO) 72 % (42-75); PLATELET COUNT 227 10^3/uL (130-400); RED CELL DISTRIBUTION WIDTH 16.4 % (10.0-14.5); WHITE BLOOD COUNT 3.2 10^3/uL (4.3-11.0)
[2019-03-26 04:14] LABS: ALANINE AMINOTRANSFERASE 56 U/L (0-55); ALBUMIN 3.2 GM/DL (3.2-4.5); ALKALINE PHOSPHATASE 146 U/L (40-136); BILIRUBIN,TOTAL 0.8 MG/DL (0.1-1.0); BUN/CREATININE RATIO 11; CALCIUM 8.5 MG/DL (8.5-10.1); CARBON DIOXIDE 22 MMOL/L (21-32); CHLORIDE 111 MMOL/L (98-107); CREATININE SERUM 0.63 MG/DL (0.60-1.30); GFR ESTIMATED > 60; GLUCOSE 118 MG/DL (70-105); MAGNESIUM 1.3 MG/DL (1.6-2.4); PHOSPHORUS 2.8 MG/DL (2.3-4.7); POTASSIUM 3.7 MMOL/L (3.6-5.0); SODIUM 144 MMOL/L (135-145); TOTAL PROTEIN 5.5 GM/DL (6.4-8.2)
--- NOTE | 2019-03-26 04:37 | Pulmonary Consultation ---
History of Present Illness History of Present Illness Date of Admission Allergies and Home Medications Allergies Coded Allergies: ketorolac tromethamine (Verified Allergy, Mild, 01/31/11) Home Medications Hydrocodone Bit/Acetaminophen 1 Each Tablet, 1-2 TAB PO 4-6HR PRN for PAIN Prescribed by: RAJANI HERNANDES on 01/23/16 1522 Levothyroxine Sodium 50 Mcg Tablet, 50 MCG PO DAILY, (Reported) Lovastatin 10 Mg Tablet, 10 MG PO HS, (Reported) [place]-3 Fatty Acids 300 Mg Capsule, 300 MG PO HS, (Reported) Omeprazole 20 Mg Tablet.dr, 20 MG PO DAILY, (Reported) Paroxetine Hcl 20 Mg Tablet, 20 MG PO DAILY, (Reported) Past Eoprbhu-Iyydyz-Njoopo Hx Past Med/Social Hx: Reviewed Nursing Past Med/Soc Hx Patient Social History Alcohol Use: Denies Use Recreational Drug Use: No Smoking Status: Never a Smoker Recent Foreign Travel: No Contact w/Someone Who Travel: No Recent Infectious Disease Expo: No Recent Hopitalizations: Yes (colon ressection) Immunizations Up To Date Date of Influenza Vaccine: Feb 13, 2019 Seasonal Allergies Seasonal Allergies: No Past Medical History Surgeries: Yes (COLON RESECTION, ADHESION REMOVED, TUMOR REMOVED FROM LIVER, ) Respiratory: Yes (LUMP REMOVED FROM LUNG) Cardiac: No High Cholesterol Neurological: No : No Reproductive Disorders: No Gastrointestinal: Yes (HX OF COLON CA, COLON RESECTION) Musculoskeletal: No Endocrine: Yes Cancer: Yes (originated in colon) Liver, Lung, Colon, Ovarian Psychosocial: Yes Depression Integumentary: Yes Blood Disorders: No Family Medical History Reviewed Nursing Family Hx Myocardial infarction 19 FATHER, , Age:55, Onset:50's - 60 Sepsis Event Evaluation Height, Weight, BMI Height: 5'6.00" Weight: 147lbs. 0.0oz. 66.095848jy; 24.64 BMI Method:Stated Exam Exam Vital Signs Date Time Temp Pulse Resp B/P (MAP) Pulse Ox O2 Delivery O2 Flow Rate FiO2 03/26/19 03:00 76 31 111/64 (80) 92 Vapotherm 40.00 50.00 03/26/19 02:45 37.4 03/26/19 02:44 37.4 03/26/19 02:00 85 22 99/65 (76) 95 Vapotherm 40.00 50.00 03/26/19 01:00 75 26 94/60 (71) 93 Vapotherm 40.00 50.00 03/26/19 01:00 83 03/26/19 00:00 91 27 108/67 (81) 94 Vapotherm 40.00 50.00 03/25/19 23:30 85 28 109/66 (80) 95 Vapotherm 40.00 50.00 03/25/19 23:30 94 Vapotherm 40.00 50 03/25/19 23:15 36.8 03/25/19 23:00 93 30 110/77 (88) 94 Vapotherm 40.00 50.00 03/25/19 22:45 92 19 107/58 (74) 96 Vapotherm 40.00 50.00 03/25/19 22:36 94 Vapotherm 40.00 50 03/25/19 22:30 93 26 108/56 (73) 95 Vapotherm 40.00 50.00 03/25/19 22:15 92 24 114/71 (85) 93 Vapotherm 40.00 50.00 03/25/19 22:08 103 03/25/19 22:05 37.4 93 30 110/77 (88) 94 Vapotherm 40.00 50.00 03/25/19 21:43 37.0 100 18 100/70 (84) 95 Vapotherm 30.00 03/25/19 20:00 03/25/19 18:22 88 Nasal Cannula 7.00 03/25/19 17:59 37.0 134 18 115/68 (84) 74 Room Air I & O 03/26/19 07:00 Intake Total 2830 ml Output Total 1350 ml Balance 1480 ml Height & Weight Height: 5'6.00" Weight: 147lbs. 0.0oz. 66.408257fq; 24.64 BMI Method:Stated Capillary Refill: Less Than 3 Seconds Gastrointestinal: normal bowel sounds, non tender Results Lab Laboratory Tests 03/25/19 19:03 03/26/19 03:35 Assessment/Plan Assessment/Plan Acute on chronic respiratory failure -Currently requiring Vapotherm Bilateral PNA -ABx zosyn and vanco -Louie cultures -IVF -will start Solumedrol - secondary to inflammatory changes on CT of chest Metastatic lung cancer -Last chemo 03/21 Elevated LFTs -monitor FOREIGN BERNSTEIN DO Mar 26, 2019 04:37 POS
[2019-03-26] MEDS: POTASSIUM CL 10MEQ/50ML IVPB 50 ML IV SCH (04:46)
[2019-03-26] MEDS: MAGNESIUM 1 GM/100 ML IVPB 100 ML IV SCH ×5 (04:46→08:33)
[2019-03-26] MEDS: KCL 20 MEQ TAB (K-DUR) PO SCH (04:47)
[2019-03-26] MEDS ORDERED: methylPREDNISolone 40 MG/ML (Solu-MEDROL) VIAL ONE (04:50)
[2019-03-26] MEDS: methylPREDNISolone 40 MG/ML (Solu-MEDROL) VIAL IV SCH ×4 (04:54→23:45)
[2019-03-26] MEDS: LACTATED RINGERS 1,000 ML IV SCH (06:18)
[2019-03-26] MEDS: RT-ALBUTEROL/IPRATROPIUM 3 ML (DUONEB) VIAL INH SCH ×5 (07:50→20:58)
--- NOTE | 2019-03-26 08:11 | Diagnostic Imaging Report ---
Clinical indication: Patient with bilateral pneumonia and metastatic cancer. Exam: Portable chest x-ray upright view. Comparisons: Chest x-ray dated 03/25/2019. Findings: There is interval progression of bilateral lung infiltrates and patchy consolidation throughout both lungs with some sparing of the left lung apex. There is no definite pleural effusion or pneumothorax. Pulmonary vasculature is obscured. Cardiac silhouette is stable and enlarged. The remainder of this exam shows no significant interval change compared to the prior study of comparison. Impression: 1: Interval progression of diffuse bilateral lung infiltrates. 2: Stable cardiomegaly. Dictated by: Dictated on workstation # [id number]
[2019-03-26] MEDS ORDERED: ANIDULAFUNGIN 200 MG/NS 250 ML IVPB IV NR ×2 (08:40)
[2019-03-26] MEDS ORDERED: POTASSIUM PHOSPHATE INJ 15 MM in NS (IVPB) 250 ML IV ONE (09:00)
[2019-03-26] MEDS ORDERED: ANIDULAFUNGIN INJECTION 100 MG in NS (IVPB) 100 ML IV SCH (09:00)
[2019-03-26] MEDS: PANTOPRAZOLE 40 MG (PROTONIX) VIAL IV SCH (09:21)
[2019-03-26] MEDS ORDERED: VANCOMYCIN 1 GM/NS 250 ML IVPB IV SCH ×2 (10:00)
[2019-03-26] MEDS ORDERED: FUROSEMIDE 40 MG/4 ML INJ (LASIX) ONE (10:37)
[2019-03-26] MEDS ORDERED: DEXMEDETOMIDINE INJECTION 1,000 MCG in NS (IVPB) 250 ML IV SCH (10:45)
[2019-03-26] MEDS ORDERED: FUROSEMIDE 40 MG/4 ML INJ (LASIX) IVP NR (10:45)
[2019-03-26] MEDS ORDERED: DEXMEDETOMIDINE INJECTION 1,000 MCG in NS (IVPB) 240 ML IV SCH (13:30)
--- NOTE | 2019-03-26 20:20 | History & Physical-Hospitalist ---
History of Present Illness HPI/Chief Complaint Katie Aiken is a 69yoF with PMH metastatic colon cancer who presented with fevers and shortness of breath. She states that this has been going on since . She reports having a dry cough. She denies chest pain. She denies abdominal pain, nausea, vomiting, diarrhea, and dysuria. She is wearing BiPAP at the time of my exam. There is no family at bedside. She says that she would like to be a DNR. She also would not want to be intubated. She is willing to give BiPAP a try, but she is not very comfortable at this time. Source: patient Exam Limitations: no limitations Date Seen 03/26/19 Time Seen by a Provider: 08:30 Attending Physician Georgette Isidro MD PCP Georgette Isidro MD Referring Physician Date of Admission Mar 25, 2019 at 21:17 Home Medications & Allergies Home Medications Reviewed patient Home Medication Reconciliation performed by pharmacy medication reconciliations structural technician and/or nursing. Patients Allergies have been reviewed. Allergies Allergies Coded Allergies ketorolac tromethamine (Verified Allergy, Mild, 01/31/11) Past Apxizrt-Nvysac-Uiedxy Hx Past Med/Social Hx: Reviewed Nursing Past Med/Soc Hx Patient Social History Alcohol Use: Denies Use Recreational Drug Use: No Smoking Status: Never a Smoker Recent Foreign Travel: No Contact w/other who traveled: No Recent Hopitalizations: Yes (colon ressection) Recent Infectious Disease Expo: No Immunizations Up To Date Date of Influenza Vaccine: Feb 13, 2019 Seasonal Allergies Seasonal Allergies: No Past Medical History Cardiac: High Cholesterol : No Reproductive: No Cancer: Liver, Lung, Colon, Ovarian Psychosocial: Depression History of Blood Disorders: No Family History Reviewed Nursing Family Hx Myocardial infarction 19 FATHER, , Age:55, Onset:50's - 60 Review of Systems Constitutional: chills, fever EENTM: no symptoms reported Respiratory: cough, short of breath Cardiovascular: no symptoms reported Gastrointestinal: no symptoms reported Genitourinary: no symptoms reported Musculoskeletal: no symptoms reported Skin: no symptoms reported Psychiatric/Neurological: No Symptoms Reported Physical Exam Physical Exam Vital Signs Vital Signs - First Documented 03/25/19 03/25/19 03/25/19 17:59 18:22 22:36 Temp 37.0 Pulse 134 Resp 18 B/P (MAP) 115/68 (84) Pulse Ox 74 O2 Delivery Room Air O2 Flow Rate 7.00 FiO2 50 Capillary Refill : Less Than 3 Seconds Height, Weight, BMI Height: 5'6.00" Weight: 147lbs. 0.0oz. 66.339542tz; 24.64 BMI Method:Stated General Appearance: Chronically ill, Mild Distress HEENT: PERRL/EOMI, Other (wearing BiPAP mask) Respiratory: Decreased Breath Sounds, Other (tachypnea) Cardiovascular: Regular Rate, Rhythm, No Edema, No Murmur Gastrointestinal: Normal Bowel Sounds, Non Tender, Soft Extremity: Normal Inspection, Non Tender, No Pedal Edema Neurologic/Psychiatric: Alert, Oriented x3 Skin: Normal Color, Warm/Dry Results Results/Procedures Labs Laboratory Tests 03/25/19 19:03 03/26/19 03:35 Patient resulted labs reviewed. Imaging: Reviewed Imaging Report Assessment/Plan Admission Diagnosis Healthcare associated pneumonia Admission Status: Inpatient Order (span 2 midnights) Reason for Inpatient Admission: HCAP requiring antibiotics and AHRF requiring supplemental oxygen Assessment and Plan Acute respiratory failure with hypoxia Healthcare associated pneumonia -Chest imaging on arrival concerning for pneumonia -CT Chest with groundglass opacities -Repeat chest xray this morning with worsening infiltrates -Continue BiPAP and Vapotherm as needed -Continue Vanc/Zosyn -Pulm consulted, appreciate recommendations -Started on Solumedrol Metastatic colon cancer -Currently on palliative chemotherapy -Metastases to liver, lung, other sites Electrolyte abnormalities -Continue to monitor and replace as needed DVT Prophylaxis: Lovenox Diagnosis/Problems Diagnosis/Problems (1) HCAP (healthcare-associated pneumonia) Status: Acute (2) Acute respiratory failure with hypoxia Status: Acute (3) Metastatic colon cancer in female Status: Chronic (4) Electrolyte abnormality Status: Acute Clinical Quality Measures DVT/VTE Risk/Contraindication: Risk Factor Score Per Nursin RFS Level Per Nursing on Admit: 4+=Very High COREY NEWMAN MD Mar 26, 2019 20:20 POS
[2019-03-27] VITALS (18 sets, daily range): BP systolic 86–128; BP diastolic 63–88
[2019-03-27] MEDS: ENOXAPARIN 40 MG/0.4 ML (LOVENOX) SYR SC SCH (02:34)
[2019-03-27 03:08] LABS: BASOPHILS % (AUTO) 0 % (0-10); EOSINOPHILS % (AUTO) 0 % (0-10); HEMATOCRIT 28 % (35-52); HEMOGLOBIN 9.3 G/DL (11.5-16.0); LYMPHOCYTES # (AUTO) 0.2 X 10^3 (1.0-4.0); LYMPHOCYTES % (AUTO) 6 % (12-44); MEAN CORPUSCULAR HEMOGLOBIN 30 PG (25-34); MEAN CORPUSCULAR HGB CONC 33 G/DL (32-36); MEAN CORPUSCULAR VOLUME 91 FL (80-99); MEAN PLATELET VOLUME 10.3 FL (7.4-10.4); MONOCYTES # (AUTO) 0.2 X 10^3 (0.0-1.0); MONOCYTES % (AUTO) 6 % (0-12); NEUTROPHILS # (AUTO) 2.6 X 10^3 (1.8-7.8); NEUTROPHILS % (AUTO) 88 % (42-75); PLATELET COUNT 248 10^3/uL (130-400); RED CELL DISTRIBUTION WIDTH 16.9 % (10.0-14.5); WHITE BLOOD COUNT 2.9 10^3/uL (4.3-11.0)
[2019-03-27] MEDS: RT-ALBUTEROL/IPRATROPIUM 3 ML (DUONEB) VIAL INH SCH ×6 (03:26→23:20)
[2019-03-27 03:30] LABS: BUN/CREATININE RATIO 16; CALCIUM 8.6 MG/DL (8.5-10.1); CARBON DIOXIDE 24 MMOL/L (21-32); CHLORIDE 105 MMOL/L (98-107); CREATININE SERUM 0.67 MG/DL (0.60-1.30); GFR ESTIMATED > 60; GLUCOSE 132 MG/DL (70-105); MAGNESIUM 1.3 MG/DL (1.6-2.4); PHOSPHORUS 3.6 MG/DL (2.3-4.7); POTASSIUM 3.5 MMOL/L (3.6-5.0); SODIUM 142 MMOL/L (135-145)
[2019-03-27] MEDS: PIPERACILLIN/TAZO 4.5 GM/NS 100 ML IV SCH ×6 (03:39→18:04)
[2019-03-27] MEDS: LACTATED RINGERS 1,000 ML IV SCH (03:40)
--- NOTE | 2019-03-27 06:23 | Pulmonary Progress Note ---
Sepsis Event Evaluation Height, Weight, BMI Height: 5'6.00" Weight: 147lbs. 0.0oz. 66.854516er; 24.64 BMI Method:Stated Focused Exam Lactate Level 03/25/19 19:03: Lactic Acid Level 1.64 Exam Exam Vital Signs Date Time Temp Pulse Resp B/P (MAP) Pulse Ox O2 Delivery O2 Flow Rate FiO2 03/27/19 05:00 74 31 123/84 (97) 94 Vapotherm 40.00 80.00 03/27/19 04:00 Vapotherm 40.00 80 03/27/19 04:00 60 24 127/88 (101) 97 Vapotherm 40.00 80.00 03/27/19 03:26 90 Vapotherm 40.00 80 03/27/19 03:00 59 32 119/74 (89) 95 Vapotherm 40.00 80.00 03/27/19 02:00 62 34 128/79 (95) 99 Vapotherm 40.00 80.00 03/27/19 01:00 73 34 99/69 (79) 91 Vapotherm 40.00 80.00 03/27/19 01:00 71 03/27/19 00:00 78 32 115/76 (89) 95 Vapotherm 40.00 80.00 03/27/19 00:00 Vapotherm 40.00 80 03/26/19 23:53 35.9 Vapotherm 40.00 80.00 03/26/19 23:00 73 34 105/73 (84) 97 Vapotherm 40.00 90.00 03/26/19 22:25 Vapotherm 40.00 90.00 03/26/19 22:00 85 35 107/69 (82) 99 Vapotherm 40.00 100.00 03/26/19 21:00 91 101/77 (85) 95 Vapotherm 40.00 100.00 03/26/19 20:59 97 Vapotherm 40.00 80 03/26/19 20:20 38.1 Vapotherm 40.00 100.00 03/26/19 20:00 85 36 103/61 (75) 96 Vapotherm 40.00 80.00 03/26/19 20:00 Vapotherm 40.00 80 03/26/19 19:00 92 31 94/62 (73) 94 Vapotherm 40.00 80.00 03/26/19 19:00 91 03/26/19 18:12 97 Vapotherm 40.00 80 03/26/19 18:00 98 38 100/63 (75) 96 Vapotherm 40.00 80.00 03/26/19 17:00 96 33 83/59 (67) 93 Vapotherm 40.00 80.00 03/26/19 16:00 94 Vapotherm 40.00 80 03/26/19 16:00 105 53 98/63 (75) 95 Vapotherm 40.00 80.00 03/26/19 15:29 36.1 03/26/19 15:00 120 46 101/62 (75) 94 Vapotherm 40.00 80.00 03/26/19 14:01 98 Vapotherm 40.00 100 03/26/19 14:00 101 40 113/65 (81) 97 Vapotherm 40.00 100.00 03/26/19 13:00 104 35 105/70 (82) 95 Vapotherm 40.00 100.00 03/26/19 13:00 106 03/26/19 12:00 116 46 110/64 (79) 99 Vapotherm 40.00 100.00 03/26/19 12:00 94 Vapotherm 40.00 100 03/26/19 11:35 37.1 03/26/19 11:00 38.4 03/26/19 11:00 138 33 130/62 (84) 95 Vapotherm 40.00 100.00 03/26/19 10:37 Vapotherm 40.00 100.00 03/26/19 10:15 111 50 98 60.00 03/26/19 10:00 111 47 126/72 (90) 99 NIV Bilevel 60.00 03/26/19 09:00 109 34 135/75 (95) 100 NIV Bilevel 60.00 03/26/19 08:35 111 47 98 60.00 03/26/19 08:30 NIV Bilevel 70.00 03/26/19 08:00 85 NIV Bilevel 60 03/26/19 08:00 37.6 03/26/19 08:00 115 43 104/69 (81) 92 NIV Bilevel 50.00 03/26/19 07:45 110 45 92 40.00 03/26/19 07:40 83 Vapotherm 40.00 80 03/26/19 07:38 NIV Bilevel 50.00 03/26/19 07:24 Vapotherm 40.00 100.00 03/26/19 07:00 96 31 128/72 (90) 95 Vapotherm 40.00 80.00 03/26/19 07:00 95 03/26/19 06:22 95 20 97 Vapotherm 40.00 80.00 I & O 03/27/19 07:00 Intake Total 3035 ml Output Total 2975 ml Balance 60 ml Height & Weight Height: 5'6.00" Weight: 147lbs. 0.0oz. 66.686377cz; 24.64 BMI Method:Stated General Appearance: Chronically ill, Mild Distress HEENT: PERRL/EOMI, Other (wearing BiPAP mask) Respiratory: Decreased Breath Sounds, Other (tachypnea) Cardiovascular: Regular Rate, Rhythm, No Edema, No Murmur Capillary Refill: Less Than 3 Seconds Gastrointestinal: normal bowel sounds, non tender Extremity: Normal Inspection, Non Tender, No Pedal Edema Neurologic/Psychiatric: Alert, Oriented x3 Skin: Normal Color, Warm/Dry Results Lab Laboratory Tests 03/25/19 19:03 03/26/19 03:35 03/27/19 03:00 Assessment/Plan Assessment/Plan Acute on chronic respiratory failure -Currently requiring Vapotherm -Give lasix 40mg x 1 - Check BNP -Continue solumedrol Bilateral PNA -ABx zosyn and vanco -Louie cultures -IVF -will start Solumedrol - secondary to inflammatory changes on CT of chest Metastatic lung cancer -Last chemo 03/21 Elevated LFTs -monitor FOREIGN BERNSTEIN DO Mar 27, 2019 06:23 POS
[2019-03-27] MEDS ORDERED: FUROSEMIDE 40 MG/4 ML INJ (LASIX) IVP ONE (06:30)
--- NOTE | 2019-03-27 06:50 | Diagnostic Imaging Report ---
EXAMINATION: Chest 1 view HISTORY: Pneumonia. History of metastatic cancer. COMPARISON: 03/26/2019 FINDINGS: Stable left central line with the tip overlying the low SVC. Slight interval improvement in diffuse patchy consolidative opacities throughout the lungs, with the greatest improvement in the right midlung. No large pleural effusion or pneumothorax is seen. The cardiomediastinal silhouette is enlarged. No acute osseous abnormality is seen. IMPRESSION: 1. Slightly improved diffuse patchy consolidative opacities throughout the lungs, with the greatest improvement in the right midlung. 2. Stable cardiomegaly. Dictated by: Dictated on workstation # [id number]
[2019-03-27] MEDS ORDERED: FUROSEMIDE 40 MG/4 ML INJ (LASIX) ONE (06:51)
[2019-03-27] MEDS: methylPREDNISolone 40 MG/ML (Solu-MEDROL) VIAL IV SCH ×3 (06:58→18:04)
[2019-03-27] MEDS: POTASSIUM CL 10MEQ/50ML IVPB 50 ML IV SCH (06:59)
[2019-03-27] MEDS: KCL 20 MEQ TAB (K-DUR) PO SCH (07:00)
[2019-03-27] MEDS: MAGNESIUM 1 GM/100 ML IVPB 100 ML IV SCH ×5 (07:07→11:53)
[2019-03-27] MEDS: KCL 10 MEQ TAB (MICRO K) PO SCH (07:13)
[2019-03-27 07:33] LABS: ABG BASE EXCESS 3.9 MMOL/L (-2.5-2.5); ABG OXYGEN SATURATION 94 % (94-100); ABG PCO2 46 MMHG (35-45); ABG PH 7.41 (7.37-7.43); ABG PO2 76 MMHG (79-93)
[2019-03-27 07:37] LABS: ALLENS TEST YES-POS; INSPIRED O2 80%; PATIENT TEMP 35.9; VENTILATOR NO
[2019-03-27] MEDS: PANTOPRAZOLE 40 MG (PROTONIX) VIAL IV SCH (08:07)
[2019-03-27] MEDS: ANIDULAFUNGIN INJECTION 100 MG in NS (IVPB) 100 ML IV SCH (08:07)
--- NOTE | 2019-03-27 08:41 | Progress Note ---
Subjective Date Seen by a Provider: Mar 27, 2019 Time Seen by a Provider: 08:30 Subjective/Events-last exam PT REPORTS THAT SHE IS NOT ABLE TO TOLERATE THE BIPAP AND SHE REPORTS THAT SHE DOES NOT FEEL SHORT OF BREATH ON THE VAPOTHERM. SHE REPORTS THAT SHE DOES NOT HAVE ANY CHEST PAIN, ABDOMINAL PAIN, NAUSEA, EMESIS, DIARRHEA. SHE STATES THAT SHE HAD STARTED TO FEEL POORLY LAST WEEK AND THOUGHT THAT SHE "HAD THE FLU" AND THAT SHE COULD JUST RIDE IT OUT AT HOME. SHE STATES THAT SHE BECAME PROGRESSIVELY MORE SHORT OF BREATH AND THEREFORE PRESENTED TO THE [facility] FOR EVALUATION WHERE SHE WAS FOUND TO HAVE RESPIRATORY FAILURE WITH PNEUMONIA. Review of Systems General: Fatigue, Malaise HEENT: No Head Aches Pulmonary: Other (SHORTNESS OF BREATH) Cardiovascular: No: Chest Pain, Palpitations Gastrointestinal: No: Nausea, Abdominal Pain Genitourinary: No Dysuria Musculoskeletal: No: back pain Neurological: Weakness; No: Confusion Focused Exam Lactate Level 03/25/19 19:03: Lactic Acid Level 1.64 Objective Exam Last Set of Vital Signs Vital Signs Date Time Temp Pulse Resp B/P (MAP) Pulse Ox O2 Delivery O2 Flow Rate FiO2 03/27/19 08:00 90 Vapotherm 40.00 90 03/27/19 08:00 74 26 128/82 (97) 03/26/19 23:53 35.9 Capillary Refill : Less Than 3 Seconds I&O l Intake and Output 03/27/19 00:00 Intake Total 4715 ml Output Total 4850 ml Balance -135 ml Intake Oral 1690 ml IV Total 3025 ml Output Urine Total 4850 ml General: Alert, Oriented X3, Cooperative, No Acute Distress HEENT: Atraumatic, PERRLA Neck: Supple Lungs: Other (DECREASED AIR MOVEMENT THROUGHOUT) Heart: Regular Rate, Other (TACHYCARDIA) Abdomen: Normal Bowel Sounds, Soft Skin: No Rashes Neuro: Cranial Nerves 3-12 NL Psych/Mental Status: Mental Status NL, Mood NL (FLAT) Results Lab Laboratory Tests 03/27/19 03:00: White Blood Count 2.9L, Red Blood Count 3.09L, Hemoglobin 9.3L, Hematocrit 28L, Mean Corpuscular Volume 91, Mean Corpuscular Hemoglobin 30, Mean Corpuscular H emoglobin Concent 33, Red Cell Distribution Width 16.9H, Platelet Count 248, Mean Platelet Volume 10.3, Neutrophils (%) (Auto) 88H, Lymphocytes (%) (Auto) 6L , Monocytes (%) (Auto) 6, Eosinophils (%) (Auto) 0, Basophils (%) (Auto) 0, Neutrophils # (Auto) 2.6, Lymphocytes # (Auto) 0.2L, Monocytes # (Auto) 0.2, Eosinophils # (Auto) 0.0, Basophils # (Auto) 0.0, Sodium Level 142, Potassium Level 3.5L, Chloride Level 105, Carbon Dioxide Level 24, Anion Gap 13, Blood Urea Nitrogen 11, Creatinine 0.67, Estimat Glomerular Filtration Rate > 60, BUN/Creatinine Ratio 16, Glucose Level 132H, Calcium Level 8.6, Phosphorus Level 3.6, Magnesium Level 1.3L, B-Type Natriuretic Peptide 113.9H 03/27/19 07:10: Blood Gas Puncture Site LR, Blood Gas Patient Temperature 35.9, Arterial Blood pH 7.41, Arterial Blood Partial Pressure CO2 46H, Arterial Blood Partial Pressure O2 76L, Arterial Blood HCO3 29H, Arterial Blood Total CO2 30.0, Arterial Blood Oxygen Saturation 94, Arterial Blood Base Excess 3.9H, Dewey Test YES-POS, Blood Gas Ventilator Setting NO, Blood Gas Inspired Oxygen 80% Microbiology 03/25/19 Blood Culture - Preliminary, Resulted No growth 03/26/19 Influenza Types A,B Antigen (JASON) - Final, Complete Radiology [facility], [facility]. POS [place], [place] POS NAME: [facility] DAVIS [facility] REC#: [id number] PT STATUS: ADM IN : 1950 PHYSICIAN: FOREIGN BERNSTEIN DO ADMIT DATE: 03/25/19/ICU Signed POSDate of Exam:03/27/19 CHEST 1 VIEW, AP/PA ONLY EXAMINATION: Chest 1 view HISTORY: Pneumonia. History of metastatic cancer. COMPARISON: 03/26/2019 FINDINGS: Stable left central line with the tip overlying the low SVC. Slight interval improvement in diffuse patchy consolidative opacities throughout the lungs, with the greatest improvement in the right midlung. No large pleural effusion or pneumothorax is seen. The cardiomediastinal silhouette is enlarged. No acute osseous abnormality is seen. IMPRESSION: 1. Slightly improved diffuse patchy consolidative opacities throughout the lungs, with the greatest improvement in the right midlung. 2. Stable cardiomegaly. Dictated by: Dictated on workstation # [id number] Dict: 03/27/1945 Trans: 03/27/19709 CV [id number] Interpreted by: NIRALI JOSEPH DO Electronically signed by: NIRALI JOSEPH DO 03/27[birth year]1910 Assessment/Plan Assessment/Plan Assess & Plan/Chief Complaint HEALTH CARE ASSOCIATED PNEUMONIA ACUTE RESPIRATORY FAILURE HYPOKALEMIA HYPOMAGNESEMIA HISTORY OF METASTATIC COLON CANCER HEALTH CARE ASSOCIATED PNEUMONIA WITH ACUTE RESPIRATORY FAILURE - PT ON ZOSYN, ANTIFUNGAL, AND WILL CONTINUE WITH CURRENT TREATMENT. - PT IS REFUSING BIPAP, SHE IS ON VAPOTHERM 100%, AND WILL CONTINUE WITH THIS TREATMENT - MONITOR CHEST XRAY SERIALLY - BREATHING TREATMENTS - START AEROBIKA HYPOKALEMIA AND HYPOMAGNESEMIA - PT ON REPLACEMENT PROTOCOL, CHECK LABS TOMORROW. HISTORY OF METASTATIC COLON CANCER - SUPPORTIVE CARE ONLY AT THIS TIME. - WILL HAVE TO RESCHEDULE HER APPT WITH DR. BUTTERFIELD IN [place] Clinical Quality Measures DVT/VTE Risk/Contraindication: Risk Factor Score Per Nursin RFS Level Per Nursing on Admit: 4+=Very High MANUEL CHAPIN MD Mar 27, 2019 08:41 POS
[2019-03-27] MEDS ORDERED: PARO20TA5 PO (09:23)
[2019-03-27] MEDS ORDERED: LISI10TA2 PO (09:23)
[2019-03-27] MEDS ORDERED: LEVO75TA6 PO (09:23)
[2019-03-27] MEDS ORDERED: OMEP20CA13 PO (09:23)
[2019-03-27] MEDS: ALPRAZolam 0.5 MG (XANAX) TAB PO PRN ×2 (13:32→21:10)
[2019-03-27] MEDS: CATHETER FLUSH 10 ML SYR IV PRN (21:10)
[2019-03-28] VITALS: BP 126/87
[2019-03-28] MEDS: methylPREDNISolone 40 MG/ML (Solu-MEDROL) VIAL IV SCH ×4 (00:14→18:25)
[2019-03-28] MEDS: RT-ALBUTEROL/IPRATROPIUM 3 ML (DUONEB) VIAL INH SCH ×6 (02:39→22:04)
[2019-03-28] MEDS: ENOXAPARIN 40 MG/0.4 ML (LOVENOX) SYR SC SCH (03:03)
[2019-03-28] MEDS: PIPERACILLIN/TAZO 4.5 GM/NS 100 ML IV SCH ×6 (03:03→18:25)
[2019-03-28 04:00] VITALS: BP 139/83
[2019-03-28 05:40] LABS: BASOPHILS % (AUTO) 0 % (0-10); EOSINOPHILS % (AUTO) 0 % (0-10); HEMATOCRIT 30 % (35-52); HEMOGLOBIN 9.7 G/DL (11.5-16.0); LYMPHOCYTES # (AUTO) 0.2 X 10^3 (1.0-4.0); LYMPHOCYTES % (AUTO) 6 % (12-44); MEAN CORPUSCULAR HEMOGLOBIN 30 PG (25-34); MEAN CORPUSCULAR HGB CONC 33 G/DL (32-36); MEAN CORPUSCULAR VOLUME 93 FL (80-99); MEAN PLATELET VOLUME 10.2 FL (7.4-10.4); MONOCYTES # (AUTO) 0.4 X 10^3 (0.0-1.0); MONOCYTES % (AUTO) 12 % (0-12); NEUTROPHILS # (AUTO) 2.8 X 10^3 (1.8-7.8); NEUTROPHILS % (AUTO) 82 % (42-75); PLATELET COUNT 267 10^3/uL (130-400); RED CELL DISTRIBUTION WIDTH 16.7 % (10.0-14.5); WHITE BLOOD COUNT 3.4 10^3/uL (4.3-11.0)
[2019-03-28 05:59] LABS: BUN/CREATININE RATIO 29; CALCIUM 9.2 MG/DL (8.5-10.1); CARBON DIOXIDE 28 MMOL/L (21-32); CHLORIDE 103 MMOL/L (98-107); CREATININE SERUM 0.58 MG/DL (0.60-1.30); GFR ESTIMATED > 60; GLUCOSE 113 MG/DL (70-105); MAGNESIUM 1.5 MG/DL (1.6-2.4); PHOSPHORUS 3.2 MG/DL (2.3-4.7); POTASSIUM 3.4 MMOL/L (3.6-5.0); SODIUM 144 MMOL/L (135-145)
[2019-03-28] MEDS: MAGNESIUM 1 GM/100 ML IVPB 100 ML IV SCH (06:13)
[2019-03-28] MEDS: POTASSIUM CL 10MEQ/50ML IVPB 50 ML IV SCH (06:13)
[2019-03-28] MEDS: KCL 20 MEQ TAB (K-DUR) PO SCH (06:14)
[2019-03-28] MEDS: KCL 10 MEQ TAB (MICRO K) PO SCH (06:54)
--- NOTE | 2019-03-28 07:02 | Diagnostic Imaging Report ---
INDICATION: Metastatic carcinoma, pneumonia. TECHNIQUE: Single view chest 4:06 AM. CORRELATION STUDY: 03/27/2019 FINDINGS: Extensive coarse bilateral pulmonary infiltrates are again demonstrated. More focal density with air bronchograms at the lung bases. The findings overall stable. Left-sided Zwejpr-p-Yrfn catheter unchanged. Heart size and mediastinum appear unchanged. IMPRESSION: 1. Extensive coarse 5 lobe infiltrate again demonstrated, overall appears generally stable. Findings most pronounced at the lung bases. Dictated by: Dictated on workstation # [id number]
[2019-03-28] MEDS: ALPRAZolam 0.5 MG (XANAX) TAB PO PRN ×2 (08:13→18:29)
[2019-03-28] MEDS: PANTOPRAZOLE 40 MG (PROTONIX) VIAL IV SCH (08:13)
[2019-03-28 08:15] VITALS: BP 116/71
--- NOTE | 2019-03-28 08:35 | Progress Note ---
Subjective Date Seen by a Provider: Mar 28, 2019 Time Seen by a Provider: 09:00 Subjective/Events-last exam PT REPORTS THAT SHE IS FEELING A LITTLE BIT BETTER TODAY COMPARED TO YESTERDAY. SHE REPORTS THAT SHE IS STILL SHORT OF BREATH, BUT HER ENERGY IS A LITTLE BIT IMPROVED. SHE STATES THAT SHE IS HAVING A HARD TIME GETTING MUCUS UP. SHE ALSO REPORTS THAT HER APPETITE IS NOT GREAT. Review of Systems General: Fatigue HEENT: No Head Aches, No Visual Changes Pulmonary: Dyspnea, Cough Cardiovascular: No: Chest Pain, Palpitations Gastrointestinal: Other (DECREASED APPETITE); No: Nausea, Abdominal Pain Genitourinary: No Dysuria Musculoskeletal: No: back pain Neurological: Weakness; No: Confusion Focused Exam Lactate Level 03/25/19 19:03: Lactic Acid Level 1.64 Objective Exam Last Set of Vital Signs Vital Signs Date Time Temp Pulse Resp B/P (MAP) Pulse Ox O2 Delivery O2 Flow Rate FiO2 03/28/19 06:25 89 Vapotherm 40.00 100 03/28/19 04:00 36.0 76 28 139/83 (101) Capillary Refill : Less Than 3 SecondsLess Than 3 Seconds I&O Intake and Output 03/28/19 00:00 Intake Total 1170 ml Output Total 3225 ml Balance -2055 ml Intake Oral 1050 ml IV Total 120 ml Output Urine Total 3225 ml Daily Weight Change Unsure/Unresponsive General: Alert, Oriented X3, Cooperative, No Acute Distress HEENT: Atraumatic, PERRLA Neck: Supple Lungs: Other (DECREASED THROUGHOUT) Heart: Regular Rate Abdomen: Normal Bowel Sounds, Soft, No Tenderness Extremities: No Cyanosis Skin: No Significant Lesion Neuro: Cranial Nerves 3-12 NL Psych/Mental Status: Mental Status NL, Mood NL Results Lab Laboratory Tests 03/28/19 05:35: White Blood Count 3.4L, Red Blood Count 3.20L, Hemoglobin 9.7L, Hematocrit 30L, Mean Corpuscular Volume 93, Mean Corpuscular Hemoglobin 30, Mean Corpuscular Hemoglobin Concent 33, Red Cell Distribution Width 16.7H, Platelet Count 267, Mean Platelet Volume 10.2, Neutrophils (%) (Auto) 82H, Lymphocytes (%) (Auto) 6L , Monocytes (%) (Auto) 12, Eosinophils (%) (Auto) 0, Basophils (%) (Auto) 0, Neutrophils # (Auto) 2.8, Lymphocytes # (Auto) 0.2L, Monocytes # (Auto) 0.4, Eosinophils # (Auto) 0.0, Basophils # (Auto) 0.0, Sodium Level 144, Potassium Level 3.4L, Chloride Level 103, Carbon Dioxide Level 28, Anion Gap 13, Blood Urea Nitrogen 17, Creatinine 0.58L, Estimat Glomerular Filtration Rate > 60, BUN/Creatinine Ratio 29, Glucose Level 113H, Calcium Level 9.2, Phosphorus Level 3.2, Magnesium Level 1.5L Microbiology 03/25/19 Blood Culture - Preliminary, Resulted No growth 03/26/19 Influenza Types A,B Antigen (JASON) - Final, Complete 03/25/19 Urine Culture - Preliminary, Resulted Culture In Progress Assessment/Plan Assessment/Plan Assess & Plan/Chief Complaint HEALTH CARE ASSOCIATED PNEUMONIA ACUTE RESPIRATORY FAILURE HYPOKALEMIA HYPOMAGNESEMIA HISTORY OF METASTATIC COLON CANCER HEALTH CARE ASSOCIATED PNEUMONIA WITH ACUTE RESPIRATORY FAILURE - PT ON ZOSYN, ANTIFUNGAL, AND WILL CONTINUE WITH CURRENT TREATMENT. - PT IS REFUSING BIPAP, SHE IS ON VAPOTHERM 100%, AND WILL CONTINUE WITH THIS TREATMENT - MONITOR CHEST XRAYS SERIALLY - BREATHING TREATMENTS - START AEROBIKA AND INCENTIVE SPIROMETRY HYPOKALEMIA AND HYPOMAGNESEMIA - PT OUT OF ICU, WILL CHECK LABS AND REPLACE NEEDED OFF OF PROTOCOL, CHECK LABS TOMORROW. HISTORY OF METASTATIC COLON CANCER - SUPPORTIVE CARE ONLY AT THIS TIME. - WILL HAVE TO RESCHEDULE HER APPT WITH DR. BUTTERFIELD IN [place] Clinical Quality Measures DVT/VTE Risk/Contraindication: Risk Factor Score Per Nursin RFS Level Per Nursing on Admit: 4+=Very High MANUEL CHAPIN MD Mar 28, 2019 08:35 POS
[2019-03-28] MEDS ORDERED: TROUGH ORDER-PHARMACY XX NR (09:00)
[2019-03-28] MEDS ORDERED: MAGNESIUM 1 GM/100 ML IVPB 100 ML IV ONE (09:00)
[2019-03-28] MEDS: ANIDULAFUNGIN INJECTION 100 MG in NS (IVPB) 100 ML IV SCH (09:51)
[2019-03-28] MEDS: guaiFENesin (MUCINEX) 600 MG TAB PO SCH ×2 (10:51→20:26)
[2019-03-28 11:26] VITALS: BP 107/59
--- NOTE | 2019-03-28 13:40 | Physical Therapy Progress Note ---
Therapy Progress Note Patient on hold per RT secondary to SAO2 82% on vapotherm at 100%. Will attempt in MIN Smart PT Mar 28, 2019 13:40 POS
[2019-03-28] MEDS ORDERED: LORazepam INJ 2 MG/ML (ATIVAN) VIAL IVP PRN (14:00)
--- NOTE | 2019-03-28 14:17 | Occ Therapy Progress Note ---
Therapy Progress Note Order received for OT eval and treat. Chart review completed. Spoke with RT who reports hold as pt's O2 sats are 82% on vapotherm and pt is refusing bi-pap. Will continue to follow and initiate therapy as indicated. ELLI ALONZO OT Mar 28, 2019 14:17 POS
[2019-03-28 16:17] VITALS: BP 113/64
[2019-03-28 19:46] VITALS: BP 134/67
[2019-03-28] MEDS: LORazepam 0.5 MG (ATIVAN) TABLET PO PRN (20:26)
[2019-03-29] VITALS (21 sets, daily range): BP systolic 76–223; BP diastolic 45–104
[2019-03-29] MEDS: RT-ALBUTEROL/IPRATROPIUM 3 ML (DUONEB) VIAL INH SCH ×6 (01:57→22:32)
[2019-03-29] MEDS: ENOXAPARIN 40 MG/0.4 ML (LOVENOX) SYR SC SCH (04:01)
[2019-03-29] MEDS: PIPERACILLIN/TAZO 4.5 GM/NS 100 ML IV SCH ×6 (04:01→20:33)
[2019-03-29 04:08] LABS: BASOPHILS % (AUTO) 0 % (0-10); EOSINOPHILS % (AUTO) 0 % (0-10); HEMATOCRIT 28 % (35-52); HEMOGLOBIN 9.2 G/DL (11.5-16.0); LYMPHOCYTES # (AUTO) 0.3 X 10^3 (1.0-4.0); LYMPHOCYTES % (AUTO) 7 % (12-44); MEAN CORPUSCULAR HEMOGLOBIN 30 PG (25-34); MEAN CORPUSCULAR HGB CONC 33 G/DL (32-36); MEAN CORPUSCULAR VOLUME 92 FL (80-99); MEAN PLATELET VOLUME 10.2 FL (7.4-10.4); MONOCYTES # (AUTO) 0.6 X 10^3 (0.0-1.0); MONOCYTES % (AUTO) 16 % (0-12); NEUTROPHILS % (AUTO) 77 % (42-75); PLATELET COUNT 277 10^3/uL (130-400); RED CELL DISTRIBUTION WIDTH 17.5 % (10.0-14.5); WHITE BLOOD COUNT 3.9 10^3/uL (4.3-11.0)
[2019-03-29 04:29] LABS: BUN/CREATININE RATIO 19; CALCIUM 8.8 MG/DL (8.5-10.1); CARBON DIOXIDE 27 MMOL/L (21-32); CHLORIDE 105 MMOL/L (98-107); CREATININE SERUM 0.68 MG/DL (0.60-1.30); GFR ESTIMATED > 60; GLUCOSE 117 MG/DL (70-105); MAGNESIUM 1.3 MG/DL (1.6-2.4); POTASSIUM 3.3 MMOL/L (3.6-5.0); SODIUM 146 MMOL/L (135-145)
[2019-03-29] MEDS: methylPREDNISolone 40 MG/ML (Solu-MEDROL) VIAL IV SCH ×4 (06:18→17:52)
[2019-03-29] MEDS: KCL 20 MEQ TAB (K-DUR) PO SCH (06:19)
[2019-03-29] MEDS: KCL 10 MEQ TAB (MICRO K) PO SCH (06:22)
[2019-03-29] MEDS: guaiFENesin (MUCINEX) 600 MG TAB PO SCH ×3 (08:07→22:15)
[2019-03-29] MEDS: PANTOPRAZOLE 40 MG (PROTONIX) VIAL IV SCH (08:07)
[2019-03-29] MEDS: LORazepam 0.5 MG (ATIVAN) TABLET PO PRN ×3 (08:07→22:11)
[2019-03-29] MEDS ORDERED: LORazepam INJ 2 MG/ML (ATIVAN) VIAL IVP ONE (08:30)
--- NOTE | 2019-03-29 08:45 | Progress Note ---
Subjective Date Seen by a Provider: Mar 29, 2019 Time Seen by a Provider: 08:20 Subjective/Events-last exam PT REPORTS THAT SHE IS SHORT OF BREATH, STAFF NOTES THAT HER OXYGEN SATURATION IS AT 72%. SHE IS NOT IN SEVERE DISTRESS, BUT SHE IS ANXIOUS AND STATES THAT SHE IS CLAUSTROPHOBIC AND IS NOT WANTING TO HAVE BIPAP PLACED DUE TO THE SENSATION OF SUFFOCATION FROM HER CLAUSTROPHOBIA THAT INCREASES WHEN SHE IS ON THE BIPAP. SHE HAS AGREED, AFTER DISCUSSION, TO A TRIAL OF BIPAP. SHE IS NOT INTERESTED IN INTUBATION, AND WHEN ASKED IF I COULD CALL HER FAMILY, SHE STATED "NO- I CAN CALL [facility], BUT I DON'T WANT ANYONE ELSE TO KNOW." Review of Systems General: Fatigue, Malaise HEENT: No Head Aches, No Dysphasia Pulmonary: Dyspnea; No Cough Cardiovascular: No: Chest Pain, Palpitations Gastrointestinal: No: Nausea, Abdominal Pain Neurological: Weakness; No: Confusion Objective Exam Last Set of Vital Signs Vital Signs Date Time Temp Pulse Resp B/P (MAP) Pulse Ox O2 Delivery O2 Flow Rate FiO2 03/29/19 07:48 68 Vapotherm 40.00 100 03/29/19 07:25 35.8 92 24 154/82 (106) Capillary Refill : Less Than 3 SecondsLess Than 3 Seconds I&O Intake and Output 03/29/19 00:00 Intake Total 1230 ml Output Total 725 ml Balance 505 ml Intake Oral 1000 ml IV Total 230 ml Output Urine Total 725 ml General: Alert, Oriented X3, Cooperative, Moderate Distress HEENT: Atraumatic, PERRLA Neck: Supple Lungs: Other (DECREASED THROUGHOUT) Heart: Other (TACHYCARDIA) Abdomen: Normal Bowel Sounds, Soft Extremities: No Clubbing Neuro: Normal Speech, Cranial Nerves 3-12 NL Psych/Mental Status: Mental Status NL, Mood NL Results Lab Laboratory Tests 03/29/19 04:00: White Blood Count 3.9L, Red Blood Count 3.03L, Hemoglobin 9.2L, Hematocrit 28L, Mean Corpuscular Volume 92, Mean Corpuscular Hemoglobin 30, Mean Corpuscular Hemoglobin Concent 33, Red Cell Distribution Width 17.5H, Platelet Count 277, Mean Platelet Volume 10.2, Neutrophils (%) (Auto) 77H, Lymphocytes (%) (Auto) 7L , Monocytes (%) (Auto) 16H, Eosinophils (%) (Auto) 0, Basophils (%) (Auto) 0, Neutrophils # (Auto) 3.0, Lymphocytes # (Auto) 0.3L, Monocytes # (Auto) 0.6, Eosinophils # (Auto) 0.0, Basophils # (Auto) 0.0, Sodium Level 146H, Potassium Level 3.3L, Chloride Level 105, Carbon Dioxide Level 27, Anion Gap 14, Blood Urea Nitrogen 13, Creatinine 0.68, Estimat Glomerular Filtration Rate > 60, BUN/Creatinine Ratio 19, Glucose Level 117H, Calcium Level 8.8, Phosphorus Level 7.0H, Magnesium Level 1.3L Microbiology 03/25/19 Blood Culture - Preliminary, Resulted No growth 03/26/19 Influenza Types A,B Antigen (JASON) - Final, Complete 03/25/19 Urine Culture - Preliminary, Resulted Enterococcus faecalis Assessment/Plan Assessment/Plan Assess & Plan/Chief Complaint HEALTH CARE ASSOCIATED PNEUMONIA ACUTE RESPIRATORY FAILURE HYPOKALEMIA HYPOMAGNESEMIA HISTORY OF METASTATIC COLON CANCER HEALTH CARE ASSOCIATED PNEUMONIA WITH ACUTE RESPIRATORY FAILURE - PT ON ZOSYN, ANTIFUNGAL, AND WILL CONTINUE WITH CURRENT TREATMENT. - PT AGREES TO A MODIFIED BIPAP VIA A TUBE IN HER MOUTH, WILL ALSO CONTINUE WITH VAPOTHERM 100%, TO OFFER SUPPORTIVE OXYGENATION SHE IS ON THE MODIFIED BIPAP SINCE SHE CAN TAKE THE TUBE OUT OF HER MOUTH TO ALLOW FOR HER TO OVERCOME THE CLAUSTROPHOBIA ASSOCIATED WITH THE CONVENTIONAL BIPAP MASK. - CHEST XRAY CONTINUES TO SHOW FIVE LOBE PNEUMONIA - CONTINUE TO MONITOR CHEST XRAYS SERIALLY - CONTINUE WITH BREATHING TREATMENTS - STARTED AEROBIKA AND INCENTIVE SPIROMETRY HYPOKALEMIA AND HYPOMAGNESEMIA - STABLE WILL CHECK LABS AND REPLACE NEEDED OFF OF PROTOCOL, CHECK LABS TOMORROW. HYPERPHOSPHATEMIA - REPEAT PHOS LAB TODAY HISTORY OF METASTATIC COLON CANCER - SUPPORTIVE CARE ONLY AT THIS TIME. - WILL HAVE TO RESCHEDULE HER APPT WITH DR. BUTTERFIELD IN [place] Clinical Quality Measures DVT/VTE Risk/Contraindication: Risk Factor Score Per Nursin RFS Level Per Nursing on Admit: 4+=Very High MANUEL CHAPIN MD Mar 29, 2019 08:45 POS
[2019-03-29] MEDS ORDERED: SALIVA STIMULANT MOUTH SPRAY (BIOTENE) 1.5 OZ MM PRN (09:00)
--- NOTE | 2019-03-29 09:02 | Diagnostic Imaging Report ---
INDICATION: Pneumonia and metastatic cancer. COMPARISON: 03/28/2019. FINDINGS: There is cardiomegaly. There is diffuse bilateral airspace disease. There is no pneumothorax. A Infusaport catheter overlies the left hemithorax. IMPRESSION: Cardiomegaly and unchanged diffuse bilateral airspace disease. Dictated by: Dictated on workstation # [id number]
[2019-03-29] MEDS: ANIDULAFUNGIN INJECTION 100 MG in NS (IVPB) 100 ML IV SCH (09:28)
--- NOTE | 2019-03-29 09:28 | Physical Therapy Progress Note ---
Therapy Progress Note Patient on hold right now per nursing. Patient's O2 sats are 95% but nurse states it took a couple of hours to get her above 90%. Patient's O2 sats drop just saying a few words to therapist about not having any clothes on except for a gown. Will check back tomorrow. JANET SHI PT Mar 29, 2019 09:28 POS
--- NOTE | 2019-03-29 10:33 | Occ Therapy Progress Note ---
Therapy Progress Note Pt on hold for therapy at this time per RN secondary to respiratory status. Will follow up tomorrow. ELLI ALONZO OT Mar 29, 2019 10:33 POS
[2019-03-29] MEDS: NS IV 1000 ML 1,000 ML IV SCH ×2 (10:40→19:32)
[2019-03-29] MEDS ORDERED: proPOfol 200 MG/20 ML (DIPRIVAN) VIAL IV ONE (18:01)
[2019-03-29] MEDS ORDERED: NS IV 500 ML 500 ML ONE (18:02)
[2019-03-29 18:30] LABS: ABG BASE EXCESS 5.1 MMOL/L (-2.5-2.5); ABG OXYGEN SATURATION 97 % (94-100); ABG PCO2 43 MMHG (35-45); ABG PH 7.44 (7.37-7.43); ABG PO2 95 MMHG (79-93); ABG TCO2 30.7 MMOL/L (21.0-31.0)
[2019-03-29 18:31] LABS: ALLENS TEST POSITIVE; INSPIRED O2 40 L; PATIENT TEMP 36.3; VENTILATOR NO
[2019-03-29] MEDS ORDERED: PROPOFOL DRIP (ICU) 100 ML IV ONE (18:48)
--- NOTE | 2019-03-29 19:04 | Anesthesia-Procedure Note ---
Procedures/Interventions Procedure Start/Stop/Diagnosis Date of Procedure: Mar 29, 2019 Start Time: 18:50 Stop Time: 19:15 Intubation RSI: Yes 100% pre-Ox, [id number]: Yes Intubation Method: orotracheal Videoscope used: Yes Grade View: 1 Medications: Propofol (100 MG), Succinylcholine (80 MG), Versed (2 MG) Mask Ventilation: positive Positive End Tide CO2: Yes Breath Sounds after Intubation: bilateral-equal ETT Securred @ (cm): 21 Intubated with ease: Yes Intubation Complications: no complications Post Intubation Xray-done: Yes Arterial Line Arterial Line Catheter: 20G Type: Radial Location: Right Procedure: prepped, draped in sterile fashion, good wave-form was obtained, patient tolerated procedure well, no immediate complications, post procedure area cleaned NOLA HOLDEN CRNA Mar 29, 2019 19:04 POS
--- NOTE | 2019-03-29 19:12 | Diagnostic Imaging Report ---
INDICATION: Post intubation. COMPARISON STUDY: Chest from earlier today. FINDINGS: A portable supine view of the chest demonstrates interval intubation with endotracheal tube 1.3 cm into the right mainstem bronchus. This needs to be pulled back approximately 2 cm. Bilateral pulmonary infiltrates are stable. No new areas of atelectasis are present. There are no significant effusions. IMPRESSION: 1. Interval intubation with endotracheal tube in the right mainstem bronchus. This should be pulled back 2 cm. 2. Stable bilateral pulmonary infiltrates. Dictated by: Dictated on workstation # [id number]
[2019-03-29] MEDS: PROPOFOL DRIP (ICU) 100 ML IV SCH (19:20)
[2019-03-29] MEDS ORDERED: hydrALAZINE (APESOLINE) 20 MG/ML VIAL ONE (19:40)
[2019-03-29 19:58] LABS: ABG BASE EXCESS 2.8 MMOL/L (-2.5-2.5); ABG OXYGEN SATURATION 97 % (94-100); ABG PO2 122 MMHG (79-93); ABG TCO2 32.3 MMOL/L (21.0-31.0); ALLENS TEST ART LINE
[2019-03-29 19:59] LABS: INSPIRED O2 100%; PATIENT TEMP 36.5; VENTILATOR YES
[2019-03-29] MEDS ORDERED: hydrALAZINE (APESOLINE) 20 MG/ML VIAL IV PRN (20:00)
[2019-03-29 20:01] LABS: ABG PCO2 75 MMHG (35-45); ABG PH 7.22 (7.37-7.43)
[2019-03-29] MEDS: fentaNYL INJECTION 100 MCG/2 ML AMP IV PRN ×4 (20:01→21:56)
[2019-03-29] MEDS ORDERED: MIDAZOLAM 5 MG/5 ML (VERSED) VIAL IJ ONE (20:26)
[2019-03-29] MEDS ORDERED: SUCCINYLCHOLINE INJ 100 MG/5 ML SYR INJ ONE (20:26)
[2019-03-29] MEDS ORDERED: ROCURONIUM 10 MG/ML 5 ML SYRINGE IV ONE (20:26)
[2019-03-29] MEDS ORDERED: LACTATED RINGERS 1,000 ML IV ONE (20:44)
[2019-03-29] MEDS: fentaNYL 1,250 MCG/NS 250 ML DRIP IV SCH ×2 (20:50)
[2019-03-29] MEDS ORDERED: LACTATED RINGERS 500 ML IV SCH (22:00)
[2019-03-29] MEDS ORDERED: LACTATED RINGERS 250 ML IV SCH (22:00)
[2019-03-30] VITALS (30 sets, daily range): BP systolic 70–167; BP diastolic 50–90
[2019-03-30] MEDS: fentaNYL INJECTION 100 MCG/2 ML AMP IV PRN (00:03)
[2019-03-30] MEDS ORDERED: LORazepam INJ 2 MG/ML (ATIVAN) VIAL IVP ONE ×2 (01:00→08:00)
[2019-03-30] MEDS ORDERED: fentaNYL INJECTION 100 MCG/2 ML AMP IV PRN (01:30)
[2019-03-30] MEDS: methylPREDNISolone 40 MG/ML (Solu-MEDROL) VIAL IV SCH ×5 (01:30→23:51)
[2019-03-30] MEDS: PIPERACILLIN/TAZO 4.5 GM/NS 100 ML IV SCH ×6 (03:18→18:25)
[2019-03-30] MEDS: ENOXAPARIN 40 MG/0.4 ML (LOVENOX) SYR SC SCH (03:18)
[2019-03-30] MEDS: RT-ALBUTEROL/IPRATROPIUM 3 ML (DUONEB) VIAL INH SCH ×6 (03:20→22:02)
[2019-03-30 03:30] LABS: ABG BASE EXCESS 3.3 MMOL/L (-2.5-2.5); ABG OXYGEN SATURATION 94 % (94-100); ABG PCO2 52 MMHG (35-45); ABG PH 7.36 (7.37-7.43); ABG PO2 67 MMHG (79-93); ABG TCO2 30.2 MMOL/L (21.0-31.0); BASOPHILS # (AUTO) 0.1 10^3/uL (0.0-0.1); BASOPHILS % (AUTO) 1 % (0-10); EOSINOPHILS % (AUTO) 0 % (0-10); HEMATOCRIT 27 % (35-52); HEMOGLOBIN 8.6 G/DL (11.5-16.0); LYMPHOCYTES # (AUTO) 0.3 X 10^3 (1.0-4.0); LYMPHOCYTES % (AUTO) 5 % (12-44); MEAN CORPUSCULAR HEMOGLOBIN 30 PG (25-34); MEAN CORPUSCULAR HGB CONC 32 G/DL (32-36); MEAN CORPUSCULAR VOLUME 95 FL (80-99); MONOCYTES # (AUTO) 0.9 X 10^3 (0.0-1.0); MONOCYTES % (AUTO) 15 % (0-12); NEUTROPHILS # (AUTO) 4.5 X 10^3 (1.8-7.8); NEUTROPHILS % (AUTO) 78 % (42-75); PLATELET COUNT 224 10^3/uL (130-400); RED CELL DISTRIBUTION WIDTH 17.8 % (10.0-14.5); WHITE BLOOD COUNT 5.7 10^3/uL (4.3-11.0)
[2019-03-30 03:31] LABS: ALLENS TEST ART LINE; INSPIRED O2 90%; PATIENT TEMP 36.4; VENTILATOR YES
[2019-03-30] MEDS: PROPOFOL DRIP (ICU) 100 ML IV SCH ×6 (03:51→21:12)
[2019-03-30 03:52] LABS: BUN/CREATININE RATIO 27; CALCIUM 8.3 MG/DL (8.5-10.1); CARBON DIOXIDE 26 MMOL/L (21-32); CHLORIDE 111 MMOL/L (98-107); CREATININE SERUM 0.59 MG/DL (0.60-1.30); GFR ESTIMATED > 60; GLUCOSE 111 MG/DL (70-105); MAGNESIUM 1.3 MG/DL (1.6-2.4); PHOSPHORUS 2.8 MG/DL (2.3-4.7); POTASSIUM 3.8 MMOL/L (3.6-5.0); SODIUM 147 MMOL/L (135-145)
[2019-03-30] MEDS ORDERED: NS (IVPB) 50 ML ONE (04:02)
--- NOTE | 2019-03-30 04:12 | Pulmonary Progress Note ---
Sepsis Event Evaluation Height, Weight, BMI Height: 5'6.00" Weight: 147lbs. 0.0oz. 66.776487xd; 24.64 BMI Method:Stated Exam Exam Vital Signs Date Time Temp Pulse Resp B/P (MAP) Pulse Ox O2 Delivery O2 Flow Rate FiO2 03/30/19 03:51 136/66 03/30/19 03:38 36.4 03/30/19 03:29 36.4 03/30/19 03:20 121 26 97 90 03/30/19 03:00 108 15 153/70 (97) 95 Mechanical Ventilator 80.00 03/30/19 02:24 Mechanical Ventilator 90.00 03/30/19 02:00 111 16 128/63 (84) 96 Mechanical Ventilator 80.00 03/30/19 01:54 Mechanical Ventilator 80.00 03/30/19 01:45 Mechanical Ventilator 90.00 03/30/19 01:35 Mechanical Ventilator 100.00 03/30/19 01:00 116 16 86/50 (62) 92 Mechanical Ventilator 90.00 03/30/19 01:00 116 03/30/19 00:00 36.9 03/30/19 00:00 Mechanical Ventilator 100 03/30/19 00:00 118 14 111/57 (75) 96 Mechanical Ventilator 90.00 03/29/19 23:00 122 15 95/49 (64) 96 Mechanical Ventilator 90.00 03/29/19 22:49 Mechanical Ventilator 90.00 03/29/19 22:34 121 26 97 100 03/29/19 22:08 Mechanical Ventilator 100.00 03/29/19 22:06 Mechanical Ventilator 95.00 03/29/19 22:00 123 19 94/45 (61) 92 Mechanical Ventilator 90.00 03/29/19 21:59 Mechanical Ventilator 90.00 03/29/19 21:00 146 30 123/58 (79) 94 Mechanical Ventilator 80.00 03/29/19 20:45 151 26 138/66 (90) 93 Mechanical Ventilator 80.00 03/29/19 20:30 149 27 130/62 (84) 94 Mechanical Ventilator 80.00 03/29/19 20:15 147 31 150/68 (95) 94 Mechanical Ventilator 80.00 03/29/19 20:02 140 15 130/60 (83) 95 Mechanical Ventilator 80.00 03/29/19 20:00 141 16 142/65 (90) 94 Mechanical Ventilator 100.00 03/29/19 20:00 Mechanical Ventilator 80 03/29/19 20:00 36.8 03/29/19 19:57 95 Mechanical Ventilator 40.00 100 03/29/19 19:45 137 15 190/88 (122) 96 Mechanical Ventilator 100.00 03/29/19 19:30 134 15 223/104 (143) 97 Mechanical Ventilator 100.00 03/29/19 19:20 198/90 03/29/19 19:15 120 16 182/83 (116) 97 Mechanical Ventilator 100.00 03/29/19 19:08 115 20 124/93 (103) 97 Mechanical Ventilator 100.00 03/29/19 19:00 112 03/29/19 19:00 112 28 101/70 (80) 94 Mechanical Ventilator 100.00 03/29/19 18:55 Mechanical Ventilator 100.00 03/29/19 18:07 36.3 03/29/19 18:00 Vapotherm 40.00 100 03/29/19 18:00 111 118/85 (96) 91 Vapotherm 40.00 100.00 03/29/19 17:51 113 03/29/19 17:40 115 26 117/76 (90) 96 Vapotherm 40.00 100.00 03/29/19 16:42 35.8 122 60 137/79 (98) 93 Vapotherm 40.00 100.00 03/29/19 15:31 113 54 94 100.00 03/29/19 11:54 35.9 127 24 140/83 (102) 94 Vapotherm 40.00 100.00 03/29/19 10:59 113 57 95 100.00 03/29/19 09:33 Vapotherm 40.00 03/29/19 08:30 132 43 76 100.00 03/29/19 07:48 68 Vapotherm 40.00 100 03/29/19 07:25 35.8 92 24 154/82 (106) 92 Vapotherm 40.00 100.00 03/29/19 04:10 36.5 95 20 144/82 (102) 96 Vapotherm 40.00 100.00 I & O 03/30/19 07:00 Intake Total 2020 ml Output Total 725 ml Balance 1295 ml Height & Weight Height: 5'6.00" Weight: 147lbs. 0.0oz. 66.223027zb; 24.64 BMI Method:Stated General Appearance: Chronically ill, Mild Distress HEENT: PERRL/EOMI, Other (wearing BiPAP mask) Respiratory: Decreased Breath Sounds, Other (tachypnea) Cardiovascular: Regular Rate, Rhythm, No Edema, No Murmur Capillary Refill: Less Than 3 Seconds Gastrointestinal: normal bowel sounds, non tender Extremity: Normal Inspection, Non Tender, No Pedal Edema Neurologic/Psychiatric: Alert, Oriented x3 Skin: Normal Color, Warm/Dry Results Lab Laboratory Tests 03/28/19 05:35 03/29/19 04:00 03/30/19 03:25 Assessment/Plan Assessment/Plan Acute on chronic respiratory failure -Pt was transferred to ICU and intubated last night. -Propofol, Fentanyl Add Precedex -Continue solumedrol Hypotension - secondary to sedation Hypernatremia Add free water 250cc Q 4hours Bilateral PNA - zosyn and Eraxis -Louie cultures -IVF -will start Solumedrol - secondary to inflammatory changes on CT of chest Metastatic lung cancer -Last chemo 03/21 Elevated LFTs -monitor FOREIGN BERNSTEIN DO Mar 30, 2019 04:12 POS
[2019-03-30] MEDS ORDERED: MAGNESIUM 1 GM/100 ML IVPB 400 ML IV ONE (04:35)
[2019-03-30] MEDS: DEXMEDETOMIDINE INJECTION 200 MCG in NS (IVPB) 50 ML IV SCH ×2 (05:27→07:21)
[2019-03-30] MEDS: MAGNESIUM 1 GM/100 ML IVPB 100 ML IV SCH ×4 (05:46→07:46)
--- NOTE | 2019-03-30 06:11 | Diagnostic Imaging Report ---
CHEST 1 VIEW, AP/PA ONLY Indication: Intubation Comparison: Earlier the same day at 0101 Findings: ET tube has tip 1.5 cm above the benjamin, similar to prior exam. Stable left subclavian Port-A-Cath. Enteric tube courses into the stomach and off the [id number]. Diffuse bilateral pulmonary opacities are unchanged. Probable small left pleural effusion is unchanged. No pneumothorax. Stable cardiomediastinal silhouette. Impression: 1. Stable ET tube with tip 1.5 cm above the benjamin. 2. Other support devices are also stable. 3. No change in diffuse bilateral pulmonary opacities. Dictated by: Dictated on workstation # [id number]
--- NOTE | 2019-03-30 07:12 | Diagnostic Imaging Report ---
INDICATION: Pneumonia and metastatic cancer Comparison made with prior examination 03/29/2019. FINDINGS: There is cardiomegaly. The endotracheal tube and nasogastric tube are in satisfactory position. [id number] catheter overlies the left hemithorax and has its tip in the superior vena cava. There is unchanged bilateral airspace disease. There is no pleural effusion or pneumothorax. IMPRESSION: Cardiomegaly and unchanged bilateral airspace disease. Dictated by: Dictated on workstation # [id number]
[2019-03-30] MEDS: KCL 10 MEQ TAB (MICRO K) PO SCH (07:20)
[2019-03-30 07:22] LABS: ABG BASE EXCESS 1.5 MMOL/L (-2.5-2.5); ABG OXYGEN SATURATION 99 % (94-100); ABG PCO2 64 MMHG (35-45); ABG PO2 124 MMHG (79-93)
[2019-03-30 07:25] LABS: ABG PH 7.26 (7.37-7.43); ALLENS TEST ART LINE; INSPIRED O2 70%; VENTILATOR YES
[2019-03-30 07:26] LABS: PATIENT TEMP 36.4
[2019-03-30] MEDS ORDERED: ROCURONIUM 10 MG/ML 5 ML SYRINGE IV ONE (08:00)
--- NOTE | 2019-03-30 08:01 | Physical Therapy Progress Note ---
Therapy Progress Note Patient transferred to ICU and is currently intubated and sedated. PT will require new orders when patient is deemed medically stable and able to actively participate with skilled therapy. MIN HUDSON PT Mar 30, 2019 08:01 POS
[2019-03-30] MEDS: fentaNYL 1,250 MCG/NS 250 ML DRIP IV SCH ×6 (08:18→21:11)
[2019-03-30] MEDS: PANTOPRAZOLE 40 MG (PROTONIX) VIAL IV SCH (08:21)
[2019-03-30] MEDS: guaiFENesin (MUCINEX) 600 MG TAB PO SCH ×2 (08:30→20:28)
[2019-03-30] MEDS: NS IV 1000 ML 1,000 ML IV SCH ×2 (08:35→20:37)
--- NOTE | 2019-03-30 08:57 | Diagnostic Imaging Report ---
Portable erect chest at 8:24. In the interval since the exam performed earlier today at 5:52 a.m., the et tube tip has been retracted. The tip now lies approximately 3.1 cm cephalad to the benjamin. The overall appearance of the chest itself has not changed significantly. There is a better inspiratory effort on this study and the alveolar/interstitial pulmonary infiltrates in both lungs do seem less conspicuous. The heart is stable in size. Impression: 1. The ET tube tip has been retracted and now appears to be in better position overlying the midportion of tracheal air shadow. 2. The appearance of the chest has improved with a better inspiratory effort. Overall however there does not appear to been any significant change. There are still diffuse alveolar/interstitial pulmonary infiltrates bilaterally. Dictated by: Dictated on workstation # [id number]
--- NOTE | 2019-03-30 09:03 | Progress Note ---
Subjective Date Seen by a Provider: Mar 30, 2019 Time Seen by a Provider: 08:50 Subjective/Events-last exam PT REPORTS THAT SHE IS FEELING FATIGUED. SHE STATES THAT SHE DOES FEEL LIKE SHE IS STRUGGLING TO BREATHE, BUT SHE IS AFRAID OF THE BIPAP BECAUSE SHE IS CLAUSTROPHOBIC. SHE STATES THAT SHE IS WILLING TO TRY A MODIFIED BIPAP OR IS WILLING TO TRY IT IF SHE CAN TAKE IT ON AND OFF DUE TO HER CLAUSTROPHOBIA. Review of Systems General: No Chills; Fatigue, Malaise HEENT: No Head Aches Pulmonary: Dyspnea, Cough Cardiovascular: No: Chest Pain Gastrointestinal: No: Nausea, Abdominal Pain Genitourinary: No Dysuria Neurological: Weakness; No: Confusion Objective Exam Last Set of Vital Signs Vital Signs Date Time Temp Pulse Resp B/P (MAP) Pulse Ox O2 Delivery O2 Flow Rate FiO2 03/30/19 08:00 114/63 03/30/19 06:33 93 24 97 100 03/30/19 06:00 Mechanical Ventilator 70.00 03/30/19 03:38 36.4 Capillary Refill : Less Than 3 SecondsLess Than 3 Seconds I&O Intake and Output 03/30/19 00:00 Intake Total 2200 ml Output Total 750 ml Balance 1450 ml Intake Oral 700 ml IV Total 1500 ml Output Urine Total 750 ml General: Alert, Oriented X3, Cooperative, Moderate Distress HEENT: Atraumatic Neck: Supple Lungs: Other (DECREASED THROUGHOUT) Heart: Other (TACHYCARDIA) Extremities: No Clubbing Skin: No Breakdown Psych/Mental Status: Mental Status NL, Mood NL Results Lab Laboratory Tests 03/29/19 09:20: Phosphorus Level 2.6 03/29/19 18:26: Blood Gas Puncture Site RIGHT RADIAL, Blood Gas Patient Temperature 36.3, Arterial Blood pH 7.44H, Arterial Blood Partial Pressure CO2 43, Arterial Blood Partial Pressure O2 95H, Arterial Blood HCO3 29H, Arterial Blood Total CO2 30.7, Arterial Blood Oxygen Saturation 97, Arterial Blood Base Excess 5.1H, Dewey Test POSITIVE, Blood Gas Ventilator Setting NO, Blood Gas Inspired Oxygen 40 L 03/29/19 19:50: Blood Gas Puncture Site R CARLOS, Blood Gas Patient Temperature 36.5, Arterial Blood pH 7.22*L, Arterial Blood Partial Pressure CO2 75*H, Arterial Blood Partial Pressure O2 122H, Arterial Blood HCO3 30H, Arterial Blood Total CO2 32.3H, Arterial Blood Oxygen Saturation 97, Arterial Blood Base Excess 2.8H, Dewey Test ART LINE, Blood Gas Ventilator Setting YES, Blood Gas Inspired Oxygen 100% 03/29/19 23:57: Glucometer 130H 03/30/19 03:24: B-Type Natriuretic Peptide 151.8H 03/30/19 03:25: White Blood Count 5.7, Red Blood Count 2.85L, Hemoglobin 8.6L, Hematocrit 27L, Mean Corpuscular Volume 95, Mean Corpuscular Hemoglobin 30, Mean Corpuscular Hemoglobin Concent 32, Red Cell Distribution Width 17.8H, Platelet Count 224, Mean Platelet Volume 10.0, Neutrophils (%) (Auto) 78H, Lymphocytes (%) (Auto) 5L , Monocytes (%) (Auto) 15H, Eosinophils (%) (Auto) 0, Basophils (%) (Auto) 1, Neutrophils # (Auto) 4.5, Lymphocytes # (Auto) 0.3L, Monocytes # (Auto) 0.9, Eosinophils # (Auto) 0.0, Basophils # (Auto) 0.1, Blood Gas Puncture Site R CARLOS, Blood Gas Patient Temperature 36.4, Arterial Blood pH 7.36L, Arterial Blood Partial Pressure CO2 52H, Arterial Blood Partial Pressure O2 67L, Arterial Blood HCO3 29H, Arterial Blood Total CO2 30.2, Arterial Blood Oxygen Saturation 94, Arterial Blood Base Excess 3.3H, Dewey Test ART LINE, Blood Gas Ventilator Setting YES, Blood Gas Inspired Oxygen 90%, Sodium Level 147H, Potassium Level 3.8, Chloride Level 111H, Carbon Dioxide Level 26, Anion Gap 10, Blood Urea Nitrogen 16, Creatinine 0.59L, Estimat Glomerular Filtration Rate > 60, BUN/Creatinine Ratio 27, Glucose Level 111H, Calcium Level 8.3L, Phosphorus Level 2.8, Magnesium Level 1.3L 03/30/19 07:15: Blood Gas Puncture Site ART LINE, Blood Gas Patient Temperature 36.4, Arterial Blood pH 7.26*L, Arterial Blood Partial Pressure CO2 64H, Arterial Blood Partial Pressure O2 124H, Arterial Blood HCO3 28H, Arterial Blood Total CO2 30.0, Arterial Blood Oxygen Saturation 99, Arterial Blood Base Excess 1.5, Dewey Test ART LINE, Blood Gas Ventilator Setting YES, Blood Gas Inspired Oxygen 70% Microbiology 03/25/19 Blood Culture - Preliminary, Resulted No growth 03/26/19 Influenza Types A,B Antigen (JASON) - Final, Complete 03/25/19 Urine Culture - Final, Complete Enterococcus faecalis Assessment/Plan Assessment/Plan Assess & Plan/Chief Complaint HEALTH CARE ASSOCIATED PNEUMONIA ACUTE RESPIRATORY FAILURE HYPOKALEMIA HYPOMAGNESEMIA HISTORY OF METASTATIC COLON CANCER HEALTH CARE ASSOCIATED PNEUMONIA WITH ACUTE RESPIRATORY FAILURE - PT ON ZOSYN, ANTIFUNGAL, AND WILL CONTINUE WITH CURRENT TREATMENT. - PT AGREES TO A MODIFIED BIPAP VIA A TUBE IN HER MOUTH, WILL ALSO CONTINUE WITH VAPOTHERM 100%, TO OFFER SUPPORTIVE OXYGENATION SHE IS ON THE MODIFIED BIPAP SINCE SHE CAN TAKE THE TUBE OUT OF HER MOUTH TO ALLOW FOR HER TO OVERCOME THE CLAUSTROPHOBIA ASSOCIATED WITH THE CONVENTIONAL BIPAP MASK. - CHEST XRAY CONTINUES TO SHOW FIVE LOBE PNEUMONIA - CONTINUE TO MONITOR CHEST XRAYS SERIALLY - CONTINUE WITH BREATHING TREATMENTS - STARTED AEROBIKA AND INCENTIVE SPIROMETRY HYPOKALEMIA AND HYPOMAGNESEMIA - STABLE WILL CHECK LABS AND REPLACE NEEDED OFF OF PROTOCOL, CHECK LABS TOMORROW. HYPERPHOSPHATEMIA - REPEAT PHOS LAB TODAY HISTORY OF METASTATIC COLON CANCER - SUPPORTIVE CARE ONLY AT THIS TIME. - WILL HAVE TO RESCHEDULE HER APPT WITH DR. BUTTERFIELD IN [place] Clinical Quality Measures DVT/VTE Risk/Contraindication: Risk Factor Score Per Nursin RFS Level Per Nursing on Admit: 4+=Very High MANUEL CHAPIN MD Mar 30, 2019 09:03 POS
[2019-03-30] MEDS ORDERED: DEXMEDETOMIDINE INJECTION 1,000 MCG in NS (IVPB) 240 ML IV SCH (09:15)
[2019-03-30] MEDS: ANIDULAFUNGIN INJECTION 100 MG in NS (IVPB) 100 ML IV SCH (09:19)
--- NOTE | 2019-03-30 15:26 | Occ Therapy Progress Note ---
Therapy Progress Note Due to decrease in medical status, OT to discharge pt. Will need new orders ROSAS AGUILAR Mar 30, 2019 15:26 POS
[2019-03-31] VITALS (13 sets, daily range): BP systolic 105–139; BP diastolic 50–89
[2019-03-31] MEDS: PROPOFOL DRIP (ICU) 100 ML IV SCH ×2 (00:55→06:48)
[2019-03-31] MEDS: RT-ALBUTEROL/IPRATROPIUM 3 ML (DUONEB) VIAL INH SCH ×2 (02:25→06:36)
[2019-03-31] MEDS: ENOXAPARIN 40 MG/0.4 ML (LOVENOX) SYR SC SCH (02:49)
[2019-03-31] MEDS: PIPERACILLIN/TAZO 4.5 GM/NS 100 ML IV SCH ×2 (02:49)
[2019-03-31 03:22] LABS: ABG BASE EXCESS 3.3 MMOL/L (-2.5-2.5); ABG OXYGEN SATURATION 93 % (94-100); ABG PCO2 53 MMHG (35-45); ABG PO2 64 MMHG (79-93); ABG TCO2 30.8 MMOL/L (21.0-31.0)
[2019-03-31 03:23] LABS: ABG PH 7.35 (7.37-7.43); ALLENS TEST YES-POS; BASOPHILS % (AUTO) 1 % (0-10); EOSINOPHILS % (AUTO) 1 % (0-10); HEMATOCRIT 30 % (35-52); HEMOGLOBIN 9.5 G/DL (11.5-16.0); INSPIRED O2 40%; LYMPHOCYTES # (AUTO) 0.3 X 10^3 (1.0-4.0); LYMPHOCYTES % (AUTO) 8 % (12-44); MEAN CORPUSCULAR HEMOGLOBIN 30 PG (25-34); MEAN CORPUSCULAR HGB CONC 32 G/DL (32-36); MEAN CORPUSCULAR VOLUME 93 FL (80-99); MEAN PLATELET VOLUME 10.1 FL (7.4-10.4); MONOCYTES # (AUTO) 0.4 X 10^3 (0.0-1.0); MONOCYTES % (AUTO) 10 % (0-12); NEUTROPHILS % (AUTO) 81 % (42-75); PATIENT TEMP 35.2; PLATELET COUNT 195 10^3/uL (130-400); RED CELL DISTRIBUTION WIDTH 17.8 % (10.0-14.5); VENTILATOR YES; WHITE BLOOD COUNT 3.7 10^3/uL (4.3-11.0)
[2019-03-31 03:43] LABS: BUN/CREATININE RATIO 17; CALCIUM 8.3 MG/DL (8.5-10.1); CARBON DIOXIDE 24 MMOL/L (21-32); CHLORIDE 115 MMOL/L (98-107); CREATININE SERUM 0.53 MG/DL (0.60-1.30); GFR ESTIMATED > 60; GLUCOSE 136 MG/DL (70-105); MAGNESIUM 1.6 MG/DL (1.6-2.4); PHOSPHORUS 2.8 MG/DL (2.3-4.7); POTASSIUM 3.3 MMOL/L (3.6-5.0); SODIUM 150 MMOL/L (135-145); TRIGLYCERIDES 192 MG/DL (<150)
[2019-03-31] MEDS: fentaNYL 1,250 MCG/NS 250 ML DRIP IV SCH ×2 (04:00)
[2019-03-31] MEDS: methylPREDNISolone 40 MG/ML (Solu-MEDROL) VIAL IV SCH (05:39)
[2019-03-31] MEDS: POTASSIUM CL 10MEQ/50ML IVPB 50 ML IV SCH ×4 (05:39→08:43)
[2019-03-31] MEDS: MAGNESIUM 1 GM/100 ML IVPB 100 ML IV SCH ×2 (05:39→06:37)
[2019-03-31] MEDS ORDERED: POTASSIUM CL 10MEQ/50ML IVPB 50 ML IV SCH ×2 (06:00)
[2019-03-31] MEDS ORDERED: MAGNESIUM 1 GM/100 ML IVPB 100 ML IV SCH ×2 (06:00)
[2019-03-31] MEDS ORDERED: KCL 20 MEQ TAB (K-DUR) PO SCH ×2 (06:00)
--- NOTE | 2019-03-31 06:13 | Pulmonary Progress Note ---
Sepsis Event Evaluation Height, Weight, BMI Height: 5'6.00" Weight: 147lbs. 0.0oz. 66.736691vw; 24.64 BMI Method:Stated Exam Exam Vital Signs Date Time Temp Pulse Resp B/P (MAP) Pulse Ox O2 Delivery O2 Flow Rate FiO2 03/31/19 05:00 61 22 119/68 (85) 93 Mechanical Ventilator 40.00 03/31/19 04:00 64 21 116/67 (83) 92 Mechanical Ventilator 40.00 03/31/19 04:00 Mechanical Ventilator 40.00 03/31/19 04:00 35.4 03/31/19 03:00 70 22 120/69 (86) 92 Mechanical Ventilator 40.00 03/31/19 02:52 35.2 03/31/19 02:26 66 22 92 45 03/31/19 02:00 62 21 136/77 (96) 93 Mechanical Ventilator 40.00 03/31/19 01:00 62 03/31/19 01:00 62 21 133/76 (95) 93 Mechanical Ventilator 40.00 03/31/19 00:55 Mechanical Ventilator 03/31/19 00:00 35.0 03/31/19 00:00 63 21 139/78 (98) 92 Mechanical Ventilator 40.00 03/31/19 00:00 Mechanical Ventilator 40.00 03/30/19 23:00 64 21 149/77 (101) 92 Mechanical Ventilator 40.00 03/30/19 22:45 Mechanical Ventilator 40.00 03/30/19 22:02 55 22 95 45 03/30/19 22:00 56 21 160/82 (108) 95 Mechanical Ventilator 45.00 03/30/19 21:12 Mechanical Ventilator 03/30/19 21:00 56 21 163/83 (109) 95 Mechanical Ventilator 45.00 03/30/19 20:10 Mechanical Ventilator 45.00 03/30/19 20:00 35.3 03/30/19 20:00 Mechanical Ventilator 50.00 03/30/19 20:00 35.3 03/30/19 20:00 59 21 162/86 (111) 98 Mechanical Ventilator 50.00 03/30/19 19:00 Mechanical Ventilator 50.00 03/30/19 19:00 61 03/30/19 19:00 61 22 157/84 (108) 98 Mechanical Ventilator 50.00 03/30/19 18:13 153/83 03/30/19 18:03 64 22 97 50 03/30/19 18:00 60 22 157/86 (109) 98 Mechanical Ventilator 70.00 03/30/19 17:00 61 22 163/87 (112) 98 Mechanical Ventilator 70.00 03/30/19 16:24 Mechanical Ventilator 50 03/30/19 16:00 61 21 162/86 (111) 97 Mechanical Ventilator 70.00 03/30/19 16:00 35.6 03/30/19 16:00 35.6 03/30/19 15:00 58 22 167/90 (115) 98 Mechanical Ventilator 70.00 03/30/19 14:33 166/90 03/30/19 14:00 64 21 162/88 (112) 98 Mechanical Ventilator 70.00 03/30/19 13:15 66 22 96 50 03/30/19 13:00 67 03/30/19 13:00 67 21 150/86 (107) 99 Mechanical Ventilator 70.00 03/30/19 12:15 Mechanical Ventilator 60 03/30/19 12:00 35.6 03/30/19 12:00 72 22 142/83 (102) 99 Mechanical Ventilator 70.00 03/30/19 12:00 35.6 03/30/19 11:29 137/81 03/30/19 11:00 76 21 132/78 (96) 99 Mechanical Ventilator 70.00 03/30/19 10:00 86 22 122/67 (85) 98 Mechanical Ventilator 70.00 03/30/19 09:34 84 22 98 60 03/30/19 09:00 87 21 111/62 (78) 97 Mechanical Ventilator 70.00 03/30/19 08:00 96 21 115/63 (80) 94 Mechanical Ventilator 70.00 03/30/19 08:00 Mechanical Ventilator 60 03/30/19 08:00 36.5 03/30/19 08:00 114/63 03/30/19 07:00 93 03/30/19 07:00 93 15 132/67 (88) 99 Mechanical Ventilator 70.00 03/30/19 06:33 93 24 97 80 I & O 03/31/19 07:00 Intake Total 3305 ml Output Total 3175 ml Balance 130 ml Height & Weight Height: 5'6.00" Weight: 147lbs. 0.0oz. 66.300882tw; 24.64 BMI Method:Stated General Appearance: Chronically ill, Mild Distress HEENT: PERRL/EOMI, Other (wearing BiPAP mask) Respiratory: Decreased Breath Sounds, Other (tachypnea) Cardiovascular: Regular Rate, Rhythm, No Edema, No Murmur Capillary Refill: Less Than 3 Seconds Gastrointestinal: normal bowel sounds, non tender Extremity: Normal Inspection, Non Tender, No Pedal Edema Neurologic/Psychiatric: Alert, Oriented x3 Skin: Normal Color, Warm/Dry Results Lab Laboratory Tests 03/30/19 03:25 03/31/19 02:55 Assessment/Plan Assessment/Plan Acute on chronic respiratory failure -CXR appears improved -Continue ventilator care -Propofol, Fentanyl Add Precedex -Continue solumedrol Bilateral PNA - zosyn and Eraxis -Louie cultures -IVF -will start Solumedrol - secondary to inflammatory changes on CT of chest Hypotension -improved UTI with enterococcus - Hypernatremia free water 250cc Q 4hours -Monitored Metastatic lung cancer -Last chemo 03/21 Elevated LFTs -monitor FOREIGN BERNSTEIN DO Mar 31, 2019 06:13 POS
[2019-03-31] MEDS: KCL 10 MEQ TAB (MICRO K) PO SCH (06:37)
--- NOTE | 2019-03-31 07:48 | Physical Therapy Progress Note ---
Therapy Progress Note Patient is currently sedated and intubated. PT will require new orders when patient is deemed medically stable to actively participate with PT. MIN HUDSON PT Mar 31, 2019 07:48 POS
--- NOTE | 2019-03-31 08:09 | Diagnostic Imaging Report ---
EXAMINATION: Chest 1 view HISTORY: Pneumonia COMPARISON: 03/30/2019 FINDINGS: Endotracheal tube tip terminates 4 cm above the benjamin. Gastric tube tip terminates below the field of view. Left subclavian port catheter tip terminates in the superior vena cava. Diffuse interstitial thickening appears similar to prior exam and is most suggestive of moderate pulmonary edema. Left base consolidation is improving likely reflecting pneumonia. No pneumothorax. Heart size is normal. No pleural effusion. IMPRESSION: 1. Stable moderate pulmonary edema. 2. Improving left base consolidation suggestive of pneumonia. Dictated by: Dictated on workstation # [id number]
[2019-03-31] MEDS: LORazepam INJ 2 MG/ML (ATIVAN) VIAL IVP PRN ×2 (08:37→10:01)
[2019-03-31] MEDS: guaiFENesin (MUCINEX) 600 MG TAB PO SCH (08:40)
[2019-03-31] MEDS: PANTOPRAZOLE 40 MG (PROTONIX) VIAL IV SCH (08:40)
--- NOTE | 2019-03-31 08:54 | Progress Note ---
Subjective Date Seen by a Provider: Mar 31, 2019 Time Seen by a Provider: 08:40 Subjective/Events-last exam PT DECLINING RAPIDLY WITH BP IN THE 60/40 RANGE, OXYGEN ON VENT OF 71%, PHONE CALL TO JACOB - NO ANSWER, CALLED JONATAN - SECOND ON HER DPOA LIST - AND HE CALLED GRANDSON TO NOTIFY HIM OF MY CONCERN FOR HER ILLNESS WORSENING. JACOB CALLED ME AND CONFIRMED THAT HE WANTED HER TO BE TAKEN OFF OF THE VENTILATOR AND SHE SHORTLY THEREAFTER. Review of Systems DECLINED Objective Exam Last Set of Vital Signs Vital Signs Date Time Temp Pulse Resp B/P (MAP) Pulse Ox O2 Delivery O2 Flow Rate FiO2 03/31/19 07:53 Mechanical Ventilator 50 03/31/19 06:38 50.00 03/31/19 06:36 56 22 94 03/31/19 06:00 130/67 (88) 03/31/19 04:00 35.4 Capillary Refill : Less Than 3 SecondsLess Than 3 Seconds I&O Intake and Output 03/31/19 00:00 Intake Total 3270 ml Output Total 2850 ml Balance 420 ml Intake Oral 850 ml IV Total 2420 ml Output Urine Total 2300 ml Gastric Drainage Total 550 ml General: Other (OBTUNDED) Lungs: Other (MINIMAL MOVEMENT OF AIR) Abdomen: Other (NO BOWEL SOUNDS) Psych/Mental Status: Other (OBTUNDED) Results Lab Laboratory Tests 03/30/19 09:24: Iron Level 59, Total Iron Binding Capacity 219L, Unsaturated Iron Binding Capacity 160, Transferrin % Saturation 27 03/30/19 11:58: Glucometer 164H 03/30/19 17:50: Glucometer 164H 03/31/19 00:18: Glucometer 148H 03/31/19 02:55: White Blood Count 3.7L, Red Blood Count 3.19L, Hemoglobin 9.5L, Hematocrit 30L, Mean Corpuscular Volume 93, Mean Corpuscular Hemoglobin 30, Mean Corpuscular Hemoglobin Concent 32, Red Cell Distribution Width 17.8H, Platelet Count 195, Mean Platelet Volume 10.1, Neutrophils (%) (Auto) 81H, Lymphocytes (%) (Auto) 8L , Monocytes (%) (Auto) 10, Eosinophils (%) (Auto) 1, Basophils (%) (Auto) 1, Neutrophils # (Auto) 3.0, Lymphocytes # (Auto) 0.3L, Monocytes # (Auto) 0.4, Eosinophils # (Auto) 0.0, Basophils # (Auto) 0.0, Blood Gas Puncture Site RIGHT RADIAL, Blood Gas Patient Temperature 35.2, Arterial Blood pH 7.35L, Arterial Blood Partial Pressure CO2 53H, Arterial Blood Partial Pressure O2 64L, Arterial Blood HCO3 29H, Arterial Blood Total CO2 30.8, Arterial Blood Oxygen Saturation 93L, Arterial Blood Base Excess 3.3H, Dewey Test YES-POS, Blood Gas Ventilator Setting YES, Blood Gas Inspired Oxygen 40%, Sodium Level 150H, Potassium Level 3.3L, Chloride Level 115H, Carbon Dioxide Level 24, Anion Gap 11, Blood Urea Nitrogen 9, Creatinine 0.53L, Estimat Glomerular Filtration Rate > 60, BUN/Creatinine Ratio 17, Glucose Level 136H, Calcium Level 8.3L, Phosphorus Level 2.8, Magnesium Level 1.6, Triglycerides Level 192H 03/31/19 06:52: Glucometer 161H Microbiology 03/25/19 Blood Culture - Preliminary, Resulted No growth 03/26/19 Influenza Types A,B Antigen (JASON) - Final, Complete 03/25/19 Urine Culture - Final, Complete Enterococcus faecalis Assessment/Plan Assessment/Plan Assess & Plan/Chief Complaint HEALTH CARE ASSOCIATED PNEUMONIA ACUTE RESPIRATORY FAILURE HYPOKALEMIA HYPOMAGNESEMIA HISTORY OF METASTATIC COLON CANCER HEALTH CARE ASSOCIATED PNEUMONIA WITH ACUTE RESPIRATORY FAILURE PT TODAY AT 1055AM Clinical Quality Measures DVT/VTE Risk/Contraindication: Risk Factor Score Per Nursin RFS Level Per Nursing on Admit: 4+=Very High MANUEL CHAPIN MD Mar 31, 2019 08:54 POS
[2019-03-31] MEDS: ANIDULAFUNGIN INJECTION 100 MG in NS (IVPB) 100 ML IV SCH (09:08)
[2019-03-31] MEDS ORDERED: D5 1/2 NS W/KCL 20 MEQ/L 1,000 ML IV ONE (09:12)
[2019-03-31] MEDS ORDERED: D5 1/2 NS W/KCL 20 MEQ/L 1,000 ML IV SCH (09:30)
--- NOTE | 2019-03-31 09:40 | Diagnostic Imaging Report ---
INDICATION: Decreased bowel sounds. COMPARISON: September 21, 2018 TECHNIQUE: Single radiograph of the abdomen dated March 31, 2019. FINDINGS: Enteric catheter is present with the distal tip within the stomach. Chain suture is present overlying the midline pelvis. A few surgical clips are again identified overlying the left abdomen and pelvis. Sclerotic focus overlying the left pelvis is stable from the prior examination. A loop of bowel within the right pelvis measures up to 5.3 cm. It is unclear whether this relates to large or small bowel. No additional dilated bowel. No free air. No acute osseous abnormality. IMPRESSION: Prominent loop of gas-filled bowel within the right pelvis. It is unclear whether this relates to large or small bowel. If this relates to the large bowel, this would be within normal limits. However, if this relates to small bowel, this would be dilated and could relate to focal ileus or developing bowel obstruction. No evidence of free air. Postsurgical changes. If there is clinical concern for developing bowel obstruction, then further evaluation with a CT of the abdomen and pelvis would be recommended. Dictated by: Dictated on workstation # [id number]
[2019-03-31 09:47] LABS: ALBUMIN 2.7 GM/DL (3.2-4.5); BILIRUBIN,DIRECT 0.5 MG/DL (0.0-0.3); BILIRUBIN,INDIRECT 0.3 MG/DL; BILIRUBIN,TOTAL 0.8 MG/DL (0.1-1.0); TOTAL PROTEIN 4.9 GM/DL (6.4-8.2)
[2019-03-31] MEDS ORDERED: ARTIFICAL TEARS 0.4 ML UNIT DOSE (REFRESH PLUS) OU PRN (10:30)
[2019-03-31] MEDS ORDERED: BISACODYL 10 MG SUPP (DULCOLAX) PR PRN (10:30)
[2019-03-31] MEDS ORDERED: LORazepam INJ 2 MG/ML (ATIVAN) VIAL IVP PRN (10:30)
[2019-03-31] MEDS ORDERED: GLYCOPYRROLATE 0.2 MG/ML (ROBINUL) 2 ML VIAL IV PRN (10:30)
[2019-03-31] MEDS ORDERED: fentaNYL INJECTION 100 MCG/2 ML AMP IVP PRN (10:30)
[2019-03-31] MEDS ORDERED: ACETAMINOPHEN 650 MG SUPP (TYLENOL) PR PRN (10:30)
--- NOTE | 2019-03-31 11:07 | Discharge Summary ---
Discharge Summary Date of Admission Mar 25, 2019 at 21:17 Date of Discharge 03/31/19 Admission Diagnosis HEALTH CARE ASSOCIATED PNEUMONIA ACUTE RESPIRATORY FAILURE HYPOKALEMIA HYPOMAGNESEMIA HISTORY OF METASTATIC COLON CANCER Consults/Procedures Consulations DR. BERNSTEIN Comfort Measures/ End of Life Care: Comfort Measures Advance Care discuss with: patient, family member (s) Plan: identified end-of-life goals Cardiopulmonary Arrest: Asystole Discharge Diagnosis (1) HCAP (healthcare-associated pneumonia) Status: Acute (2) Acute respiratory failure with hypoxia Status: Acute (3) Metastatic colon cancer in female Status: Chronic (4) Electrolyte abnormality Status: Acute MANUEL CHAPIN MD Mar 31, 2019 11:07 POS
== END 2019-03-31 18:04 | disposition expired | DRG 208 ==
LOC: EDUNIT# 17:53 → ER 17:55 → ICU 21:17 → 4TH 03-27 16:50 → ICU 03-29 17:44
PROVIDERS: ADMIT Family Medicine; ATTEND Family Medicine
PROC: 5A1945Z Respiratory Ventilation, 24-96 Consecutive Hours (ICD-10-PCS; principal; 2019-03-29)
PROC: 0BH17EZ Insertion of Endotracheal Airway into Trachea, Via Natural or Artificial Opening (ICD-10-PCS; 2019-03-29)
PROC: 4A133B1 Monitoring of Arterial Pressure, Peripheral, Percutaneous Approach (ICD-10-PCS; 2019-03-29)
PROC: 4A133J1 Monitoring of Arterial Pulse, Peripheral, Percutaneous Approach (ICD-10-PCS; 2019-03-29)
PROC: 03HY32Z Insertion of Monitoring Device into Upper Artery, Percutaneous Approach (ICD-10-PCS; 2019-03-29)
DX: J18.9 Pneumonia, unspecified organism (principal); J96.21 Acute and chronic respiratory failure with hypoxia; C78.00 Secondary malignant neoplasm of unspecified lung; C78.7 Secondary malignant neoplasm of liver and intrahepatic bile duct; C79.60 Secondary malignant neoplasm of unspecified ovary; R64 Cachexia; C18.9 Malignant neoplasm of colon, unspecified; E87.0 Hyperosmolality and hypernatremia; N39.0 Urinary tract infection, site not specified; F32.9 Major depressive disorder, single episode, unspecified; Z66 Do not resuscitate; E87.6 Hypokalemia; E83.42 Hypomagnesemia; Z85.038 Personal history of other malignant neoplasm of large intestine; Z90.49 Acquired absence of other specified parts of digestive tract; I46.9 Cardiac arrest, cause unspecified; E78.00 Pure hypercholesterolemia, unspecified; F40.240 Claustrophobia; Z68.24 Body mass index [BMI] 24.0-24.9, adult; B95.2 Enterococcus as the cause of diseases classified elsewhere
CPT/HCPCS: 36415; 36600; 71045; 71275; 74018; 80048; 80053; 80076; 81000; 82728; 82805; 82962; 83540; 83605; 83735; 83880; 84100; 84478; 84484; 85007; 85025; 85027; 85379; 85610; 85730; 87040; 87070; 87077; 87081; 87088; 87186; 87205; 87804; 93005; 94002; 94640; 94660; 94664; 94760; 94799; 96361; 96365; 96375